=== PATIENT | male | born 1985 | race African-American/Black ===

== ENCOUNTER 2016-03-03 04:31 | Emergency (ER) | payer MEDICARE, OTHER ==
[~2016-03-03] VITALS: Ht 180.3 cm; Wt 91.0 kg
[~2016-03-03 04:31] MED LIST: ALBU6.7H INH; DOXY100C PO; LORA-474 PO; RISP1 PO
[2016-03-03 04:36] VITALS: BP 132/88; PULSE 74; RESP 16; TEMP 98.2; O2SAT 100
--- NOTE | 2016-03-03 04:55 | PD ---
HPI Chief Complaint: Medication Refill Request Time Seen by Provider: 04:52 Travel History International Travel<30 days: No Contact w/Intl Traveler<30days: No Traveled to known affect area: No History of Present Illness HPI 30-year-old black male presents to emergency department on a voluntary basis requesting psychological evaluation and refill of his medications. He states that he has not been taking any medications currently. He states that he does not know what his medicines are but he would like to get a refill. He states that his medications are typically prescribed by the doctors here at our psych department. He normally is supposed to follow-up with [facility] but typically does not. He denies any suicidal homicidal ideation. No toxic ingestion. He states that he has not been sleeping and he is having variations in mood. He does smoke cigarettes and drink alcohol. He does do drugs on occasion. PFSH Past Medical History Anxiety: No Cancer: No Cardiovascular Problems: Yes (V-FIB IN PAST) Diabetes: No Diminished Hearing: No Endocrine: No Gastrointestinal Disorders: No Genitourinary: No Immune Disorder: No Implanted Vascular Access Dvce: No Musculoskeletal: No Neurologic: No Psychiatric: Yes (ELIZALDE ACTED IN THE PAST) Respiratory: No Immunizations Current: Yes Schizophrenia: Yes Past Surgical History Other Surgery: No Social History Alcohol Use: Yes (MONTHLY) Tobacco Use: Yes (PPD) Substance Use: No Allergies-Medications (Allergen,Severity, Reaction): Coded Allergies: Abilify (Verified Allergy, Severe, SEIZURE, 01/21/16) Reported Meds & Prescriptions Reported Meds & Active Scripts Active Ativan (Lorazepam) 1 Mg Tab 1 Mg PO DAILY PRN Review of Systems Except as stated in HPI: all other systems reviewed are Neg Physical Exam Narrative GENERAL: Well-nourished, well-developed patient. SKIN: Warm and dry. HEAD: Normocephalic and atraumatic. EYES: No scleral icterus. No injection or drainage. ENT: No nasal drainage noted. Mucous membranes pink. Airway patent. NECK: Supple, trachea midline. Moves head freely without obvious discomfort. CARDIOVASCULAR: Regular rate and rhythm without murmurs, gallops, or rubs. RESPIRATORY: Breath sounds equal bilaterally. No accessory muscle use. GASTROINTESTINAL: Abdomen soft, non-tender, nondistended. EXTREMITIES: No cyanosis or edema. BACK: Nontender without obvious deformity. No CVA tenderness. NEURO: Patient is alert and oriented. no sensorimotor deficits. Nonfocal. Normal speech. PSYCH: No delusions. No auditory or visual hallucinations. Data Data Last Documented VS Vital Signs Date Time Temp Pulse Resp B/P Pulse Ox O2 Delivery O2 Flow Rate FiO2 03/03/16 04:36 98.2 74 16 132/88 100 Orders Psych Screen (03/03/16 04:52) MDM Medical Decision Making Medical Screen Exam Complete: Yes Emergency Medical Condition: Yes Medical Record Reviewed: Yes Differential Diagnosis MDM: High Differential diagnoses: Schizophrenia, schizoaffective disorder, bipolar, anxiety, depression, adjustment reaction, mood disorder NOS, ODD, depressive disorder NOS, dementia, dementia with agitation, psychosis NOS, substance induced mood disorder, intermittent explosive disorder, Asperger syndrome, infection,electrolyte abnormality, malingering. Narrative Course Mental health screening discussed with the patient. Psychiatric screen ordered. The patient is been medically cleared. The patient will be seen by the psych crisis in the morning. This is schizoaffective disorder Diagnosis Primary Impression: SCHIZOAFFECTIVE DISORDER, UNSPECIFIED Condition: Stable Marcelino Vale Mar 03, 2016 04:54
[2016-03-03 07:00] VITALS: BP 118/74; PULSE 77; RESP 16; TEMP 98.2; O2SAT 99
[2016-03-03 15:32] VITALS: BP 128/78
== END 2016-03-03 15:43 | disposition home or self-care (01) ==
LOC: NEPB 04:31
DX: F25.9 Schizoaffective disorder, unspecified (principal); F17.210 Nicotine dependence, cigarettes, uncomplicated
CPT/HCPCS: 99283

== ENCOUNTER 2016-03-12 06:01 | Emergency (ER) | payer MEDICARE, OTHER ==
[~2016-03-12] VITALS: Ht 180.3 cm; Wt 88.0 kg
[~2016-03-12 06:01] MED LIST changes: -ALBU6.7H INH; -DOXY100C PO; -RISP1 PO
[2016-03-12 06:03] VITALS: BP 126/78; PULSE 74; RESP 14; TEMP 97.5; O2SAT 97
--- NOTE | 2016-03-12 06:28 | PD ---
HPI Chief Complaint: Medical Clearance Time Seen by Provider: 06:24 Travel History International Travel<30 days: No Contact w/Intl Traveler<30days: No Traveled to known affect area: No History of Present Illness HPI 30-year-old black male resents emergency department requesting a refill of medications. He states that he has history of schizoaffective disorder. The patient states that he takes Haldol, and Cogentin. He states that he has no money to purchase his medications. His feet hurt too much to walk to [facility]. He is currently homeless. He does admit to smoking cigarettes, drinking alcohol and smoking marijuana before coming in [facility]. He states that he's having problems sleeping. He's having racing thoughts. He feels disorganized. No suicidal or homicidal ideation. PFSH Past Medical History Anxiety: No Cancer: No Diabetes: No Diminished Hearing: No Endocrine: No Gastrointestinal Disorders: No Genitourinary: No Immune Disorder: No Implanted Vascular Access Dvce: No Musculoskeletal: No Neurologic: No Psychiatric: Yes (TONIO ACTED IN THE PAST) Respiratory: No Immunizations Current: Yes Schizophrenia: Yes Past Surgical History Surgical History: No Previous Surgery Other Surgery: No Social History Alcohol Use: Yes (MONTHLY) Tobacco Use: Yes (PPD) Substance Use: Yes Allergies-Medications (Allergen,Severity, Reaction): Coded Allergies: Abilify (Verified Allergy, Severe, SEIZURE, 03/12/16) Reported Meds & Prescriptions Reported Meds & Active Scripts Active Ativan (Lorazepam) 1 Mg Tab 1 Mg PO DAILY PRN Review of Systems Except as stated in HPI: all other systems reviewed are Neg Physical Exam Narrative GENERAL: Well-nourished, well-developed patient. Patient smells of marijuana and appears under the influence of drugs. SKIN: Warm and dry. HEAD: Normocephalic and atraumatic. EYES: No scleral icterus. No injection or drainage. ENT: No nasal drainage noted. Mucous membranes pink. Airway patent. NECK: Supple, trachea midline. Moves head freely without obvious discomfort. CARDIOVASCULAR: Regular rate and rhythm without murmurs, gallops, or rubs. RESPIRATORY: Breath sounds equal bilaterally. No accessory muscle use. GASTROINTESTINAL: Abdomen soft, non-tender, nondistended. EXTREMITIES: No cyanosis or edema. BACK: Nontender without obvious deformity. No CVA tenderness. NEURO: Patient is alert and oriented. no sensorimotor deficits. Nonfocal. Normal speech. PSYCH: No delusions. No auditory or visual hallucinations. Data Data Last Documented VS Vital Signs Date Time Temp Pulse Resp B/P Pulse Ox O2 Delivery O2 Flow Rate FiO2 03/12/16 06:03 97.5 74 14 126/78 97 Room Air MDM Medical Decision Making Medical Screen Exam Complete: Yes Emergency Medical Condition: Yes Medical Record Reviewed: Yes Differential Diagnosis MDM: High Differential diagnoses: Schizophrenia, schizoaffective disorder, bipolar, anxiety, depression, adjustment reaction, mood disorder NOS, ODD, depressive disorder NOS, dementia, dementia with agitation, psychosis NOS, substance induced mood disorder, intermittent explosive disorder, Asperger syndrome, infection,electrolyte abnormality, malingering. Narrative Course The patient is not suicidal or homicidal. Requesting a refill of medicines. He admittedly states that he had been drinking alcohol and smoking marijuana before coming in. He states that he has no way to get to [facility]. His feet hurt. I spoke with Stacy in the psych department that she is going to come down and give the patient information regarding our [facility] here which is only one block away. They can assist with medications. This is schizoaffective disorder, homelessness, substance abuse Diagnosis Primary Impression: SCHIZOAFFECTIVE DISORDER, UNSPECIFIED Additional Impressions: Homelessness Substance abuse Patient Instructions: General Instructions Additional Instructions: Rest. Follow-up with the recommendations of the psych screener. Med/Other Pt SpecificInfo: No Meds Exist/No RX given Disposition: 01 DISCHARGE HOME Condition: Stable Marcelino Vale Mar 12, 2016 06:28
== END 2016-03-12 06:56 | disposition home or self-care (01) ==
LOC: NEPB 06:01
DX: F25.9 Schizoaffective disorder, unspecified (principal); F19.10 Other psychoactive substance abuse, uncomplicated; F17.200 Nicotine dependence, unspecified, uncomplicated; Z59.0 Homelessness; Z79.899 Other long term (current) drug therapy
CPT/HCPCS: 99283

== ENCOUNTER 2016-03-19 00:17 | Emergency (ER) | payer MEDICARE, OTHER ==
[~2016-03-19] VITALS: Ht 182.9 cm; Wt 86.0 kg
[2016-03-19 00:21] VITALS: BP 166/98; PULSE 92; RESP 16; TEMP 97.8; O2SAT 99
[2016-03-19] MEDS ORDERED: IBUPROFEN 600 MG TAB PO ONE (01:15)
[2016-03-19] MEDS ORDERED: IBUP400T20 PO (01:19)
--- NOTE | 2016-03-19 01:19 | PD ---
HPI Chief Complaint: Medical Clearance Time Seen by Provider: 01:14 Travel History International Travel<30 days: No Contact w/Intl Traveler<30days: No Traveled to known affect area: No History of Present Illness HPI 30-year-old man who presents to the emergency department complaining that he's been having severe pain all over and memory problems ongoing for the past 2-3 weeks. He has a history of schizophrenia. Off his medications for some time. He states he has not been following up with his psychiatrist. History Past Medical History Narrative Medical Schizophrenia Past Surgical History Surgical History: No Previous Surgery Social History Alcohol Use: Yes (daily) Tobacco Use: Yes (1 ppd) Allergies-Medications (Allergen,Severity, Reaction): Coded Allergies: Abilify (Verified Allergy, Severe, SEIZURE, 03/19/16) Reported Meds & Prescriptions Reported Meds & Active Scripts Active Active Prescriptions or Reported Medications Unobtainable Review of Systems Except as stated in HPI: all other systems reviewed are Neg Physical Exam Narrative GENERAL: 30-year-old man, no acute distress. SKIN: Warm and dry. CARDIOVASCULAR: Regular rate and rhythm. No murmur appreciated. RESPIRATORY: No accessory muscle use. Clear to auscultation. Breath sounds equal bilaterally. GASTROINTESTINAL: Abdomen soft, non-tender, nondistended. Hepatic and splenic margins not palpable. MUSCULOSKELETAL: No obvious deformities. No edema. NEUROLOGICAL: Awake and alert. No obvious cranial nerve deficits. Motor grossly within normal limits. Normal speech. PSYCHIATRIC: Appropriate mood and affect; insight and judgment normal. Not responding to internal stimuli. Data Data Last Documented VS Vital Signs Date Time Temp Pulse Resp B/P Pulse Ox O2 Delivery O2 Flow Rate FiO2 03/19/16 00:21 97.8 92 16 166/98 99 Room Air Orders Ibuprofen (Motrin) (03/19/16 01:15) MDM Medical Decision Making Medical Screen Exam Complete: Yes Emergency Medical Condition: Yes Differential Diagnosis Foot pain, schizophrenia, other Narrative Course Medical decision making 30 year-old man, complaining of pain all over especially in his feet. He has foot pain from walking, and poor foot hygiene. He has a schizoaffective disorder. Recommend outpatient follow-up with [facility]. Diagnosis Primary Impression: Foot pain Qualified Code: M79.671 - Pain in both feet Additional Impression: SCHIZOAFFECTIVE DISORDER, UNSPECIFIED Referrals: [facility] week Additional Instructions: Take ibuprofen as needed for foot pain. Follow-up with [facility] for further evaluation and treatment of your schizophrenia. Med/Other Pt SpecificInfo: Prescription(s) given Scripts Ibuprofen 400 Mg [id number] Mg PO Q8H PRN (PAIN SCALE 1 TO 10) #14 TAB Ref 0 Prov:Roderick Sanon MD 03/19/16 Disposition: 01 DISCHARGE HOME Condition: Stable Roderick Sanon MD Mar 19, 2016 01:19
== END 2016-03-19 01:30 | disposition home or self-care (01) ==
LOC: NEPC 00:17
DX: M79.671 Pain in right foot (principal); M79.672 Pain in left foot; F25.9 Schizoaffective disorder, unspecified; F17.210 Nicotine dependence, cigarettes, uncomplicated
CPT/HCPCS: 99283

== ENCOUNTER 2016-03-25 01:39 | Emergency (ER) | payer MEDICARE, OTHER ==
[~2016-03-25] VITALS: Ht 182.9 cm; Wt 92.0 kg
[~2016-03-25 01:39] MED LIST changes: +IBUP400T20 PO; -LORA-474 PO
[2016-03-25 01:41] VITALS: BP 142/103; PULSE 88; RESP 18; TEMP 97.8; O2SAT 97
[2016-03-25 02:23] LABS: MEAN CORPUSCULAR HGB CONC 36.2 % (32.0-36.0)
--- NOTE | 2016-03-25 02:25 | PD ---
HPI Chief Complaint: Psychiatric Symptoms Time Seen by Provider: 02:25 Travel History International Travel<30 days: No Contact w/Intl Traveler<30days: No Traveled to known affect area: No History of Present Illness HPI 30-year-old male with history of schizoaffective disorder presents to the emergency department voluntarily for psychiatric evaluation. Patient claims that he is being bullied and "gas lit" people who were supposed to be his friends. He would also like a DNA test. Denies suicidal or homicidal ideations. States that he needs a psychiatric evaluation. Has been off his psychiatric medications. Denies any acute medical needs. PFSH Past Medical History Anxiety: No Cancer: No Diabetes: No Diminished Hearing: No Endocrine: No Gastrointestinal Disorders: No Genitourinary: No Immune Disorder: No Implanted Vascular Access Dvce: No Musculoskeletal: No Neurologic: No Psychiatric: Yes Respiratory: No Immunizations Current: Yes Schizophrenia: Yes Past Surgical History Surgical History: No Previous Surgery Other Surgery: No Social History Alcohol Use: Yes (daily) Tobacco Use: Yes (1 ppd) Substance Use: Yes (marijaunia, cocaine several times a day) Allergies-Medications (Allergen,Severity, Reaction): Coded Allergies: Abilify (Verified Allergy, Severe, SEIZURE, 03/25/16) Reported Meds & Prescriptions Reported Meds & Active Scripts Active Review of Systems Except as stated in HPI: all other systems reviewed are Neg Physical Exam Narrative GENERAL: Well-nourished male patient, ambulatory and in no acute distress SKIN: Warm and dry. HEAD: Atraumatic. Normocephalic. EYES: Pupils equal and round. No scleral icterus. No injection or drainage. ENT: No nasal bleeding or discharge. Mucous membranes pink and moist. NECK: Trachea midline. No JVD. CARDIOVASCULAR: Regular rate and rhythm. No murmur appreciated. RESPIRATORY: No accessory muscle use. Clear to auscultation. Breath sounds equal bilaterally. GASTROINTESTINAL: Abdomen soft, non-tender, nondistended. Hepatic and splenic margins not palpable. MUSCULOSKELETAL: No obvious deformities. No clubbing. No cyanosis. No edema. NEUROLOGICAL: Awake and alert. No obvious cranial nerve deficits. Motor grossly within normal limits. Normal speech. PSYCHIATRIC: Bizarre behavior with paranoid tendencies Data Data Last Documented VS Vital Signs Date Time Temp Pulse Resp B/P Pulse Ox O2 Delivery O2 Flow Rate FiO2 03/25/16 02:07 16 03/25/16 01:41 97.8 88 142/103 97 Room Air Orders Complete Blood Count With Diff (03/25/16 02:21) Basic Metabolic Panel (Bmp) (03/25/16 02:21) Psych Screen (03/25/16 02:21) Drug Screen, Random Urine (03/25/16 02:21) Alcohol (Ethanol) (03/25/16 02:21) Olanzapine Odt (Zyprexa Zydis Odt) (03/25/16 03:45) Labs Laboratory Tests Test 03/25/16 02:28 White Blood Count 5.0 TH/MM3 Red Blood Count 4.16 MIL/MM3 Hemoglobin 14.1 GM/DL Hematocrit 39.0 % Mean Corpuscular Volume 93.8 FL Mean Corpuscular Hemoglobin 34.0 PG Mean Corpuscular Hemoglobin 36.2 % Concent Red Cell Distribution Width 12.1 % Platelet Count 322 TH/MM3 Mean Platelet Volume 7.5 FL Neutrophils (%) (Auto) 51.4 % Lymphocytes (%) (Auto) 38.3 % Monocytes (%) (Auto) 8.9 % Eosinophils (%) (Auto) 0.8 % Basophils (%) (Auto) 0.6 % Neutrophils # (Auto) 2.6 TH/MM3 Lymphocytes # (Auto) 1.9 TH/MM3 Monocytes # (Auto) 0.4 TH/MM3 Eosinophils # (Auto) 0.0 TH/MM3 Basophils # (Auto) 0.0 TH/MM3 CBC Comment AUTO DIFF Differential Comment AUTO DIFF CONFIRMED Platelet Estimate NORMAL Platelet Morphology Comment NORMAL Red Cell Morphology Comment NORMAL Sodium Level 137 MEQ/L Potassium Level 3.5 MEQ/L Chloride Level 104 MEQ/L Carbon Dioxide Level 25.3 MEQ/L Anion Gap 8 MEQ/L Blood Urea Nitrogen 15 MG/DL Creatinine 0.98 MG/DL Estimat Glomerular Filtration 110 ML/MIN Rate Random Glucose 91 MG/DL Calcium Level 9.0 MG/DL Urine Opiates Screen NEG Urine Barbiturates Screen NEG Urine Amphetamines Screen POS Urine Benzodiazepines Screen NEG Urine Cocaine Screen NEG Urine Cannabinoids Screen POS Ethyl Alcohol Level LESS THAN 3 MG/DL MDM Medical Decision Making Medical Screen Exam Complete: Yes Emergency Medical Condition: Yes Medical Record Reviewed: Yes Differential Diagnosis Mood disorder versus personality disorder versus adjustment reaction disorder versus substance abuse Narrative Course Old male presents to emergency department requesting psychiatric evaluation. Patient appears without distress. He is paranoid and with bizarre behavior but nonthreatening. Denies any suicidal homicidal ideations. CBC and BMP are without acute concern. Toxicology is positive for cannabinoids and amphetamines. Patient is medically cleared to undergo psychiatric screening for further evaluation and disposition. Mental health screening discussed with the patient. Psychiatric screen ordered. Diagnosis Primary Impression: SCHIZOAFFECTIVE DISORDER, UNSPECIFIED Additional Impression: Substance abuse Condition: Stable Brittany Hines Mar 25, 2016 02:25
[2016-03-25 02:55] LABS: AUTOMATED NEUTROPHIL # 2.6 TH/MM3 (1.8-7.7); BASOPHIL % 0.6 % (0.0-2.0); EOSINOPHIL % 0.8 % (0.0-4.0); LYMPH % 38.3 % (9.0-44.0); LYMPHOCYTE # 1.9 TH/MM3 (1.0-4.8); MEAN CELL VOLUME 93.8 FL (80.0-100.0); MONO % 8.9 % (0.0-8.0); NEUT % 51.4 % (16.0-70.0); PLATELET COUNT 322 TH/MM3 (150-450); RED BLOOD COUNT 4.16 MIL/MM3 (4.50-5.90); RED CELL DISTRIBUTION WIDTH 12.1 % (11.6-17.2)
[2016-03-25 02:57] LABS: HEMO FLAGS AUTO DIFF
[2016-03-25 03:02] LABS: AMPHETAMINE, URINE POS (NEG); BARBITURATES, URINE NEG (NEG); COCAINE, URINE NEG (NEG)
[2016-03-25 03:07] LABS: ANION GAP 8 MEQ/L (5-15); BICARBONATE 25.3 MEQ/L (21.0-32.0); BLOOD UREA NITROGEN 15 MG/DL (7-18); CHLORIDE 104 MEQ/L (98-107); GLOMERULAR FILTRATION RATE 110 ML/MIN (>89); POTASSIUM 3.5 MEQ/L (3.5-5.1); SODIUM (NA) 137 MEQ/L (136-145)
[2016-03-25 03:43] LABS: PLATELET ESTIMATE SMEAR NORMAL (NORMAL); PLATELET MORPHOLOGY NORMAL (NORMAL); SCAN/DIFF AUTO DIFF CONFIRMED
[2016-03-25] MEDS ORDERED: OLANZapine ODT 5 MG TAB PO PRN (03:45)
[2016-03-25 06:18] VITALS: BP 138/89; PULSE 94; RESP 18; O2SAT 99
[2016-03-25 10:23] VITALS: BP 133/64; PULSE 95; RESP 18; O2SAT 100
[2016-03-25] MEDS ORDERED: HALOPERIDOL LACTATE 5 MG/ML AMP IM ONE (11:15)
[2016-03-25] MEDS ORDERED: diphenhydrAMINE HCL 50 MG/ML VIAL IM PRN (11:15)
--- NOTE | 2016-03-25 11:36 | PD ---
Physical Exam Date Seen by Provider: Mar 25, 2016 Time Seen by Provider: 11:34 Narrative Called to see the patient by the psychiatric nursing staff with complaints of right groin pain. Patient had no complaints of this earlier when he came in voluntarily. Patient is currently in J pod with agitation and psychotic behavior. Patient was medically cleared previous to this by Brittany CARBALLO. Patient denies changes in urination. Any lumps or bumps. Or abscess. He is allergic to Abilify. Data Data Last Documented VS Vital Signs Date Time Temp Pulse Resp B/P Pulse Ox O2 Delivery O2 Flow Rate FiO2 03/25/16 10:23 95 18 133/64 100 Room Air 03/25/16 01:41 97.8 Orders Complete Blood Count With Diff (03/25/16 02:21) Basic Metabolic Panel (Bmp) (03/25/16 02:21) Psych Screen (03/25/16 02:21) Drug Screen, Random Urine (03/25/16 02:21) Alcohol (Ethanol) (03/25/16 02:21) Olanzapine Odt (Zyprexa Zydis Odt) (03/25/16 03:45) Diet Regular Basic (03/25/16 Breakfast) Diet Regular Basic (03/25/16 Lunch) Haloperidol Inj (Haldol Inj) (03/25/16 11:15) Diphenhydramine Inj (Benadryl Inj) (03/25/16 11:15) Labs Laboratory Tests Test 03/25/16 02:28 White Blood Count 5.0 TH/MM3 Red Blood Count 4.16 MIL/MM3 Hemoglobin 14.1 GM/DL Hematocrit 39.0 % Mean Corpuscular Volume 93.8 FL Mean Corpuscular Hemoglobin 34.0 PG Mean Corpuscular Hemoglobin 36.2 % Concent Red Cell Distribution Width 12.1 % Platelet Count 322 TH/MM3 Mean Platelet Volume 7.5 FL Neutrophils (%) (Auto) 51.4 % Lymphocytes (%) (Auto) 38.3 % Monocytes (%) (Auto) 8.9 % Eosinophils (%) (Auto) 0.8 % Basophils (%) (Auto) 0.6 % Neutrophils # (Auto) 2.6 TH/MM3 Lymphocytes # (Auto) 1.9 TH/MM3 Monocytes # (Auto) 0.4 TH/MM3 Eosinophils # (Auto) 0.0 TH/MM3 Basophils # (Auto) 0.0 TH/MM3 CBC Comment AUTO DIFF Differential Comment AUTO DIFF CONFIRMED Platelet Estimate NORMAL Platelet Morphology Comment NORMAL Red Cell Morphology Comment NORMAL Sodium Level 137 MEQ/L Potassium Level 3.5 MEQ/L Chloride Level 104 MEQ/L Carbon Dioxide Level 25.3 MEQ/L Anion Gap 8 MEQ/L Blood Urea Nitrogen 15 MG/DL Creatinine 0.98 MG/DL Estimat Glomerular Filtration 110 ML/MIN Rate Random Glucose 91 MG/DL Calcium Level 9.0 MG/DL Urine Opiates Screen NEG Urine Barbiturates Screen NEG Urine Amphetamines Screen POS Urine Benzodiazepines Screen NEG Urine Cocaine Screen NEG Urine Cannabinoids Screen POS Ethyl Alcohol Level LESS THAN 3 MG/DL MDM Medical Record Reviewed: Yes Supervised Visit with GREGORIO: Yes Differential Diagnosis Psychosis. Groin strain. Abscess. Ingrown hair. Hernia. Narrative Course Patient's medically stable at time of exam. Exam of the groin and genitalia show no acute signs of abscess, pneumonia, or hernia. Patient is medically cleared. Diagnosis Primary Impression: SCHIZOAFFECTIVE DISORDER, UNSPECIFIED Additional Impression: Substance abuse Scripts Unable to Obtain Active Prescriptions or Reported Meds Condition: Stable Vic Coelho Mar 25, 2016 11:36
[2016-03-25] MEDS ORDERED: LORazepam 2 MG/ML VIAL ONE (11:37)
--- NOTE | 2016-03-25 12:16 | PD ---
History of Present Illness Chief Complaint: Psychiatric Symptoms Time Seen by Provider: 10:45 Travel History International Travel<30 Days: No Contact w/Intl Traveler<30days: No Known affected area: No Legal Status Legal Status: Puente Act Puente Act Comment: HARIS Wheeler History of Present Illness: History of Present Illness HPI 30-year-old male with history of schizophrenia and substance use disorder who presents to the emergency department voluntarily for psychiatric evaluation. As per Ed documentation " Patient claims that he is being bullied and "gas lit" people who were supposed to be his friends. He would also like a DNA test. Denies suicidal or homicidal ideations. States that he needs a psychiatric evaluation. Has been off his psychiatric medications. Denies any acute medical needs". Patient is well known to [facility] as he has been seen multiple times. He has presented to the ED on a weekly basis for the past month for medication refills as well as other complaints. His past psychiatric hospitalization was December 30, 2015 under the care of Dr. Crowley. He has not complied with his recommended outpatient care after his discharge. On this visit his toxicology is positive for amphetamine. He also presented with several identifications/ wallets that did not belong to him as well as a large amount of dueñas.His main request is to be helped with housing as he is homeless. Patient is awake. He is agitated and is pacing on the unit and glaring at staff. He refused to speak with staff and was demanding to speak only with a psychiatrist. He is observed talking to himself in a very low whisper. He tells me that he is here because of " abuses in general" and " being mishandled ". He does not provide any other information. he also states " I need my family. It's time to recover ans It's time to take action". He would not elaborate on any of these statements. He continues to demand to speak with an advocate to help him with his housing. When he is confronted with the fact that he has a large amount of money and his reason for not securing retirement he becomes agitated and refuses to answer any further questions. He then begins to complain of severe pain in his leg. He was evaluated by Ed provider. At t6his time it is felt that he requires further evaluation and monitoring and I have placed him under a BA. Melody has required an ETO due to agitated behavior. PFSH Past Medical History Anxiety: No Cancer: No Diabetes: No Diminished Hearing: No Endocrine: No Gastrointestinal Disorders: No Genitourinary: No Immune Disorder: No Implanted Vascular Access Dvce: No Musculoskeletal: No Neurologic: No Psychiatric: Yes Respiratory: No Immunizations Current: Yes Schizophrenia: Yes Past Surgical History Surgical History: No Previous Surgery Other Surgery: No Psychiatric History Psychiatric History Hx Psychiatric Treatment: Patient was discharged from this facility on 12/2015; known to take street drugs to help with the voices." History of Inpatient Treatment: Yes Guns or firearms in home: No Social History Single male. Homeless Hx Alcohol Use: Yes (daily) Hx Tobacco Use: Yes (1 ppd) Hx Substance Use: Yes (marijaunia, cocaine ) Substance Use Type: Marijuana, Amphetamines-Stimulants, Cocaine Hx of Substance Use Treatment: No Family Psychiatric History Unknown Allergies-Medications (Allergen,Severity, Reaction): Coded Allergies: Abilify (Verified Allergy, Severe, SEIZURE, 03/25/16) Reported Meds & Prescriptions Reported Meds & Active Scripts Active Active Prescriptions or Reported Medications Unobtainable Exam Alert: Yes [place]: Person (ox4) Mood: Agitated, Angry Affect: Other (congruent) Speech: Clear, Illogical Eye Contact: Staring Memory Intact: Comment (not tested) Hallucinations: Auditory (appears to be responding to internal stimuli) Delusions: Yes Delusion Type: Paranoid Suicidal: Ideation (negative) Homicidal: Ideation (negative) Insight/Judgement poor. impaired MDM Medical Decision Making Medical Record Reviewed: Yes Assessment/Plan 30 year old with history of schizophrenia and substance abuse , currently non medication compliant and positive for amphetamine who presents to ED on a voluntary basis. Patient presents agitated with disorganized thought process. he is paranoid and responding to internal stimuli. At this time patient requires inpatient treatment to maintain safety, stabilize symptoms. Case is discussed with Dr. Leonel Crowley who recommends that patient be transferred to [facility] for treatment of substance abuse as well as psychiatric follow up. Will have staff present patient for admission. Orders Complete Blood Count With Diff (03/25/16 02:21) Basic Metabolic Panel (Bmp) (03/25/16 02:21) Psych Screen (03/25/16 02:21) Drug Screen, Random Urine (03/25/16 02:21) Alcohol (Ethanol) (03/25/16 02:21) Olanzapine Odt (Zyprexa Zydis Odt) (03/25/16 03:45) Diet Regular Basic (03/25/16 Breakfast) Diet Regular Basic (03/25/16 Lunch) Haloperidol Inj (Haldol Inj) (03/25/16 11:15) Diphenhydramine Inj (Benadryl Inj) (03/25/16 11:15) Lorazepam Inj (Ativan Inj) (03/25/16 11:37) Lorazepam Inj (Ativan Inj) (03/25/16 13:00) Results Vital Signs Date Time Temp Pulse Resp B/P Pulse Ox O2 Delivery O2 Flow Rate FiO2 03/25/16 10:23 95 18 133/64 100 Room Air 03/25/16 06:18 94 18 138/89 99 Room Air 03/25/16 02:07 16 03/25/16 01:41 97.8 88 18 142/103 97 Room Air Laboratory Tests Test 03/25/16 02:28 White Blood Count 5.0 Red Blood Count 4.16 Hemoglobin 14.1 Hematocrit 39.0 Mean Corpuscular Volume 93.8 Mean Corpuscular Hemoglobin 34.0 Mean Corpuscular Hemoglobin 36.2 Concent Red Cell Distribution Width 12.1 Platelet Count 322 Mean Platelet Volume 7.5 Neutrophils (%) (Auto) 51.4 Lymphocytes (%) (Auto) 38.3 Monocytes (%) (Auto) 8.9 Eosinophils (%) (Auto) 0.8 Basophils (%) (Auto) 0.6 Neutrophils # (Auto) 2.6 Lymphocytes # (Auto) 1.9 Monocytes # (Auto) 0.4 Eosinophils # (Auto) 0.0 Basophils # (Auto) 0.0 CBC Comment AUTO DIFF Differential Comment AUTO DIFF CONFIRMED Platelet Estimate NORMAL Platelet Morphology Comment NORMAL Red Cell Morphology Comment NORMAL Sodium Level 137 Potassium Level 3.5 Chloride Level 104 Carbon Dioxide Level 25.3 Anion Gap 8 Blood Urea Nitrogen 15 Creatinine 0.98 Estimat Glomerular Filtration 110 Rate Random Glucose 91 Calcium Level 9.0 Urine Opiates Screen NEG Urine Barbiturates Screen NEG Urine Amphetamines Screen POS Urine Benzodiazepines Screen NEG Urine Cocaine Screen NEG Urine Cannabinoids Screen POS Ethyl Alcohol Level LESS THAN 3 Diagnosis Primary Impression: Schizophrenia Additional Impression: Substance abuse Prescriptions Unable to Obtain Active Prescriptions or Reported Meds Condition: Stable Problem Qualifiers Primary Impression: Schizophrenia Qualified Code: F20.0 - Paranoid schizophrenia Lucia Madrigal Mar 25, 2016 12:16
[2016-03-25] MEDS ORDERED: ACETAMINOPHEN 325 MG TAB PO PRN (13:00)
[2016-03-25] MEDS ORDERED: ALUMINUM/MAGNESIUM/SIMETH 30 ML CUP PO PRN (13:00)
[2016-03-25] MEDS ORDERED: MAGNESIUM HYDROXIDE SUSP 30 ML CUP PO PRN (13:00)
[2016-03-25] MEDS ORDERED: LORazepam 2 MG/ML VIAL IM ONE (13:00)
[2016-03-25 14:35] VITALS: BP 125/68; PULSE 72; RESP 18; O2SAT 99
== END 2016-03-25 16:41 ==
LOC: NEPB 01:39 → NEDA 12:57 → UNDOADMIN 12:57 → UNDODISIN 16:00
DX: F20.0 Paranoid schizophrenia (principal); F17.210 Nicotine dependence, cigarettes, uncomplicated; F12.90 Cannabis use, unspecified, uncomplicated; F14.90 Cocaine use, unspecified, uncomplicated
CPT/HCPCS: 80048; 80307; 80320; 85025; 96372; 99284; J1200; J1630; J2060

== ENCOUNTER 2016-09-21 09:44 | Inpatient (IN) | payer MEDICARE, OTHER ==
[~2016-09-21] VITALS: Ht 180.3 cm; Wt 83.7 kg
[2016-09-21 09:45] VITALS: BP 144/93; PULSE 123; RESP 20; TEMP 99.3; O2SAT 98
--- NOTE | 2016-09-21 11:11 | PD ---
HPI Chief Complaint: Psychiatric Symptoms Time Seen by Provider: 10:20 Travel History International Travel<30 days: No Contact w/Intl Traveler<30days: No Traveled to known affect area: No History of Present Illness HPI The patient is a 31-year-old [place] male who presents emergency department for psychiatric evaluation. The patient states that he is disoriented after drinking alcohol last night. The patient states she has a history of schizophrenia and has been off his medications which include Haldol, Seroquel, and Cogentin for approximately 3 months. The patient is requesting psychiatric evaluation so he can be placed back on his medications. The patient denies any illicit drug use, is unable to quantify how much alcohol he drank last night, and denies any current hallucinations or delusions. The patient denies any current physical complaints. Symptoms are mild to moderate, possibly exacerbated by alcohol use and a history of schizophrenia. PFSH Past Medical History Anxiety: No Depression: Yes Cancer: No Diabetes: No Diminished Hearing: No Endocrine: No Gastrointestinal Disorders: No Genitourinary: No Immune Disorder: No Implanted Vascular Access Dvce: No Musculoskeletal: No Neurologic: No Psychiatric: Yes Respiratory: No Immunizations Current: Yes Schizophrenia: Yes Past Surgical History Surgical History: No Previous Surgery Other Surgery: No Social History Alcohol Use: Yes (daily) Tobacco Use: Yes (1 ppd) Substance Use: Yes (marijaunia, cocaine ) Allergies-Medications (Allergen,Severity, Reaction): Coded Allergies: Abilify (Verified Allergy, Severe, SEIZURE, 09/21/16) Reported Meds & Prescriptions Reported Meds & Active Scripts Active No Active Prescriptions or Reported Medications Review of Systems Except as stated in HPI: all other systems reviewed are Neg General / Constitutional: No: Fever HENT: No: Headaches, Lightheadedness Cardiovascular: No: Chest Pain or Discomfort Respiratory: No: Shortness of Breath Gastrointestinal: No: Nausea, Vomiting, Abdominal Pain Neurologic: Positive: Change in Mentation (patient states he is disoriented after drinking alcohol last night) Psychiatric: Positive: Disorder of Thought, Substance Abuse (alcohol use), No : Suicidal Ideations, Homicidal Ideation Physical Exam Narrative GENERAL: Awake, alert, pleasant 31-year-old male who appears his stated age and is in no acute respiratory distress. SKIN: Focused skin assessment warm/dry. HEAD: Atraumatic. Normocephalic. EYES: Pupils equal and round. Pupils are 3 mm bilateral and reactive. Mild injection bilaterally. ENT: No nasal bleeding or discharge. Mucous membranes pink and moist. NECK: Trachea midline. No JVD. CARDIOVASCULAR: Regular, tachycardic with a heart rate of 105.. RESPIRATORY: No accessory muscle use. Clear to auscultation. Breath sounds equal bilaterally. GASTROINTESTINAL: Abdomen soft, non-tender, nondistended. No rebound tenderness. MUSCULOSKELETAL: No obvious deformities. No clubbing. No cyanosis. No edema. NEUROLOGICAL: Awake and alert. No obvious cranial nerve deficits. Motor grossly within normal limits. Normal speech. Nonfocal. 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 PSYCHIATRIC: Odd affect. Data Data Last Documented VS Vital Signs Date Time Temp Pulse Resp B/P Pulse Ox O2 Delivery O2 Flow Rate FiO2 09/21/16 10:17 18 09/21/16 09:45 99.3 123 144/93 98 Room Air Orders Complete Blood Count With Diff (09/21/16 10:20) Comprehensive Metabolic Panel (09/21/16 10:20) Psych Screen (09/21/16 10:20) Drug Screen, Random Urine (09/21/16 10:20) Alcohol (Ethanol) (09/21/16 10:20) Labs Laboratory Tests Test 09/21/16 09/21/16 10:30 10:35 Urine Opiates Screen NEG Urine Barbiturates Screen NEG Urine Amphetamines Screen NEG Urine Benzodiazepines Screen NEG Urine Cocaine Screen NEG Urine Cannabinoids Screen POS White Blood Count 6.0 TH/MM3 Red Blood Count 4.43 MIL/MM3 Hemoglobin 14.7 GM/DL Hematocrit 42.3 % Mean Corpuscular Volume 95.4 FL Mean Corpuscular Hemoglobin 33.2 PG Mean Corpuscular Hemoglobin 34.8 % Concent Red Cell Distribution Width 13.0 % Platelet Count 293 TH/MM3 Mean Platelet Volume 7.6 FL Neutrophils (%) (Auto) 69.3 % Lymphocytes (%) (Auto) 21.0 % Monocytes (%) (Auto) 9.1 % Eosinophils (%) (Auto) 0.2 % Basophils (%) (Auto) 0.4 % Neutrophils # (Auto) 4.2 TH/MM3 Lymphocytes # (Auto) 1.3 TH/MM3 Monocytes # (Auto) 0.5 TH/MM3 Eosinophils # (Auto) 0.0 TH/MM3 Basophils # (Auto) 0.0 TH/MM3 CBC Comment DIFF FINAL Differential Comment Sodium Level 138 MEQ/L Potassium Level 3.1 MEQ/L Chloride Level 106 MEQ/L Carbon Dioxide Level 22.7 MEQ/L Anion Gap 9 MEQ/L Blood Urea Nitrogen 10 MG/DL Creatinine 1.01 MG/DL Estimat Glomerular Filtration 105 ML/MIN Rate Random Glucose 96 MG/DL Calcium Level 8.8 MG/DL Total Bilirubin 0.6 MG/DL Aspartate Amino Transf 24 U/L (AST/SGOT) Alanine Aminotransferase 21 U/L (ALT/SGPT) Alkaline Phosphatase 71 U/L Total Protein 8.6 GM/DL Albumin 4.5 GM/DL Ethyl Alcohol Level 119 MG/DL [facility] Medical Decision Making Medical Screen Exam Complete: Yes Emergency Medical Condition: Yes Medical Record Reviewed: Yes Interpretation(s) Laboratory Tests Test 09/21/16 09/21/16 10:30 10:35 Urine Opiates Screen NEG Urine Barbiturates Screen NEG Urine Amphetamines Screen NEG Urine Benzodiazepines Screen NEG Urine Cocaine Screen NEG Urine Cannabinoids Screen POS White Blood Count 6.0 TH/MM3 Red Blood Count 4.43 MIL/MM3 Hemoglobin 14.7 GM/DL Hematocrit 42.3 % Mean Corpuscular Volume 95.4 FL Mean Corpuscular Hemoglobin 33.2 PG Mean Corpuscular Hemoglobin 34.8 % Concent Red Cell Distribution Width 13.0 % Platelet Count 293 TH/MM3 Mean Platelet Volume 7.6 FL Neutrophils (%) (Auto) 69.3 % Lymphocytes (%) (Auto) 21.0 % Monocytes (%) (Auto) 9.1 % Eosinophils (%) (Auto) 0.2 % Basophils (%) (Auto) 0.4 % Neutrophils # (Auto) 4.2 TH/MM3 Lymphocytes # (Auto) 1.3 TH/MM3 Monocytes # (Auto) 0.5 TH/MM3 Eosinophils # (Auto) 0.0 TH/MM3 Basophils # (Auto) 0.0 TH/MM3 CBC Comment DIFF FINAL Differential Comment Sodium Level 138 MEQ/L Potassium Level 3.1 MEQ/L Chloride Level 106 MEQ/L Carbon Dioxide Level 22.7 MEQ/L Anion Gap 9 MEQ/L Blood Urea Nitrogen 10 MG/DL Creatinine 1.01 MG/DL Estimat Glomerular Filtration 105 ML/MIN Rate Random Glucose 96 MG/DL Calcium Level 8.8 MG/DL Total Bilirubin 0.6 MG/DL Aspartate Amino Transf 24 U/L (AST/SGOT) Alanine Aminotransferase 21 U/L (ALT/SGPT) Alkaline Phosphatase 71 U/L Total Protein 8.6 GM/DL Albumin 4.5 GM/DL Ethyl Alcohol Level 119 MG/DL Differential Diagnosis Differential diagnosis includes substance induced mood disorder, alcohol intoxication, polysubstance abuse, schizophrenia, schizoaffective disorder, noncompliance. Narrative Course Labs were drawn and sent. Psychiatric evaluation was ordered. Alcohol level was elevated at 119, potassium was low at 3.1, replaced orally. Patient is medically cleared to be evaluated by psychiatry. Disposition as per psych. Diagnosis Primary Impression: SCHIZOAFFECTIVE DISORDER, UNSPECIFIED Additional Impressions: Alcohol intoxication Qualified Code: F10.920 - Alcoholic intoxication without complication Hypokalemia Scripts No Active Prescriptions or Reported Meds Condition: Stable Chidi Damian MD Sep 21, 2016 11:11
[2016-09-21 11:14] LABS: AUTOMATED NEUTROPHIL # 4.2 TH/MM3 (1.8-7.7); BASOPHIL % 0.4 % (0.0-2.0); EOSINOPHIL % 0.2 % (0.0-4.0); HEMATOCRIT 42.3 % (39.0-51.0); HEMO FLAGS DIFF FINAL; LYMPHOCYTE # 1.3 TH/MM3 (1.0-4.8); MEAN CELL VOLUME 95.4 FL (80.0-100.0); MEAN CORPUSCULAR HEMOGLOBIN 33.2 PG (27.0-34.0); MEAN CORPUSCULAR HGB CONC 34.8 % (32.0-36.0); MONO % 9.1 % (0.0-8.0); NEUT % 69.3 % (16.0-70.0); PLATELET COUNT 293 TH/MM3 (150-450); RED BLOOD COUNT 4.43 MIL/MM3 (4.50-5.90)
[2016-09-21 11:33] LABS: ANION GAP 9 MEQ/L (5-15); AST (GOT) 24 U/L (15-37); BICARBONATE 22.7 MEQ/L (21.0-32.0); BLOOD UREA NITROGEN 10 MG/DL (7-18); CHLORIDE 106 MEQ/L (98-107); GLOMERULAR FILTRATION RATE 105 ML/MIN (>89); POTASSIUM 3.1 MEQ/L (3.5-5.1); SODIUM (NA) 138 MEQ/L (136-145)
[2016-09-21 11:34] LABS: ALT (GPT) 21 U/L (12-78)
[2016-09-21 11:36] LABS: ALKALINE PHOSPHATASE 71 U/L (45-117); TOTAL BILIRUBIN ADULT 0.6 MG/DL (0.2-1.0)
[2016-09-21 11:47] LABS: ALCOHOL 119 MG/DL (0-5)
[2016-09-21] MEDS ORDERED: POTASSIUM CHLORIDE 20 MEQ CONTROLLED RELEASE TAB PO ONE (12:15)
[2016-09-21] MEDS ORDERED: ALUMINUM/MAGNESIUM/SIMETH 30 ML CUP PO PRN (13:45)
[2016-09-21] MEDS ORDERED: LORazepam 2 MG/ML VIAL IM PRN ×2 (13:45→15:00)
[2016-09-21] MEDS ORDERED: LORazepam 0.5 MG TAB PO PRN (13:45)
[2016-09-21 13:56] VITALS: BP 120/76; PULSE 84; RESP 18; O2SAT 100
--- NOTE | 2016-09-21 13:56 | HHI.HP ---
Provisional Diagnosis Admission Date [place] I. Chronic paranoid schizophrenia Certification of Person's Competence To Provide Express and Informed Consent I have personally examined Darin Talley , a person being served at [facility] on, Sep 21, 2016 13:44. Express and informed consent means consent voluntarily given in writing, by a competent person, after sufficient explanation and disclosure of the subject matter involved to enable the person to make a knowing and willful decision without any element of force, fraud, deceit, duress, or other form of constraint or coercion. This person is 18 years of age or older, is not now known to be incompetent to consent to treatment with a guardian advocate, and does not have a health care surrogate or proxy currently making medical treatment decisions. I have found this person to be one of the following: [x] Competent to provide express and informed consent, as defined above, for voluntary admission to this facility and is competent to provide express and informed consent for treatment. He/she has the consistent capacity to make well reasoned, willful, and knowing decisions concerning his or her medical or mental health treatment. The person fully and consistently understands the purpose of the admission for examination/placement and is fully capable of personally exercising all rights assured [place] Incompetent to provide express and informed consent to voluntary admission, and this is incompetent to provide express and informed consent to treatment. The person must be transferred to involuntary status and a petition for a guardian advocate filed with the Circuit Court. [] Refusing to provide express and informed consent to voluntary admission but is competent to provide express and informed consent for treatment. The person must be discharged or transferred to involuntary status. Form shall be completed within 24 hours of a person's arrival at the receiving facility and filed in the clinical record of each person: 1. Admitted on a voluntary basis 2. Permitted to provide express and informed consent to his/her own treatment 3. Allowed to transfer from involuntary to voluntary status 4. Prior to permitting a person to consent to his or her own treatment after having been previously found incompetent to consent to treatment. History of Present Illness Capacity: Has Capacity HPI This is a 31-year-old male being admitted voluntarily for exacerbation of chronic paranoid schizophrenia. Patient explains he was consuming alcohol last night and this made him more confused. He is homeless and he has been off his previous psychotropic medications for the last 3 months. He is supposed to follow up with [facility] but has had difficulty because his paranoia makes him believe he is not welcome there. He does have a history of substance abuse as well as alcohol abuse but is denying significant use of either over the last several weeks. However, whether due to his recent alcohol use or lack of psychotropic medicine, the patient is currently very confused and psychotic. 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 He is homeless, shoeless and obviously malodorous. He continues to report paranoid ideation and that others are racist and plotting against him, trying to harm him. He feels he may have to "take out" those who wish them harm. He admits to experiencing auditory hallucinations, but describes them as denigrating to him. He also admits to visual hallucinations but he is unable to describe these. He states he has not eaten adequately over the last 2 weeks and that he has been dehydrated. Review of Systems ROS Limitations: Clinical Condition Except as stated in HPI: all other systems reviewed are Neg Past Psych History Psychological trauma history Unknown psychological trauma but the patient has been admitted on several occasions to this institution, with diagnoses primarily schizophrenia. Violence risk - others (6 mos) Moderate to high as the patient does have delusions of being persecuted and feels he must "take out" those who are trying to harm him. Violence risk - self (6 mos) Moderate to high as the patient has auditory hallucinations which are critical of him. Substance Abuse History Drugs/Alcohol past 12 months Denied with the exception of alcohol last night. Past Family Social History Coded Allergies: aripiprazole (Unverified Allergy, Severe, SEIZURE, 09/21/16) No Active Prescriptions or Reported Meds Current Medications Medications (Trade) Dose Ordered Sig/Radha Route Start Time Stop Time Status Last Admin (Ativan) 1 mg Q6H PRN PO 09/21/16 13:45 UNV (Ativan Inj) 1 mg Q6H PRN IM 09/21/16 13:45 UNV (Ativan) 0.5 mg Q12H PRN PO 09/21/16 13:45 UNV (Ativan Inj) 0.5 mg Q12H PRN IM 09/21/16 13:45 UNV (Benadryl) 50 mg Q6H PRN PO 09/21/16 13:45 UNV (Benadryl Inj) 50 mg Q6H PRN IM 09/21/16 13:45 UNV (Tylenol) 650 mg Q4H PRN PO 09/21/16 13:45 UNV (Milk Of Magnesia Liq) 30 ml DAILY PRN PO 09/21/16 13:45 UNV (Mag-Al Plus Susp Liq) 30 ml Q6H PRN PO 09/21/16 13:45 UNV (Habitrol 21 Mg Patch.24 Hr) 1 patch DAILY T-DERMAL 09/22/16 09:00 UNV Family History Patient does not know his family mental health history. Social History Patient is actually unemployed. He receives Medicare part a and part B. He is homeless. He does have a history of substance abuse, primarily cocaine. Patient's Strengths (min. 2) Resilient and has access to healthcare. Physical Exam GENERAL: SKIN: Warm and dry. HEAD: Normocephalic. EYES: No scleral icterus. No injection or drainage. NECK: Supple, trachea midline. No JVD or lymphadenopathy. CARDIOVASCULAR: Regular rate and rhythm without murmurs, gallops, or rubs. RESPIRATORY: Breath sounds equal bilaterally. No accessory muscle use. GASTROINTESTINAL: Abdomen soft, non-tender, nondistended. MUSCULOSKELETAL: No cyanosis, or edema. BACK: Nontender without obvious deformity. No CVA tenderness. Vital Signs Vital Signs Date Time Temp Pulse Resp B/P Pulse Ox O2 Delivery O2 Flow Rate FiO2 09/21/16 12:23 99 18 98 09/21/16 09:45 99.3 144/93 Room Air Mental Status Examination Speech: Hesitant Orientation: x3 Memory: Unremarkable Thought Process: Thought Blocking Thought Content: Bizarre thinking, Paranoid Hallucination Type: Auditory Attention and Concentration: Abnormal Suicidal Ideation: Yes Previous Suicide Attempts: No Homicidal Ideation: Yes Previous Homicide Attempts: No Insight: Fair Judgment: Unrealistic Affect: Anxious Affect if Inappropriate: Blunt Mood: Sad Motor Activity: Normal gait Assessment & Plan Problem List: (1) Paranoid type schizophrenia, chronic state with acute exacerbation ICD Code: F20.0 Assessment & Plan Estimated LOS: days. 31-year-old male with multiyear history of schizophrenia , presenting with acute exacerbation due to noncompliance with treatment and medicines and possible recent alcohol use. Patient currently is confused and psychotic. He is alert and oriented to person and place only. He is not well oriented to time or situation. 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 The patient is homeless , shoeless, malodorous, and has no visible means of supporting himself. He is without medication and does not have money to purchase it. He experiences auditory hallucinations and paranoia, which give him suicidal ideation and homicidal ideation. For these reasons, the patient is being admitted for evaluation and treatment. Patient will undergo a CBC and comprehensive metabolic profile. This will be used to determine if any infectious process or metabolic process is causing or contributing to his psychosis. We will also check his thyroid levels, vitamin B -12 levels and vitamin D levels, as abnormalities in these areas can also cause or contributed to his psychoses. He will receive an EKG to assess his cardiac conduction system prior to giving him and I psychotic medications which might interfere with this cardiac conduction. This physician notes the patient has been treated with Risperdal in the past but he has not been compliant or willing to take long-acting injectable medicine. For this reason, this physician wishes to start the patient on Abilify. Director Of Religious Activities involvement will also be sought to assist with information gathering and disposition planning. Nicolas Owens MD Sep 21, 2016 13:56
[2016-09-21] MEDS ORDERED: diphenhydrAMINE HCL 50 MG CAP PO PRN (15:00)
[2016-09-21] MEDS ORDERED: diphenhydrAMINE HCL 50 MG/ML VIAL IM PRN (15:00)
[2016-09-21] MEDS ORDERED: ACETAMINOPHEN 325 MG TAB PO PRN (15:00)
[2016-09-21] MEDS ORDERED: MAGNESIUM HYDROXIDE SUSP 30 ML CUP PO PRN (15:00)
[2016-09-21 15:43] VITALS: BP 125/84; PULSE 88; RESP 12; TEMP 98.4; O2SAT 98
[2016-09-21] MEDS ORDERED: ARIPiprazole 2 MG TAB PO SCH (21:00)
[2016-09-21] MEDS: LORazepam 1 MG TAB PO PRN (21:55)
[2016-09-22 05:09] VITALS: BP 101/61; PULSE 64; RESP 15; TEMP 98.6; O2SAT 99
[2016-09-22] MEDS: REMOVE OLD PATCH T-DERMAL SCH (09:00)
[2016-09-22] MEDS: NICOTINE 21 MG/24 HR PATCH T-DERMAL SCH (09:23)
[2016-09-22] MEDS: LORazepam 1 MG TAB PO PRN ×2 (09:25→22:56)
[2016-09-22 10:55] LABS: AUTOMATED NEUTROPHIL # 1.6 TH/MM3 (1.8-7.7); BASOPHIL % 0.5 % (0.0-2.0); EOSINOPHIL # 0.1 TH/MM3 (0-0.4); HEMATOCRIT 42.8 % (39.0-51.0); HEMO FLAGS DIFF FINAL; LYMPH % 42.3 % (9.0-44.0); LYMPHOCYTE # 1.5 TH/MM3 (1.0-4.8); MEAN CELL VOLUME 97.3 FL (80.0-100.0); MEAN CORPUSCULAR HEMOGLOBIN 32.2 PG (27.0-34.0); MEAN CORPUSCULAR HGB CONC 33.1 % (32.0-36.0); NEUT % 45.2 % (16.0-70.0); PLATELET COUNT 275 TH/MM3 (150-450); RED CELL DISTRIBUTION WIDTH 12.8 % (11.6-17.2); WHITE BLOOD COUNT 3.5 TH/MM3 (4.0-11.0)
[2016-09-22 12:11] LABS: ALT (GPT) 16 U/L (12-78); ANION GAP 6 MEQ/L (5-15); AST (GOT) 14 U/L (15-37); BLOOD UREA NITROGEN 11 MG/DL (7-18); CHLORIDE 102 MEQ/L (98-107); GLOMERULAR FILTRATION RATE 96 ML/MIN (>89); POTASSIUM 4.1 MEQ/L (3.5-5.1); SODIUM (NA) 140 MEQ/L (136-145)
[2016-09-22 12:34] LABS: ALKALINE PHOSPHATASE 49 U/L (45-117); TOTAL BILIRUBIN ADULT 0.7 MG/DL (0.2-1.0)
--- NOTE | 2016-09-22 13:43 | HHI.PYPN ---
Subjective Remarks Patient seen for follow, chart review. After discussion with nursing staff patient noted to be slightly suspicious and guarded but pleasant. Patient was found walking in the hallway unable to engage in interview. Patient states that he's been feeling "pretty good" denies any auditory or visual hallucinations denies tolerating medication well without any adverse drug reactions. Patient mentions that he will likely return back to his [facility] but is concerned that "half of the people are using alcohol or drugs". Patient aware that are presented from his [facility] will come tomorrow morning to meet with patient prior to discharge. Patient at this time denies SI, HI, AVH or delusions. Review of Systems Except as stated in HPI: all other systems reviewed are Neg Objective Alert: Yes [place]: Person, Place, Date Mood: Calm Affect: Restricted (but able to smile on occasion.) Memory Intact: Immediate, Recent, Remote Hallucinations: Other (denies at this time) Delusions: No Delusion Type: Other (denied at this time) Suicidal: Ideation (denies) Homicidal: Ideation (denies) Insight/Judgment Fair insight, impulse control and judgment Labs Labs reviewed Test 09/22/16 10:07 White Blood Count 3.5 TH/MM3 Red Blood Count 4.40 MIL/MM3 Hemoglobin 14.2 GM/DL Hematocrit 42.8 % Mean Corpuscular Volume 97.3 FL Mean Corpuscular Hemoglobin 32.2 PG Mean Corpuscular Hemoglobin 33.1 % Concent Red Cell Distribution Width 12.8 % Platelet Count 275 TH/MM3 Mean Platelet Volume 7.5 FL Neutrophils (%) (Auto) 45.2 % Lymphocytes (%) (Auto) 42.3 % Monocytes (%) (Auto) 10.0 % Eosinophils (%) (Auto) 2.0 % Basophils (%) (Auto) 0.5 % Neutrophils # (Auto) 1.6 TH/MM3 Lymphocytes # (Auto) 1.5 TH/MM3 Monocytes # (Auto) 0.3 TH/MM3 Eosinophils # (Auto) 0.1 TH/MM3 Basophils # (Auto) 0.0 TH/MM3 CBC Comment DIFF FINAL Differential Comment Sodium Level 140 MEQ/L Potassium Level 4.1 MEQ/L Chloride Level 102 MEQ/L Carbon Dioxide Level 32.0 MEQ/L Anion Gap 6 MEQ/L Blood Urea Nitrogen 11 MG/DL Creatinine 1.09 MG/DL Estimat Glomerular Filtration 96 ML/MIN Rate Random Glucose 78 MG/DL Calcium Level 8.6 MG/DL Total Bilirubin 0.7 MG/DL Aspartate Amino Transf 14 U/L (AST/SGOT) Alanine Aminotransferase 16 U/L (ALT/SGPT) Alkaline Phosphatase 49 U/L Total Protein 7.4 GM/DL Albumin 3.7 GM/DL Vitamin B12 Level 337 PG/ML 25-Hydroxy Vitamin D Total 8.4 ng/ML Thyroid Stimulating Hormone 0.500 uIU/ML 3rd Gen Vitals/IOs Vital Signs Date Time Temp Pulse Resp B/P Pulse Ox O2 Delivery O2 Flow Rate FiO2 09/22/16 05:09 98.6 64 15 101/61 99 09/21/16 13:56 Room Air Intake and Output 09/21/16 09/21/16 09/22/16 08:00 16:00 00:00 Output Total 550 ml Balance -550 ml Assessment & Plan Problem List: (1) Paranoid type schizophrenia, chronic state with acute exacerbation ICD Code: F20.0 Assessment & Plan Patient this time denies any acute psychotic symptoms, reports responding well to current treatment regimen; denies any adverse drug reactions. Patient states planning to return to his [facility], before be required to meet with a access services representative from his [facility] prior to be accepted back there. Patient to continue current treatment, continued to encourage personal hygiene and participate in groups and activities. Discharge planning in progress Justification for Cont. Inpt. Patient at risk for further decompensation if it lower level of care Discharge Planning In progress Darrell Abarca MD Sep 22, 2016 13:43
--- NOTE | 2016-09-22 13:57 | HHI.PYPN ---
Subjective Remarks Patient seen for follow-up, chart reviewed. After discussion with nursing staff patient noted to be guarded, suspicious and paranoid. Denies any perceptual disturbances overnight but did receive Ativan at 9:30 AM. Patient found lying in hospital bed asleep was able to wake up for interview. Patient states that he had been feeling "okay but had come in to the emergency room after be confused and disoriented for the past 4 or 5 days. He does state that he is drinking alcohol "a couple of cans" on the day of admission to ER but that he been feeling this way prior that as well. She states at this time he does not have any perceptual disturbances, denies any paranoid delusions and feeling "okay". Patient denies any SI or HI. Patient noted to be some pressure cooperative S patient continued to be noted to be falling asleep during interview had awakened up several times. Patient at this time is a poor historian due to superficial cooperation at this time for interview. Patient states that in the past he had been tried on Haldol, Seroquel, Cogentin which last time he took any of these medicines was 3 months ago. Patient during his prior admission here at [facility] was managed with risperidone which she agreed to restart at this time. Review of Systems Except as stated in HPI: all other systems reviewed are Neg Objective Alert: Yes [place]: Person, Place, Date Mood: Other (okay) Affect: Other (noted to be falling asleep throughout interview) Memory Intact: Immediate, Recent, Remote Hallucinations: Other (denies at this time) Delusions: No Delusion Type: Other (denied at this time) Suicidal: Ideation (denies) Homicidal: Ideation (denies) Insight/Judgment Limited insight, fair impulse control and judgment Labs Labs reviewed. Laboratory. Test 09/22/16 10:07 White Blood Count 3.5 TH/MM3 Red Blood Count 4.40 MIL/MM3 Hemoglobin 14.2 GM/DL Hematocrit 42.8 % Mean Corpuscular Volume 97.3 FL Mean Corpuscular Hemoglobin 32.2 PG Mean Corpuscular Hemoglobin 33.1 % Concent Red Cell Distribution Width 12.8 % Platelet Count 275 TH/MM3 Mean Platelet Volume 7.5 FL Neutrophils (%) (Auto) 45.2 % Lymphocytes (%) (Auto) 42.3 % Monocytes (%) (Auto) 10.0 % Eosinophils (%) (Auto) 2.0 % Basophils (%) (Auto) 0.5 % Neutrophils # (Auto) 1.6 TH/MM3 Lymphocytes # (Auto) 1.5 TH/MM3 Monocytes # (Auto) 0.3 TH/MM3 Eosinophils # (Auto) 0.1 TH/MM3 Basophils # (Auto) 0.0 TH/MM3 CBC Comment DIFF FINAL Differential Comment Sodium Level 140 MEQ/L Potassium Level 4.1 MEQ/L Chloride Level 102 MEQ/L Carbon Dioxide Level 32.0 MEQ/L Anion Gap 6 MEQ/L Blood Urea Nitrogen 11 MG/DL Creatinine 1.09 MG/DL Estimat Glomerular Filtration 96 ML/MIN Rate Random Glucose 78 MG/DL Calcium Level 8.6 MG/DL Total Bilirubin 0.7 MG/DL Aspartate Amino Transf 14 U/L (AST/SGOT) Alanine Aminotransferase 16 U/L (ALT/SGPT) Alkaline Phosphatase 49 U/L Total Protein 7.4 GM/DL Albumin 3.7 GM/DL Vitamin B12 Level 337 PG/ML 25-Hydroxy Vitamin D Total 8.4 ng/ML Thyroid Stimulating Hormone 0.500 uIU/ML 3rd Gen Vitals/IOs Vital Signs Date Time Temp Pulse Resp B/P Pulse Ox O2 Delivery O2 Flow Rate FiO2 09/22/16 05:09 98.6 64 15 101/61 99 09/21/16 13:56 Room Air Intake and Output 09/21/16 09/21/16 09/22/16 08:00 16:00 00:00 Output Total 550 ml Balance -550 ml Assessment & Plan Problem List: (1) Paranoid type schizophrenia, chronic state with acute exacerbation ICD Code: F20.0 Assessment & Plan Patient was noted to the inpatient psychiatry unit under voluntary status due to disorientation, disorganization and paranoid delusions upon presentation to the ED. Patient today with limited cooperation with interview as patient was asleep and required to be woken up several times for interview today. Patient will be restarted on risperidone 1 mg by mouth twice a day and benztropine 0.5 mg by mouth twice a day for EPS. Monitor for medication response and adverse drug reactions. Discharge planning in progress Justification for Cont. Inpt. Patient at risk for further decompensation if it lower level of care Discharge Planning In progress Darrell Abarca MD Sep 22, 2016 13:57
[2016-09-22 16:45] LABS: HEMOGLOBIN A1a 0.8 %; HEMOGLOBIN A1b 0.5 %; HEMOGLOBIN Ao 88.6 %; HEMOGLOBIN F 0.9 %; HEMOGLOBIN LA1C 1.8 %; HEMOGLOBIN P3 2.9 %
[2016-09-22] MEDS: BENZTROPINE MESYLATE 1 MG TAB PO SCH (21:27)
[2016-09-22] MEDS: risperiDONE 1 MG TAB PO SCH (21:27)
[2016-09-23 05:25] VITALS: BP 106/66; PULSE 74; RESP 16; TEMP 98.1; O2SAT 99
[2016-09-23] MEDS: REMOVE OLD PATCH T-DERMAL SCH (09:00)
[2016-09-23] MEDS: BENZTROPINE MESYLATE 1 MG TAB PO SCH ×2 (09:14→21:18)
[2016-09-23] MEDS: risperiDONE 1 MG TAB PO SCH ×2 (09:14→21:18)
[2016-09-23] MEDS: NICOTINE 21 MG/24 HR PATCH T-DERMAL SCH (09:15)
--- NOTE | 2016-09-23 09:19 | EKG ---
Date Performed: 09/22/2016 Time Performed: 13:51:35 PTAGE: 31 years EKG: Sinus rhythm WITH SINUS ARRHYTHMIA NONSPECIFIC ST ELEVATION BORDERLINE ECG PREVIOUS TRACING : 08/10/2015 04.40 Compared to prior tracing no significant change DOCTOR: Ihsan Hidalgo Interpretating Date/Time 09/23/2016 09:07:46
[2016-09-23 18:11] VITALS: BP 112/58; PULSE 80; RESP 17; TEMP 98; O2SAT 99
--- NOTE | 2016-09-23 19:11 | HHI.PYPN ---
Subjective Remarks Patient seen for follow, chart review. After discussion with nursing staff patient Elavil most the day, attending groups. Patient seen walking on the was able to engage in interview today. Patient states they've been feeling "okay", states that he is feeling a little stressed and 7 anxiety patient about his living conditions outside of the hospital which she is homeless at this time. Patient states that since having been admitted to the hospital and returning back on his medications he is feeling "improved". Patient reports tolerating medications well denies any adverse drug reactions. Review of Systems Except as stated in HPI: all other systems reviewed are Neg Objective Alert: Yes [place]: Person, Place, Date Mood: Other (okay) Affect: Appropriate Memory Intact: Immediate, Recent, Remote Hallucinations: Other (denies at this time) Delusions: No Delusion Type: Other (denied at this time) Suicidal: Ideation (denies) Homicidal: Ideation (denies) Insight/Judgment Fair insight, impulse control and judgment Labs Laboratory Tests Test 09/21/16 09/21/16 09/22/16 10:30 10:35 10:07 Urine Cannabinoids Screen POS (NEG) Red Blood Count 4.43 MIL/MM3 4.40 MIL/MM3 (4.50-5.90) (4.50-5.90) Monocytes (%) (Auto) 9.1 % (0.0-8.0) 10.0 % (0.0-8.0) Potassium Level 3.1 MEQ/L (3.5-5.1) Total Protein 8.6 GM/DL (6.4-8.2) Ethyl Alcohol Level 119 MG/DL (0-5) White Blood Count 3.5 TH/MM3 (4.0-11.0) Neutrophils # (Auto) 1.6 TH/MM3 (1.8-7.7) Hemoglobin A1c 3.9 % (4.3-6.0) Aspartate Amino Transf 14 U/L (15-37) (AST/SGOT) 25-Hydroxy Vitamin D Total 8.4 ng/ML (30-100) Vitals/IOs Vital Signs Date Time Temp Pulse Resp B/P Pulse Ox O2 Delivery O2 Flow Rate FiO2 09/23/16 18:11 98.0 80 17 112/58 99 09/21/16 13:56 Room Air Assessment & Plan Problem List: (1) Paranoid type schizophrenia, chronic state with acute exacerbation ICD Code: F20.0 Assessment & Plan Patient at this time noted to be less disorganized, denying any perceptual disturbances at this time. Patient tolerated medication well, patient to continue current treatment regimen for now. Monitor medication response adverse drug reactions. Discharge planning in progress Justification for Cont. Inpt. Patient at risk for further decompensation if it lower level of care Discharge Planning In progress Darrell Abarca MD Sep 23, 2016 19:10
[2016-09-23] MEDS: hydrOXYzine HCL 25 MG TAB PO PRN (21:18)
[2016-09-24 04:58] VITALS: BP 120/60; PULSE 67; RESP 18; TEMP 97.7
[2016-09-24] MEDS: BENZTROPINE MESYLATE 1 MG TAB PO SCH ×2 (08:20→21:14)
[2016-09-24] MEDS: risperiDONE 1 MG TAB PO SCH ×2 (08:20→21:14)
[2016-09-24] MEDS: REMOVE OLD PATCH T-DERMAL SCH (08:22)
[2016-09-24] MEDS: NICOTINE 21 MG/24 HR PATCH T-DERMAL SCH (08:22)
[2016-09-24] MEDS: LORazepam 1 MG TAB PO PRN ×2 (08:26→21:13)
--- NOTE | 2016-09-24 16:18 | HHI.PYPN ---
Subjective Remarks Patient seen for follow, chart review. After discussion with nursing staff patient was noted to have a little anxiety overnight. Patient states that he is feeling "better" as he was pleased having being able to contact his work and arranged to return upon discharge, as well as spoken with his mom which went well. Patient states that his mother hears he is doing better. Patient reports no problems sleep, appetite and mood has been good denies feeling sad or depressed states that he is very hopeful and been feeling "level was ". Patient denies any perceptual disturbances or delusions. Review of Systems Except as stated in HPI: all other systems reviewed are Neg Objective Alert: Yes [place]: Person, Place, Date Mood: Other (okay) Affect: Appropriate Memory Intact: Immediate, Recent, Remote Hallucinations: Other (denies at this time) Delusions: No Delusion Type: Other (denied at this time) Suicidal: Ideation (denies) Homicidal: Ideation (denies) Insight/Judgment Fair insight, impulse control and judgment Vitals/IOs Vital Signs Date Time Temp Pulse Resp B/P Pulse Ox O2 Delivery O2 Flow Rate FiO2 09/24/16 04:58 97.7 67 18 120/60 09/23/16 18:11 99 09/21/16 13:56 Room Air Intake and Output 09/23/16 09/23/16 09/24/16 08:00 16:00 00:00 Intake Total 480 ml Balance 480 ml Assessment & Plan Problem List: (1) Paranoid type schizophrenia, chronic state with acute exacerbation ICD Code: F20.0 Assessment & Plan Patient continues to do well, with improved mood, denying any psychotic symptoms , tolerating medication treatment without any adverse drug reactions. Patient continues to have some anxiety but may related to wanting to return back to work but as well as worried about his housing situation. Patient currently homeless and states that he would like to continue working but without stable housing and makes it more difficult. Patient to continue current treatment, discharge planning in progress Justification for Cont. Inpt. Patient at risk for further decompensation if at lower level of care. Discharge Planning In progress Darrell Abarca MD Sep 24, 2016 16:18
[2016-09-24 20:13] VITALS: BP 119/67; PULSE 83; RESP 16; TEMP 98.6; O2SAT 98
[2016-09-25 05:14] VITALS: BP 107/57; PULSE 77; RESP 17; TEMP 98.6; O2SAT 99
[2016-09-25] MEDS: BENZTROPINE MESYLATE 1 MG TAB PO SCH ×2 (08:33→21:24)
[2016-09-25] MEDS: NICOTINE 21 MG/24 HR PATCH T-DERMAL SCH (08:33)
[2016-09-25] MEDS: risperiDONE 1 MG TAB PO SCH ×2 (08:33→21:25)
[2016-09-25] MEDS: REMOVE OLD PATCH T-DERMAL SCH (08:43)
[2016-09-25] MEDS: LORazepam 1 MG TAB PO PRN ×2 (09:01→21:25)
--- NOTE | 2016-09-25 15:05 | HHI.PYPN ---
Subjective Remarks Patient was seen and case discussed with nursing. Patient is calm and cooperative with exam. Insight is poor, he realizes he has schizophrenia but denies any's history of psychosis. 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 Denies auditory or visual hallucinations. Concerned with housing after discharge. Objective Alert: Yes [place]: Person, Place, Date Mood: Other (okay) Affect: Appropriate Memory Intact: Immediate, Recent, Remote Hallucinations: Other (denies at this time) Delusions: No Delusion Type: Grandiose Suicidal: Ideation (denies) Homicidal: Ideation (denies) Insight/Judgment Poor Vitals/IOs Vital Signs Date Time Temp Pulse Resp B/P Pulse Ox O2 Delivery O2 Flow Rate FiO2 09/25/16 05:14 98.6 77 17 107/57 99 09/21/16 13:56 Room Air Assessment & Plan Problem List: (1) Paranoid type schizophrenia, chronic state with acute exacerbation ICD Code: F20.0 Assessment & Plan Continue current treatment plan Justification for Cont. Inpt. Patient would decompensate in a less restrictive setting Mitchell Portillo DO Sep 25, 2016 15:05
[2016-09-25 17:00] VITALS: BP 119/76; PULSE 110; RESP 17; TEMP 98.4; O2SAT 98
[2016-09-26] MEDS: hydrOXYzine HCL 25 MG TAB PO PRN (00:34)
[2016-09-26] MEDS: BENZTROPINE MESYLATE 1 MG TAB PO SCH ×2 (08:47→21:22)
[2016-09-26] MEDS: risperiDONE 1 MG TAB PO SCH ×2 (08:47→21:22)
[2016-09-26] MEDS: REMOVE OLD PATCH T-DERMAL SCH (08:47)
[2016-09-26] MEDS: NICOTINE 21 MG/24 HR PATCH T-DERMAL SCH (08:47)
--- NOTE | 2016-09-26 17:43 | HHI.PYPN ---
Subjective Remarks Patient was seen and case discussed with nursing. Patient is calm and cooperative during exam. Social with others. 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 Says he is not there and Tuesday he may lose his job. He is logical and coherent. No psychotic symptoms were elicited. Tolerating his medications well Objective Alert: Yes [place]: Person, Place, Date Mood: Other (okay) Affect: Appropriate Memory Intact: Immediate, Recent, Remote Hallucinations: Other (denies at this time) Delusions: No Delusion Type: Grandiose (less so today) Suicidal: Ideation (denies) Homicidal: Ideation (denies) Insight/Judgment Improving Vitals/IOs Vital Signs Date Time Temp Pulse Resp B/P (MAP) Pulse Ox O2 Delivery O2 Flow Rate FiO2 09/25/16 17:00 98.4 110 17 119/76 (90) 98 Assessment & Plan Problem List: (1) Paranoid type schizophrenia, chronic state with acute exacerbation ICD Codes: F20.0 - Paranoid schizophrenia Status: Acute Assessment & Plan Continue current treatment plan Justification for Cont. Inpt. Patient would decompensate in a less restrictive setting Mitchell Portillo DO Sep 26, 2016 17:43
[2016-09-26 18:08] VITALS: BP 134/77; PULSE 102; RESP 17; TEMP 98.7; O2SAT 98
[2016-09-26] MEDS: LORazepam 1 MG TAB PO PRN (20:44)
[2016-09-27] MEDS: hydrOXYzine HCL 25 MG TAB PO PRN (02:09)
[2016-09-27 06:00] VITALS: BP 113/61; PULSE 97; RESP 18; TEMP 98.1; O2SAT 99
[2016-09-27] MEDS: REMOVE OLD PATCH T-DERMAL SCH (09:00)
[2016-09-27] MEDS: BENZTROPINE MESYLATE 1 MG TAB PO SCH (09:16)
[2016-09-27] MEDS: risperiDONE 1 MG TAB PO SCH (09:16)
[2016-09-27] MEDS: NICOTINE 21 MG/24 HR PATCH T-DERMAL SCH (09:17)
[2016-09-27] MEDS ORDERED: HYDR-3133 PO (10:02)
[2016-09-27] MEDS ORDERED: Benztropine Mesylate PO (10:02)
[2016-09-27] MEDS ORDERED: RISP1 PO (10:02)
--- NOTE | 2016-09-27 13:45 | HHI.DS ---
Psychiatry Discharge Summary Inpatient Psychiatric care?: Yes Advance Directive: No Reason Not Provided: declined Mental Health AdvanceDirective: No Health Care Proxy: No Admission Admission Date Sep 21, 2016 at 13:39 Admission Diagnosis: (1) Paranoid type schizophrenia, chronic state with acute exacerbation ICD Code: F20.0 - Paranoid schizophrenia Brief History This is a 31-year-old male being admitted voluntarily for exacerbation of chronic paranoid schizophrenia. Patient explains he was consuming alcohol last night and this made him more confused. He is homeless and he has been off his previous psychotropic medications for the last 3 months. He is supposed to [facility] up with [facility] but has had difficulty because his paranoia makes him believe he is not welcome there. He does have a history of substance abuse as well as alcohol abuse but is denying significant use of either over the last several weeks. However, whether due to his recent alcohol use or lack of psychotropic medicine, the patient is currently very confused and psychotic. 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 He is homeless, shoeless and obviously malodorous. He continues to report paranoid ideation and that others are racist and plotting against him, trying to harm him. He feels he may have to "take out" those who wish them harm. He admits to experiencing auditory hallucinations, but describes them as denigrating to him. He also admits to visual hallucinations but he is unable to describe these. He states he has not eaten adequately over the last 2 weeks and that he has been dehydrated. Tobacco Use In Past 30 Days: 5 or More Cigarettes/Day Alcohol Use: Monthly or Less Hospital Course Patient is a 31 y/o maikel, homeless, employed, with a past psychiatric history of schizophrenia with previous psychiatric admissions, no prior suicide attempts who was seen in the ED reporting feeling confused, with alcohol use, noncompliance with medications for the past 3 months and noted to be acutely psychotic with paranoid delusions and poor hygiene. Patient was admitted to the inpatient psychiatry unit for further management and stabilization. Patient was restarted on risperidone 1 mg by mouth twice a day for psychosis. Patient appeared to responding well to medication regimen with less disorientation, disorganization, and paranoid delusions. Patient noted to be tolerating medication regimen, noted to be participating in groups and activities on the unit and noted to be improving with stable mood, organized thoughts and cessation of psychotic symptoms. Patient upon discharge was noted to be calm and good spirits. Patient denied any depressive manic or psychotic symptoms and was goal oriented into continuing his employee as well as trying to acquire stable housing but in the interim will be staying at a local fpc. Patient was continue current treatment and outpatient follow-up for continuity of care supportive psychotherapy provided. Patient advised to call 911 also there is emergency room in case of emergency. Patient agrees with plan Results Blood Pressure 113 / 61 Vital Signs Date Time Temp Pulse Resp B/P (MAP) Pulse Ox O2 Delivery O2 Flow Rate FiO2 09/27/16 06:00 98.1 97 18 113/61 (78) 99 Laboratory Results Test 09/22/16 10:07 Hemoglobin A1c 3.9 % (4.3-6.0) Summary of Procedures None Pending results at discharge: No Medications # of Antipsychotic meds at D/C: 1 Approp Antipsych med options 1 - Minimum of three failed multiple trials of monotherapy. 2 - Documented plan to taper to monotherapy due to previous use of multiple meds OR cross-taper in progress at D/C. 3 - Documentation of augmentation of Clozapine. 4 - Justification other than those listed in allowable values 1-3, document here : Discharge Discharge Date: Sep 27, 2016 Discharge Diagnosis: (1) Paranoid type schizophrenia, chronic state with acute exacerbation Diagnosis: Principal ICD Code: F20.0 - Paranoid schizophrenia Status: Acute Mental Status Exam at Disch MSE: Appearance/Behavior: appears stated age, in hospital [facility], fair hygiene and grooming, fair eye contact. Speech: Normal rate tone and prosody Language: Fluent and spontaneous Mood: pretty good Affect: Full, reactive Thought process: Linear, future oriented, goal directed Thought content: Denies SI, HI, AVH or delusions Insight: Fair Impulse control: Fair Judgment: Fair Alert and oriented 3 Pt Condition on Discharge: Fair Discharge Disposition: Discharge Home Discharge Instructions Diet Instructions: As Tolerated, No Restrictions Activities you can perform: Regular-No Restrictions Scheduled Appointment: Mikal Khalil Appointment Date: Sep 28, 2016 Appointment Time: 730 Discharge Time > 30 minutes Discharge/Advance Care Plan Health Problems: (1) Paranoid type schizophrenia, chronic state with acute exacerbation Goals to promote your health * To prevent worsening of your condition and complications * To maintain your health at the optimal level Directions to meet your goals Take your medications as prescribed Follow your dietary instruction Follow activity as directed Keep your appointments as scheduled Take your immunizations and boosters as scheduled If your symptoms worsen call your PCP, if no PCP go to Urgent Care Center or Emergency Room For 30/08 questions related to your inpatient stay or results of tests pending at discharge, please contact Dr. Darrell Abarca at Smoking is Dangerous to Your Health. Avoid second hand smoking Darrell Abarca MD Sep 27, 2016 13:45
== END 2016-09-27 13:05 | disposition home or self-care (01) | DRG 885 ==
LOC: NEPD 09:44 → NEDA 13:39 → H260 14:20
PROVIDERS: ADMIT Student in an Organized Health Care Education/Training Program; ATTEND Student in an Organized Health Care Education/Training Program
DX: F20.0 Paranoid schizophrenia (principal); Z91.14 Patient's other noncompliance with medication regimen; E87.6 Hypokalemia; F10.129 Alcohol abuse with intoxication, unspecified; Y90.5 Blood alcohol level of 100-119 mg/100 ml; F17.210 Nicotine dependence, cigarettes, uncomplicated; Z59.0 Homelessness; Z88.8 Allergy status to other drugs, medicaments and biological substances
CPT/HCPCS: 80053; 80307; 82306; 82607; 83036; 84443; 85025; 93005; Q0163

== ENCOUNTER 2016-09-29 23:34 | Inpatient (IN) | payer MEDICARE, OTHER ==
[~2016-09-29] VITALS: Ht 180.3 cm; Wt 82.4 kg
[~2016-09-29 23:34] MED LIST changes: +Benztropine Mesylate PO; +HYDR-3133 PO; -IBUP400T20 PO; +RISP1 PO
[2016-09-29 23:35] VITALS: BP 138/87; PULSE 122; RESP 16; TEMP 97.5; O2SAT 98
[2016-09-30] MEDS ORDERED: DOXY100C PO (02:13)
[2016-09-30] MEDS ORDERED: BACT800T5 PO (02:13)
[2016-09-30] MEDS ORDERED: DOXYCYCLINE HYCLATE 100 MG CAP PO ONE (02:15)
[2016-09-30] MEDS ORDERED: SULFAMETHOXAZOLE-TRIMETHOPRIM DS 800-160 MG TAB PO ONE (02:15)
--- NOTE | 2016-09-30 02:21 | PD ---
HPI Chief Complaint: Skin Problem Time Seen by Provider: 01:58 Travel History International Travel<30 days: No Contact w/Intl Traveler<30days: No Traveled to known affect area: No History of Present Illness HPI 31-year-old black male presents to emergency department complaining of an infection in his left forearm as well as tender lumps in his axilla over last several days. The patient also states that he would like to talk to a psych screener. He was just discharged from the hospital earlier this past week. The patient is currently homeless. He states that he has not drank alcohol or done drugs since he was released. The patient admits to feeling rundown, weak and having subjective fever. He states that his stomach is upset. He denies any vomiting, diarrhea or urinary symptoms. He does state that he feels he needs to talk to someone. The patient is very vague. He denies any suicidal homicidal ideation. PFSH Past Medical History Anxiety: No Depression: Yes Cancer: No Diabetes: No Diminished Hearing: No Endocrine: No Gastrointestinal Disorders: No Genitourinary: No Immune Disorder: No Implanted Vascular Access Dvce: No Musculoskeletal: No Neurologic: No Psychiatric: Yes (Schizophrenia) Respiratory: No Immunizations Current: Yes Schizophrenia: Yes Past Surgical History Other Surgery: No Social History Alcohol Use: Yes (daily) Tobacco Use: Yes (1 ppd) Substance Use: No (denies) Allergies-Medications (Allergen,Severity, Reaction): Coded Allergies: aripiprazole (Unverified Allergy, Severe, SEIZURE, 09/29/16) Reported Meds & Prescriptions Reported Meds & Active Scripts Active [Benztropine Mesylate] 1 MG Tab 0.5 Mg PO Q12HR 30 Days Hydroxyzine HCl 25 Mg Tab 12.5 Mg PO Q6H PRN 30 Days Risperdal (Risperidone) 1 Mg Tab 1 Mg PO Q12HR 30 Days Review of Systems Except as stated in HPI: all other systems reviewed are Neg Physical Exam Narrative GENERAL: This is a well-nourished, well-developed patient, in no apparent distress. SKIN: Patient has a superficial abscess to the left proximal forearm. It is open and draining. He has multiple superficial cystic lesions in both axillas as well as adenopathy. This is most consistent with hidradenitis. I do not believe that performing incision and drainage at this time would be of benefit. , No other lesions noted. HEAD: Atraumatic. Normocephalic. EYES: PERRL, EOMI, no discharge or injection. No scleral icterus. EARS: Clear NOSE: Nasal turbinates appear normal. THROAT: Mucosa pink and moist. Airway patent. NECK: Trachea midline. supple, moves head freely. LUNGS: Clear to auscultation. CV: Regular in rhythm. ABDOMEN: Soft nontender. EXT: No clubbing cyanosis or edema. Data Data Last Documented VS Vital Signs Date Time Temp Pulse Resp B/P (MAP) Pulse Ox O2 Delivery O2 Flow Rate FiO2 09/29/16 23:35 97.5 122 16 138/87 (104) 98 Room Air Orders Orders Psych Screen (09/30/16 02:09) Drug Screen, Random Urine (09/30/16 02:09) Doxycycline (Vibramycin) (09/30/16 02:15) Sulfamet-Trimeth Ds 800-160 Mg (Bactrim (09/30/16 02:15) MDM Medical Decision Making Medical Screen Exam Complete: Yes Emergency Medical Condition: Yes Medical Record Reviewed: Yes Differential Diagnosis MDM: High Differential diagnoses: Abscess, folliculitis, cellulitis, lymphangitis, abrasion, contact dermatitis, anxiety, depression, schizophrenia, schizoaffective disorder, substance abuse, malingering Narrative Course This is a 31-year-old black male known to the medical staff who has also had a recent admission and was just discharged 2 days ago. He has a superficial draining abscess to his left forearm as well as bilateral axillary abscess with adenopathy. This is most consistent with hidradenitis. The patient is requesting to talk to a psych screener. The patient is given doxycycline 100 and Bactrim DS by mouth. An order for a urine tox screen has been placed. The patient will be seen on a voluntary basis by the psych screener. A prescription for Bactrim and doxycycline has also been written. Left forearm abscess, hidradenitis, medical clearance for psychiatric admission Diagnosis Primary Impression: Abscess of left forearm Additional Impressions: Hidradenitis axillaris Medical clearance for psychiatric admission Scripts Doxycycline Hyclate (Doxycycline Hyclate) 100 Mg Cap 100 MG PO BID for Infection, #20 CAP 0 Refills Prov: Chloe Reyes MD 09/30/16 Sulfamethoxazole-Trimethoprim (Bactrim DS) 800-160 Mg Tab 1 TAB PO BID for Infection, #20 TAB 0 Refills Prov: Chloe Reyes MD 09/30/16 Condition: Marcelino Carson Sep 30, 2016 02:21
[2016-09-30 06:52] VITALS: BP 126/78; PULSE 88; RESP 16; O2SAT 98
[2016-09-30 07:39] VITALS: BP 131/65; PULSE 80; RESP 15; O2SAT 99
[2016-09-30 19:27] VITALS: BP 142/79; PULSE 82; RESP 15; O2SAT 100
[2016-09-30 22:35] VITALS: BP 151/69; PULSE 79; RESP 16; O2SAT 99
[2016-09-30] MEDS: DOXYCYCLINE HYCLATE 100 MG CAP PO SCH (22:56)
[2016-09-30] MEDS: SULFAMETHOXAZOLE-TRIMETHOPRIM DS 800-160 MG TAB PO SCH (22:56)
[2016-10-01] MEDS ORDERED: BENZTROPINE MESYLATE 1 MG TAB PO PRN
[2016-10-01] MEDS ORDERED: BENZTROPINE MESYLATE 2 MG/2 ML VIAL IM PRN
[2016-10-01] MEDS ORDERED: MAGNESIUM HYDROXIDE SUSP 30 ML CUP PO PRN
[2016-10-01] MEDS ORDERED: hydrOXYzine HCL 50 MG TAB PO PRN
[2016-10-01] MEDS ORDERED: diphenhydrAMINE HCL 50 MG CAP PO PRN
[2016-10-01] MEDS ORDERED: ALUMINUM/MAGNESIUM/SIMETH 30 ML CUP PO PRN
[2016-10-01 01:38] VITALS: BP 126/70; PULSE 70; RESP 18; TEMP 97.7; O2SAT 99
[2016-10-01 05:17] VITALS: BP 118/67; PULSE 66; RESP 17; TEMP 98.1; O2SAT 100
[2016-10-01] MEDS: DOXYCYCLINE HYCLATE 100 MG CAP PO SCH (08:37)
[2016-10-01] MEDS: SULFAMETHOXAZOLE-TRIMETHOPRIM DS 800-160 MG TAB PO SCH (08:37)
[2016-10-01] MEDS ORDERED: REMOVE OLD PATCH T-DERMAL SCH (09:00)
[2016-10-01] MEDS ORDERED: risperiDONE 1 MG TAB PO SCH (09:00)
[2016-10-01] MEDS ORDERED: NICOTINE 21 MG/24 HR PATCH T-DERMAL SCH (09:00)
[2016-10-01] MEDS ORDERED: BENZTROPINE MESYLATE 1 MG TAB PO SCH (09:00)
--- NOTE | 2016-10-01 15:29 | HHI.HP ---
Provisional Diagnosis Admission Date Sep 30, 2016 at 23:53 [place] I. 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 Express and informed consent means consent voluntarily given in writing, by a competent person, after sufficient explanation and disclosure of the subject matter involved to enable the person to make a knowing and willful decision without any element of force, fraud, deceit, duress, or other form of constraint or coercion. This person is 18 years of age or older, is not now known to be incompetent to consent to treatment with a guardian advocate, and does not have a health care surrogate or proxy currently making medical treatment decisions. I have found this person to be one of the following: [xx] Competent to provide express and informed consent, as defined above, for voluntary admission to this facility and is competent to provide express and informed consent for treatment. He/she has the consistent capacity to make well reasoned, willful, and knowing decisions concerning his or her medical or mental health treatment. The person fully and consistently understands the purpose of the admission for examination/placement and is fully capable of personally exercising all rights assured [place] Incompetent to provide express and informed consent to voluntary admission, and this is incompetent to provide express and informed consent to treatment. The person must be transferred to involuntary status and a petition for a guardian advocate filed with the Circuit Court. [] Refusing to provide express and informed consent to voluntary admission but is competent to provide express and informed consent for treatment. The person must be discharged or transferred to involuntary status. Form shall be completed within 24 hours of a person's arrival at the receiving facility and filed in the clinical record of each person: 1. Admitted on a voluntary basis 2. Permitted to provide express and informed consent to his/her own treatment 3. Allowed to transfer from involuntary to voluntary status 4. Prior to permitting a person to consent to his or her own treatment after having been previously found incompetent to consent to treatment. History of Present Illness Capacity: Has Capacity HPI Patient is a 31 year-old -Iranian male who comes here voluntarily to emergency department initially complaining of swelling pain abscess type issues with his left upper extremity this is medically cleared then he stated he wished to talk to psych screener. Concerned about his feelings about medication adjustment. Patient seen screened in the ED urine toxicology drawn on 09/30 positive for marijuana patient is admitted to the unit for further observation assessment. Patient also seen by our psychiatric screener prior to admission. There is a consistency with this patient denying suicidality homicidality voices or visions he also stated that he is not follow-up prescriptions there is given with his most recent psychiatric hospitalization. Patient was hospitalized here 09/21/16 through 09/27/16 under visit [id number] seen by Dr. Abarca and discharged on 1 mg Respinol twice a day and 1/2 mg Cogentin twice a day. Patient states he did not get those prescriptions filled. But he does acknowledge returned use of marijuana upon discharge. He denies also to me suicidality homicidality voices or visions. He [place] neighborhood and it is stressful on him. Patient seen in his room with nurse Clinton. As mentioned above denying suicidality homicidality voices or visions. He said he did not have money to fill his medications, but is able to purchase marijuana. He states now that he has money in his pocket papers prescriptions. There is somewhat go back to place he was staying. I do is simply form with that however at this time he does not meet criteria for acute psychiatric hospitalization either voluntarily or under the [place] act. He was given his daily dose of both Respinol and Cogentin today. He may fill his prescriptions from his recent hospitalization tomorrow, follow-up [facility] outpatient services, will give him also bus passes passes from the [employer] if he does not wish to return to his prior residents. Is also strongly encouraged to maintain absolute abstinence Review of Systems Constitutional: DENIES: Diaphoretic episodes, Fatigue, Fever, Weight gain, Weight loss, Chills, Dizziness, Change in appetite, Night Sweats Endocrine: DENIES: Heat/cold intolerance, Polydipsia, Polyuria, Polyphagia Eyes: DENIES: Blurred vision, Diplopia, Eye inflammation, Eye pain, Vision loss , Photosensitivity, Double Vision Ears, nose, mouth, throat: DENIES: Tinnitus, Hearing loss, Vertigo, Nasal discharge, Oral lesions, Throat pain, Hoarseness, Ear Pain, Running Nose, Epistaxis, Sinus Pain, Toothache, Odynophagia Respiratory: DENIES: Apneas, Cough, Snoring, Wheezing, Hemoptysis, Sputum production, Shortness of breath Cardiovascular: DENIES: Chest pain, Palpitations, Syncope, Dyspnea on Exertion , PND, Lower Extremity Edema, Orthopnea, Claudication Gastrointestinal: DENIES: Abdominal pain, Black stools, Bloody stools, Constipation, Diarrhea, Nausea, Vomiting, Difficulty Swallowing, Anorexia Genitourinary: DENIES: Sexual dysfunction, Urinary frequency, Urinary incontinence, Urgency, Hematuria, Dysuria, Nocturia, Penile Discharge, Testicular Pain, Testicular Swelling Musculoskeletal: COMPLAINS OF: Muscle aches (some pain right upper arm medically examined screen prescriptions written in the ED), DENIES: Joint pain, Stiffness, Joint Swelling, Back pain, Neck pain Integumentary: DENIES: Abnormal pigmentation, Nail changes, Pruritus, Rash Hematologic/lymphatic: DENIES: Bruising, Lymphadenopathy Immunologic/allergic: DENIES: Eczema, Urticaria Neurologic: DENIES: Abnormal gait, Headache, Localized weakness, Paresthesias, Seizures, Speech Problems, Tremor, Poor Balance Psychiatric: COMPLAINS OF: Depression (mild to do homelessness), Hallucinations (denies), Suicidal Ideation (denies), Homicidal Ideation (denies) , Delusions (denies), DENIES: Anxiety, Confusion, Mood changes, Agitation Past Psych History Psychological trauma history Denies at this time Violence risk - others (6 mos) Low Violence risk - self (6 mos) Low Substance Abuse History Drugs/Alcohol past 12 months Patient active marijuana user Past Family Social History Coded Allergies: aripiprazole (Unverified Allergy, Severe, SEIZURE, 09/29/16) Past Medical History Patient seen in ED Active Scripts Doxycycline Hyclate (Doxycycline Hyclate) 100 Mg Cap, 100 MG PO BID for Infection, #20 CAP 0 Refills Prov:Chloe Reyes MD 09/30/16 Sulfamethoxazole-Trimethoprim (Bactrim DS) 800-160 Mg Tab, 1 TAB PO BID for Infection, #20 TAB 0 Refills Prov:Chloe Reyes MD 09/30/16 [Benztropine] 1 MG TAB No Conflict Check, 0.5 MG PO Q12HR for health for 30 Days , #30 Prov:Darrell Abarca MD 09/27/16 Hydroxyzine HCl (Hydroxyzine HCl) 25 Mg Tab, 12.5 MG PO Q6H Y for MILD ANXIETY for 30 Days, #30 TAB Prov:Darrell Abarca MD 09/27/16 Risperidone (Risperdal) 1 Mg Tab, 1 MG PO Q12HR for health for 30 Days, #30 TAB Prov:Darrell Abarca MD 09/27/16 Current Medications Medications (Trade) Dose Ordered Sig/Radha Route Start Time Stop Time Status Last Admin (Vibramycin) 100 mg BID PO 09/30/16 23:00 10/01/16 08:37 (Bactrim Ds 800-160 Mg) 1 tab Q12HR PO 09/30/16 23:00 10/01/16 08:37 (Benadryl) 50 mg HS PRN PO 10/01/16 00:00 10/01/16 02:14 (Tylenol) 650 mg Q4H PRN PO 10/01/16 00:00 10/01/16 02:14 (Milk Of Magnesia Liq) 30 ml DAILY PRN PO 10/01/16 00:00 (Mag-Al Plus Susp Liq) 30 ml Q6H PRN PO 10/01/16 00:00 (Habitrol 21 Mg Patch.24 Hr) 1 patch DAILY T-DERMAL 10/01/16 09:00 (Atarax) 50 mg Q6H PRN PO 10/01/16 00:00 (Cogentin) 1 mg Q12H PRN PO 10/01/16 00:00 (Cogentin Inj) 1 mg Q12H PRN IM 10/01/16 00:00 Miscellaneous Information 1 DAILY T-DERMAL 10/01/16 09:00 (risperDAL) 1 mg Q12HR PO 10/01/16 09:00 10/01/16 08:37 (Cogentin) 0.5 mg Q12HR PO 10/01/16 09:00 10/01/16 08:37 (Tylenol) 650 mg Q4H PRN PO 10/01/16 15:15 UNV Family History Unknown at this time Social History Patient homeless Patient's Strengths (min. 2) Patient verbal able to access health care Physical Exam Patient seen screaming ED exam reviewed and agreed with. Patient resting quietly in his bed is in no acute distress, he is in no respiratory distress, no complaints of abdominal pain. Patient moving all 4 extremities without difficulty. No abnormal motor movement noted Vital Signs Vital Signs Date Time Temp Pulse Resp B/P (MAP) Pulse Ox O2 Delivery O2 Flow Rate FiO2 10/01/16 05:17 98.1 66 17 118/67 (84) 100 09/30/16 22:35 Room Air Mental Status Examination Alert oriented slender Afro-Iranian male guarded in his responses of prior contact Appearance Clean and neat Speech: Unremarkable Orientation: x3 Memory: Unremarkable Thought Process: Logical Thought Content: Unremarkable Language Poor to fair Fund of Knowledge Poor Hallucination Type: None (denies) Attention and Concentration: Other (they are) Suicidal Ideation: No (denies) Previous Suicide Attempts: No Homicidal Ideation: No (denies) Previous Homicide Attempts: No Insight: Poor Judgment: Poor Affect: Other (slight decreased range intensity) Mood: Euthymic (to somewhat restricted in somewhat manipulative) Motor Activity: Normal gait Assessment & Plan Problem List: (1) Schizophrenia ICD Codes: F20.9 - Schizophrenia, unspecified Status: Chronic Assessment & Plan Estimated LOS: days patient does not meet criteria for inpatient psychiatric hospitalization. I feel visit degree of manipulation with this related to his homelessness. Thus patient will be discharged today he may fill his existing [facility] from prior hospitalization. He was given 1 day supply medication while here. He'll be given passes to the [employer] and also referral to the homeless coalition Discharge Planning See above Request HC Surrog/Guard Advoc?: No Problem Qualifiers (1) Schizophrenia: Qualified Codes: F20.0 - Paranoid schizophrenia Aly Kasper MD Oct 01, 2016 15:29
--- NOTE | 2016-10-01 15:35 | HHI.DS ---
Psychiatry Discharge Summary Inpatient Psychiatric care?: Yes Advance Directive: No Reason Not Provided: none avail Mental Health AdvanceDirective: No Health Care Proxy: No Admission Admission Date Sep 30, 2016 at 23:53 Admission Diagnosis: (1) Schizophrenia ICD Code: F20.9 - Schizophrenia, unspecified Brief History Patient is a 31 year-old -Algerian male who comes here voluntarily to emergency department initially complaining of swelling pain abscess type issues with his left upper extremity this is medically cleared then he stated he wished to talk to psych screener. Concerned about his feelings about medication adjustment. Patient seen screened in the ED urine toxicology drawn on 09/30 positive for marijuana patient is admitted to the unit for further observation assessment. Patient also seen by our psychiatric screener prior to admission. There is a consistency with this patient denying suicidality homicidality voices or visions he also stated that he is not follow-up prescriptions there is given with his most recent psychiatric hospitalization. Patient was hospitalized here 09/21/16 through 09/27/16 under visit [id number] seen by Dr. Abarca and discharged on 1 mg Respinol twice a day and 1/2 mg Cogentin twice a day. Patient states he did not get those prescriptions filled. But he does acknowledge returned use of marijuana upon discharge. He denies also to me suicidality homicidality voices or visions. He states he lives in a rough neighborhood and it is stressful on him. Patient seen in his room with nurse Clinton. As mentioned above denying suicidality homicidality voices or visions. He said he did not have money to fill his medications, but is able to purchase marijuana. He states now that he has money in his pocket papers prescriptions. There is somewhat go back to place he was staying. I do is simply form with that however at this time he does not meet criteria for acute psychiatric hospitalization either voluntarily or under the [place] act. He was given his daily dose of both Respinol and Cogentin today. He may fill his prescriptions from his recent hospitalization tomorrow, follow-up [facility] act outpatient services, will give him also bus passes passes from the [employer] if he does not wish to return to his prior residents. Is also strongly encouraged to maintain absolute abstinence Tobacco Use In Past 30 Days: 5 or More Cigarettes/Day Alcohol Use: 2-4 Times Per Month Hospital Course Please see above note dictated under brief history, patient does not meet [place] criteria or voluntary criteria for inpatient psychiatric hospitalization. Patient denies suicidality homicidality voices or visions to me, as also denied that to ED attending and psych screener. He may continue medication as per the prescription given on his prior admission. Follow [facility] act , refer also to [facility] and homeless [facility] Results Blood Pressure 118 / 67 Vital Signs Date Time Temp Pulse Resp B/P (MAP) Pulse Ox O2 Delivery O2 Flow Rate FiO2 10/01/16 05:17 98.1 66 17 118/67 (84) 100 09/30/16 22:35 Room Air Laboratory Tests Test 09/30/16 06:30 Urine Cannabinoids Screen POS (NEG) Summary of Procedures None done Pending results at discharge: No Medications # of Antipsychotic meds at D/C: 0 Approp Antipsych med options 1 - Minimum of three failed multiple trials of monotherapy. 2 - Documented plan to taper to monotherapy due to previous use of multiple meds OR cross-taper in progress at D/C. 3 - Documentation of augmentation of Clozapine. 4 - Justification other than those listed in allowable values 1-3, document here : Discharge Discharge Date: Oct 01, 2016 Discharge Diagnosis: (1) Schizophrenia ICD Code: F20.9 - Schizophrenia, unspecified Status: Chronic Mental Status Exam at Disch Alert oriented thin slender Afro-Algerian male. He is normoactive. His mood is euthymic to mildly restricted, with slight decreased range intensity was affect. Speech rate and rhythm are within normal limits there no formal thought disorders. Auditory or visual hallucinations. No delusions. Patient denying suicidality homicidality. Insight and judgment is poor cognition grossly intact Pt Condition on Discharge: Stable Discharge Disposition: Discharge Home Discharge Instructions Diet Instructions: As Tolerated, No Restrictions Activities you can perform: Regular-No Restrictions Scheduled Appointment: [facility] Appointment Date: Oct 04, 2016 Appointment Time: 7:30am Discharge Time > 30 minutes Discharge/Advance Care Plan Health Problems: (1) Schizophrenia Goals to promote your health * To prevent worsening of your condition and complications * To maintain your health at the optimal level Directions to meet your goals Take your medications as prescribed Follow your dietary instruction Follow activity as directed Keep your appointments as scheduled Take your immunizations and boosters as scheduled If your symptoms worsen call your PCP, if no PCP go to Urgent Care Center or Emergency Room For 30/08 questions related to your inpatient stay or results of tests pending at discharge, please contact Dr. Aly Kasper at Smoking is Dangerous to Your Health. Avoid second hand smoking Problem Qualifiers (1) Schizophrenia: Qualified Codes: F20.0 - Paranoid schizophrenia (2) Schizophrenia: Qualified Codes: F20.0 - Paranoid schizophrenia Aly Kasper MD Oct 01, 2016 15:35
[2016-10-01] MEDS ORDERED: ACETAMINOPHEN 325 MG TAB PO PRN ×2 (16:00)
== END 2016-10-01 15:45 | disposition home or self-care (01) | DRG 885 ==
LOC: NEPD 23:34 → NEDA 09-30 23:53 → H260 10-01 01:07
PROVIDERS: ADMIT Psychiatry & Neurology Psychiatry; ATTEND Psychiatry & Neurology Psychiatry
DX: F20.0 Paranoid schizophrenia (principal); Z59.0 Homelessness; F32.9 Major depressive disorder, single episode, unspecified; L02.414 Cutaneous abscess of left upper limb; L73.2 Hidradenitis suppurativa; F17.210 Nicotine dependence, cigarettes, uncomplicated; F12.90 Cannabis use, unspecified, uncomplicated; F41.9 Anxiety disorder, unspecified
CPT/HCPCS: 80307; Q0163

== ENCOUNTER 2016-11-27 00:03 | Inpatient (IN) | payer MEDICARE, OTHER ==
[~2016-11-27] VITALS: Ht 177.8 cm; Wt 90.2 kg
[~2016-11-27 00:03] MED LIST changes: +BACT800T5 PO; +DOXY100C PO
[2016-11-27 00:19] VITALS: BP 145/89; PULSE 91; RESP 18; TEMP 98.5; O2SAT 100
[2016-11-27] MEDS ORDERED: SERO25TA PO (00:30)
[2016-11-27] MEDS ORDERED: SODIUM CHLOR 0.9% 1000 ML INJ 1,000 ML IV ONE (00:45)
[2016-11-27 01:10] LABS: AUTOMATED NEUTROPHIL # 3.2 TH/MM3 (1.8-7.7); BASOPHIL % 0.4 % (0.0-2.0); EOSINOPHIL % 0.2 % (0.0-4.0); HEMATOCRIT 41.7 % (39.0-51.0); HEMOGLOBIN 14.5 GM/DL (13.0-17.0); LYMPH % 28.6 % (9.0-44.0); LYMPHOCYTE # 1.5 TH/MM3 (1.0-4.8); MEAN CELL VOLUME 95.2 FL (80.0-100.0); MEAN CORPUSCULAR HEMOGLOBIN 33.1 PG (27.0-34.0); MEAN CORPUSCULAR HGB CONC 34.8 % (32.0-36.0); MEAN PLATELET VOLUME 7.4 FL (7.0-11.0); MONO % 8.4 % (0.0-8.0); MONOCYTE # 0.4 TH/MM3 (0-0.9); NEUT % 62.4 % (16.0-70.0); PLATELET COUNT 269 TH/MM3 (150-450); RED BLOOD COUNT 4.38 MIL/MM3 (4.50-5.90); RED CELL DISTRIBUTION WIDTH 12.7 % (11.6-17.2); WHITE BLOOD COUNT 5.1 TH/MM3 (4.0-11.0)
[2016-11-27 01:50] LABS: ALBUMIN 4.4 GM/DL (3.4-5.0); ALKALINE PHOSPHATASE 68 U/L (45-117); ALT (GPT) 36 U/L (12-78); AST (GOT) 39 U/L (15-37); BICARBONATE 25.7 MEQ/L (21.0-32.0); CHLORIDE 102 MEQ/L (98-107); CREATININE 0.86 MG/DL (0.60-1.30); GLOMERULAR FILTRATION RATE 127 ML/MIN (>89); GLUCOSE,RANDOM 82 MG/DL (74-106); SODIUM (NA) 137 MEQ/L (136-145); TOTAL BILIRUBIN ADULT 0.5 MG/DL (0.2-1.0); TOTAL PROTEIN 8.4 GM/DL (6.4-8.2)
[2016-11-27 01:59] LABS: BLOOD UREA NITROGEN 7 MG/DL (7-18)
[2016-11-27 02:00] LABS: ACETAMINOPHEN LESS THAN 2.0 MCG/ML (10.0-30.0)
[2016-11-27 02:21] LABS: BILIRUBIN, URINE NEG (NEG); BLOOD, URINE NEG (NEG); GLUCOSE,URINE NEG (NEG); KETONE, URINE NEG (NEG); MUCUS URINE FEW /lpf (OCC); NITRITE,URINE NEG (NEG); PH, URINE 5.5 (5.0-8.5); SQUAMOUS EPITHELIAL CELL URINE <1 /hpf (0-5); URINE COLOR YELLOW (YELLW/STRAW); URINE LEUKOCYTE ESTERASE NEG (NEG)
--- NOTE | 2016-11-27 03:08 | PD ---
HPI Chief Complaint: Pain: Acute or Chronic Time Seen by Provider: 00:35 Travel History International Travel<30 days: No Contact w/Intl Traveler<30days: No Traveled to known affect area: No History of Present Illness HPI Patient is a 31-year-old male that potentially emergency Department voluntarily for psychiatric evaluation. Patient states that he needs his medications refilled. He also reports insomnia and feeling exhausted from training for skateboarding. Reports visual hallucinations but denies any suicidal or homicidal ideations. Patient states that he's felt depressed for several weeks and is currently homeless. He does report foot pain bilaterally from wearing wet shoes. He states the pain is a 5 out of 10 describes it as sore. PFSH Past Medical History Anxiety: No Depression: Yes Cancer: No Cardiovascular Problems: Yes (V-FIB IN PAST) Diabetes: No Patient Takes Glucophage: No Diminished Hearing: No Endocrine: No Gastrointestinal Disorders: No Genitourinary: No Immune Disorder: No Implanted Vascular Access Dvce: No Musculoskeletal: No Neurologic: No Psychiatric: Yes (Schizophrenia) Reproductive: No Respiratory: No Immunizations Current: Yes Schizophrenia: Yes Tetanus Vaccination: < 5 Years Influenza Vaccination: No Past Surgical History Surgical History: No Previous Surgery Other Surgery: No Social History Alcohol Use: Yes (daily) Tobacco Use: Yes (1 ppd) Substance Use: No Allergies-Medications (Allergen,Severity, Reaction): Coded Allergies: aripiprazole (Unverified Allergy, Severe, SEIZURE, 11/27/16) Reported Meds & Prescriptions Reported Meds & Active Scripts Active [Benztropine Mesylate] 1 MG Tab 0.5 Mg PO Q12HR 30 Days Hydroxyzine HCl 25 Mg Tab 12.5 Mg PO Q6H PRN 30 Days Risperdal (Risperidone) 1 Mg Tab 1 Mg PO Q12HR 30 Days Reported Seroquel (Quetiapine Fumarate) 25 Mg Tab 25 Mg PO BID Review of Systems Except as stated in HPI: all other systems reviewed are Neg Musculoskeletal: Positive: Myalgias Psychiatric: Positive: Depression, Substance Abuse Physical Exam Narrative GENERAL: Well-developed, well-nourished, alert Afro-[place] male. SKIN: Warm and dry. Wet-appearing skin to bilateral feet on the plantar surface. HEAD: Atraumatic. Normocephalic. EYES: Pupils equal and round. No scleral icterus. No injection or drainage. ENT: No nasal bleeding or discharge. Mucous membranes pink and moist. NECK: Trachea midline. No JVD. CARDIOVASCULAR: Regular rate and rhythm. RESPIRATORY: No accessory muscle use. Clear to auscultation. Breath sounds equal bilaterally. GASTROINTESTINAL: Abdomen soft, non-tender, nondistended. Hepatic and splenic margins not palpable. MUSCULOSKELETAL: Extremities without clubbing, cyanosis, or edema. No obvious deformities. NEUROLOGICAL: Awake and alert. No obvious cranial nerve deficits. Motor grossly within normal limits. Five out of 5 muscle strength in the arms and legs. Normal speech. PSYCHIATRIC: Flat mood and affect; insight and judgment normal. Data Data Last Documented VS Vital Signs Date Time Temp Pulse Resp B/P (MAP) Pulse Ox O2 Delivery O2 Flow Rate FiO2 11/27/16 00:19 98.5 91 18 145/89 (107) 100 Orders Orders Complete Blood Count With Diff (11/27/16 00:35) Comprehensive Metabolic Panel (11/27/16 00:35) Urinalysis - C+S If Indicated (11/27/16 00:35) Iv Access Insert/Monitor (11/27/16 00:35) Psych Screen (11/27/16 00:35) Drug Screen, Random Urine (11/27/16 00:35) Alcohol (Ethanol) (11/27/16 00:35) Salicylates (Aspirin) (11/27/16 00:35) Tylenol (Acetaminophen) (11/27/16 00:35) Sodium Chlor 0.9% 1000 Ml Inj (Ns 1000 M (11/27/16 00:45) Labs Laboratory Tests Test 11/27/16 01:00 11/27/16 02:08 White Blood Count 5.1 TH/MM3 Red Blood Count 4.38 MIL/MM3 Hemoglobin 14.5 GM/DL Hematocrit 41.7 % Mean Corpuscular Volume 95.2 FL Mean Corpuscular Hemoglobin 33.1 PG Mean Corpuscular Hemoglobin Concent 34.8 % Red Cell Distribution Width 12.7 % Platelet Count 269 TH/MM3 Mean Platelet Volume 7.4 FL Neutrophils (%) (Auto) 62.4 % Lymphocytes (%) (Auto) 28.6 % Monocytes (%) (Auto) 8.4 % Eosinophils (%) (Auto) 0.2 % Basophils (%) (Auto) 0.4 % Neutrophils # (Auto) 3.2 TH/MM3 Lymphocytes # (Auto) 1.5 TH/MM3 Monocytes # (Auto) 0.4 TH/MM3 Eosinophils # (Auto) 0.0 TH/MM3 Basophils # (Auto) 0.0 TH/MM3 CBC Comment DIFF FINAL Differential Comment Blood Urea Nitrogen 7 MG/DL Creatinine 0.86 MG/DL Random Glucose 82 MG/DL Total Protein 8.4 GM/DL Albumin 4.4 GM/DL Calcium Level 9.0 MG/DL Alkaline Phosphatase 68 U/L Aspartate Amino Transf (AST/SGOT) 39 U/L Alanine Aminotransferase (ALT/SGPT) 36 U/L Total Bilirubin 0.5 MG/DL Sodium Level 137 MEQ/L Potassium Level 3.8 MEQ/L Chloride Level 102 MEQ/L Carbon Dioxide Level 25.7 MEQ/L Anion Gap 9 MEQ/L Estimat Glomerular Filtration Rate 127 ML/MIN Salicylates Level 3.9 MG/DL Acetaminophen Level LESS THAN 2.0 MCG/ML Ethyl Alcohol Level 26 MG/DL Urine Color YELLOW Urine Turbidity CLEAR Urine pH 5.5 Urine Specific [place] 1.009 Urine Protein NEG mg/dL Urine Glucose (UA) NEG mg/dL Urine Ketones NEG mg/dL Urine Occult Blood NEG Urine Nitrite NEG Urine Bilirubin NEG Urine Urobilinogen LESS THAN 2.0 MG/DL Urine Leukocyte Esterase NEG Urine WBC 1 /hpf Urine Squamous Epithelial Cells <1 /hpf Urine Mucus FEW /lpf Microscopic Urinalysis Comment CULT NOT INDICATED Urine Opiates Screen NEG Urine Barbiturates Screen NEG Urine Amphetamines Screen POS Urine Benzodiazepines Screen NEG Urine Cocaine Screen NEG Urine Cannabinoids Screen NEG MDM Medical Decision Making Medical Screen Exam Complete: Yes Emergency Medical Condition: Yes Interpretation(s) Laboratory Tests Test 11/27/16 01:00 11/27/16 02:08 White Blood Count 5.1 TH/MM3 Red Blood Count 4.38 MIL/MM3 Hemoglobin 14.5 GM/DL Hematocrit 41.7 % Mean Corpuscular Volume 95.2 FL Mean Corpuscular Hemoglobin 33.1 PG Mean Corpuscular Hemoglobin Concent 34.8 % Red Cell Distribution Width 12.7 % Platelet Count 269 TH/MM3 Mean Platelet Volume 7.4 FL Neutrophils (%) (Auto) 62.4 % Lymphocytes (%) (Auto) 28.6 % Monocytes (%) (Auto) 8.4 % Eosinophils (%) (Auto) 0.2 % Basophils (%) (Auto) 0.4 % Neutrophils # (Auto) 3.2 TH/MM3 Lymphocytes # (Auto) 1.5 TH/MM3 Monocytes # (Auto) 0.4 TH/MM3 Eosinophils # (Auto) 0.0 TH/MM3 Basophils # (Auto) 0.0 TH/MM3 CBC Comment DIFF FINAL Differential Comment Blood Urea Nitrogen 7 MG/DL Creatinine 0.86 MG/DL Random Glucose 82 MG/DL Total Protein 8.4 GM/DL Albumin 4.4 GM/DL Calcium Level 9.0 MG/DL Alkaline Phosphatase 68 U/L Aspartate Amino Transf (AST/SGOT) 39 U/L Alanine Aminotransferase (ALT/SGPT) 36 U/L Total Bilirubin 0.5 MG/DL Sodium Level 137 MEQ/L Potassium Level 3.8 MEQ/L Chloride Level 102 MEQ/L Carbon Dioxide Level 25.7 MEQ/L Anion Gap 9 MEQ/L Estimat Glomerular Filtration Rate 127 ML/MIN Salicylates Level 3.9 MG/DL Acetaminophen Level LESS THAN 2.0 MCG/ML Ethyl Alcohol Level 26 MG/DL Urine Color YELLOW Urine Turbidity CLEAR Urine pH 5.5 Urine Specific [place] 1.009 Urine Protein NEG mg/dL Urine Glucose (UA) NEG mg/dL Urine Ketones NEG mg/dL Urine Occult Blood NEG Urine Nitrite NEG Urine Bilirubin NEG Urine Urobilinogen LESS THAN 2.0 MG/DL Urine Leukocyte Esterase NEG Urine WBC 1 /hpf Urine Squamous Epithelial Cells <1 /hpf Urine Mucus FEW /lpf Microscopic Urinalysis Comment CULT NOT INDICATED Urine Opiates Screen NEG Urine Barbiturates Screen NEG Urine Amphetamines Screen POS Urine Benzodiazepines Screen NEG Urine Cocaine Screen NEG Urine Cannabinoids Screen NEG Vital Signs Date Time Temp Pulse Resp B/P (MAP) Pulse Ox O2 Delivery O2 Flow Rate FiO2 11/27/16 00:19 98.5 91 18 145/89 (107) 100 Differential Diagnosis Mood disorder versus substance abuse versus suicidal ideations versus malingering versus depression versus other Narrative Course Patient presented voluntarily for psychiatric evaluation, he also complains of bilateral foot pain. Feet appear wet and irritated. Mental health screening discussed with the patient. Psychiatric screen ordered. Labs reviewed, no acute abnormality identified. Alcohol level was 26, urine drug screen is positive for amphetamines. Patient's vital signs are stable, he is medically clear for psychiatric evaluation at this time. Diagnosis Primary Impression: Medical clearance for psychiatric admission Additional Impression: Substance abuse Condition: Stable Horacio,Nicky BOBBIN COIL WINDER Nov 27, 2016 03:08
[2016-11-27 10:04] VITALS: BP 132/82; PULSE 113; RESP 16; TEMP 98.6; O2SAT 95
[2016-11-27] MEDS ORDERED: HALOPERIDOL LACTATE 5 MG/ML AMP IM STA (12:59)
[2016-11-27] MEDS ORDERED: ALUMINUM/MAGNESIUM/SIMETH 30 ML CUP PO PRN (13:00)
[2016-11-27] MEDS ORDERED: MAGNESIUM HYDROXIDE SUSP 30 ML CUP PO PRN (13:00)
[2016-11-27] MEDS ORDERED: LORazepam 2 MG/ML VIAL IM ONE (13:00)
[2016-11-27] MEDS ORDERED: LORazepam 2 MG/ML VIAL IM PRN (13:00)
[2016-11-27] MEDS ORDERED: diphenhydrAMINE HCL 50 MG/ML VIAL IM ONE (13:00)
[2016-11-27] MEDS ORDERED: diphenhydrAMINE HCL 50 MG/ML VIAL IM PRN (13:00)
[2016-11-27] MEDS ORDERED: HALOPERIDOL LACTATE 5 MG/ML AMP IM PRN (13:15)
--- NOTE | 2016-11-27 13:26 | HHI.HP ---
Provisional Diagnosis Admission Date 11/27/2016 [place] I. 1. Schizophrenia, paranoid type, acute exacerbation 2. Amphetamine abuse [place] II. Deferred Certification of Person's Competence To Provide Express and Informed Consent I have personally examined Darin Talley , a person being served at [facility] on, Nov 27, 2016 13:04. Express and informed consent means consent voluntarily given in writing, by a competent person, after sufficient explanation and disclosure of the subject matter involved to enable the person to make a knowing and willful decision without any element of force, fraud, deceit, duress, or other form of constraint or coercion. This person is 18 years of age or older, is not now known to be incompetent to consent to treatment with a guardian advocate, and does not have a health care surrogate or proxy currently making medical treatment decisions. I have found this person to be one of the following: [] Competent to provide express and informed consent, as defined above, for voluntary admission to this facility and is competent to provide express and informed consent for treatment. He/she has the consistent capacity to make well reasoned, willful, and knowing decisions concerning his or her medical or mental health treatment. The person fully and consistently understands the purpose of the admission for examination/placement and is fully capable of personally exercising all rights [place] [x] Incompetent to provide express and informed consent to voluntary admission, and this is incompetent to provide express and informed consent to treatment. The person must be transferred to involuntary status and a petition for a guardian advocate filed with the Circuit Court. [] Refusing to provide express and informed consent to voluntary admission but is competent to provide express and informed consent for treatment. The person must be discharged or transferred to involuntary status. Form shall be completed within 24 hours of a person's arrival at the receiving facility and filed in the clinical record of each person: 1. Admitted on a voluntary basis 2. Permitted to provide express and informed consent to his/her own treatment 3. Allowed to transfer from involuntary to voluntary status 4. Prior to permitting a person to consent to his or her own treatment after having been previously found incompetent to consent to treatment. History of Present Illness Capacity: Lacks Capacity HPI Mr. Talley is a 31-year-old male with a history of paranoid schizophrenia and substance use issues who presented voluntarily to the emergency department complaining of foot pain. He told the ED provider that he walked a long distance and is disoriented. Reviewing the electronic medical record, I note the patient was admitted most recently under Dr. Kasper for a brief stay and before that under Dr. Abarca. I do note that during the admission under Dr. Abarca the patient was stabilized on Risperdal which he tolerated well. Patient seen and examined. Chart reviewed. Case discussed with nursing staff. On my examination today, the patient presents as quite malodorous and disheveled. He is extremely paranoid and irritable. Following my interview he becomes quite belligerent with staff, and I have ordered him medicated with Haldol, Ativan and Benadryl ETO. Patient is frankly internally stimulated and says that "I had a hallucination that was the worst." Quite guarded overall and answers several questions with variations of "I'd rather not say." Mood is "bad." Affect is broadly dysphoric. Denies SI or HI but seems distinctly unreliable to contract for safety. Becomes increasingly insistent on discharge , and thought process becomes increasingly disorganized as he rants on this theme. Psychiatric interview is limited because of the degree of patient's psychiatric decompensation at present. Complains of bilateral foot pain and notes that he has been walking quite a bit lately but otherwise no physical complaints. Past psychiatric history: The patient reports a history of schizophrenia. He reports that he has been nonadherent with his medications. He is not currently under the care of a psychiatrist. He denies any recent psychiatric admissions since discharge from [place] last time. When I inquire about suicide attempts he says "I'd rather not say." Review of Systems ROS Limitations: Uncooperative, Psychotic, Poor Historian Except as stated in HPI: all other systems reviewed are Neg Past Psych History Psychological trauma history No reported trauma history to me Violence risk - others (6 mos) Elevated. Irritable, psychotic and unpredictable. Violence risk - self (6 mos) Concern for elevated risk, especially due to self-neglect. Substance Abuse History Drugs/Alcohol past 12 months Patient admits to recent substance use but maintains that he doesn't know what he took. Urine toxicology is positive for amphetamines and alcohol level is mildly elevated. Past Family Social History Coded Allergies: aripiprazole (Unverified Allergy, Severe, SEIZURE, 11/27/16) Past Medical History See electronic medical record Active Scripts [Benztropine] 1 MG TAB No Conflict Check, 0.5 MG PO Q12HR for health for 30 Days , #30 Prov:Darrell Abarca MD 09/27/16 Hydroxyzine HCl (Hydroxyzine HCl) 25 Mg Tab, 12.5 MG PO Q6H Y for MILD ANXIETY for 30 Days, #30 TAB Prov:Darrell Abarca MD 09/27/16 Risperidone (Risperdal) 1 Mg Tab, 1 MG PO Q12HR for health for 30 Days, #30 TAB Prov:Darrell Abarca MD 09/27/16 Reported Medications Quetiapine (Seroquel) 25 Mg Tab, 25 MG PO BID, #60 TAB 0 Refills 11/27/16 Discontinued Scripts Doxycycline Hyclate (Doxycycline Hyclate) 100 Mg Cap, 100 MG PO BID for Infection, #20 CAP 0 Refills Prov:Chloe Reyes MD 09/30/16 Sulfamethoxazole-Trimethoprim (Bactrim DS) 800-160 Mg Tab, 1 TAB PO BID for Infection, #20 TAB 0 Refills Prov:Chloe Reyes MD 09/30/16 Current Medications Medications (Trade) Dose Ordered Sig/Radha Route Start Time Stop Time Status Last Admin (Haldol Inj) 5 mg STAT STAT IM 11/27/16 12:59 11/27/16 13:00 UNV (Ativan Inj) 2 mg ONCE ONCE IM 11/27/16 13:00 11/27/16 13:01 UNV (Benadryl Inj) 50 mg ONCE ONCE IM 11/27/16 13:00 11/27/16 13:01 UNV Family Psych History Patient denies a family history of mental illness Social History Patient reports that he is presently homeless. When I ask about other aspects of his social history, he becomes quite guarded and refuses to share. Patient's Strengths (min. 2) In a monitored setting. Verbally fluent. Physical Exam Physical exam was completed by ED provider. On my examination today, the patient appears to be in no acute physical distress. No motoric abnormalities noted. Labs and vitals reviewed: Vital Signs Vital Signs Date Time Temp Pulse Resp B/P (MAP) Pulse Ox O2 Delivery O2 Flow Rate FiO2 11/27/16 10:04 98.6 113 16 132/82 (99) 95 Room Air I/O 11/27/16 11/27/16 11/28/16 08:00 16:00 00:00 Intake Total 1000 ml Balance 1000 ml Lab Results Item Value Date Time White Blood Count 5.1 TH/MM3 11/27/1699 Hemoglobin 14.5 GM/DL 11/27/1699 Platelet Count 269 TH/MM3 11/27/1699 Sodium Level 137 MEQ/L 11/27/1699 Potassium Level 3.8 MEQ/L 11/27/1699 Chloride Level 102 MEQ/L 11/27/1699 Carbon Dioxide Level 25.7 MEQ/L 11/27/1699 Blood Urea Nitrogen 7 MG/DL 11/27/1699 Creatinine 0.86 MG/DL 11/27/1699 Aspartate Amino Transf (AST/SGOT) 39 U/L H 11/27/1699 Alanine Aminotransferase (ALT/SGPT) 36 U/L 11/27/1699 Alkaline Phosphatase 68 U/L 11/27/1699 Urine Amphetamines Screen POS H 11/27/16 0208 Ethyl Alcohol Level 26 MG/DL H 11/27/1699 Besides toxicological findings, no clinically significant laboratory abnormalities noted. EKG revealed normal QTC when last obtained under Dr. Abarca. Mental Status Examination Appearance: Disheveled, Malodorous Consciousness: Alert, Vigilant Orientation: Person, Place Motor Activity: Normal gait Speech: Other (loud, angry) Language: Adequate Fund of Knowledge: Adequate Attention and Concentration: Easily Distracted Memory: Impaired (reports subjective memory deficit) Mood: Other ("bad") Affect: Irritable, Other (dysphoric) Hallucination Type: Auditory (frankly internally stimulated) Delusion Type: Paranoid Suicidal Ideation: No (unreliable to contract for safety) Homicidal Ideation: No (unreliable to contract for safety) Insight: Poor Judgment: Poor Assessment & Plan Problem List: (1) Schizophrenia ICD Codes: F20.9 - Schizophrenia, unspecified Status: Acute (2) Amphetamine abuse ICD Codes: F15.10 - Other stimulant abuse, uncomplicated Assessment & Plan 31-year-old [place] male psychiatric history as detailed above who presents voluntarily with complaints of foot pain, referred for psychiatric evaluation. On my examination today, the patient presents as floridly psychotic. He is responding to internal stimuli and quite paranoid. There appears to be a significant self-care deficit and the patient is quite malodorous and disheveled. He reports medication nonadherence with his psychotropics. Although the patient has recently been using amphetamines, he has a historical diagnosis of schizophrenia, and it is my suspicion that his current psychotic decompensation was at most precipitated by his stimulant use and is not entirely drug-induced. Given previous good tolerability with Risperdal and given medication adherence issues, I think it makes sense at this juncture to initiate a long-acting injectable antipsychotic, and I will initiate Invega Sustenna. Patient requires psychiatric hospitalization at this time for safety, observation and stabilization. Admit inpatient. Involuntary status. I've initiated [place] act and completed first opinion for involuntary psychiatric hospitalization. Consult for second opinion. Request healthcare surrogate and guardian advocate. Given historically good tolerability of Risperdal, initiate Invega Sustenna 234 mg IM with plan for booster dose after the appropriate interval. Check CK first as the patient has been walking quite a bit. Check a BMP, hemoglobin A1c and lipid panel in the morning. Consult to the hospitalist for complaints of foot pain. Haldol as needed for psychotic agitation, Ativan as needed for anxiety, Benadryl as needed for EPS her sleep. Violent/assaultive precautions. Vitals every shift. Counselor to see and obtain collateral. Disposition planning. Estimated length of stay: 5-7 days. Discharge Planning Pending psychiatric stabilization Request HC Surrog/Guard Advoc?: Yes Problem Qualifiers (1) Schizophrenia: Qualified Codes: F20.0 - Paranoid schizophrenia Leonel Crowley MD Nov 27, 2016 13:26
[2016-11-27] MEDS ORDERED: PALIPERIDONE PALMITATE 234 MG/1.5 ML SYRINGE IM ONE (14:00)
[2016-11-27] MEDS ORDERED: diphenhydrAMINE HCL 50 MG CAP PO ONE (14:15)
[2016-11-27] MEDS ORDERED: LORazepam 2 MG TAB PO ONE (14:15)
[2016-11-27] MEDS ORDERED: HALOPERIDOL 5 MG TAB PO ONE (14:15)
[2016-11-27 15:31] VITALS: BP 118/77; PULSE 97; RESP 18; TEMP 98; O2SAT 98
--- NOTE | 2016-11-27 16:15 | PD.CONS ---
HPI Service [facility] Hospitalists Consult Requested By Psychiatry Reason for Consult Foot pain Primary Care Physician No Primary Care Physician Diagnoses: History of Present Illness Mr. Talley is a 31 year old male who was admitted to psychiatry service due to psychosis, schizophrenia. He presented to the ED voluntarily for psychiatric evaluation. However, after evaluation, he was [place] A[place]. Hospitalist service was consulted due to patient's complain of bilateral foot pain, apparently from wet shoes. Patient currently reports improvement of his symptoms. He denies any chest pain, shortness of breath, fever, chills. No changes in bowel or bladder habits. Review of Systems Except as stated in HPI: all other systems reviewed are Neg Past Family Social History Allergies: Coded Allergies: aripiprazole (Unverified Allergy, Severe, SEIZURE, 11/27/16) Past Medical History Depression Hallucination Tobacco abuse Polysubstance abuse. Past Surgical History No Major surgeries. Active Ordered Medications Current Medications Medications (Trade) Dose Ordered Sig/Radha Route Start Time Stop Time Status Last Admin (Ativan) 1 mg Q6H PRN PO 11/27/16 13:00 11/27/16 21:27 (Ativan Inj) 1 mg Q6H PRN IM 11/27/16 13:00 (Tylenol) 650 mg Q4H PRN PO 11/27/16 13:00 11/27/16 21:26 (Milk Of Magnesia Liq) 30 ml DAILY PRN PO 11/27/16 13:00 (Mag-Al Plus Susp Liq) 30 ml Q6H PRN PO 11/27/16 13:00 (Habitrol 21 Mg Patch.24 Hr) 1 patch DAILY T-DERMAL 11/27/16 16:49 11/27/16 17:45 Miscellaneous Information 1 HS T-DERMAL 11/27/16 21:00 (Benadryl) 50 mg Q6H PRN PO 11/27/16 13:00 11/27/16 21:27 (Benadryl Inj) 50 mg Q6H PRN IM 11/27/16 13:00 (Haldol Inj) 5 mg Q6H PRN IM 11/27/16 13:15 (Invega Sustenna Inj) 234 mg ONCE ONCE IM 11/28/16 12:00 11/28/16 12:01 Social History Smokes about 1 ppd. Admits to using polysubstance but nothing recently. Physical Exam Vital Signs Vital Signs Date Time Temp Pulse Resp B/P (MAP) Pulse Ox O2 Delivery O2 Flow Rate FiO2 11/27/16 15:31 98.0 97 18 118/77 (91) 98 11/27/16 14:56 11/27/16 10:04 98.6 113 16 132/82 (99) 95 Room Air 11/27/16 00:19 98.5 91 18 145/89 (107) 100 Physical Exam GENERAL: This is a well-nourished, well-developed patient, in no apparent distress. SKIN: No rashes, ecchymoses or lesions. Cool and dry. HEAD: Atraumatic. Normocephalic. No temporal or scalp tenderness. EYES: Pupils equal round and reactive. Extraocular motions intact. No scleral icterus. No injection or drainage. ENT: Nose without bleeding, purulent drainage or septal hematoma. Throat without erythema, tonsillar hypertrophy or exudate. Uvula midline. Airway patent. NECK: Trachea midline. No JVD or lymphadenopathy. Supple, nontender, no meningeal signs. CARDIOVASCULAR: Regular rate and rhythm without murmurs, gallops, or rubs. RESPIRATORY: Clear to auscultation. Breath sounds equal bilaterally. No wheezes , rales, or rhonchi. GASTROINTESTINAL: Abdomen soft, non-tender, nondistended. No hepato-splenomegaly , or palpable masses. No guarding. MUSCULOSKELETAL: Extremities without clubbing, cyanosis, or edema. No joint tenderness, effusion, or edema noted. No calf tenderness. Negative Homans sign bilaterally. NEUROLOGICAL: Awake and alert. Cranial nerves II through XII intact. Motor and sensory grossly within normal limits. Five out of 5 muscle strength in all muscle groups. Normal speech. Laboratory Laboratory Tests Test 11/27/16 01:00 11/27/16 02:08 White Blood Count 5.1 Red Blood Count 4.38 Hemoglobin 14.5 Hematocrit 41.7 Mean Corpuscular Volume 95.2 Mean Corpuscular Hemoglobin 33.1 Mean Corpuscular Hemoglobin Concent 34.8 Red Cell Distribution Width 12.7 Platelet Count 269 Mean Platelet Volume 7.4 Neutrophils (%) (Auto) 62.4 Lymphocytes (%) (Auto) 28.6 Monocytes (%) (Auto) 8.4 Eosinophils (%) (Auto) 0.2 Basophils (%) (Auto) 0.4 Neutrophils # (Auto) 3.2 Lymphocytes # (Auto) 1.5 Monocytes # (Auto) 0.4 Eosinophils # (Auto) 0.0 Basophils # (Auto) 0.0 CBC Comment DIFF FINAL Differential Comment Blood Urea Nitrogen 7 Creatinine 0.86 Random Glucose 82 Total Protein 8.4 Albumin 4.4 Calcium Level 9.0 Alkaline Phosphatase 68 Aspartate Amino Transf (AST/SGOT) 39 Alanine Aminotransferase (ALT/SGPT) 36 Total Bilirubin 0.5 Sodium Level 137 Potassium Level 3.8 Chloride Level 102 Carbon Dioxide Level 25.7 Anion Gap 9 Estimat Glomerular Filtration Rate 127 Salicylates Level 3.9 Acetaminophen Level LESS THAN 2.0 Ethyl Alcohol Level 26 Urine Color YELLOW Urine Turbidity CLEAR Urine pH 5.5 Urine Specific [place] 1.009 Urine Protein NEG Urine Glucose (UA) NEG Urine Ketones NEG Urine Occult Blood NEG Urine Nitrite NEG Urine Bilirubin NEG Urine Urobilinogen LESS THAN 2.0 Urine Leukocyte Esterase NEG Urine WBC 1 Urine Squamous Epithelial Cells <1 Urine Mucus FEW Microscopic Urinalysis Comment CULT NOT INDICATED Urine Opiates Screen NEG Urine Barbiturates Screen NEG Urine Amphetamines Screen POS Urine Benzodiazepines Screen NEG Urine Cocaine Screen NEG Urine Cannabinoids Screen NEG Result Diagram: 11/27/169911/27/1699 Assessment and Plan Assessment and Plan Mr. Talley is a 31 year old male who was admitted due to depression, hallucinations. Hospitalist service was consulted to evaluate bilateral foot pain from wearing wet shoes. - Bilateral foot pain - Patient reports some improvement. - Will use topical antibiotics and keep feet open to dry when patient is sitting or lying in bed. - Polysubstance abuse - Patient has been counselled. Full code. Ambulation Thank you for the consult. We will continue to follow this patient with you. Guadalupe Nichols DO Nov 27, 2016 16:15
[2016-11-27] MEDS: NICOTINE 21 MG/24 HR PATCH T-DERMAL SCH (17:45)
[2016-11-27] MEDS: REMOVE OLD PATCH T-DERMAL SCH (21:00)
[2016-11-27] MEDS: ACETAMINOPHEN 325 MG TAB PO PRN (21:26)
[2016-11-27] MEDS: diphenhydrAMINE HCL 50 MG CAP PO PRN (21:27)
[2016-11-27] MEDS: LORazepam 1 MG TAB PO PRN (21:27)
[2016-11-28 05:12] VITALS: BP 110/73; PULSE 98; RESP 18; TEMP 97.8; O2SAT 99
[2016-11-28] MEDS: NICOTINE 21 MG/24 HR PATCH T-DERMAL SCH (09:00)
[2016-11-28] MEDS: BACITRACIN/POLYMYXIN B 15 GM TUBE TOPICAL SCH ×2 (09:00→20:28)
[2016-11-28] MEDS: ACETAMINOPHEN 325 MG TAB PO PRN ×2 (09:10→20:28)
[2016-11-28] MEDS: LORazepam 1 MG TAB PO PRN ×2 (11:03→20:28)
[2016-11-28] MEDS ORDERED: PALIPERIDONE PALMITATE 234 MG/1.5 ML SYRINGE IM ONE (12:00)
[2016-11-28 12:18] LABS: BICARBONATE 27.9 MEQ/L (21.0-32.0); BLOOD UREA NITROGEN 12 MG/DL (7-18); CALCIUM 9.2 MG/DL (8.5-10.1); CHLORIDE 102 MEQ/L (98-107); CREATININE 0.88 MG/DL (0.60-1.30); GLOMERULAR FILTRATION RATE 123 ML/MIN (>89); GLUCOSE,RANDOM 93 MG/DL (74-106); SODIUM (NA) 136 MEQ/L (136-145)
[2016-11-28 12:20] LABS: CHOLESTEROL 123 MG/DL (120-200); TRIGLYCERIDES 60 MG/DL (42-150)
[2016-11-28 12:21] LABS: CHOLESTEROL/ HDL RATIO 1.88 RATIO; HDL CHOLESTEROL 65.4 MG/DL (40.0-60.0); LDL CHOLESTEROL 46 MG/DL (0-99)
--- NOTE | 2016-11-28 13:47 | PD.PSY.CON ---
Provisional Diagnosis Admission Date Nov 27, 2016 at 13:05 [place] I. 1. Schizophrenia, paranoid type, acute exacerbation 2. Amphetamine abuse [place] II. Deferred History of Present Illness Service Psychiatry Consult Requested By Psychiatry Reason for Consult 2nd opinion Primary Care Physician No Primary Care Physician HPI Pt seen and discussed with staff. Chart reviewed. He remains malodorous and disheveled. He is paranoid and has been refusing medication. He is labile, grandiose and easily agitated. He is psychotic and states that he stops psychiatric medications because people kidnap him and put in boxes. 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 He is malodorous and disheveled. He admits that he is experiencing AH but states that he has to leave hospital immediately because he has bills to pay. He later consented to Invega Sustenna and after COY was placed, asked RN to comment on the attractiveness of his buttocks. Past Family Social History Coded Allergies: aripiprazole (Unverified Allergy, Severe, SEIZURE, 11/27/16) Past Medical History hx of multiple psychiatric admissions. Hx of non compliance wtih treatment. Active Scripts [Benztropine] 1 MG TAB No Conflict Check, 0.5 MG PO Q12HR for health for 30 Days , #30 Prov:Darrell Abarca MD 09/27/16 Hydroxyzine HCl (Hydroxyzine HCl) 25 Mg Tab, 12.5 MG PO Q6H Y for MILD ANXIETY for 30 Days, #30 TAB Prov:Darrell Abarca MD 09/27/16 Risperidone (Risperdal) 1 Mg Tab, 1 MG PO Q12HR for health for 30 Days, #30 TAB Prov:Darrell Abarca MD 09/27/16 Reported Medications Quetiapine (Seroquel) 25 Mg Tab, 25 MG PO BID, #60 TAB 0 Refills 11/27/16 Discontinued Scripts Doxycycline Hyclate (Doxycycline Hyclate) 100 Mg Cap, 100 MG PO BID for Infection, #20 CAP 0 Refills Prov:Chloe Reyes MD 09/30/16 Sulfamethoxazole-Trimethoprim (Bactrim DS) 800-160 Mg Tab, 1 TAB PO BID for Infection, #20 TAB 0 Refills Prov:Chloe Reyes MD 09/30/16 Current Medications Medications (Trade) Dose Ordered Sig/Radha Route Start Time Stop Time Status Last Admin (Ativan) 1 mg Q6H PRN PO 11/27/16 13:00 11/28/16 11:03 (Ativan Inj) 1 mg Q6H PRN IM 11/27/16 13:00 (Tylenol) 650 mg Q4H PRN PO 11/27/16 13:00 11/28/16 09:10 (Milk Of Magnesia Liq) 30 ml DAILY PRN PO 11/27/16 13:00 (Mag-Al Plus Susp Liq) 30 ml Q6H PRN PO 11/27/16 13:00 (Habitrol 21 Mg Patch.24 Hr) 1 patch DAILY T-DERMAL 11/27/16 16:49 11/28/16 09:00 Miscellaneous Information 1 HS T-DERMAL 11/27/16 21:00 (Benadryl) 50 mg Q6H PRN PO 11/27/16 13:00 11/27/16 21:27 (Benadryl Inj) 50 mg Q6H PRN IM 11/27/16 13:00 (Haldol Inj) 5 mg Q6H PRN IM 11/27/16 13:15 (Polysporin Oint) 1 applic BID TOPICAL 11/28/16 09:00 12/05/16 08:59 11/28/16 09:00 Family Psych History Pt denies, but is unreliable narrator 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 2) In a monitored setting. Verbally fluent. Physical Exam Vital Signs Vital Signs Date Time Temp Pulse Resp B/P (MAP) Pulse Ox O2 Delivery O2 Flow Rate FiO2 11/28/16 05:12 97.8 98 18 110/73 (85) 99 11/27/16 10:04 Room Air Lab Results Test 11/28/16 11:29 Blood Urea Nitrogen 12 MG/DL Creatinine 0.88 MG/DL Random Glucose 93 MG/DL Calcium Level 9.2 MG/DL Sodium Level 136 MEQ/L Potassium Level 4.1 MEQ/L Chloride Level 102 MEQ/L Carbon Dioxide Level 27.9 MEQ/L Anion Gap 6 MEQ/L Estimat Glomerular Filtration Rate 123 ML/MIN Triglycerides Level 60 MG/DL Cholesterol Level 123 MG/DL LDL Cholesterol 46 MG/DL HDL Cholesterol 65.4 MG/DL Cholesterol/HDL Ratio 1.88 RATIO Mental Status Examination Appearance: Disheveled, Malodorous Consciousness: Alert, Vigilant Orientation: Person, Place Motor Activity: Normal gait Speech: Other (loud, angry) Language: Adequate Fund of Knowledge: Adequate Attention and Concentration: Easily Distracted Memory: Impaired (reports subjective memory deficit) Mood: Other (labile) Affect: Irritable, Labile Thought Content: Bizarre thinking, Delusional Hallucination Type: Auditory (frankly internally stimulated) Delusion Type: Bizarre, Paranoid Suicidal Ideation: No (unreliable to contract for safety) Suicidal Plan: No Suicidal Intention: No Homicidal Ideation: No (unreliable to contract for safety) Homicidal Plan: No Homicidal Intention: No Insight: Poor Judgment: Poor Assessment & Plan Problem List: (1) Schizophrenia ICD Codes: F20.9 - Schizophrenia, unspecified Status: Acute (2) Amphetamine abuse ICD Codes: F15.10 - Other stimulant abuse, uncomplicated Assessment & Plan i agree that pt meets criteria for involuntary admission. 2nd opinion completed Estimated LOS: days Request HC Surrog/Guard Advoc?: Yes Problem Qualifiers (1) Schizophrenia: Qualified Codes: F20.0 - Paranoid schizophrenia Marcelle Bermeo MD Nov 28, 2016 13:47
[2016-11-28 13:58] LABS: HEMOGLOBIN A1C 4.2 % (4.3-6.0)
[2016-11-28 17:06] VITALS: BP 155/87; PULSE 92; RESP 17; TEMP 98.2; O2SAT 98
[2016-11-28] MEDS: REMOVE OLD PATCH T-DERMAL SCH (20:30)
[2016-11-29 05:57] VITALS: BP 128/86; PULSE 84; RESP 17; TEMP 97.4; O2SAT 98
[2016-11-29] MEDS: LORazepam 1 MG TAB PO PRN (09:21)
[2016-11-29] MEDS: NICOTINE 21 MG/24 HR PATCH T-DERMAL SCH (09:22)
[2016-11-29] MEDS: BACITRACIN/POLYMYXIN B 15 GM TUBE TOPICAL SCH ×2 (09:22→20:45)
--- NOTE | 2016-11-29 10:05 | HHI.PR ---
Subjective Remarks Written by Eloise Magdaleno, acting as scribe for Dr. Aguayo on 11/29/16 at 10: 05. Follow-up on patient with bilateral foot pain. Patient seen and examined. Patient witnessed ambulating down the green. Patient states he feels as if he is "walking on sharpened knives". Patient's speech is pressured and he must be redirected during the conversation. 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 He denies any other complaints. Discussed with nursing staff, no acute issues noted. Objective Vitals Vital Signs Date Time Temp Pulse Resp B/P (MAP) Pulse Ox O2 Delivery O2 Flow Rate FiO2 11/29/16 05:57 97.4 84 17 128/86 (100) 98 11/28/16 17:06 98.2 92 17 155/87 (109) 98 Result Diagram: 11/27/16 0100 11/28/16 1129 Objective Remarks GENERAL: This is a well-nourished, well-developed patient, in no apparent distress. Awake and alert. Ambulating in hallway. SKIN: Warm and dry. Few scattered superficial lesions noted on top and bottom of both feet. No evidence of infection. No drainage appreciated. HEAD: Atraumatic. Normocephalic. EYES: Pupils equal round and reactive. Extraocular motions intact. No scleral icterus. No injection or drainage. ENT: Nose without bleeding, purulent drainage or septal hematoma. Airway patent. MMM. NECK: Trachea midline. CARDIOVASCULAR: Regular rate and rhythm without murmurs, gallops, or rubs. RESPIRATORY: Coarse breath sounds noted throughout. GASTROINTESTINAL: Abdomen soft, non-tender, nondistended. No hepato-splenomegaly , or palpable masses. No guarding. MUSCULOSKELETAL: Extremities without clubbing, cyanosis, or edema. NEUROLOGICAL: Awake and alert. Able to move all externally spontaneously. Nonfocal. Pressured speech. PSYCHIATRIC: Patient appears vigilant. Inappropriate judgment, insight. Medications and IVs Current Medications Medications (Trade) Dose Ordered Sig/Radha Route Start Time Stop Time Status Last Admin (Ativan) 1 mg Q6H PRN PO 11/27/16 13:00 11/29/16 09:21 (Ativan Inj) 1 mg Q6H PRN IM 11/27/16 13:00 (Tylenol) 650 mg Q4H PRN PO 11/27/16 13:00 11/28/16 20:28 (Milk Of Magnesia Liq) 30 ml DAILY PRN PO 11/27/16 13:00 (Mag-Al Plus Susp Liq) 30 ml Q6H PRN PO 11/27/16 13:00 (Habitrol 21 Mg Patch.24 Hr) 1 patch DAILY T-DERMAL 11/27/16 16:49 11/29/16 09:22 Miscellaneous Information 1 HS T-DERMAL 11/27/16 21:00 (Benadryl) 50 mg Q6H PRN PO 11/27/16 13:00 11/27/16 21:27 (Benadryl Inj) 50 mg Q6H PRN IM 11/27/16 13:00 (Haldol Inj) 5 mg Q6H PRN IM 11/27/16 13:15 (Polysporin Oint) 1 applic BID TOPICAL 11/28/16 09:00 12/05/16 08:59 11/29/16 09:22 A/P Assessment and Plan Mr. Talley is a 31 year old male who was admitted due to depression, hallucinations. Hospitalist service was consulted to evaluate bilateral foot pain from wearing wet shoes. - Bilateral foot pain - improving - Continue topical antibiotics and keep feet open to dry when patient is sitting or lying in bed. - Recommend keeping feet elevated when possible. Recommended changing socks after work or working out to prevent ongoing exposure to moist, hot environment. - Recommend use of shower shoes when in public shower areas. Discussed is much with nursing staff. - Polysubstance abuse - Patient has been counselled. - Ongoing tobaccoism - Discussed importance of smoking cessation - Nicotine patch ordered Full code. Ambulation Patient appears stable from a hospitalist standpoint. Will sign off. Please reconsult if needed. This note was transcribed by janet Magdaleno. I, Dr. Darrell Aguayo personally performed the history, physical exam, and medical decision making; and confirmed the accuracy of the information in the transcribed note. Authenticated by Dr. Darrell Aguayo on 11/29/16 at 10:05. Eloise Magdaleno Nov 29, 2016 10:05 Darrell Aguayo MD Nov 29, 2016 10:06
--- NOTE | 2016-11-29 10:56 | HHI.PYPN ---
Subjective Remarks Patient seen and examined with nurse. Chart reviewed. Case discussed with nursing staff. Patient noted to be somewhat sexually inappropriate with Invega Sustenna injection was administered. On my examination today, patient remains paranoid, although a little less so than at initial presentation. Affect less dysphoric and irritable and more affective reactivity noted. Some odd ideation noted; asks that we "play ghost," unclear what this means. Perseverative on discharge. He does note he is receiving "good care and good treatment at the hospital." Denies side effects from Invega Sustenna. Education provided regarding need for booster dose of Invega Sustenna 4-7 days after initial administration and monthly after that. No new physical complaints. Review of Systems ROS Limitations: Psychotic, Poor Historian Except as stated in HPI: all other systems reviewed are Neg Mental Status Examination Appearance: Other (grooming is improved) Consciousness: Alert, Vigilant (somewhat less today) Orientation: Person, Place Motor Activity: Other (no motor abnormalities noted) Speech: Other (calmer and more coherent) Language: Adequate Fund of Knowledge: Adequate Attention and Concentration: Easily Distracted Memory: Unremarkable Mood: Other (less dysphoric) Affect: Irritable (mild) Thought Process & Associations: Other (perseverative) Thought Content: Delusional Hallucination Type: None Delusion Type: Paranoid Suicidal Ideation: No Homicidal Ideation: No Insight: Poor Judgment: Poor Results Labs Test 11/28/16 11:29 Blood Urea Nitrogen 12 MG/DL Creatinine 0.88 MG/DL Random Glucose 93 MG/DL Calcium Level 9.2 MG/DL Sodium Level 136 MEQ/L Potassium Level 4.1 MEQ/L Chloride Level 102 MEQ/L Carbon Dioxide Level 27.9 MEQ/L Anion Gap 6 MEQ/L Estimat Glomerular Filtration Rate 123 ML/MIN Hemoglobin A1c 4.2 % Triglycerides Level 60 MG/DL Cholesterol Level 123 MG/DL LDL Cholesterol 46 MG/DL HDL Cholesterol 65.4 MG/DL Cholesterol/HDL Ratio 1.88 RATIO Labs reviewed. BMP unremarkable. Hemoglobin A1c is not elevated. Lipid panel reviewed. Vitals/IOs Vital Signs Date Time Temp Pulse Resp B/P (MAP) Pulse Ox O2 Delivery O2 Flow Rate FiO2 11/29/16 05:57 97.4 84 17 128/86 (100) 98 11/27/16 10:04 Room Air Assessment & Plan Problem List: (1) Schizophrenia ICD Codes: F20.9 - Schizophrenia, unspecified Status: Acute (2) Amphetamine abuse ICD Codes: F15.10 - Other stimulant abuse, uncomplicated Assessment & Plan Patient received initial dose of Invega Sustenna yesterday and so could at the earliest receive a booster dose of Invega Sustenna at the end of the week. Patient remains paranoid and requires further inpatient stabilization at this time. Continue to monitor on the inpatient unit. Continue other medications and care as ordered. Justification for Cont. Inpt. Anticipated med changes. Impairment in reality construction. High risk for decompensation in less restrictive environment. Discharge Planning If possible, would like to retain patient on the unit in order to administer booster dose of Invega Sustenna. I have asked a counselor to obtain collateral from family regarding recent function and to assist in discharge planning. Request HC Surrog/Guard Advoc?: Yes Problem Qualifiers (1) Schizophrenia: Qualified Codes: F20.0 - Paranoid schizophrenia Leonel Crowley MD Nov 29, 2016 10:55
[2016-11-29 15:15] VITALS: BP 104/58; PULSE 75; RESP 19; TEMP 97.7; O2SAT 100
[2016-11-29 17:18] VITALS: BP 136/70; PULSE 89; RESP 18; TEMP 98; O2SAT 98
[2016-11-29] MEDS: ACETAMINOPHEN 325 MG TAB PO PRN (20:45)
[2016-11-29] MEDS: diphenhydrAMINE HCL 50 MG CAP PO PRN (20:45)
[2016-11-29] MEDS: REMOVE OLD PATCH T-DERMAL SCH (21:00)
[2016-11-30 05:50] VITALS: BP 127/79; PULSE 67; RESP 17; TEMP 97.4; O2SAT 100
--- NOTE | 2016-11-30 08:28 | HHI.PYPN ---
Subjective Remarks Patient seen and examined. Chart reviewed. Case discussed in treatment team. Per nursing staff, patient intrusive, hyperverbal, believes he is a doctor. On my examination today, the patient tells me that he has taken the MCAT in the past. 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 Quite discharge focused. Insists that the amphetamines present in his urine at admission were because someone drugged him. Denies side effects from medications. No physical complaints. Review of Systems ROS Limitations: Psychotic, Poor Historian Except as stated in HPI: all other systems reviewed are Neg Mental Status Examination Appearance: Appropriate Consciousness: Alert, Vigilant Orientation: Person, Place Motor Activity: Other (no motor abnormalities noted) Speech: Unremarkable Language: Adequate Fund of Knowledge: Adequate Attention and Concentration: Easily Distracted Memory: Unremarkable Mood: Irritable Affect: Other (consistent with mood) Thought Process & Associations: Other (perseverative) Thought Content: Delusional Hallucination Type: None Delusion Type: Paranoid Suicidal Ideation: No Homicidal Ideation: No Insight: Poor Judgment: Poor Results Labs Labs reviewed. Vitals/IOs Vital Signs Date Time Temp Pulse Resp B/P (MAP) Pulse Ox O2 Delivery O2 Flow Rate FiO2 11/30/16 05:50 97.4 67 17 127/79 (95) 100 11/27/16 10:04 Room Air Assessment & Plan Problem List: (1) Schizophrenia ICD Codes: F20.9 - Schizophrenia, unspecified Status: Acute (2) Amphetamine abuse ICD Codes: F15.10 - Other stimulant abuse, uncomplicated Assessment & Plan Ongoing psychotic symptoms present a barrier to safe discharge. These symptoms are improving, and I suspect patient simply requires additional time with antipsychotic. Plan to administer booster dose of Invega Sustenna 156mg IM tomorrow. Continue to monitor on the high acuity unit. Continue other medications and care as ordered. Justification for Cont. Inpt. Medication changes planned. Impairment in reality construction. High risk for decompensation in less restrictive environment. Discharge Planning Case discussed with counselor. Counselor to reach out for collateral. I will also consult [facility] critical care transport nurse. Request HC Surrog/Guard Advoc?: Yes Problem Qualifiers (1) Schizophrenia: Qualified Codes: F20.0 - Paranoid schizophrenia Leonel Crowley MD Nov 30, 2016 08:28
--- NOTE | 2016-11-30 08:28 | HHI.PYPN ---
Subjective Remarks Patient seen and examined. Chart reviewed. Case discussed in treatment team. Per nursing staff, patient intrusive, hyperverbal, believes he is a doctor. On my examination today, the patient tells me that he has taken the [employer]AT in the past. 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 Quite discharge focused. Insists that the amphetamines present in his urine at admission were because someone drugged him. Denies side effects from medications. No physical complaints. Review of Systems ROS Limitations: Psychotic, Poor Historian Except as stated in HPI: all other systems reviewed are Neg Mental Status Examination Appearance: Appropriate Consciousness: Alert, Vigilant Orientation: Person, Place Motor Activity: Other (no motor abnormalities noted) Speech: Unremarkable Language: Adequate Fund of Knowledge: Adequate Attention and Concentration: Easily Distracted Memory: Unremarkable Mood: Irritable Affect: Other (consistent with mood) Thought Process & Associations: Other (perseverative) Thought Content: Delusional Hallucination Type: None Delusion Type: Paranoid Suicidal Ideation: No Homicidal Ideation: No Insight: Poor Judgment: Poor Results Labs Labs reviewed. Vitals/IOs Vital Signs Date Time Temp Pulse Resp B/P (MAP) Pulse Ox O2 Delivery O2 Flow Rate FiO2 11/30/16 05:50 97.4 67 17 127/79 (95) 100 11/27/16 10:04 Room Air Assessment & Plan Problem List: (1) Schizophrenia ICD Codes: F20.9 - Schizophrenia, unspecified Status: Acute (2) Amphetamine abuse ICD Codes: F15.10 - Other stimulant abuse, uncomplicated Assessment & Plan Ongoing psychotic symptoms present a barrier to safe discharge. These symptoms are improving, and I suspect patient simply requires additional time with antipsychotic. Plan to administer booster dose of Invega Sustenna 156mg IM tomorrow. Continue to monitor on the high acuity unit. Continue other medications and care as ordered. Justification for Cont. Inpt. Medication changes planned. Impairment in reality construction. High risk for decompensation in less restrictive environment. Discharge Planning Case discussed with counselor. Counselor to reach out for collateral. I will also consult [facility] career services representative. Request HC Surrog/Guard Advoc?: Yes Problem Qualifiers (1) Schizophrenia: Qualified Codes: F20.0 - Paranoid schizophrenia Leonel Crowley MD Nov 30, 2016 08:28
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
[2016-11-30] MEDS: LORazepam 1 MG TAB PO PRN ×2 (08:55→17:29)
[2016-11-30] MEDS: NICOTINE 21 MG/24 HR PATCH T-DERMAL SCH (08:58)
[2016-11-30] MEDS: BACITRACIN/POLYMYXIN B 15 GM TUBE TOPICAL SCH ×2 (08:58→21:08)
--- NOTE | 2016-11-30 15:46 | PD.TTN ---
Patient Problems 1. Discharge planning 2. Medication compliance 3. Knowledge deficit 4. Lack of coping skills Progress Toward Goals Provider Present: Dr. Rocio Crowley Provider Input: Pt was started on Invega Sustenna and will be retained in order for him to obtain booster shot. Pt will also be referred as a possible candidate for the [facility] Shingle Weaver program. Nurse(s) Present: Uma Andino, RN Nurse(s) Input: Pt appears intrusive, hyperverbal, delusional and paranoid on unit. Psychiatric Counselors Present: ELGIN Parker Psych Therapist Input: Pt continues to appear delusional, easily irritated, bizarre, disorganized and hyperverbal. Insight into condition and need for care appears poor. Coping skills appear minimal at this point as pt appears unable to consistently regulate emotions. Mood appears labile at this time and pt is observed to be pacing green speaking to himself suggesting possible internal stimulation. Group Spec/RT/OT/VAZQUEZ Present: Vic Chin OT Group Spec/RT/OT/VAZQUEZ Input: Pt attends most groups but can be hyperverbal and mainly keeps to himself. Discharge Plan [facility] Documentation Scribe: ELGIN Parker Jonathan LMHC Nov 30, 2016 15:46
--- NOTE | 2016-11-30 15:46 | PD.TTN ---
Patient Problems 1. Discharge planning 2. Medication compliance 3. Knowledge deficit 4. Lack of coping skills Progress Toward Goals Provider Present: Dr. Rocio Crowley Provider Input: Pt was started on Invega Sustenna and will be retained in order for him to obtain booster shot. Pt will also be referred as a possible candidate for the [facility] Nuclear Process Engineer program. Nurse(s) Present: Uma Andino, RN Nurse(s) Input: Pt appears intrusive, hyperverbal, delusional and paranoid on unit. Psychiatric Counselors Present: ELGIN Parker Psych Therapist Input: Pt continues to appear delusional, easily irritated, bizarre, disorganized and hyperverbal. Insight into condition and need for care appears poor. Coping skills appear minimal at this point as pt appears unable to consistently regulate emotions. Mood appears labile at this time and pt is observed to be pacing green speaking to himself suggesting possible internal stimulation. Group Spec/RT/OT/VAZQUEZ Present: Vic Chin OT Group Spec/RT/OT/VAZQUEZ Input: Pt attends most groups but can be hyperverbal and mainly keeps to himself. Discharge Plan [facility] Documentation Scribe: ELGIN Parker Jonathan LMHC Nov 30, 2016 15:46
--- NOTE | 2016-11-30 15:46 | PD.TTN ---
Patient Problems 1. Discharge planning 2. Medication compliance 3. Knowledge deficit 4. Lack of coping skills Progress Toward Goals Provider Present: Dr. Rocio Crowley Provider Input: Pt was started on Invega Sustenna and will be retained in order for him to obtain booster shot. Pt will also be referred as a possible candidate for the [facility] Wire Brush Operator program. Nurse(s) Present: Uma Andino, RN Nurse(s) Input: Pt appears intrusive, hyperverbal, delusional and paranoid on unit. Psychiatric Counselors Present: ELGIN Parker Psych Therapist Input: Pt continues to appear delusional, easily irritated, bizarre, disorganized and hyperverbal. Insight into condition and need for care appears poor. Coping skills appear minimal at this point as pt appears unable to consistently regulate emotions. Mood appears labile at this time and pt is observed to be pacing green speaking to himself suggesting possible internal stimulation. Group Spec/RT/OT/VAZQUEZ Present: Vic Chin OT Group Spec/RT/OT/VAZQUEZ Input: Pt attends most groups but can be hyperverbal and mainly keeps to himself. Discharge Plan [facility] Documentation Scribe: ELGIN Parker Jonathan LMHC Nov 30, 2016 15:46
[2016-11-30 18:17] VITALS: BP 140/73; PULSE 91; RESP 18; TEMP 97; O2SAT 99
[2016-11-30] MEDS: REMOVE OLD PATCH T-DERMAL SCH (21:00)
[2016-11-30] MEDS: diphenhydrAMINE HCL 50 MG CAP PO PRN (21:05)
[2016-11-30] MEDS: ACETAMINOPHEN 325 MG TAB PO PRN (21:07)
[2016-12-01 05:37] VITALS: BP 124/69; PULSE 76; RESP 18; TEMP 97.5; O2SAT 100
[2016-12-01] MEDS ORDERED: PALIPERIDONE PALMITATE 156 MG/ML SYRINGE IM ONE (09:00)
[2016-12-01] MEDS: BACITRACIN/POLYMYXIN B 15 GM TUBE TOPICAL SCH ×2 (09:00→20:31)
[2016-12-01] MEDS: LORazepam 1 MG TAB PO PRN ×3 (11:00→23:37)
[2016-12-01] MEDS: NICOTINE 21 MG/24 HR PATCH T-DERMAL SCH (11:01)
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
[2016-12-01] MEDS: DIVALPROEX SODIUM E.R. 500 MG TAB PO SCH ×2 (20:30→20:38)
[2016-12-01] MEDS: ACETAMINOPHEN 325 MG TAB PO PRN (20:31)
[2016-12-01] MEDS: diphenhydrAMINE HCL 50 MG CAP PO PRN (20:31)
[2016-12-01] MEDS: REMOVE OLD PATCH T-DERMAL SCH (20:31)
[2016-12-02 05:52] VITALS: BP 119/70; PULSE 77; RESP 16; TEMP 97.3; O2SAT 100
[2016-12-02] MEDS: BACITRACIN/POLYMYXIN B 15 GM TUBE TOPICAL SCH ×2 (08:26→20:50)
[2016-12-02] MEDS: NICOTINE 21 MG/24 HR PATCH T-DERMAL SCH (08:26)
[2016-12-02] MEDS: LORazepam 1 MG TAB PO PRN ×2 (08:28→18:17)
--- NOTE | 2016-12-02 11:37 | HHI.PYPN ---
Subjective Chief Complaint: psychosis Remarks Patient seen and case discussed with nursing staff. Chart reviewed. Depakote was not started yesterday evening because consent could not be obtained from HCS. Per nursing staff, the patient remains disorganized and psychotic, worried that [employer] court today was criminal and not civil in nature. He did reportedly sleep fairly well. For me today, the patient reiterates that he wants to josé Dr. Kasper. Affect is dysphoric. Speech terse, angry. Perseverative on discharge. No reported side effects from medications. No physical complaints. Review of Systems ROS Limitations: Poor Historian Other No physical complaints Mental Status Examination Appearance: Appropriate Consciousness: Alert Orientation: Person, Place Motor Activity: Other (no abnormal motor movements noted) Speech: Unremarkable Language: Adequate Fund of Knowledge: Adequate Attention and Concentration: Adequate Memory: Unremarkable Mood: Other (dysphoric today) Affect: Other (restricted) Thought Process & Associations: Linear Thought Content: Delusional Hallucination Type: None Delusion Type: None (no jordan delusions but suspect some underlying paranoia) Suicidal Ideation: No Homicidal Ideation: No Insight: Poor Judgment: Poor Results Labs Labs reviewed Vitals/IOs Vital Signs Date Time Temp Pulse Resp B/P (MAP) Pulse Ox O2 Delivery O2 Flow Rate FiO2 12/02/16 05:52 97.3 77 16 119/70 (86) 100 Assessment & Plan Problem List: (1) Schizoaffective disorder, bipolar type ICD Codes: F25.0 - Schizoaffective disorder, bipolar type (2) Amphetamine abuse ICD Codes: F15.10 - Other stimulant abuse, uncomplicated Assessment & Plan Obtain consent for Depakote and start this medication this evening. Continue to monitor on the inpatient unit. Continue other medications and care as ordered. Patient's case was presented to the [employer] act court, and the patient was retained on the unit by the bankruptcy judge. Justification for Cont. Inpt. Med changes. Risk for decompensation and less restrictive environment. Discharge Planning Pending psychiatric stabilization. Request HC Surrog/Guard Advoc?: Yes Leonel Crowley MD Dec 02, 2016 11:37
--- NOTE | 2016-12-02 11:37 | HHI.PYPN ---
Subjective Chief Complaint: psychosis Remarks Patient seen and case discussed with nursing staff. Chart reviewed. Depakote was not started yesterday evening because consent could not be obtained from [facility]. Per nursing staff, the patient remains disorganized and psychotic, worried that [employer] court today was criminal and not civil in nature. He did reportedly sleep fairly well. For me today, the patient reiterates that he wants to josé Dr. Kasper. Affect is dysphoric. Speech terse, angry. Perseverative on discharge. No reported side effects from medications. No physical complaints. Review of Systems ROS Limitations: Poor Historian Other No physical complaints Mental Status Examination Appearance: Appropriate Consciousness: Alert Orientation: Person, Place Motor Activity: Other (no abnormal motor movements noted) Speech: Unremarkable Language: Adequate Fund of Knowledge: Adequate Attention and Concentration: Adequate Memory: Unremarkable Mood: Other (dysphoric today) Affect: Other (restricted) Thought Process & Associations: Linear Thought Content: Delusional Hallucination Type: None Delusion Type: None (no jordan delusions but suspect some underlying paranoia) Suicidal Ideation: No Homicidal Ideation: No Insight: Poor Judgment: Poor Results Labs Labs reviewed Vitals/IOs Vital Signs Date Time Temp Pulse Resp B/P (MAP) Pulse Ox O2 Delivery O2 Flow Rate FiO2 12/02/16 05:52 97.3 77 16 119/70 (86) 100 Assessment & Plan Problem List: (1) Schizoaffective disorder, bipolar type ICD Codes: F25.0 - Schizoaffective disorder, bipolar type (2) Amphetamine abuse ICD Codes: F15.10 - Other stimulant abuse, uncomplicated Assessment & Plan Obtain consent for Depakote and start this medication this evening. Continue to monitor on the inpatient unit. Continue other medications and care as ordered. Patient's case was presented to the [employer] act court, and the patient was retained on the unit by the billing and insurance coordinator. Justification for Cont. Inpt. Med changes. Risk for decompensation and less restrictive environment. Discharge Planning Pending psychiatric stabilization. Request HC Surrog/Guard Advoc?: Yes Leonel Crowley MD Dec 02, 2016 11:37
--- NOTE | 2016-12-02 11:37 | HHI.PYPN ---
Subjective Chief Complaint: psychosis Remarks Patient seen and case discussed with nursing staff. Chart reviewed. Depakote was not started yesterday evening because consent could not be obtained from [facility]. Per nursing staff, the patient remains disorganized and psychotic, worried that [employer] court today was criminal and not civil in nature. He did reportedly sleep fairly well. For me today, the patient reiterates that he wants to josé Dr. Kasper. Affect is dysphoric. Speech terse, angry. Perseverative on discharge. No reported side effects from medications. No physical complaints. Review of Systems ROS Limitations: Poor Historian Other No physical complaints Mental Status Examination Appearance: Appropriate Consciousness: Alert Orientation: Person, Place Motor Activity: Other (no abnormal motor movements noted) Speech: Unremarkable Language: Adequate Fund of Knowledge: Adequate Attention and Concentration: Adequate Memory: Unremarkable Mood: Other (dysphoric today) Affect: Other (restricted) Thought Process & Associations: Linear Thought Content: Delusional Hallucination Type: None Delusion Type: None (no jordan delusions but suspect some underlying paranoia) Suicidal Ideation: No Homicidal Ideation: No Insight: Poor Judgment: Poor Results Labs Labs reviewed Vitals/IOs Vital Signs Date Time Temp Pulse Resp B/P (MAP) Pulse Ox O2 Delivery O2 Flow Rate FiO2 12/02/16 05:52 97.3 77 16 119/70 (86) 100 Assessment & Plan Problem List: (1) Schizoaffective disorder, bipolar type ICD Codes: F25.0 - Schizoaffective disorder, bipolar type (2) Amphetamine abuse ICD Codes: F15.10 - Other stimulant abuse, uncomplicated Assessment & Plan Obtain consent for Depakote and start this medication this evening. Continue to monitor on the inpatient unit. Continue other medications and care as ordered. Patient's case was presented to the [employer] act court, and the patient was retained on the unit by the manager provider relations. Justification for Cont. Inpt. Med changes. Risk for decompensation and less restrictive environment. Discharge Planning Pending psychiatric stabilization. Request HC Surrog/Guard Advoc?: Yes Leonel Crowley MD Dec 02, 2016 11:37
[2016-12-02 18:03] VITALS: BP 136/73; PULSE 90; RESP 17; TEMP 98.1; O2SAT 100
[2016-12-02] MEDS: diphenhydrAMINE HCL 50 MG CAP PO PRN (20:01)
[2016-12-02] MEDS: ACETAMINOPHEN 325 MG TAB PO PRN (20:01)
[2016-12-02] MEDS: REMOVE OLD PATCH T-DERMAL SCH (20:50)
[2016-12-03] MEDS: LORazepam 1 MG TAB PO PRN ×3 (05:33→20:53)
[2016-12-03 05:44] VITALS: BP 131/74; PULSE 84; RESP 17; TEMP 97.7; O2SAT 100
[2016-12-03] MEDS: BACITRACIN/POLYMYXIN B 15 GM TUBE TOPICAL SCH ×2 (08:49→21:00)
[2016-12-03] MEDS: NICOTINE 21 MG/24 HR PATCH T-DERMAL SCH (08:49)
[2016-12-03] MEDS: ACETAMINOPHEN 325 MG TAB PO PRN (10:38)
[2016-12-03 10:39] LABS: ALBUMIN 3.7 GM/DL (3.4-5.0); AST (GOT) 15 U/L (15-37); BICARBONATE 29.4 MEQ/L (21.0-32.0); BLOOD UREA NITROGEN 11 MG/DL (7-18); CALCIUM 9.2 MG/DL (8.5-10.1); CHLORIDE 102 MEQ/L (98-107); CREATININE 0.87 MG/DL (0.60-1.30); GLOMERULAR FILTRATION RATE 125 ML/MIN (>89); GLUCOSE,RANDOM 87 MG/DL (74-106); SODIUM (NA) 138 MEQ/L (136-145)
[2016-12-03 10:40] LABS: ALT (GPT) 27 U/L (12-78)
[2016-12-03 10:42] LABS: ALKALINE PHOSPHATASE 59 U/L (45-117); TOTAL BILIRUBIN ADULT 0.5 MG/DL (0.2-1.0); TOTAL PROTEIN 7.3 GM/DL (6.4-8.2)
--- NOTE | 2016-12-03 11:45 | HHI.PYPN ---
Subjective Chief Complaint: psychosis Remarks Patient seen and examined. Chart reviewed. Giovann[facility]ichole still on hold for lack of consent. I tried to call mother and ELR[place] guardian myself for consents this morning and left with the latter requesting a call back. Case discussed with nursing staff. 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 He remains perseverative on being discharged so he can get to work. He remains disinhibited and at one point alludes to "your [i.e. this conventional underwriter's] pretty face." Denies side effects from medications. No physical complaints. I discuss treatment plan as outlined below, including LOS, and patient agrees that this is "very fair." Review of Systems ROS Limitations: Psychotic, Poor Historian Except as stated in HPI: all other systems reviewed are Neg Mental Status Examination Appearance: Appropriate Consciousness: Alert Orientation: Person, Place, Date/Time Motor Activity: Other (no motoric abnormalities noted) Speech: Unremarkable Language: Adequate Fund of Knowledge: Adequate Attention and Concentration: Adequate Memory: Unremarkable Mood: Other (mildly elevated) Affect: Other (mildly expansive) Thought Process & Associations: Loose associations (mild) Thought Content: Delusional Hallucination Type: None Delusion Type: Other (grandiose) Suicidal Ideation: No Homicidal Ideation: No Insight: Poor Judgment: Poor Results Labs Test 12/03/16 09:33 Blood Urea Nitrogen 11 MG/DL Creatinine 0.87 MG/DL Random Glucose 87 MG/DL Total Protein 7.3 GM/DL Albumin 3.7 GM/DL Calcium Level 9.2 MG/DL Alkaline Phosphatase 59 U/L Aspartate Amino Transf (AST/SGOT) 15 U/L Alanine Aminotransferase (ALT/SGPT) 27 U/L Total Bilirubin 0.5 MG/DL Sodium Level 138 MEQ/L Potassium Level 3.8 MEQ/L Chloride Level 102 MEQ/L Carbon Dioxide Level 29.4 MEQ/L Anion Gap 7 MEQ/L Estimat Glomerular Filtration Rate 125 ML/MIN Total Creatine Kinase 80 U/L Labs reviewed. CMP unremarkable. CK has normalized. Vitals/IOs Vital Signs Date Time Temp Pulse Resp B/P (MAP) Pulse Ox O2 Delivery O2 Flow Rate FiO2 12/03/16 11:19 18 12/03/16 05:44 97.7 84 131/74 (93) 100 Assessment & Plan Problem List: (1) Schizoaffective disorder, bipolar type ICD Codes: F25.0 - Schizoaffective disorder, bipolar type (2) Amphetamine abuse ICD Codes: F15.10 - Other stimulant abuse, uncomplicated Assessment & Plan Patient with ongoing mood instability, likely does require addition of a mood stabilizer. Nurse was finally able to get consent for Depakote, which will start this evening. Plan to obtain a Depakote level after the appropriate interval. Patient also has initial and booster dose of Invega Sustenna on board. Continue to monitor on the high acuity unit. Continue other medications and care as ordered. Justification for Cont. Inpt. Impairment in reality construction. High risk for decompensation in less restrictive environment. Discharge Planning Pending psychiatric stabilization. Possible discharge after the weekend if psychiatric symptoms have adequately stabilized. Request HC Surrog/Guard Advoc?: Yes Leonel Crowley MD Dec 03, 2016 11:45
[2016-12-03 17:00] VITALS: BP 119/80; PULSE 90; RESP 17; TEMP 97.9; O2SAT 97
[2016-12-03] MEDS: diphenhydrAMINE HCL 50 MG CAP PO PRN (20:53)
[2016-12-03] MEDS: DIVALPROEX SODIUM E.R. 500 MG TAB PO SCH (20:53)
[2016-12-03] MEDS: REMOVE OLD PATCH T-DERMAL SCH (20:54)
[2016-12-04 05:47] VITALS: BP 120/65; PULSE 80; RESP 18; TEMP 97.9; O2SAT 99
[2016-12-04] MEDS: LORazepam 1 MG TAB PO PRN ×3 (07:26→20:07)
[2016-12-04] MEDS: ACETAMINOPHEN 325 MG TAB PO PRN ×2 (07:26→20:08)
[2016-12-04] MEDS: NICOTINE 21 MG/24 HR PATCH T-DERMAL SCH (08:29)
[2016-12-04] MEDS: BACITRACIN/POLYMYXIN B 15 GM TUBE TOPICAL SCH ×2 (08:29→21:00)
--- NOTE | 2016-12-04 17:15 | HHI.PYPN ---
Subjective Chief Complaint: psychosis Remarks Patient was seen and case discussed with nursing. Patient remains grandiose believing he is genius, that he has degrees in microbiology and help invent antibiotics. Per nursing he was singing in his room. Insight is poor, denies hallucinations. He was questioning the Depakote asking for lower dose but agreed to continue after psychoeducation Mental Status Examination Appearance: Appropriate Consciousness: Alert Orientation: Person, Place, Date/Time Motor Activity: Other (no motoric abnormalities noted) Speech: Unremarkable Language: Adequate Fund of Knowledge: Adequate Attention and Concentration: Adequate Memory: Unremarkable Mood: Other (mildly elevated) Affect: Other (mildly expansive) Thought Process & Associations: Tangential Thought Content: Delusional Hallucination Type: None Delusion Type: Other (grandiose) Suicidal Ideation: No Suicidal Plan: No Suicidal Intention: No Homicidal Ideation: No Homicidal Plan: No Homicidal Intention: No Insight: Poor Judgment: Poor Results Vitals/IOs Vital Signs Date Time Temp Pulse Resp B/P (MAP) Pulse Ox O2 Delivery O2 Flow Rate FiO2 12/04/16 05:47 97.9 80 18 120/65 (83) 99 Assessment & Plan Problem List: (1) Schizoaffective disorder, bipolar type ICD Codes: F25.0 - Schizoaffective disorder, bipolar type (2) Amphetamine abuse ICD Codes: F15.10 - Other stimulant abuse, uncomplicated Assessment & Plan Continue current treatment plan Justification for Cont. Inpt. Patient will decompensate in a less restrictive setting Request HC Surrog/Guard Advoc?: Yes Mitchell Portillo DO Dec 04, 2016 17:15
[2016-12-04 18:40] VITALS: BP 112/56; PULSE 85; RESP 17; TEMP 98.8; O2SAT 99
[2016-12-04] MEDS: REMOVE OLD PATCH T-DERMAL SCH (20:07)
[2016-12-04] MEDS: DIVALPROEX SODIUM E.R. 500 MG TAB PO SCH (20:07)
[2016-12-04] MEDS: diphenhydrAMINE HCL 50 MG CAP PO PRN (20:09)
[2016-12-05] MEDS: LORazepam 1 MG TAB PO PRN ×4 (04:55→23:36)
[2016-12-05 05:33] VITALS: BP 130/59; PULSE 86; RESP 18; TEMP 98; O2SAT 98
[2016-12-05] MEDS: ACETAMINOPHEN 325 MG TAB PO PRN ×3 (05:55→23:36)
[2016-12-05] MEDS: NICOTINE 21 MG/24 HR PATCH T-DERMAL SCH (08:57)
[2016-12-05] MEDS: TERBINAFINE 250 MG TAB PO SCH (14:15)
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
[2016-12-05 16:50] VITALS: BP 132/90; PULSE 101; RESP 17; TEMP 97.2; O2SAT 96
[2016-12-05] MEDS: REMOVE OLD PATCH T-DERMAL SCH (20:59)
[2016-12-05] MEDS: diphenhydrAMINE HCL 50 MG CAP PO PRN (20:59)
[2016-12-05] MEDS: DIVALPROEX SODIUM E.R. 500 MG TAB PO SCH (20:59)
[2016-12-06] MEDS: ACETAMINOPHEN 325 MG TAB PO PRN ×2 (04:58→12:45)
[2016-12-06 05:49] VITALS: BP 123/72; PULSE 81; RESP 17; TEMP 97.2; O2SAT 100
[2016-12-06] MEDS: LORazepam 1 MG TAB PO PRN ×2 (07:14→12:45)
[2016-12-06] MEDS: TERBINAFINE 250 MG TAB PO SCH (09:00)
[2016-12-06] MEDS: NICOTINE 21 MG/24 HR PATCH T-DERMAL SCH (09:13)
[2016-12-06] MEDS ORDERED: LAMI250T PO (09:14)
[2016-12-06] MEDS ORDERED: DEPA500T3 PO (09:14)
[2016-12-06] MEDS ORDERED: PALI156P IM (09:14)
--- NOTE | 2016-12-06 09:14 | HHI.DS ---
Psychiatry Discharge Summary Inpatient Psychiatric care?: Yes Advance Directive: No Reason Not Provided: deferred by patient [facility] AdvanceDirective: No Health Care Proxy: No Admission Admission Date Nov 27, 2016 at 13:05 Admission Diagnosis: (1) Schizophrenia ICD Code: F20.9 - Schizophrenia, unspecified (2) Amphetamine abuse ICD Code: F15.10 - Other stimulant abuse, uncomplicated Brief History Mr. Talley is a 31-year-old male with a history of paranoid schizophrenia and substance use issues who presented voluntarily to the emergency department complaining of foot pain. He told the ED provider that he walked a long distance and is disoriented. Reviewing the electronic medical record, I note the patient was admitted most recently under Dr. Kasper for a brief stay and before that under Dr. Abarca. I do note that during the admission under Dr. Abarca the patient was stabilized on Risperdal which he tolerated well. Patient seen and examined. Chart reviewed. Case discussed with nursing staff. On my examination today, the patient presents as quite malodorous and disheveled. He is extremely paranoid and irritable. Following my interview he becomes quite belligerent with staff, and I have ordered him medicated with Haldol, Ativan and Benadryl ETO. Patient is frankly internally stimulated and says that "I had a hallucination that was the worst." Quite guarded overall and answers several questions with variations of "I'd rather not say." Mood is "bad." Affect is broadly dysphoric. Denies SI or HI but seems distinctly unreliable to contract for safety. Becomes increasingly insistent on discharge , and thought process becomes increasingly disorganized as he rants on this theme. Psychiatric interview is limited because of the degree of patient's psychiatric decompensation at present. Complains of bilateral foot pain and notes that he has been walking quite a bit lately but otherwise no physical complaints. Past psychiatric history: The patient reports a history of schizophrenia. He reports that he has been nonadherent with his medications. He is not currently under the care of a psychiatrist. He denies any recent psychiatric admissions since discharge from [facility] last time. When I inquire about suicide attempts he says "I'd rather not say." Tobacco Use In Past 30 Days: 5 or More Cigarettes/Day Alcohol Use: 2-3 Times Per Week Hospital Course Patient was admitted to a locked, inpatient psychiatric unit. A general medical consultation was obtained. Appropriate precautions were in place throughout patient's hospital stay. Patient was seen and examined daily on the unit by psychiatry and also visited by counselor. Psychotropic medications were adjusted. The patient was started on long-acting injectable Invega Sustenna as well as Depakote for additional mood stabilization. The patient tolerated psychotropics well without side effects. Patient had significant improvement in presenting psychiatric symptomatology during the course of his hospital stay. There was no evidence of suicidality or homicidality on the inpatient unit. The patient's behavior improved with the benefit of psychopharmacologic treatment. On the day of discharge: Patient seen and examined with nurse. Chart reviewed. Case discussed with nursing staff. On my examination today, the patient is requesting discharge from the inpatient psychiatric unit today. He is calm and cooperative with examination. 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 This delusional material does not seem to be functionally impairing or distressing. I can otherwise elicit no delusional material, and he denies audiovisual hallucinations. He denies any suicidal or homicidal ideation, intent or plan on direct questioning and contracts for safety. He is future oriented and says that his plan is to stay with a friend in the near term until he can earn enough money to buy a plane ticket to return to stay with his mother in [place]. He denies any side effects from medications. A spot Depakote and ammonia level obtained today reveal Depakote level within the therapeutic range and ammonia level was not elevated. He has no physical complaints. Weighing the acute, chronic, and protective factors and based on the available evidence, I die try out worker stamping to a reasonable degree of medical certainty that the patient is at low imminent risk of harm to self or others from a mental illness as defined under the [place] act and his level of function is adequate for outpatient care. I do suspect that the patient's substance use issues confer chronic but not acute or imminent risk, and I have strongly recommended that he pursue chemical dependency evaluation and treatment on an outpatient basis. The patient does not meet criteria for ongoing involuntary psychiatric hospitalization at this time. He is requesting discharge from the inpatient psychiatric unit today. I will discharge the patient today with psychiatric follow-up as arranged by counselor. Patient is also to follow-up with primary care. I counseled the patient regarding warning signs for need to return to the psychiatric emergency room as part of the general safety plan. I have instructed the patient to have a trough Depakote level and ammonia level drawn after discharge and educated him regarding the timing of this lab draw. I have provided patient with psychoeducation regarding his psychotropic medication regimen including the need for and timing of follow-up Invega Sustenna injections. Results Blood Pressure 123 / 72 Vital Signs Date Time Temp Pulse Resp B/P (MAP) Pulse Ox O2 Delivery O2 Flow Rate FiO2 12/06/16 05:49 97.2 81 17 123/72 (89) 100 Laboratory Tests Test 12/03/16 09:33 Laboratory Results Test 11/28/16 11:29 Cholesterol Level 123 MG/DL (120-200) HDL Cholesterol 65.4 MG/DL (40.0-60.0) Hemoglobin A1c 4.2 % (4.3-6.0) LDL Cholesterol 46 MG/DL (0-99) Triglycerides Level 60 MG/DL (42-150) Summary of Procedures None done Imaging None done Pending results at discharge: No Medications # of Antipsychotic meds at D/C: 1 Approp Antipsych med options 1 - Minimum of three failed multiple trials of monotherapy. 2 - Documented plan to taper to monotherapy due to previous use of multiple meds OR cross-taper in progress at D/C. 3 - Documentation of augmentation of Clozapine. 4 - Justification other than those listed in allowable values 1-3, document here : Discharge Discharge Date: Dec 06, 2016 Discharge Diagnosis: (1) Schizoaffective disorder, bipolar type Diagnosis: Principal (stabilized) ICD Code: F25.0 - Schizoaffective disorder, bipolar type (2) Amphetamine abuse Diagnosis: Secondary (counseled to quit) ICD Code: F15.10 - Other stimulant abuse, uncomplicated Pt Condition on Discharge: Stable Discharge Disposition: Discharge Home Discharge Instructions Diet Instructions: As Tolerated, No Restrictions Activities you can perform: Weight Bearing as Frannie Scheduled Appointment: as per counselor's notes New Orders: AMMONIA - 2-3 Days DEPAKENE - 2-3 Days New Medications: Paliperidone Palmitate Inj (Invega Sustenna Inj) 156 Mg/Ml Inj 156 MG IM Q28D for Mental Health, #1 VIAL 0 Refills This dose of Mirela Pal is due on 12/29/2016. Divalproex ER (Depakote ER) 500 Mg Eugene 1000 MG PO HS for Mental Health for 15 Days, TAB 1 Refill Terbinafine (Lamisil) 250 Mg Tab 250 MG PO DAILY for Health for 15 Days, #15 TAB 1 Refill Discontinued Medications: Hydroxyzine HCl (Hydroxyzine HCl) 25 Mg Tab 12.5 MG PO Q6H PRN for MILD ANXIETY for 30 Days, #30 TAB Quetiapine (Seroquel) 25 Mg Tab 25 MG PO BID, #60 TAB 0 Refills Risperidone (Risperdal) 1 Mg Tab 1 MG PO Q12HR for health for 30 Days, #30 TAB [Benztropine Mesylate] () 1 MG TAB 0.5 MG PO Q12HR for health for 30 Days, #30 Discharge Time <= 30 minutes Mental Status Examination Appearance: Appropriate (well dressed and well-groomed) Consciousness: Alert Orientation: x4 Motor Activity: Other (no hand tremor, no cogwheeling, no dystonias, no dyskinesias, no other motoric abnormalities noted) Speech: Unremarkable Language: Adequate Fund of Knowledge: Adequate Attention and Concentration: Adequate Memory: Unremarkable Mood: Good Affect: Appropriate, Euthymic Thought Process & Associations: Logical, Linear Thought Content: Appropriate (Some grandiosity, generally appropriate) Hallucination Type: None Delusion Type: Other (some residual grandiosity) Suicidal Ideation: No Suicidal Plan: No Suicidal Intention: No Homicidal Ideation: No Homicidal Plan: No Homicidal Intention: No Insight: Fair Judgment: Adequate (fair) Discharge/Advance Care Plan Health Problems: (1) Schizoaffective disorder, bipolar type (2) Amphetamine abuse Goals to promote your health * To prevent worsening of your condition and complications * To maintain your health at the optimal level Directions to meet your goals Take your medications as prescribed Follow your dietary instruction Follow activity as directed Keep your appointments as scheduled Take your immunizations and boosters as scheduled If your symptoms worsen call your PCP, if no PCP go to Urgent Care Center or Emergency Room For 30/08 questions related to your inpatient stay or results of tests pending at discharge, please contact Dr. Leonel Crowley at Smoking is Dangerous to Your Health. Avoid second hand smoking Problem Qualifiers (1) Schizophrenia: Qualified Codes: F20.0 - Paranoid schizophrenia Leonel Crowley MD Dec 06, 2016 09:14
== END 2016-12-06 13:15 | disposition home or self-care (01) | DRG 885 ==
LOC: NEPD 00:03 → NEDA 13:05 → H270 14:45
PROVIDERS: ADMIT Psychiatry & Neurology Psychiatry; ATTEND Psychiatry & Neurology Psychiatry
DX: F20.0 Paranoid schizophrenia (principal); Z91.14 Patient's other noncompliance with medication regimen; F15.10 Other stimulant abuse, uncomplicated; Z59.0 Homelessness; F17.210 Nicotine dependence, cigarettes, uncomplicated; G47.00 Insomnia, unspecified; M79.672 Pain in left foot; M79.671 Pain in right foot; Z79.899 Other long term (current) drug therapy
CPT/HCPCS: 80048; 80053; 80061; 80164; 80307; 81001; 82140; 82550; 82552; 83036; 85025; 96360; J2426; J7030; Q0163

== ENCOUNTER 2016-12-09 04:45 | Emergency (ER) | payer MEDICARE ==
[~2016-12-09] VITALS: Ht 182.9 cm; Wt 73.0 kg
[~2016-12-09 04:45] MED LIST changes: -BACT800T5 PO; -Benztropine Mesylate PO; +DEPA500T3 PO; -DOXY100C PO; -HYDR-3133 PO; +LAMI250T PO; +LORA-474 PO; +PALI156P IM
[2016-12-09 04:57] VITALS: BP 144/103; PULSE 106; RESP 18; TEMP 98.5; O2SAT 98
--- NOTE | 2016-12-09 05:13 | PD ---
HPI Chief Complaint: Medical Clearance Time Seen by Provider: 05:01 Travel History International Travel<30 days: No Contact w/Intl Traveler<30days: No Traveled to known affect area: No History of Present Illness HPI Patient comes in complaining of bilateral chronic foot pain ongoing for "a while now". Patient states symptoms got worse after playing basketball today. Patient states he runs a marathon every other day and lasts ran one yesterday. Patient denies any trauma with this. Patient is worse with palpation and walking. Patient denies anything making it better. Patient denies doing anything for this. Denies any numbness or tingling, homicidal ideations, suicidal ideations, or fevers.. PFSH Past Medical History Arthritis: No Asthma: No Anxiety: Yes Depression: Yes Heart Rhythm Problems: No High Cholesterol: No Chemotherapy: No Chest Pain: No Congestive Heart Failure: No COPD: No Cerebrovascular Accident: No Diminished Hearing: No Endocrine: No Gastrointestinal Disorders: No GERD: No Genitourinary: No Hiatal Hernia: No Immune Disorder: No Implanted Vascular Access Dvce: No Kidney Stones: No Musculoskeletal: No Neurologic: No Reproductive: No Respiratory: No Immunizations Current: Yes Migraines: No Radiation Therapy: No Renal Failure: No Schizophrenia: Yes Sickle Cell Disease: No Sleep Apnea: No Thyroid Disease: No Ulcer: No Tetanus Vaccination: Unknown Past Surgical History Abdominal Surgery: No AICD: No Arteriovenous Shunt: No Cardiac Surgery: No Ear Surgery: No Endocrine Surgery: No Eye Surgery: No Genitourinary Surgery: No Insulin Pump: No Joint Replacement: No Oral Surgery: No Pacemaker: No Thoracic Surgery: No Other Surgery: No Social History Alcohol Use: Yes ("DAILY") Tobacco Use: Yes (1/2 ppd) Substance Use: Yes ("MARIJUANA, COCAINE") Allergies-Medications (Allergen,Severity, Reaction): Coded Allergies: aripiprazole (Unverified Allergy, Severe, SEIZURE, 12/09/16) Reported Meds & Prescriptions Reported Meds & Active Scripts Active Lamisil (Terbinafine) 250 Mg Tab 250 Mg PO DAILY 15 Days Invega Sustenna Inj (Paliperidone Palmitate) 156 Mg/Ml Inj 156 Mg IM Q28D This dose of Invega Sustenna is due on 12/29/2016. Depakote ER (Divalproex Sodium) 500 Mg Eugene 1,000 Mg PO HS 15 Days Review of Systems Except as stated in HPI: all other systems reviewed are Neg Physical Exam Narrative GENERAL: Well-developed, well nourished, in no acute distress, and non-ill appearing. SKIN: Focused skin assessment warm and dry. HEAD: Atraumatic. Normocephalic. EYES: Pupils equal and round. EOMI. No scleral icterus. No injection or drainage. ENT: No nasal bleeding or discharge. Mucous membranes pink and moist. NECK: Trachea midline. Supple. No nuclear rigidity. CARDIOVASCULAR: Dorsal pulses 2+, intact, and equal bilaterally. Capillary refill less than 2 seconds. RESPIRATORY: No accessory muscle use. No respiratory distress. MUSCULOSKELETAL: No obvious deformities. No clubbing. No cyanosis. No edema. Full range of motion. Negative squeeze test. Dorsal pulses equal bilaterally. Capillary refill less than 2 seconds and equal BL. Sensation equal BL 1st web space. FROM of toes distal and equal BL. NV intact distal to injury and equal BL. Patient reports tenderness to palpation bilateral feet plantar surface. There is no crepitus, step-off, or signs of foreign body or infection. Normal gait. NEUROLOGICAL: Awake and alert. No obvious cranial nerve deficits. Motor grossly within normal limits. Normal speech. PSYCHIATRIC: Appropriate mood and affect; insight and judgment normal. Data Data Last Documented VS Vital Signs Date Time Temp Pulse Resp B/P (MAP) Pulse Ox O2 Delivery O2 Flow Rate FiO2 12/09/16 04:57 98.5 106 18 144/103 (117) 98 Room Air Orders Orders Ibuprofen (Motrin) (12/09/16 05:15) Ed Discharge Order (12/09/16 05:14) [facility] Medical Decision Making Medical Screen Exam Complete: Yes Emergency Medical Condition: No Differential Diagnosis Fracture, strain, contusion, plantar fasciitis, acute on chronic pain, malingering, other Narrative Course Patient in no obvious distress upon re-evaluation. Any questions/concerns in reference to patient diagnosis/condition discussed and clarified prior to patient's discharge. Reinforced sheer importance of close follow up with patient 's primary physician or primary care clinic. Instructed patient to return to ED immediately, if symptoms return/worsen. Patient showed understanding of above instructions. Further instructions and recommendations were detailed in discharge paperwork. Patient ambulated without difficulty out of ED at discharge. Diagnosis Primary Impression: Bilateral foot pain Referrals: [facility] Director Patient Instructions: General Instructions, Plantar Fasciitis (ED), Plantar Fasciitis Exercises (ED) Additional Instructions: Follow-up with your primary care physician and/or horseshoer next week for reevaluation. Use [id number] Tylenol and/or appropriate as needed for pain. Follow instructions on the packaging. Return to the emergency department if symptoms get worse. Disposition: 01 DISCHARGE HOME Condition: Stable Augustin Fink Dec 09, 2016 05:13
[2016-12-09] MEDS ORDERED: IBUPROFEN 800 MG TAB PO ONE (05:15)
== END 2016-12-09 07:08 | disposition home or self-care (01) ==
LOC: NEPD 04:45
DX: M79.671 Pain in right foot (principal); M79.672 Pain in left foot; F17.200 Nicotine dependence, unspecified, uncomplicated
CPT/HCPCS: 99282

== ENCOUNTER 2016-12-17 06:50 | Emergency (ER) | payer MEDICARE, OTHER ==
[~2016-12-17] VITALS: Ht 182.9 cm; Wt 90.0 kg
[2016-12-17 06:58] VITALS: BP 157/72; PULSE 97; RESP 18; TEMP 97.8; O2SAT 96
[2016-12-17 07:17] VITALS: BP 91/58; PULSE 54; RESP 16; O2SAT 98
--- NOTE | 2016-12-17 07:34 | PD ---
HPI Chief Complaint: Psychiatric Symptoms Time Seen by Provider: 07:28 Travel History International Travel<30 days: No Contact w/Intl Traveler<30days: No Traveled to known affect area: No History of Present Illness HPI 31-year-old Afro-Indonesian male schizophrenic disorder, presents the emergency Department voluntarily for psychiatric evaluation. Patient also is complaining of bilateral foot pain, skin sloughing, and redness. Patient states his feet been bothered for the past week. Patient states his feet have been wet over the past week. He denies fevers, chills, or other symptoms. Patient does also describe psychiatric symptoms including auditory and visual hallucinations. He states she's been out of his Depakote for approximately one month. [facility] but feels they're not helping him currently. He is allergic to Abilify. PFSH Past Medical History Arthritis: No Asthma: No Anxiety: Yes Depression: Yes Heart Rhythm Problems: No High Cholesterol: No Chemotherapy: No Chest Pain: No Congestive Heart Failure: No COPD: No Cerebrovascular Accident: No Diminished Hearing: No Endocrine: No Gastrointestinal Disorders: No GERD: No Genitourinary: No Hiatal Hernia: No Immune Disorder: No Implanted Vascular Access Dvce: No Kidney Stones: No Musculoskeletal: No Neurologic: No Psychiatric: Yes Reproductive: No Respiratory: No Immunizations Current: Yes Migraines: No Radiation Therapy: No Renal Failure: No Schizophrenia: Yes Sickle Cell Disease: No Sleep Apnea: No Thyroid Disease: No Ulcer: No Past Surgical History Abdominal Surgery: No AICD: No Arteriovenous Shunt: No Cardiac Surgery: No Ear Surgery: No Endocrine Surgery: No Eye Surgery: No Genitourinary Surgery: No Insulin Pump: No Joint Replacement: No Oral Surgery: No Pacemaker: No Thoracic Surgery: No Other Surgery: No Social History Alcohol Use: Yes ("DAILY") Tobacco Use: Yes (2 ppd) Substance Use: Yes ("MARIJUANA, COCAINE, METH") Allergies-Medications (Allergen,Severity, Reaction): Coded Allergies: aripiprazole (Unverified Allergy, Severe, SEIZURE, 12/09/16) Reported Meds & Prescriptions Reported Meds & Active Scripts Active Lamisil (Terbinafine) 250 Mg Tab 250 Mg PO DAILY 15 Days Invega Sustenna Inj (Paliperidone Palmitate) 156 Mg/Ml Inj 156 Mg IM Q28D This dose of Invega Sustenna is due on 12/29/2016. Depakote ER (Divalproex Sodium) 500 Mg Eugene 1,000 Mg PO HS 15 Days Review of Systems Except as stated in HPI: all other systems reviewed are Neg General / Constitutional: No: Fever, Chills Eyes: No: Visual changes HENT: No: Headaches Cardiovascular: No: Chest Pain or Discomfort Respiratory: No: Shortness of Breath Gastrointestinal: No: Abdominal Pain Genitourinary: No: Dysuria Musculoskeletal: No: Pain Skin: Positive Dryness, Positive Lesions, Positive Other (see history present illness), No Rash Neurologic: No: Weakness Psychiatric: No: Depression Endocrine: No: Polydipsia Hematologic/Lymphatic: No: Easy Bruising Physical Exam Narrative GENERAL: Patient appears in no acute distress. SKIN: Warm and dry. Normal color. Normal turgor. Patient has dry sloughing skin to both feet with increased erythema, warmth, and mild edema bilaterally. He appears to have probable trench foot with secondary cellulitis. There is no drainage or signs of abscess. HEAD: Atraumatic. Normocephalic. EYES: Pupils equal and round. No scleral icterus. No injection or drainage. ENT: No nasal bleeding or discharge. Mucous membranes pink and moist. Pharynx is clear. Airway is patent. NECK: Trachea midline. Supple and nontender. CARDIOVASCULAR: Regular rate and rhythm. RESPIRATORY: No accessory muscle use. Clear to auscultation. Breath sounds equal bilaterally. GASTROINTESTINAL: Abdomen soft, non-tender, nondistended. Hepatic and splenic margins not palpable. MUSCULOSKELETAL: Extremities without clubbing, cyanosis, or edema. No obvious deformities. CT scan. NEUROLOGICAL: Awake and alert. No obvious cranial nerve deficits. Motor grossly within normal limits. Five out of 5 muscle strength in the arms and legs. Normal speech. PSYCHIATRIC: Appropriate mood and affect; insight and judgment normal. Data Data Last Documented VS Vital Signs Date Time Temp Pulse Resp B/P (MAP) Pulse Ox O2 Delivery O2 Flow Rate FiO2 12/17/16 07:02 98 16 12/17/16 06:58 97.8 157/72 (100) 96 Orders Orders Complete Blood Count With Diff (12/17/16 07:17) Comprehensive Metabolic Panel (12/17/16 07:17) Psych Screen (12/17/16 07:17) Drug Screen, Random Urine (12/17/16 07:17) Diet Regular Basic (12/17/16 Breakfast) Cephalexin (Keflex) (12/17/16 07:30) Sulfamet-Trimeth Ds 800-160 Mg (Bactrim (12/17/16 07:30) MDM Medical Decision Making Medical Screen Exam Complete: Yes Emergency Medical Condition: Yes Medical Record Reviewed: Yes Differential Diagnosis Bilateral trench foot. Cellulitis. Psychiatric symptoms. Need for psychiatric eval. Narrative Course Patient was treated with Keflex 500 mg 3 times a day. This is started now. Patient also given Bactrim DS twice a day. This is started now. Psychiatric labs ordered per protocol. Psych screen is ordered. Patient is medically clear for psychiatric evaluation. Diagnosis Primary Impression: Cellulitis of both feet Additional Impressions: Trench feet Qualified Codes: T69.029A - Immersion foot, unspecified foot, initial encounter Psychiatric symptoms Medical clearance for psychiatric admission Condition: Stable Vic Coelho Dec 17, 2016 07:34
[2016-12-17] MEDS: CEPHALEXIN MONOHYDRATE 500 MG CAP PO SCH ×2 (07:49→14:00)
[2016-12-17] MEDS: SULFAMETHOXAZOLE-TRIMETHOPRIM DS 800-160 MG TAB PO SCH ×2 (07:49→09:00)
[2016-12-17 08:04] LABS: AUTOMATED NEUTROPHIL # 3.8 TH/MM3 (1.8-7.7); BASOPHIL % 0.2 % (0.0-2.0); EOSINOPHIL % 0.4 % (0.0-4.0); HEMATOCRIT 37.2 % (39.0-51.0); HEMO FLAGS DIFF FINAL; LYMPH % 17.8 % (9.0-44.0); LYMPHOCYTE # 0.9 TH/MM3 (1.0-4.8); MEAN CELL VOLUME 98.1 FL (80.0-100.0); MEAN CORPUSCULAR HEMOGLOBIN 34.4 PG (27.0-34.0); MONO % 6.1 % (0.0-8.0); NEUT % 75.5 % (16.0-70.0); PLATELET COUNT 271 TH/MM3 (150-450); RED CELL DISTRIBUTION WIDTH 12.7 % (11.6-17.2)
[2016-12-17 08:21] LABS: ANION GAP 6 MEQ/L (5-15); AST (GOT) 13 U/L (15-37); BLOOD UREA NITROGEN 14 MG/DL (7-18); CHLORIDE 105 MEQ/L (98-107); GLOMERULAR FILTRATION RATE 120 ML/MIN (>89); POTASSIUM 4.3 MEQ/L (3.5-5.1); SODIUM (NA) 138 MEQ/L (136-145)
[2016-12-17 08:24] LABS: ALKALINE PHOSPHATASE 60 U/L (45-117); ALT (GPT) 20 U/L (12-78); TOTAL BILIRUBIN ADULT 0.3 MG/DL (0.2-1.0)
[2016-12-17 12:33] VITALS: BP 137/82; PULSE 66; RESP 18; O2SAT 98
[2016-12-17] MEDS ORDERED: BACT800T5 PO (14:01)
--- NOTE | 2016-12-17 14:05 | PD ---
Physical Exam Date Seen by Provider: Dec 17, 2016 Time Seen by Provider: 14:02 Data Data Last Documented VS Vital Signs Date Time Temp Pulse Resp B/P (MAP) Pulse Ox O2 Delivery O2 Flow Rate FiO2 12/17/16 12:33 66 18 137/82 (100) 98 Room Air 12/17/16 06:58 97.8 Orders Orders Complete Blood Count With Diff (12/17/16 07:17) Comprehensive Metabolic Panel (12/17/16 07:17) Psych Screen (12/17/16 07:17) Drug Screen, Random Urine (12/17/16 07:17) Cephalexin (Keflex) (12/17/16 07:30) Sulfamet-Trimeth Ds 800-160 Mg (Bactrim (12/17/16 07:30) Diet Regular Basic (12/17/16 Lunch) Labs Laboratory Tests Test 12/17/16 07:50 12/17/16 08:40 White Blood Count 5.0 TH/MM3 Red Blood Count 3.80 MIL/MM3 Hemoglobin 13.0 GM/DL Hematocrit 37.2 % Mean Corpuscular Volume 98.1 FL Mean Corpuscular Hemoglobin 34.4 PG Mean Corpuscular Hemoglobin Concent 35.0 % Red Cell Distribution Width 12.7 % Platelet Count 271 TH/MM3 Mean Platelet Volume 7.4 FL Neutrophils (%) (Auto) 75.5 % Lymphocytes (%) (Auto) 17.8 % Monocytes (%) (Auto) 6.1 % Eosinophils (%) (Auto) 0.4 % Basophils (%) (Auto) 0.2 % Neutrophils # (Auto) 3.8 TH/MM3 Lymphocytes # (Auto) 0.9 TH/MM3 Monocytes # (Auto) 0.3 TH/MM3 Eosinophils # (Auto) 0.0 TH/MM3 Basophils # (Auto) 0.0 TH/MM3 CBC Comment DIFF FINAL Differential Comment Blood Urea Nitrogen 14 MG/DL Creatinine 0.90 MG/DL Random Glucose 77 MG/DL Total Protein 7.8 GM/DL Albumin 4.0 GM/DL Calcium Level 8.5 MG/DL Alkaline Phosphatase 60 U/L Aspartate Amino Transf (AST/SGOT) 13 U/L Alanine Aminotransferase (ALT/SGPT) 20 U/L Total Bilirubin 0.3 MG/DL Sodium Level 138 MEQ/L Potassium Level 4.3 MEQ/L Chloride Level 105 MEQ/L Carbon Dioxide Level 27.0 MEQ/L Anion Gap 6 MEQ/L Estimat Glomerular Filtration Rate 120 ML/MIN Urine Opiates Screen NEG Urine Barbiturates Screen NEG Urine Amphetamines Screen NEG Urine Benzodiazepines Screen NEG Urine Cocaine Screen NEG Urine Cannabinoids Screen NEG MDM Medical Record Reviewed: Yes Supervised Visit with GREGORIO: No Narrative Course 31-year-old male with history of schizophrenia presents to the emergency room voluntarily requesting medication refill. Patient was given 2 week refill of his Depakote and Invega 10 days ago and has not followed up as an outpatient. He denies suicidal or homicidal ideation at this time. Patient was seen by the psychiatric nurse and not felt to be a threat to himself or others at this time. He is a without difficulty. Cellulitis on the feet is mildly discharged with prescription for Bactrim. He was given a bus pass to follow-up with [facility] to continue receiving refills of his medications. He was informed that the emergency room is not an appropriate place to have medications refilled and he still has a few days left. Patient became cantankerous and wanted to go after being told that his medication would not be refilled. Diagnosis Primary Impression: Cellulitis of both feet Additional Impressions: Medical clearance for psychiatric admission [facility] feet Qualified Codes: T69.029A - Immersion foot, unspecified foot, initial encounter Psychiatric symptoms Referrals: [facility] (Out patient) Primary Care Physician Additional Instruction: Rest and drink plenty of fluids. Take Bactrim as directed, until gone. Follow-up with a primary care physician. Return to the emergency room for worsening symptoms. Scripts Sulfamethoxazole-Trimethoprim (Bactrim DS) 800-160 Mg Tab 1 TAB PO BID for Infection, #14 TAB 0 Refills Prov: Edu Camargo MD 12/17/16 Disposition: 01 DISCHARGE HOME Condition: Stable Cassidy Garrett Dec 17, 2016 14:05
[2016-12-18] MEDS ORDERED: DEPA500T3 PO (10:57)
[2016-12-18] MEDS ORDERED: LAMI1GEL TOPICAL (10:58)
[2016-12-18] MEDS ORDERED: BACT800T5 PO (11:35)
== END 2016-12-17 14:15 | disposition home or self-care (01) ==
LOC: NEPD 06:50
DX: Z02.89 Encounter for other administrative examinations (principal); L03.116 Cellulitis of left lower limb; L03.115 Cellulitis of right lower limb; T69.029A Immersion foot, unspecified foot, initial encounter; F17.200 Nicotine dependence, unspecified, uncomplicated; Z86.59 Personal history of other mental and behavioral disorders; F25.0 Schizoaffective disorder, bipolar type; F20.9 Schizophrenia, unspecified; M79.673 Pain in unspecified foot; Z59.0 Homelessness
CPT/HCPCS: 80053; 80307; 85025; 99283

== ENCOUNTER 2016-12-17 23:36 | Emergency (ER) | payer MEDICARE ==
[~2016-12-17 23:36] MED LIST changes: +BACT800T5 PO
[2016-12-17 23:43] VITALS: BP 154/82; PULSE 107; RESP 18; TEMP 98.3; O2SAT 97
--- NOTE | 2016-12-18 00:01 | PD ---
HPI Chief Complaint: Psychiatric Symptoms Time Seen by Provider: 23:44 Travel History International Travel<30 days: No Contact w/Intl Traveler<30days: No Traveled to known affect area: No History of Present Illness HPI 31-year-old black male 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 The patient was just seen yesterday. He stated that he would like to get a refill his medications. He states that he is having increasing auditory hallucinations. He states that he' s having problems concentrating and sleeping. He cannot function. He would like to be admitted. He states that he has nowhere to go. He is currently homeless. No suicidal homicidal ideation. PFSH Past Medical History Arthritis: No Asthma: No Anxiety: Yes Depression: Yes Heart Rhythm Problems: No High Cholesterol: No Chemotherapy: No Chest Pain: No Congestive Heart Failure: No COPD: No Cerebrovascular Accident: No Diminished Hearing: No Endocrine: No Gastrointestinal Disorders: No GERD: No Genitourinary: No Hiatal Hernia: No Immune Disorder: No Implanted Vascular Access Dvce: No Kidney Stones: No Musculoskeletal: No Neurologic: No Psychiatric: Yes Reproductive: No Respiratory: No Immunizations Current: Yes Migraines: No Radiation Therapy: No Renal Failure: No Schizophrenia: Yes Sickle Cell Disease: No Sleep Apnea: No Thyroid Disease: No Ulcer: No Influenza Vaccination: No Past Surgical History Abdominal Surgery: No AICD: No Arteriovenous Shunt: No Cardiac Surgery: No Ear Surgery: No Endocrine Surgery: No Eye Surgery: No Genitourinary Surgery: No Insulin Pump: No Joint Replacement: No Oral Surgery: No Pacemaker: No Thoracic Surgery: No Other Surgery: No Social History Alcohol Use: Yes ("DAILY") Tobacco Use: Yes (1/2 ppd) Substance Use: Yes ("MARIJUANA, COCAINE, METH") Allergies-Medications (Allergen,Severity, Reaction): Coded Allergies: aripiprazole (Unverified Allergy, Severe, SEIZURE, 12/17/16) Reported Meds & Prescriptions Reported Meds & Active Scripts Active Lamisil (Terbinafine) 250 Mg Tab 250 Mg PO DAILY 15 Days Invega Sustenna Inj (Paliperidone Palmitate) 156 Mg/Ml Inj 156 Mg IM Q28D This dose of Invega Sustenna is due on 12/29/2016. Depakote ER (Divalproex Sodium) 500 Mg Eugene 1,000 Mg PO HS 15 Days Review of Systems General / Constitutional: No: Fever Eyes: No: Visual changes HENT: No: Headaches Cardiovascular: No: Chest Pain or Discomfort Respiratory: No: Shortness of Breath Gastrointestinal: No: Abdominal Pain Genitourinary: No: Dysuria Musculoskeletal: No: Pain Skin: No Rash Neurologic: No: Weakness Psychiatric: Positive: Depression, Disorder of Thought, Mood Disorder, Substance Abuse, No: Suicidal Ideations, Homicidal Ideation Endocrine: No: Polydipsia Hematologic/Lymphatic: No: Easy Bruising Physical Exam Narrative GENERAL: Well-nourished, well-developed patient. SKIN: Warm and dry. Tinea pedis HEAD: Normocephalic and atraumatic. EYES: No scleral icterus. No injection or drainage. ENT: No nasal drainage noted. Mucous membranes pink. Airway patent. NECK: Supple, trachea midline. Moves head freely without obvious discomfort. CARDIOVASCULAR: Regular rate and rhythm without murmurs, gallops, or rubs. RESPIRATORY: Breath sounds equal bilaterally. No accessory muscle use. GASTROINTESTINAL: Abdomen soft, non-tender, nondistended. EXTREMITIES: No cyanosis or edema. Patient has desquamation of the distal forefoot and toes consistent with tinea pedis BACK: Nontender without obvious deformity. No CVA tenderness. NEURO: Patient is alert and oriented. no sensorimotor deficits. Nonfocal. Normal speech. PSYCH: No delusions. Positive auditory hallucinations. Data Data Last Documented VS Vital Signs Date Time Temp Pulse Resp B/P (MAP) Pulse Ox O2 Delivery O2 Flow Rate FiO2 12/17/16 23:43 98.3 107 18 154/82 (106) 97 Orders Orders Psych Screen (12/17/16 23:54) MDM Medical Decision Making Medical Screen Exam Complete: Yes Emergency Medical Condition: Yes Medical Record Reviewed: Yes Differential Diagnosis MDM: High Differential diagnoses: Schizophrenia, schizoaffective disorder, bipolar, anxiety, depression, adjustment reaction, mood disorder NOS, ODD, depressive disorder NOS, dementia, dementia with agitation, psychosis NOS, substance induced mood disorder, DMDD, Asperger syndrome, infection,electrolyte abnormality, malingering. Narrative Course Mental health screening discussed with the patient. Psychiatric screen ordered. The patient has been medically cleared. This is medical clearance for psychiatric admission Diagnosis Primary Impression: Medical clearance for psychiatric admission Additional Impression: Schizoaffective disorder, bipolar type Condition: Stable Marcelino Vale Dec 18, 2016 00:01
[2016-12-18 01:45] VITALS: BP 145/84; PULSE 90; RESP 18; TEMP 98.2; O2SAT 99
--- NOTE | 2016-12-18 10:51 | PD ---
History of Present Illness Chief Complaint: Psychiatric Symptoms Time Seen by Provider: 10:45 Travel History International Travel<30 Days: No Contact w/Intl Traveler<30days: No Known affected area: No Legal Status Legal Status: Voluntary History of Present Illness: History of Present Illness HPI 31-year-old black male 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 The patient was just seen yesterday. He stated that he would like to get a refill his medications. He states that he is having increasing auditory hallucinations. He states that he' s having problems concentrating and sleeping. He cannot function. He would like to be admitted. He states that he has nowhere to go. He is currently homeless. No suicidal homicidal ideation. Patient monitored in J pod with no behavioral dysregulation. PFSH Past Medical History Arthritis: No Asthma: No Anxiety: Yes Depression: Yes Heart Rhythm Problems: No High Cholesterol: No Chemotherapy: No Chest Pain: No Congestive Heart Failure: No COPD: No Cerebrovascular Accident: No Diminished Hearing: No Endocrine: No Gastrointestinal Disorders: No GERD: No Genitourinary: No Hiatal Hernia: No Immune Disorder: No Implanted Vascular Access Dvce: No Kidney Stones: No Musculoskeletal: No Neurologic: No Psychiatric: Yes Reproductive: No Respiratory: No Immunizations Current: Yes Migraines: No Radiation Therapy: No Renal Failure: No Schizophrenia: Yes Sickle Cell Disease: No Sleep Apnea: No Thyroid Disease: No Ulcer: No Influenza Vaccination: No Past Surgical History Abdominal Surgery: No AICD: No Arteriovenous Shunt: No Cardiac Surgery: No Ear Surgery: No Endocrine Surgery: No Eye Surgery: No Genitourinary Surgery: No Insulin Pump: No Joint Replacement: No Oral Surgery: No Pacemaker: No Thoracic Surgery: No Other Surgery: No Psychiatric History Psychiatric History Hx Psychiatric Treatment: Patient has a hx of schizophrenia, bipolar, anxiety and depression. Last admission to [facility] was Nov [id number] for schizophrenia, paranoid type. Patient also treated at [facility]. History of Inpatient Treatment: Yes Social History Hx Alcohol Use: Yes ("DAILY") Hx Tobacco Use: Yes (1/2 ppd) Hx Substance Use: Yes (marijuana, cocaine, meth) Substance Use Type: Marijuana, Amphetamines-Stimulants, Cocaine Hx of Substance Use Treatment: No Allergies-Medications (Allergen,Severity, Reaction): Coded Allergies: aripiprazole (Unverified Allergy, Severe, SEIZURE, 12/17/16) Reported Meds & Prescriptions Reported Meds & Active Scripts Active Lamisil (Terbinafine) 250 Mg Tab 250 Mg PO DAILY 15 Days Invega Sustenna Inj (Paliperidone Palmitate) 156 Mg/Ml Inj 156 Mg IM Q28D This dose of Invega Sustenna is due on 12/29/2016. Depakote ER (Divalproex Sodium) 500 Mg Eugene 1,000 Mg PO HS 15 Days MDM Orders Orders Psych Screen (12/17/16 23:54) Diet Regular Basic (12/18/16 Breakfast) Diet Regular Basic (12/18/16 Lunch) Results Vital Signs Date Time Temp Pulse Resp B/P (MAP) Pulse Ox O2 Delivery O2 Flow Rate FiO2 12/18/16 01:45 98.2 90 18 145/84 (104) 99 12/17/16 23:43 98.3 107 18 154/82 (106) 97 Diagnosis Primary Impression: Medical clearance for psychiatric admission Additional Impression: Schizoaffective disorder, bipolar type Prescriptions Terbinafine Topical (Lamisil Advanced Topical) 1 % Gel 1 APPLIC TOPICAL DAILY for Manage Fungal Infection for 14 Days, GM 0 Refills Prov: Lucia MadrigalP 12/18/16 Divalproex ER (Depakote ER) 500 Mg Eugene 1000 MG PO DAILY for Control Seizures for 30 Days, #60 TAB 0 Refills Prov: Lucia MadrigalP 12/18/16 Condition: Stable Problem Qualifiers Lucia Madrigala Mares CONTRACT ADMIN Dec 18, 2016 10:51
[2016-12-18] MEDS ORDERED: DEPA500T3 PO (10:57)
[2016-12-18] MEDS ORDERED: LAMI1GEL TOPICAL (10:58)
--- NOTE | 2016-12-18 11:17 | PD ---
Physical Exam Time Seen by Provider: 11:13 Narrative HARIS Myers has evaluated the patient and cleared the patient for discharge. Data Data Last Documented VS Vital Signs Date Time Temp Pulse Resp B/P (MAP) Pulse Ox O2 Delivery O2 Flow Rate FiO2 12/18/16 01:45 98.2 90 18 145/84 (104) 99 Orders Orders Psych Screen (12/17/16 23:54) Diet Regular Basic (12/18/16 Breakfast) Diet Regular Basic (12/18/16 Lunch) MDM Supervised Visit with GREGORIO: No Narrative Course HARIS Myers has evaluated the patient and the patient will be discharged home. Patient contracts safety. Denies suicidal or homicidal ideations. Patient will be provided community resource packet to [facility] for follow-up. Has friends and family for support. Patient is medically cleared for discharge. Diagnosis Primary Impression: Medical clearance for psychiatric admission Additional Impression: Schizoaffective disorder, bipolar type Referrals: [facility] (Out patient) [facility] Primary Care Physician Psychiatrist Latosha FARFAN Behavioral Patient Instructions: Bipolar Disorder (ED), General Instructions, Schizoaffective Disorder (ED) Additional Instruction: Contract safety to your self and others Follow-up with psychiatry Follow-up with primary care provider Follow-up with George Toth Return to the emergency department immediately with worsening of symptoms Med/Other Pt SpecificInfo: Prescription(s) given Scripts Terbinafine Topical (Lamisil Advanced Topical) 1 % Gel 1 APPLIC TOPICAL DAILY for Manage Fungal Infection for 14 Days, GM 0 Refills Prov: Lucia Madrigal 12/18/16 Divalproex ER (Depakote ER) 500 Mg Eugene 1000 MG PO DAILY for Control Seizures for 30 Days, #60 TAB 0 Refills Prov: Lucia Madrigal 12/18/16 Disposition: 01 DISCHARGE HOME Condition: Stable Luzma Aguilera Dec 18, 2016 11:16
--- NOTE | 2016-12-18 11:19 | PD ---
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 The patient was just seen yesterday. He stated that he would like to get a refill his medications. He states that he is having increasing auditory hallucinations. He states that he's having problems concentrating and sleeping. He cannot function. He states that he has nowhere to go. He is currently homeless. No suicidal homicidal ideation. Last valproic acid level on December 06 was 57. Patient was monitoring insecure environment . He slept well during the night. This morning he is alert,oriented, he is engaging, speech is clear. Patient requests a refill on the Depakote and states that the medication helps him calm down. He does not appear to be responding to internal stimuli. He is complaining of foot pain, also complains that someone stole his belongings, and once again that he would like to get back on his medication. Patient appears to be in better control of his psychiatric symptoms today as compared to previous visits. He still remains suspicious but not overtly paranoid. There is no suicidal or homicidal ideation. PFSH Past Medical History Arthritis: No Asthma: No Anxiety: Yes Depression: Yes Heart Rhythm Problems: No High Cholesterol: No Chemotherapy: No Chest Pain: No Congestive Heart Failure: No COPD: No Cerebrovascular Accident: No Diminished Hearing: No Endocrine: No Gastrointestinal Disorders: No GERD: No Genitourinary: No Hiatal Hernia: No Immune Disorder: No Implanted Vascular Access Dvce: No Kidney Stones: No Musculoskeletal: No Neurologic: No Psychiatric: Yes Reproductive: No Respiratory: No Immunizations Current: Yes Migraines: No Radiation Therapy: No Renal Failure: No Schizophrenia: Yes Sickle Cell Disease: No Sleep Apnea: No Thyroid Disease: No Ulcer: No Influenza Vaccination: No Past Surgical History Abdominal Surgery: No AICD: No Arteriovenous Shunt: No Cardiac Surgery: No Ear Surgery: No Endocrine Surgery: No Eye Surgery: No Genitourinary Surgery: No Insulin Pump: No Joint Replacement: No Oral Surgery: No Pacemaker: No Thoracic Surgery: No Other Surgery: No Psychiatric History Psychiatric History Hx Psychiatric Treatment: Patient has a hx of schizophrenia, bipolar, anxiety and depression. [place] [facility] [id number] for [place], paranoid type. Patient also treated at [facility]. History of Inpatient Treatment: Yes Guns or firearms in home: No Social History Single male, homeless. 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 Hx Alcohol Use: Yes ("DAILY") Hx Tobacco Use: Yes (/2 ppd) Hx Substance Use: Yes (marijuana, cocaine, meth) Substance Use Type: Marijuana, Amphetamines-Stimulants, Cocaine Hx of Substance Use Treatment: No Family Psychiatric History No reported Allergies-Medications (Allergen,Severity, Reaction): Coded Allergies: aripiprazole (Unverified Allergy, Severe, SEIZURE, 12/17/16) Reported Meds & Prescriptions Reported Meds & Active Scripts Active Lamisil Advanced Topical (Terbinafine HCl) 1 % Gel 1 Applic TOPICAL DAILY 14 Days Depakote ER (Divalproex Sodium) 500 Mg Eugene 1,000 Mg PO DAILY 30 Days Lamisil (Terbinafine) 250 Mg Tab 250 Mg PO DAILY 15 Days Invega Sustenna Inj (Paliperidone Palmitate) 156 Mg/Ml Inj 156 Mg IM Q28D This dose of Invega Sustenna is due on 12/29/2016. Depakote ER (Divalproex Sodium) 500 Mg Eugene 1,000 Mg PO HS 15 Days Review of Systems Integumentary: COMPLAINS OF: Pruritus Mental Status Examination Appearance: Appropriate Consciousness: Alert Orientation: x4 Motor Activity: Normal gait Speech: Unremarkable Language: Adequate Fund of Knowledge: Adequate Attention and Concentration: Adequate Memory: Unremarkable Mood: Appropriate Affect: Appropriate Thought Process & Associations: Intact Thought Content: Appropriate Hallucination Type: None Delusion Type: Paranoid Suicidal Ideation: No Suicidal Plan: No Suicidal Intention: No Homicidal Ideation: No Homicidal Plan: No Homicidal Intention: No Insight: Fair Judgment: Adequate [facility] Medical Decision Making Medical Record Reviewed: Yes Assessment/Plan 31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 The patient was just seen yesterday. He stated that he would like to get a refill his medications. He states that he is having increasing auditory hallucinations. He states that he's having problems concentrating and sleeping. He states that he has nowhere to go as he is currently homeless. No suicidal homicidal ideation. Patient was monitored in Jpod. He slept well. He did not present any overt paranoia, no agitation, no suicidal or homicidal ideation. This morning he is requesting a refill on his Depakote as well as Lamisil . He does not meet criteria at this time for inpatient psychiatric treatment. He is scheduled to receive his next Invega Sustenna injection on December 29. I have reminded him of this appointment and he will go to [facility] to receive his injection. Psychiatrically clear for discharge from ED. Orders Orders Psych Screen (12/17/16 23:54) Diet Regular Basic (12/18/16 Breakfast) Diet Regular Basic (12/18/16 Lunch) Results Vital Signs Date Time Temp Pulse Resp B/P (MAP) Pulse Ox O2 Delivery O2 Flow Rate FiO2 12/18/16 01:45 98.2 90 18 145/84 (104) 99 12/17/16 23:43 98.3 107 18 154/82 (106) 97 Diagnosis Primary Impression: Schizophrenia Psychiatrically Cleared: Yes Med/ Other Pt Specific Info: No Change to Meds Prescriptions Terbinafine Topical (Lamisil Advanced Topical) 1 % Gel 1 APPLIC TOPICAL DAILY for Manage Fungal Infection for 14 Days, GM 0 Refills Prov: Lucia Madrigal 12/18/16 Divalproex ER (Depakote ER) 500 Mg Eugene 1000 MG PO DAILY for Control Seizures for 30 Days, #60 TAB 0 Refills Prov: Lucia Madrigal 12/18/16 Disposition: DISCHARGE HOME Condition: Stable MadrigalLucia Dec 18, 2016 11:18
[2016-12-18] MEDS ORDERED: BACT800T5 PO (11:35)
== END 2016-12-18 11:54 | disposition home or self-care (01) ==
LOC: NEPD 23:36 → NEPJ 12-18 11:54
DX: Z02.89 Encounter for other administrative examinations (principal); F25.0 Schizoaffective disorder, bipolar type; F20.9 Schizophrenia, unspecified; R44.0 Auditory hallucinations; M79.673 Pain in unspecified foot; F17.200 Nicotine dependence, unspecified, uncomplicated; Z86.59 Personal history of other mental and behavioral disorders; Z59.0 Homelessness
CPT/HCPCS: 80053; 80307; 85025; 99283; 99284

== ENCOUNTER 2016-12-18 23:06 | Emergency (ER) | payer MEDICARE, OTHER ==
[~2016-12-18 23:06] MED LIST changes: +LAMI1GEL TOPICAL
--- NOTE | 2016-12-18 23:23 | PD ---
HPI Chief Complaint: Pain: Acute or Chronic Time Seen by Provider: 23:18 Travel History International Travel<30 days: No Contact w/Intl Traveler<30days: No History of Present Illness HPI Patient comes in complaining of foot pain ongoing for a while. Patient denies doing anything for this. Denies any known injury. Patient describes pain as a burning like in nature on his feet without radiation. Patient denies any fevers , nausea or vomiting, headache, shortness of breath, homicidal or suicidal ideations. Denies anything making it better. Pain is worse with walking. PFSH Past Medical History Anxiety: Yes Depression: Yes Cancer: No Cardiovascular Problems: No Diabetes: No (he states he has been tested for it ) Diminished Hearing: No Genitourinary: No Headaches: No Hypertension: Yes Immune Disorder: No Musculoskeletal: No Neurologic: No Psychiatric: Yes (SMA ) Reproductive: No Respiratory: No Schizophrenia: Yes Seizures: No Past Surgical History Other Surgery: No Social History Alcohol Use: Yes Tobacco Use: Yes (1 PPD) Substance Use: Yes Allergies-Medications (Allergen,Severity, Reaction): Coded Allergies: aripiprazole (Unverified Allergy, Severe, Seizures, 09/21/16) Reported Meds & Prescriptions Reported Meds & Active Scripts Active Reported Risperdal (Risperidone) 1 Mg Tab 1 Mg PO DAILY Ativan (Lorazepam) 1 Mg Tab 1 Mg PO DAILY PRN Review of Systems Except as stated in HPI: all other systems reviewed are Neg Physical Exam Narrative GENERAL: Well-developed, well nourished, in no acute distress, and non-ill appearing. SKIN: Focused skin assessment warm and dry. Patient has calluses plantar aspect bilateral feet. Some dry skin noted on the dorsal aspect. There is no crepitus or signs of infection. HEAD: Atraumatic. Normocephalic. EYES: Pupils equal and round. EOMI. No scleral icterus. No injection or drainage. ENT: No nasal bleeding or discharge. Mucous membranes pink and moist. NECK: Trachea midline. Supple. No nuclear rigidity. CARDIOVASCULAR: Dorsal pulses 2+, tach, equal bilaterally. Capillary refill less than 2 seconds.. RESPIRATORY: No accessory muscle use. No respiratory distress. MUSCULOSKELETAL: No obvious deformities. No clubbing. No cyanosis. No edema. Full range of motion. Ankle: Neagative anterior draw and Hough test. Negative Regan's sign. No laxity noted with passive inversion and eversion of BL ankles. Negative squeeze test. Pulses equal BL distal to injury. Capillary refill less than 2 seconds distal to injury and equal BL. Sensation equal BL 1st web space. FROM of toes distal to injury and equal BL. NV intact distal to injury and equal BL. Dorsal pulses equal BL. NEUROLOGICAL: Awake and alert. No obvious cranial nerve deficits. Motor grossly within normal limits. Normal speech. PSYCHIATRIC: Appropriate mood and affect; insight and judgment normal. Data Data Last Documented VS Vital Signs Date Time Temp Pulse Resp B/P (MAP) Pulse Ox O2 Delivery O2 Flow Rate FiO2 12/18/16 23:31 12/18/16 23:28 98.5 96 18 99 Room Air Orders Orders Ed Discharge Order (12/18/16 23:24) [facility] Medical Decision Making Medical Screen Exam Complete: Yes Emergency Medical Condition: No Differential Diagnosis Plantar fasciitis, paralysis, chronic foot pain, other Narrative Course Patient in no obvious distress upon re-evaluation. Any questions/concerns in reference to patient diagnosis/condition discussed and clarified prior to patient's discharge. Reinforced sheer importance of close follow up with patient 's primary physician or primary care clinic and/or executive sales manager. Instructed patient to return to ED immediately, if symptoms return/worsen. Patient showed understanding of above instructions. Further instructions and recommendations were detailed in discharge paperwork. Patient ambulated without difficulty out of ED at discharge. Diagnosis Primary Impression: Plantar fasciitis, bilateral Referrals: [facility] Digital Asset Specialist [facility] Patient Instructions: General Instructions, Plantar Fasciitis (GEN), Plantar Fasciitis Exercises (GEN) Additional Instructions: Follow-up with your primary care physician and/or podiatry this week for reevaluation. Use [id number] ibuprofen as needed for pain. Follow instructions on the packaging. Return to the emergency department if symptoms get worse. Disposition: 01 DISCHARGE HOME Condition: Stable Augustin Fink Dec 18, 2016 23:23
[2016-12-18 23:28] VITALS: BP 132/71; PULSE 96; RESP 18; TEMP 98.5; O2SAT 99
== END 2016-12-19 00:26 | disposition home or self-care (01) ==
LOC: NEPD 23:06 → MERGE 23:06 → NEPD 12-19 00:26
DX: M72.2 Plantar fascial fibromatosis (principal); F41.9 Anxiety disorder, unspecified; F20.9 Schizophrenia, unspecified; F17.200 Nicotine dependence, unspecified, uncomplicated; Z79.899 Other long term (current) drug therapy
CPT/HCPCS: 99281

== ENCOUNTER 2016-12-19 | Emergency (ER) | payer MEDICARE ==
[~2016-12-19] VITALS: Ht 182.9 cm; Wt 91.0 kg
[2016-12-19 00:02] VITALS: BP 132/90; PULSE 104; RESP 16; TEMP 97.9; O2SAT 100
--- NOTE | 2016-12-19 00:46 | PD ---
HPI Chief Complaint: Suicide Ideation/Attempt Time Seen by Provider: 00:40 Travel History International Travel<30 days: No Contact w/Intl Traveler<30days: No Traveled to known affect area: No History of Present Illness HPI Patient comes back to the emergency Department after being evaluated one hour ago now requesting psychiatric evaluation. Patient states he is having a mental stress and is wanting to see a psychiatrist. When asked patient if he is homicidal or suicidal he will not answer. Patient denies anything making symptoms better or worse. Patient denies any other medical concerns at this time. PFSH Past Medical History Anxiety: Yes Depression: Yes Cancer: No Cardiovascular Problems: No Diminished Hearing: No Genitourinary: No Headaches: No Hypertension: Yes Immune Disorder: No Musculoskeletal: No Neurologic: No Psychiatric: Yes (SMA ) Reproductive: No Respiratory: No Schizophrenia: Yes Seizures: No Tetanus Vaccination: Unknown Past Surgical History Surgical History: No Previous Surgery Other Surgery: No Social History Alcohol Use: Yes Tobacco Use: Yes (1 PPD) Substance Use: Yes Allergies-Medications (Allergen,Severity, Reaction): Coded Allergies: aripiprazole (Unverified Allergy, Severe, Seizures, 12/19/16) Reported Meds & Prescriptions Reported Meds & Active Scripts Active Reported Risperdal (Risperidone) 1 Mg Tab 1 Mg PO DAILY Ativan (Lorazepam) 1 Mg Tab 1 Mg PO DAILY PRN Review of Systems ROS Limitations: Uncooperative Except as stated in HPI: all other systems reviewed are Neg Physical Exam Narrative GENERAL: Well-developed, well nourished, in no acute distress, and non-ill appearing. SKIN: Focused skin assessment warm and dry. HEAD: Atraumatic. Normocephalic. EYES: Pupils equal and round. EOMI. No scleral icterus. No injection or drainage. ENT: No nasal bleeding or discharge. Mucous membranes pink and moist. NECK: Trachea midline. Supple. No nuclear rigidity. CARDIOVASCULAR: Regular rate and rhythm. No murmur appreciated. RESPIRATORY: No accessory muscle use. No respiratory distress. Clear to auscultation. Breath sounds equal bilaterally. MUSCULOSKELETAL: No obvious deformities. No clubbing. No cyanosis. No edema. Full range of motion. NEUROLOGICAL: Awake and alert. No obvious cranial nerve deficits. Motor grossly within normal limits. Normal speech. Normal gait. Data Data Last Documented VS Vital Signs Date Time Temp Pulse Resp B/P (MAP) Pulse Ox O2 Delivery O2 Flow Rate FiO2 12/19/16 00:02 97.9 104 16 132/90 (104) 100 Room Air Orders Orders Complete Blood Count With Diff (12/19/16 00:41) Comprehensive Metabolic Panel (12/19/16 00:41) Valproic Acid (Depakene) (12/19/16 00:41) Psych Screen (12/19/16 00:41) Drug Screen, Random Urine (12/19/16 00:41) Alcohol (Ethanol) (12/19/16 00:41) Salicylates (Aspirin) (12/19/16 00:41) Tylenol (Acetaminophen) (12/19/16 00:41) Ed Discharge Order (12/19/16 02:15) Labs Laboratory Tests Test 12/19/16 01:03 12/19/16 01:15 White Blood Count 4.4 TH/MM3 Red Blood Count 4.34 MIL/MM3 Hemoglobin 14.8 GM/DL Hematocrit 41.8 % Mean Corpuscular Volume 96.2 FL Mean Corpuscular Hemoglobin 34.1 PG Mean Corpuscular Hemoglobin Concent 35.4 % Red Cell Distribution Width 12.5 % Platelet Count 328 TH/MM3 Mean Platelet Volume 7.2 FL Neutrophils (%) (Auto) 57.0 % Lymphocytes (%) (Auto) 36.5 % Monocytes (%) (Auto) 5.8 % Eosinophils (%) (Auto) 0.3 % Basophils (%) (Auto) 0.4 % Neutrophils # (Auto) 2.5 TH/MM3 Lymphocytes # (Auto) 1.6 TH/MM3 Monocytes # (Auto) 0.3 TH/MM3 Eosinophils # (Auto) 0.0 TH/MM3 Basophils # (Auto) 0.0 TH/MM3 CBC Comment DIFF FINAL Differential Comment Blood Urea Nitrogen 10 MG/DL Creatinine 1.17 MG/DL Random Glucose 91 MG/DL Total Protein 8.8 GM/DL Albumin 4.6 GM/DL Calcium Level 9.6 MG/DL Alkaline Phosphatase 63 U/L Aspartate Amino Transf (AST/SGOT) 17 U/L Alanine Aminotransferase (ALT/SGPT) 24 U/L Total Bilirubin 0.5 MG/DL Sodium Level 138 MEQ/L Potassium Level 4.0 MEQ/L Chloride Level 102 MEQ/L Carbon Dioxide Level 28.6 MEQ/L Anion Gap 7 MEQ/L Estimat Glomerular Filtration Rate 89 ML/MIN Salicylates Level 2.7 MG/DL Acetaminophen Level LESS THAN 2.0 MCG/ML Valproic Acid (Depakene) Level LESS THAN 3 MCG/ML Ethyl Alcohol Level LESS THAN 3 MG/DL Urine Opiates Screen NEG Urine Barbiturates Screen NEG Urine Amphetamines Screen NEG Urine Benzodiazepines Screen NEG Urine Cocaine Screen NEG Urine Cannabinoids Screen POS MDM Medical Decision Making Medical Screen Exam Complete: Yes Emergency Medical Condition: Yes Differential Diagnosis Homicidal, suicidal, schizoaffective, metabolic disturbance, mood disorder, substance abuse, malingering, homeless, other Narrative Course Patient was seen and examined. Labs were obtained and reviewed. Patient medically cleared for further treatment and evaluation by psych. Final disposition per psych. Patient was screened by psychiatric screener and patient was found to not be suicidal or meet [place] act criteria. Patient tells screener that he is no longer able to state his mother's house she has kicked him out and patient is homeless. Patient reportedly still has prescription still but has not filled them. Discussed patient with Dr. Sanon prior to discharge, who is in agreement with plan of care and disposition. Patient is stable for discharge and outpatient follow-up. Patient in no obvious distress upon re-evaluation. Patient ambulated without difficulty out of ED at discharge. Diagnosis Primary Impression: Malingering [facility] Patient Instructions: General Instructions Additional Instructions: Follow-up with your primary care physician and or George Flores this week for reevaluation. Return to the emergency department if symptoms get worse. Disposition: 01 DISCHARGE HOME Condition: Stable Augustin Fink Dec 19, 2016 00:46
[2016-12-19 01:33] LABS: AUTOMATED NEUTROPHIL # 2.5 TH/MM3 (1.8-7.7); BASOPHIL % 0.4 % (0.0-2.0); EOSINOPHIL % 0.3 % (0.0-4.0); HEMATOCRIT 41.8 % (39.0-51.0); HEMO FLAGS DIFF FINAL; LYMPH % 36.5 % (9.0-44.0); LYMPHOCYTE # 1.6 TH/MM3 (1.0-4.8); MEAN CELL VOLUME 96.2 FL (80.0-100.0); MEAN CORPUSCULAR HEMOGLOBIN 34.1 PG (27.0-34.0); MEAN CORPUSCULAR HGB CONC 35.4 % (32.0-36.0); MONO % 5.8 % (0.0-8.0); PLATELET COUNT 328 TH/MM3 (150-450); RED BLOOD COUNT 4.34 MIL/MM3 (4.50-5.90); RED CELL DISTRIBUTION WIDTH 12.5 % (11.6-17.2); WHITE BLOOD COUNT 4.4 TH/MM3 (4.0-11.0)
[2016-12-19 01:44] LABS: ALT (GPT) 24 U/L (12-78); ANION GAP 7 MEQ/L (5-15); AST (GOT) 17 U/L (15-37); BICARBONATE 28.6 MEQ/L (21.0-32.0); BLOOD UREA NITROGEN 10 MG/DL (7-18); CHLORIDE 102 MEQ/L (98-107); GLOMERULAR FILTRATION RATE 89 ML/MIN (>89); SODIUM (NA) 138 MEQ/L (136-145)
[2016-12-19 01:47] LABS: ALKALINE PHOSPHATASE 63 U/L (45-117); TOTAL BILIRUBIN ADULT 0.5 MG/DL (0.2-1.0)
[2016-12-19 01:51] LABS: ACETAMINOPHEN LESS THAN 2.0 MCG/ML (10.0-30.0); ALCOHOL LESS THAN 3 MG/DL (0-5)
== END 2016-12-19 02:40 | disposition home or self-care (01) ==
LOC: MERGE → NEPD
DX: Z76.5 Malingerer [conscious simulation] (principal); I10 Essential (primary) hypertension; Z72.0 Tobacco use; Z79.899 Other long term (current) drug therapy
CPT/HCPCS: 80053; 80164; 80307; 85025; 99283

== ENCOUNTER 2016-12-19 22:26 | Emergency (ER) | payer MEDICARE ==
[~2016-12-19] VITALS: Ht 182.9 cm; Wt 88.0 kg
[2016-12-19 22:38] VITALS: BP 155/89; PULSE 99; RESP 16; TEMP 98.5
--- NOTE | 2016-12-20 00:50 | PD ---
HPI Chief Complaint: Psychiatric Symptoms Time Seen by Provider: 00:49 Travel History International Travel<30 days: No Contact w/Intl Traveler<30days: No Traveled to known affect area: No History of Present Illness HPI Patient spikes emergency Department complaining of continued bilateral foot pain. Patient states he did get antibiotics today reports has been taking them. Patient denies doing anything else for his foot pain. Patient states pain is worse with walking. Patient also states that he is supposed to have transportation to [facility] in the morning. Patient is uncertain where he is supposed to be getting picked him up and believes they will be picking him up in the hospital to take him there. Patient states he has not been able to get his psych meds secondary to not having enough money for them yet. Denies any homicidal or suicidal ideations. PFSH Past Medical History Anxiety: Yes Depression: Yes Cancer: No Cardiovascular Problems: No Diminished Hearing: No Genitourinary: No Headaches: No Hypertension: Yes Immune Disorder: No Musculoskeletal: No Neurologic: No Psychiatric: Yes (SMA ) Reproductive: No Respiratory: No Schizophrenia: Yes Seizures: No Tetanus Vaccination: < 5 Years Past Surgical History Surgical History: No Previous Surgery Other Surgery: No Social History Alcohol Use: Yes Tobacco Use: Yes (1 PPD) Substance Use: Yes Allergies-Medications (Allergen,Severity, Reaction): Coded Allergies: aripiprazole (Unverified Allergy, Severe, Seizures, 12/19/16) Reported Meds & Prescriptions Reported Meds & Active Scripts Active Reported Risperdal (Risperidone) 1 Mg Tab 1 Mg PO DAILY Ativan (Lorazepam) 1 Mg Tab 1 Mg PO DAILY PRN Review of Systems Except as stated in HPI: all other systems reviewed are Neg Physical Exam Narrative GENERAL: Well-developed, well nourished, in no acute distress, and non-ill appearing. Drinking his drink from [employer]. SKIN: Focused skin assessment warm and dry. HEAD: Atraumatic. Normocephalic. EYES: Pupils equal and round. EOMI. No scleral icterus. No injection or drainage. ENT: No nasal bleeding or discharge. Mucous membranes pink and moist. NECK: Trachea midline. Supple. No nuclear rigidity. RESPIRATORY: No accessory muscle use. No respiratory distress. MUSCULOSKELETAL: No obvious deformities. No clubbing. No cyanosis. No edema. Full range of motion. NEUROLOGICAL: Awake and alert. No obvious cranial nerve deficits. Motor grossly within normal limits. Normal speech. PSYCHIATRIC: Appropriate mood and affect; insight and judgment normal. Data Data Last Documented VS Vital Signs Date Time Temp Pulse Resp B/P (MAP) Pulse Ox O2 Delivery O2 Flow Rate FiO2 12/20/16 00:51 12/19/16 22:38 98.5 99 16 Room Air Orders Orders Ed Discharge Order (12/20/16 00:51) MDM Medical Decision Making Medical Screen Exam Complete: Yes Emergency Medical Condition: No Differential Diagnosis Malingering, chronic pain, plantar fasciitis, homeless, Narrative Course Patient in no obvious distress upon re-evaluation. Patient was seen and evaluated for same complaints yesterday. Patient had a workup which included labs along with psychiatric screening. Patient has no new symptoms or complaints. Patient can be safely discharged home. Any questions/concerns in reference to patient diagnosis/condition discussed and clarified prior to patient's discharge. Reinforced sheer importance of close follow up with patient 's primary physician or primary care clinic and Mikal Flores. Instructed patient to return to ED immediately, if symptoms return/worsen. Patient showed understanding of above instructions. Further instructions and recommendations were detailed in discharge paperwork. Patient ambulated without difficulty out of ED at discharge. Diagnosis Primary Impression: Malingering Referrals: [facility] Patient Instructions: General Instructions Additional Instructions: Follow-up with your Mikal Gann tomorrow. Return to the emergency department if symptoms get worse. Disposition: 01 DISCHARGE HOME Condition: Stable Augustin Fink Dec 20, 2016 00:50
== END 2016-12-20 01:05 | disposition home or self-care (01) ==
LOC: MERGE 22:26 → NEPD 22:26
DX: Z76.5 Malingerer [conscious simulation] (principal); M79.672 Pain in left foot; M79.671 Pain in right foot; I10 Essential (primary) hypertension; Z72.0 Tobacco use; Z79.899 Other long term (current) drug therapy
CPT/HCPCS: 99281

== ENCOUNTER 2016-12-20 17:50 | Emergency (ER) | payer MEDICARE ==
[2016-12-20 17:57] VITALS: BP 126/72; PULSE 104; RESP 18; TEMP 98.7; O2SAT 100
--- NOTE | 2016-12-20 18:04 | PD ---
HPI Chief Complaint: Medical Clearance Time Seen by Provider: 18:03 Travel History International Travel<30 days: No Contact w/Intl Traveler<30days: No Traveled to known affect area: No History of Present Illness HPI Pt has history of schizophrenia and has been here multiple times in the last few days. He has been evaluated by psychiatry and referred outpatient. Patient has no new complaints. History Past Medical Histgory Hx Chemotherapy: No Hx Radiation Therapy: No Social History Alcohol Use: Yes Tobacco Use: Yes (1 PPD) Allergies-Medications (Allergen,Severity, Reaction): Coded Allergies: aripiprazole (Unverified Allergy, Severe, SEIZURE, 12/17/16) Reported Meds & Prescriptions Reported Meds & Active Scripts Active Bactrim DS (Sulfamethoxazole-Trimethoprim) 800-160 Mg Tab 1 Tab PO BID Lamisil Advanced Topical (Terbinafine HCl) 1 % Gel 1 Applic TOPICAL DAILY 14 Days Depakote ER (Divalproex Sodium) 500 Mg Eugene 1,000 Mg PO DAILY 30 Days Lamisil (Terbinafine) 250 Mg Tab 250 Mg PO DAILY 15 Days Invega Sustenna Inj (Paliperidone Palmitate) 156 Mg/Ml Inj 156 Mg IM Q28D This dose of Invega Sustenna is due on 12/29/2016. Depakote ER (Divalproex Sodium) 500 Mg Eugene 1,000 Mg PO HS 15 Days Reported Risperdal (Risperidone) 1 Mg Tab 1 Mg PO DAILY Ativan (Lorazepam) 1 Mg Tab 1 Mg PO DAILY PRN Review of Systems Except as stated in HPI: all other systems reviewed are Neg Physical Exam Narrative GENERAL: Well-nourished, well-developed patient with bizarre affect but in no acute distress SKIN: Focused skin assessment warm/dry. HEAD: Normocephalic. EYES: No scleral icterus. No injection or drainage. NECK: Supple, trachea midline. No JVD or lymphadenopathy. CARDIOVASCULAR: Regular rate and rhythm without murmurs, gallops, or rubs. RESPIRATORY: Breath sounds equal bilaterally. No accessory muscle use. GASTROINTESTINAL: Abdomen soft, non-tender, nondistended. MUSCULOSKELETAL: No cyanosis, or edema. BACK: Nontender without obvious deformity. No CVA tenderness. Data Data Last Documented VS Vital Signs Date Time Temp Pulse Resp B/P (MAP) Pulse Ox O2 Delivery O2 Flow Rate FiO2 12/20/16 17:57 98.7 104 18 126/72 (67) 100 MDM Medical Screen Exam Complete: Yes Emergency Medical Condition: No Differential Diagnosis Mood disorder versus personality disorder versus malingering versus adjustment reaction disorder Narrative Course A medical screening exam was performed: At the time of evaluation the presenting medical condition was determined not to be of an emergent nature. The patient was given the option of receiving additional care, but declined. Patient was given options for additional community resources from which to obtain care. The Patient Has Been advised to seek medical attention for their presenting complaint. The patient has been advised to return to the ER at any time if an emergent condition develops. Primary Impression: Encounter for medical screening examination Condition: Stable Brittany Hines Dec 20, 2016 18:04
== END 2016-12-20 18:35 | disposition left against medical advice (07) ==
LOC: NEDAMB 17:50
DX: F20.9 Schizophrenia, unspecified (principal); Z53.21 Procedure and treatment not carried out due to patient leaving prior to being seen by health care provider; Z72.0 Tobacco use
CPT/HCPCS: 99281

== ENCOUNTER 2016-12-21 02:01 | Emergency (ER) | payer MEDICARE ==
[~2016-12-21] VITALS: Ht 182.9 cm; Wt 73.0 kg
[2016-12-21 02:02] VITALS: BP 158/92; PULSE 128; RESP 16; TEMP 98.8; O2SAT 98
--- NOTE | 2016-12-21 02:09 | PD ---
HPI Chief Complaint: Medication Refill Request Time Seen by Provider: 02:08 Travel History International Travel<30 days: No Contact w/Intl Traveler<30days: No Traveled to known affect area: No PFSH Past Medical History Arthritis: No Asthma: No Anxiety: Yes Depression: Yes Heart Rhythm Problems: No High Cholesterol: No Chemotherapy: No Chest Pain: No Congestive Heart Failure: No COPD: No Cerebrovascular Accident: No Diminished Hearing: No Endocrine: No Gastrointestinal Disorders: No GERD: No Genitourinary: No Hiatal Hernia: No Hypertension: Yes Immune Disorder: No Implanted Vascular Access Dvce: No Kidney Stones: No Musculoskeletal: No Neurologic: No Psychiatric: Yes (SMA ) Reproductive: No Respiratory: No Immunizations Current: Yes Migraines: No Radiation Therapy: No Renal Failure: No Schizophrenia: Yes Sickle Cell Disease: No Sleep Apnea: No Thyroid Disease: No Ulcer: No Past Surgical History Surgical History: No Previous Surgery Abdominal Surgery: No AICD: No Arteriovenous Shunt: No Cardiac Surgery: No Ear Surgery: No Endocrine Surgery: No Eye Surgery: No Genitourinary Surgery: No Insulin Pump: No Joint Replacement: No Oral Surgery: No Pacemaker: No Thoracic Surgery: No Other Surgery: No Social History Alcohol Use: Yes Tobacco Use: Yes (1 PPD) Substance Use: Yes Allergies-Medications (Allergen,Severity, Reaction): Coded Allergies: aripiprazole (Unverified Allergy, Severe, SEIZURE, 12/17/16) Reported Meds & Prescriptions Reported Meds & Active Scripts Active Bactrim DS (Sulfamethoxazole-Trimethoprim) 800-160 Mg Tab 1 Tab PO BID Lamisil Advanced Topical (Terbinafine HCl) 1 % Gel 1 Applic TOPICAL DAILY 14 Days Depakote ER (Divalproex Sodium) 500 Mg Eugene 1,000 Mg PO DAILY 30 Days Lamisil (Terbinafine) 250 Mg Tab 250 Mg PO DAILY 15 Days Invega Sustenna Inj (Paliperidone Palmitate) 156 Mg/Ml Inj 156 Mg IM Q28D This dose of Invega Sustenna is due on 12/29/2016. Depakote ER (Divalproex Sodium) 500 Mg Eugene 1,000 Mg PO HS 15 Days Reported Risperdal (Risperidone) 1 Mg Tab 1 Mg PO DAILY Ativan (Lorazepam) 1 Mg Tab 1 Mg PO DAILY PRN Data Data Last Documented VS Vital Signs Date Time Temp Pulse Resp B/P (MAP) Pulse Ox O2 Delivery O2 Flow Rate FiO2 12/21/16 02:02 98.8 128 16 158/92 (114) 98 Room Air Augustin Fink Dec 21, 2016 02:09
[2016-12-21 02:34] VITALS: PULSE 104; RESP 18
--- NOTE | 2016-12-21 02:39 | PD ---
HPI Chief Complaint: Medication Refill Request Time Seen by Provider: 02:08 Travel History International Travel<30 days: No Contact w/Intl Traveler<30days: No Traveled to known affect area: No History of Present Illness HPI Patient comes back to the Emergency Department requesting his psychiatric medications. Patient also has concerns over the antibiotics is taking making her nauseous. Patient denies any actual vomiting. Denies any chest pain, shortness of breath, fevers, homicidal ideations, or suicidal ideations. Denies anything making symptoms better or worse. Patient states that he went to [facility], but they would not admit him as an inpatient. History Past Medical Histgory Hx Chemotherapy: No Hx Radiation Therapy: No Past Surgical History Surgical History: No Previous Surgery Social History Alcohol Use: Yes Tobacco Use: Yes (1 PPD) Allergies-Medications (Allergen,Severity, Reaction): Coded Allergies: aripiprazole (Unverified Allergy, Severe, SEIZURE, 12/17/16) Reported Meds & Prescriptions Reported Meds & Active Scripts Active Bactrim DS (Sulfamethoxazole-Trimethoprim) 800-160 Mg Tab 1 Tab PO BID Lamisil Advanced Topical (Terbinafine HCl) 1 % Gel 1 Applic TOPICAL DAILY 14 Days Depakote ER (Divalproex Sodium) 500 Mg Eugene 1,000 Mg PO DAILY 30 Days Lamisil (Terbinafine) 250 Mg Tab 250 Mg PO DAILY 15 Days Invega Sustenna Inj (Paliperidone Palmitate) 156 Mg/Ml Inj 156 Mg IM Q28D This dose of Invega Sustenna is due on 12/29/2016. Depakote ER (Divalproex Sodium) 500 Mg Eugene 1,000 Mg PO HS 15 Days Reported Risperdal (Risperidone) 1 Mg Tab 1 Mg PO DAILY Ativan (Lorazepam) 1 Mg Tab 1 Mg PO DAILY PRN Review of Systems Except as stated in HPI: all other systems reviewed are Neg Physical Exam Narrative GENERAL: Well-developed, well nourished, in no acute distress, and non-ill appearing. SKIN: Focused skin assessment warm and dry. HEAD: Atraumatic. Normocephalic. EYES: Pupils equal and round. EOMI. No scleral icterus. No injection or drainage. ENT: No nasal bleeding or discharge. Mucous membranes pink and moist. NECK: Trachea midline. Supple. No nuclear rigidity. CARDIOVASCULAR: Regular rate and rhythm. No murmur appreciated. RESPIRATORY: No accessory muscle use. No respiratory distress. Clear to auscultation. Breath sounds equal bilaterally. MUSCULOSKELETAL: No obvious deformities. No clubbing. No cyanosis. No edema. Full range of motion. NEUROLOGICAL: Awake and alert. No obvious cranial nerve deficits. Motor grossly within normal limits. Normal speech. PSYCHIATRIC: Appropriate mood and affect; insight and judgment normal. Data Data Last Documented VS Vital Signs Date Time Temp Pulse Resp B/P (MAP) Pulse Ox O2 Delivery O2 Flow Rate FiO2 12/21/16 02:02 98.8 128 16 158/92 (114) 98 Room Air MDM Medical Screen Exam Complete: Yes Emergency Medical Condition: No Narrative Course History and physical exam findings are not consistent with an emergent medical condition. He was given the option of receiving additional care, but has declined. Therefore the appropriate counseling recommendations were discussed with the patient and he was instructed to follow-up with his primary care physician as soon as possible for reevaluation. Patient was also informed of community resources from which he can obtain additional care. He is agreeable and verbalizes an understanding of the proposed plan. The patient states he will immediately return to the emergency department if his current complaints do not improve, new symptoms arise, or emergent condition develops. Patient ambulated out of the emergency department without difficulty. Primary Impression: Encounter for medical screening examination Disposition: [facility]-ED USE ONLY Condition: Stable Augustin Fink Dec 21, 2016 02:39
== END 2016-12-21 02:46 | disposition left against medical advice (07) ==
LOC: NED 02:01
DX: R11.0 Nausea (principal); F17.200 Nicotine dependence, unspecified, uncomplicated
CPT/HCPCS: 99281

== ENCOUNTER 2016-12-21 10:40 | Emergency (ER) | payer MEDICARE ==
[~2016-12-21] VITALS: Ht 182.9 cm; Wt 90.0 kg
[2016-12-21 10:43] VITALS: BP 145/76; PULSE 101; RESP 14; TEMP 98.6; O2SAT 95
--- NOTE | 2016-12-21 14:00 | PD ---
HPI Chief Complaint: Psychiatric Symptoms Time Seen by Provider: 14:00 Travel History International Travel<30 days: No Contact w/Intl Traveler<30days: No Traveled to known affect area: No History of Present Illness HPI 31-year-old male presents to emergency department for evaluation for the second time today already. Patient has history of schizophrenia. He has been seen and evaluated by psychiatry. He has been disposition and screened out with no acute medical needs multiple times in the last few days. Patient states that he needs to be started on his medication. States that he has been unable to get to [place]. Is requesting something to eat. Has no acute medical needs at this time. History Past Medical Histgory Medical History: Denies Significant Hx Hx Chemotherapy: No Hx Radiation Therapy: No Social History Alcohol Use: Yes Tobacco Use: Yes (1 PPD) Allergies-Medications (Allergen,Severity, Reaction): Coded Allergies: aripiprazole (Unverified Allergy, Severe, SEIZURE, 12/17/16) Reported Meds & Prescriptions Reported Meds & Active Scripts Active Bactrim DS (Sulfamethoxazole-Trimethoprim) 800-160 Mg Tab 1 Tab PO BID Lamisil Advanced Topical (Terbinafine HCl) 1 % Gel 1 Applic TOPICAL DAILY 14 Days Depakote ER (Divalproex Sodium) 500 Mg Eugene 1,000 Mg PO DAILY 30 Days Lamisil (Terbinafine) 250 Mg Tab 250 Mg PO DAILY 15 Days Invega Sustenna Inj (Paliperidone Palmitate) 156 Mg/Ml Inj 156 Mg IM Q28D This dose of Invega Sustenna is due on 12/29/2016. Depakote ER (Divalproex Sodium) 500 Mg Eugene 1,000 Mg PO HS 15 Days Reported Risperdal (Risperidone) 1 Mg Tab 1 Mg PO DAILY Ativan (Lorazepam) 1 Mg Tab 1 Mg PO DAILY PRN Review of Systems Except as stated in HPI: all other systems reviewed are Neg Physical Exam Narrative GENERAL: Well-nourished male patient, appears without distress SKIN: Warm and dry. HEAD: Atraumatic. Normocephalic. EYES: Pupils equal and round. No scleral icterus. No injection or drainage. ENT: No nasal bleeding or discharge. Mucous membranes pink and moist. NECK: Trachea midline. CARDIOVASCULAR: Regular rate RESPIRATORY: No accessory muscle use. GASTROINTESTINAL: Abdomen nondistended. MUSCULOSKELETAL: Extremities without clubbing, cyanosis, or edema. No obvious deformities. NEUROLOGICAL: Awake and alert. No obvious cranial nerve deficits. Normal speech. Data Data Last Documented VS Vital Signs Date Time Temp Pulse Resp B/P (MAP) Pulse Ox O2 Delivery O2 Flow Rate FiO2 12/21/16 10:43 98.6 101 14 145/76 (99) 95 MDM Medical Screen Exam Complete: Yes Emergency Medical Condition: No Differential Diagnosis Malingering Narrative Course A medical screening exam was performed: At the time of evaluation the presenting medical condition was determined not to be of an emergent nature. The patient was given the option of receiving additional care, but declined. Patient was given options for additional community resources from which to obtain care. The Patient Has Been advised to seek medical attention for their presenting complaint. The patient has been advised to return to the ER at any time if an emergent condition develops. Primary Impression: Encounter for medical screening examination Condition: Stable Brittany Hines Dec 21, 2016 14:00
== END 2016-12-21 15:04 | disposition left against medical advice (07) ==
LOC: NED 10:40
DX: Z86.59 Personal history of other mental and behavioral disorders (principal); F17.200 Nicotine dependence, unspecified, uncomplicated
CPT/HCPCS: 99281

== ENCOUNTER 2016-12-21 18:34 | Emergency (ER) | payer MEDICARE ==
[~2016-12-21] VITALS: Ht 182.9 cm; Wt 90.0 kg
[2016-12-21 18:44] VITALS: BP 132/74; PULSE 84; RESP 16; TEMP 98.4; O2SAT 99
--- NOTE | 2016-12-21 20:00 | PD ---
HPI Chief Complaint: Medical Clearance Time Seen by Provider: 20:00 Travel History International Travel<30 days: No Contact w/Intl Traveler<30days: No Traveled to known affect area: No History of Present Illness HPI 31-year-old male with history of schizophrenia, multiple visits to the emergency department, presents to the emergency department stay for the third time today. Patient has been discharged recently after evaluation from psychiatry. He has been referred outpatient. 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 This is what he generally states. Reports that he has been feeling depressed and needs medication for schizophrenia. He has been hallucinating. Reports suicidal ideations without a plan. He has no other symptoms to report. PFSH Past Medical History Arthritis: No Asthma: No Anxiety: Yes Depression: Yes Heart Rhythm Problems: No High Cholesterol: No Chemotherapy: No Chest Pain: No Congestive Heart Failure: No COPD: No Cerebrovascular Accident: No Diminished Hearing: No Endocrine: No Gastrointestinal Disorders: No GERD: No Genitourinary: No Hiatal Hernia: No Hypertension: Yes Immune Disorder: No Implanted Vascular Access Dvce: No Kidney Stones: No Musculoskeletal: No Neurologic: No Psychiatric: Yes (SMA ) Reproductive: No Respiratory: No Immunizations Current: Yes Migraines: No Radiation Therapy: No Renal Failure: No Schizophrenia: Yes Sickle Cell Disease: No Sleep Apnea: No Thyroid Disease: No Ulcer: No Past Surgical History Abdominal Surgery: No AICD: No Arteriovenous Shunt: No Cardiac Surgery: No Ear Surgery: No Endocrine Surgery: No Eye Surgery: No Genitourinary Surgery: No Insulin Pump: No Joint Replacement: No Oral Surgery: No Pacemaker: No Thoracic Surgery: No Other Surgery: No Social History Alcohol Use: Yes Tobacco Use: Yes (1 PPD) Substance Use: Yes Allergies-Medications (Allergen,Severity, Reaction): Coded Allergies: aripiprazole (Unverified Allergy, Severe, SEIZURE, 12/17/16) Reported Meds & Prescriptions Reported Meds & Active Scripts Active Bactrim DS (Sulfamethoxazole-Trimethoprim) 800-160 Mg Tab 1 Tab PO BID Lamisil Advanced Topical (Terbinafine HCl) 1 % Gel 1 Applic TOPICAL DAILY 14 Days Depakote ER (Divalproex Sodium) 500 Mg Eugene 1,000 Mg PO DAILY 30 Days Lamisil (Terbinafine) 250 Mg Tab 250 Mg PO DAILY 15 Days Invega Sustenna Inj (Paliperidone Palmitate) 156 Mg/Ml Inj 156 Mg IM Q28D This dose of Mirela Pal is due on 12/29/2016. Depakote ER (Divalproex Sodium) 500 Mg Eugene 1,000 Mg PO HS 15 Days Reported Risperdal (Risperidone) 1 Mg Tab 1 Mg PO DAILY Ativan (Lorazepam) 1 Mg Tab 1 Mg PO DAILY PRN Review of Systems Except as stated in HPI: all other systems reviewed are Neg Physical Exam Narrative GENERAL: Well-nourished male patient, ambulatory . Patient does have bizarre affect, otherwise without distress. SKIN: Focused skin assessment warm/dry. HEAD: Atraumatic. Normocephalic. EYES: Pupils equal and round. No scleral icterus. No injection or drainage. ENT: No nasal bleeding or discharge. Mucous membranes pink and moist. NECK: Trachea midline. No JVD. CARDIOVASCULAR: Regular rate and rhythm. No murmur appreciated. RESPIRATORY: No accessory muscle use. Clear to auscultation. Breath sounds equal bilaterally. GASTROINTESTINAL: Abdomen soft, non-tender, nondistended. Hepatic and splenic margins not palpable. MUSCULOSKELETAL: No obvious deformities. No clubbing. No cyanosis. No edema. NEUROLOGICAL: Awake and alert. No obvious cranial nerve deficits. Motor grossly within normal limits. Normal speech. Data Data Last Documented VS Vital Signs Date Time Temp Pulse Resp B/P (MAP) Pulse Ox O2 Delivery O2 Flow Rate FiO2 12/21/16 18:44 98.4 84 16 132/74 (93) 99 MDM Medical Decision Making Medical Screen Exam Complete: Yes Emergency Medical Condition: Yes Medical Record Reviewed: Yes Differential Diagnosis Malingering versus mood disorder versus personality disorder versus adjustment reaction disorder Narrative Course 31-year-old male presents to emergency department seeking psychiatric evaluation. Patient appears without distress. The third time he has been here today. He has recently been evaluated by psychiatry. I will not repeat lab work today as patient has no acute medical need for this. He is medically cleared to undergo psychiatric screening for further evaluation and disposition. Mental health screening discussed with the patient. Psychiatric screen ordered. Diagnosis Primary Impression: Malingering Additional Impression: Medical clearance for psychiatric admission Condition: Stable Brittany Hines HARIS Dec 21, 2016 20:00
[2016-12-22 06:09] VITALS: BP 155/75; PULSE 94; RESP 18
--- NOTE | 2016-12-22 08:14 | PD ---
Data Data Last Documented VS Vital Signs Date Time Temp Pulse Resp B/P (MAP) Pulse Ox O2 Delivery O2 Flow Rate FiO2 12/22/16 06:09 94 18 155/75 (101) Room Air 12/21/16 18:44 98.4 99 Orders Orders Psych Screen (12/22/16 03:36) Diet Regular Basic (12/22/16 Breakfast) Ed Discharge Order (12/22/16 08:12) MDM Medical Record Reviewed: Yes Supervised Visit with GREGORIO: No Narrative Course Please see previous providers notes. This is a frequent visitor with history of schizophrenia. He has been screened by the psychiatric team. He is denying any suicidal or homicidal ideation. His primary motivation at this time is to obtain a bus pass to get to the pharmacy to get his medications filled. He has no medical complaints that would warrant additional hospitalization. He is stable for discharge. Diagnosis Primary Impression: Malingering Additional Impression: Medical clearance for psychiatric admission Med/Other Pt SpecificInfo: No Change to Meds Disposition: 01 DISCHARGE HOME Condition: Stable Kg Cox Dec 22, 2016 08:14
[2016-12-22 08:35] VITALS: BP 155/75; PULSE 94; RESP 18
== END 2016-12-22 09:07 | disposition home or self-care (01) ==
LOC: NEPJ 18:34
DX: Z02.89 Encounter for other administrative examinations (principal); F32.9 Major depressive disorder, single episode, unspecified; R44.3 Hallucinations, unspecified; I10 Essential (primary) hypertension; F17.200 Nicotine dependence, unspecified, uncomplicated; Z76.5 Malingerer [conscious simulation]; Z86.59 Personal history of other mental and behavioral disorders
CPT/HCPCS: 99283

== ENCOUNTER 2016-12-22 15:21 | Inpatient (IN) | payer MEDICARE ==
[~2016-12-22] VITALS: Ht 180.3 cm; Wt 92.9 kg
[2016-12-22 15:24] VITALS: BP 155/91; PULSE 125; RESP 20; TEMP 98.1; O2SAT 98
--- NOTE | 2016-12-22 15:48 | PD ---
HPI Chief Complaint: Psychiatric Symptoms Time Seen by Provider: 15:34 Travel History International Travel<30 days: No Contact w/Intl Traveler<30days: No Traveled to known affect area: No History of Present Illness HPI Patient is a 31-year-old male who presents to emergency room for psychiatric evaluation. Patient reports that he is schizophrenic, reports that he is supposed to be taking Depakote but has not taken his medications for the past few months. Patient reports that he is hearing voices telling him to jump off stairs and do random things. Patient reports that he runs marathons daily, in actuality, he runs about 80 miles per day. Patient reports that he is afraid these voices and thinks that he needs a place back on his medications at this time. Patient reports no suicidal or homicidal ideations idealizations, patient reports that he would like to speak to a mental health specialist at this time. He reports that he was recently discharged from a mental health facility recently - patient unsure of which facility he was admitted to. [facility] Past Medical History Anxiety: Yes Depression: Yes Diminished Hearing: No Endocrine: No GERD: No Hypertension: Yes Immunizations Current: Yes Schizophrenia: Yes Past Surgical History Abdominal Surgery: No Cardiac Surgery: No Ear Surgery: No Endocrine Surgery: No Eye Surgery: No Genitourinary Surgery: No Joint Replacement: No Neurologic Surgery: No Oral Surgery: No Thoracic Surgery: No Other Surgery: No Social History Alcohol Use: Yes Tobacco Use: Yes (1 PPD) Substance Use: Yes (MARIJUANA) Allergies-Medications (Allergen,Severity, Reaction): Coded Allergies: aripiprazole (Unverified Allergy, Severe, SEIZURE, 12/22/16) Reported Meds & Prescriptions Reported Meds & Active Scripts Active Bactrim DS (Sulfamethoxazole-Trimethoprim) 800-160 Mg Tab 1 Tab PO BID Lamisil Advanced Topical (Terbinafine HCl) 1 % Gel 1 Applic TOPICAL DAILY 14 Days Invega Sustenna Inj (Paliperidone Palmitate) 156 Mg/Ml Inj 156 Mg IM Q28D This dose of Invega Sustenna is due on 12/29/2016. Depakote ER (Divalproex Sodium) 500 Mg Eugene 1,000 Mg PO HS 15 Days Reported Risperdal (Risperidone) 1 Mg Tab 1 Mg PO DAILY Review of Systems General / Constitutional: No: Fever Eyes: No: Visual changes HENT: No: Headaches Cardiovascular: No: Chest Pain or Discomfort Respiratory: No: Shortness of Breath Gastrointestinal: No: Abdominal Pain Genitourinary: No: Dysuria Musculoskeletal: No: Pain Skin: No Rash Neurologic: No: Weakness Psychiatric: Positive: Anxiety, Depression, Disorder of Thought, Mood Disorder , Substance Abuse, No: Suicidal Ideations, Homicidal Ideation Endocrine: No: Polydipsia Hematologic/Lymphatic: No: Easy Bruising Physical Exam Narrative GENERAL: NAD SKIN: Focused skin assessment warm/dry. HEAD: Atraumatic. Normocephalic. EYES: Pupils equal and round. No scleral icterus. No injection or drainage. ENT: No nasal bleeding or discharge. Mucous membranes pink and moist. NECK: Trachea midline. No JVD. CARDIOVASCULAR: Regular rate and rhythm. No murmur appreciated. RESPIRATORY: No accessory muscle use. Clear to auscultation. Breath sounds equal bilaterally. GASTROINTESTINAL: Abdomen soft, non-tender, nondistended. Hepatic and splenic margins not palpable. MUSCULOSKELETAL: No obvious deformities. No clubbing. No cyanosis. No edema. NEUROLOGICAL: Awake and alert. No obvious cranial nerve deficits. Motor grossly within normal limits. Normal speech. PSYCHIATRIC: Anxious mood and affect; patient with a flight of ideas on exam, denies si/hi Data Data Last Documented VS Vital Signs Date Time Temp Pulse Resp B/P (MAP) Pulse Ox O2 Delivery O2 Flow Rate FiO2 12/22/16 15:24 98.1 125 20 155/91 (112) 98 Orders Orders Complete Blood Count With Diff (12/22/16 15:43) Comprehensive Metabolic Panel (12/22/16 15:43) Valproic Acid (Depakene) (12/22/16 15:43) Psych Screen (12/22/16 15:43) Drug Screen, Random Urine (12/22/16 15:43) Alcohol (Ethanol) (12/22/16 15:43) Salicylates (Aspirin) (12/22/16 15:43) Tylenol (Acetaminophen) (12/22/16 15:43) Labs Laboratory Tests Test 12/22/16 16:00 12/22/16 16:10 Urine Opiates Screen NEG Urine Barbiturates Screen NEG Urine Amphetamines Screen NEG Urine Benzodiazepines Screen NEG Urine Cocaine Screen NEG Urine Cannabinoids Screen NEG White Blood Count 2.9 TH/MM3 Red Blood Count 4.16 MIL/MM3 Hemoglobin 13.5 GM/DL Hematocrit 39.6 % Mean Corpuscular Volume 95.1 FL Mean Corpuscular Hemoglobin 32.4 PG Mean Corpuscular Hemoglobin Concent 34.1 % Red Cell Distribution Width 12.0 % Platelet Count 317 TH/MM3 Mean Platelet Volume 7.1 FL Neutrophils (%) (Auto) 48.7 % Lymphocytes (%) (Auto) 37.6 % Monocytes (%) (Auto) 12.0 % Eosinophils (%) (Auto) 0.9 % Basophils (%) (Auto) 0.8 % Neutrophils # (Auto) 1.5 TH/MM3 Lymphocytes # (Auto) 1.1 TH/MM3 Monocytes # (Auto) 0.3 TH/MM3 Eosinophils # (Auto) 0.0 TH/MM3 Basophils # (Auto) 0.0 TH/MM3 CBC Comment DIFF FINAL Differential Comment Blood Urea Nitrogen 10 MG/DL Creatinine 1.30 MG/DL Random Glucose 87 MG/DL Total Protein 8.0 GM/DL Albumin 4.2 GM/DL Calcium Level 9.2 MG/DL Alkaline Phosphatase 55 U/L Aspartate Amino Transf (AST/SGOT) 13 U/L Alanine Aminotransferase (ALT/SGPT) 18 U/L Total Bilirubin 0.5 MG/DL Sodium Level 134 MEQ/L Potassium Level 3.7 MEQ/L Chloride Level 99 MEQ/L Carbon Dioxide Level 26.5 MEQ/L Anion Gap 9 MEQ/L Estimat Glomerular Filtration Rate 79 ML/MIN Salicylates Level 2.1 MG/DL Ethyl Alcohol Level LESS THAN 3 MG/DL MDM Medical Decision Making Medical Screen Exam Complete: Yes Emergency Medical Condition: Yes Medical Record Reviewed: Yes Interpretation(s) Vital Signs Date Time Temp Pulse Resp B/P (MAP) Pulse Ox O2 Delivery O2 Flow Rate FiO2 12/22/16 15:24 98.1 125 20 155/91 (112) 98 Differential Diagnosis Schizoaffective disorder, schizophrenia, substance abuse, electrolyte abnormality Narrative Course 31-year-old male with history of schizoaffective disorder versus schizophrenia, presents to emergency room for voluntary psychiatric evaluation. Patient reports that he has not been taking his Depakote, reports that he is hearing voices which are telling him to perform certain tasks. Reports "I would like to speak to someone because I need help." Psychiatric screening labs ordered Plan to transfer patient to [facility] for further mental health evaluation. Patient is agreeable to plan of care. Case reviewed with Betty [facility] - will accept [facility] to [facility] Diagnosis Primary Impression: Schizoaffective disorder Additional Impression: Schizophrenia Iram Laureano DO Dec 22, 2016 15:48
[2016-12-22 16:19] LABS: AUTOMATED NEUTROPHIL # 1.5 TH/MM3 (1.8-7.7); BASOPHIL % 0.8 % (0.0-2.0); EOSINOPHIL % 0.9 % (0.0-4.0); HEMATOCRIT 39.6 % (39.0-51.0); HEMO FLAGS DIFF FINAL; LYMPH % 37.6 % (9.0-44.0); LYMPHOCYTE # 1.1 TH/MM3 (1.0-4.8); MEAN CELL VOLUME 95.1 FL (80.0-100.0); MEAN CORPUSCULAR HEMOGLOBIN 32.4 PG (27.0-34.0); MEAN CORPUSCULAR HGB CONC 34.1 % (32.0-36.0); NEUT % 48.7 % (16.0-70.0); PLATELET COUNT 317 TH/MM3 (150-450); RED BLOOD COUNT 4.16 MIL/MM3 (4.50-5.90); WHITE BLOOD COUNT 2.9 TH/MM3 (4.0-11.0)
[2016-12-22 16:32] LABS: CHLORIDE 99 MEQ/L (98-107); POTASSIUM 3.7 MEQ/L (3.5-5.1); SODIUM (NA) 134 MEQ/L (136-145)
[2016-12-22 16:37] LABS: ANION GAP 9 MEQ/L (5-15); BICARBONATE 26.5 MEQ/L (21.0-32.0); BLOOD UREA NITROGEN 10 MG/DL (7-18)
[2016-12-22 16:40] LABS: ALT (GPT) 18 U/L (12-78); AST (GOT) 13 U/L (15-37); GLOMERULAR FILTRATION RATE 79 ML/MIN (>89)
[2016-12-22 16:42] LABS: TOTAL BILIRUBIN ADULT 0.5 MG/DL (0.2-1.0)
[2016-12-22 16:43] LABS: ALKALINE PHOSPHATASE 55 U/L (45-117)
[2016-12-22 16:47] LABS: ALCOHOL LESS THAN 3 MG/DL (0-5)
[2016-12-22 17:10] VITALS: BP 140/74; PULSE 92; RESP 18; O2SAT 100
[2016-12-22 17:37] LABS: ACETAMINOPHEN LESS THAN 2.0 MCG/ML (10.0-30.0)
[2016-12-22 17:55] VITALS: BP 129/73
[2016-12-22] MEDS ORDERED: HALOPERIDOL 5 MG TAB PO ONE (19:30)
[2016-12-22] MEDS ORDERED: diphenhydrAMINE HCL 50 MG CAP PO ONE (19:30)
[2016-12-22] MEDS ORDERED: LORazepam 2 MG/ML VIAL IM PRN (20:30)
[2016-12-22] MEDS ORDERED: diphenhydrAMINE HCL 50 MG/ML VIAL IM PRN (20:30)
[2016-12-22] MEDS ORDERED: MAGNESIUM HYDROXIDE SUSP 30 ML CUP PO PRN (20:30)
[2016-12-22] MEDS ORDERED: diphenhydrAMINE HCL 50 MG/ML VIAL - HS PRN IM (20:30)
[2016-12-22] MEDS: REMOVE OLD NICOTINE PATCH T-DERMAL SCH (20:53)
[2016-12-22] MEDS: DIVALPROEX SODIUM E.R. 500 MG TAB PO SCH (20:53)
[2016-12-22 21:12] VITALS: BP 125/77; PULSE 91; RESP 16; TEMP 98.2; O2SAT 99
[2016-12-22] MEDS: ACETAMINOPHEN 325 MG TAB PO PRN (23:11)
[2016-12-22] MEDS: diphenhydrAMINE HCL 50 MG CAP - HS PRN PO (23:11)
[2016-12-23 05:45] VITALS: BP 115/55; PULSE 89; RESP 16; TEMP 98.1; O2SAT 98
[2016-12-23] MEDS: NICOTINE 21 MG/24 HR PATCH T-DERMAL SCH (07:40)
[2016-12-23] MEDS: hydrOXYzine HCL 50 MG TAB PO PRN ×3 (07:40→21:09)
[2016-12-23] MEDS ORDERED: risperiDONE 1 MG TAB PO SCH (09:00)
[2016-12-23 10:09] LABS: ANION GAP 7 MEQ/L (5-15); AST (GOT) 13 U/L (15-37); BICARBONATE 29.2 MEQ/L (21.0-32.0); BLOOD UREA NITROGEN 14 MG/DL (7-18); CHLORIDE 101 MEQ/L (98-107); GLOMERULAR FILTRATION RATE 92 ML/MIN (>89); POTASSIUM 4.7 MEQ/L (3.5-5.1); SODIUM (NA) 137 MEQ/L (136-145)
[2016-12-23 10:10] LABS: ALT (GPT) 17 U/L (12-78)
[2016-12-23 10:18] LABS: ALKALINE PHOSPHATASE 60 U/L (45-117); CREATINE KINASE 193 U/L (39-308); HDL CHOLESTEROL 53.9 MG/DL (40.0-60.0); INDIRECT BILIRUBIN 0.4 MG/DL (0.0-0.8); LDL CHOLESTEROL 39 MG/DL (0-99); TOTAL BILIRUBIN ADULT 0.5 MG/DL (0.2-1.0)
--- NOTE | 2016-12-23 10:44 | HHI.HP ---
Provisional Diagnosis Admission Date Dec 22, 2016 at 19:52 Tulia I. Schizoaffective disorder bipolar type Certification of Person's Competence To Provide Express and Informed Consent I have personally examined Darin Talley , a person being served at [facility] on, Dec 23, 2016 10:30. Express and informed consent means consent voluntarily given in writing, by a competent person, after sufficient explanation and disclosure of the subject matter involved to enable the person to make a knowing and willful decision without any element of force, fraud, deceit, duress, or other form of constraint or coercion. This person is 18 years of age or older, is not now known to be incompetent to consent to treatment with a guardian advocate, and does not have a health care surrogate or proxy currently making medical treatment decisions. I have found this person to be one of the following: [x] Competent to provide express and informed consent, as defined above, for voluntary admission to this facility and is competent to provide express and informed consent for treatment. He/she has the consistent capacity to make well reasoned, willful, and knowing decisions concerning his or her medical or mental health treatment. The person fully and consistently understands the purpose of the admission for examination/placement and is fully capable of personally exercising all rights assured [place] Incompetent to provide express and informed consent to voluntary admission, and this is incompetent to provide express and informed consent to treatment. The person must be transferred to involuntary status and a petition for a guardian advocate filed with the Circuit Court. [] Refusing to provide express and informed consent to voluntary admission but is competent to provide express and informed consent for treatment. The person must be discharged or transferred to involuntary status. Form shall be completed within 24 hours of a person's arrival at the receiving facility and filed in the clinical record of each person: 1. Admitted on a voluntary basis 2. Permitted to provide express and informed consent to his/her own treatment 3. Allowed to transfer from involuntary to voluntary status 4. Prior to permitting a person to consent to his or her own treatment after having been previously found incompetent to consent to treatment. History of Present Illness Capacity: Has Capacity HPI Patient is a 31-year-old man, single, homeless, unemployed, on SSI with mother being his payee, past psychiatric history of schizoaffective disorder bipolar type, multiple psychiatric hospitalizations multiple ED visits recently, no previous suicide attempt or self-injurious behavior, history of substance use disorder (denver), who brought himself into the ER which noted: hearing voices telling him to jump off stairs and do random things. Patient reports that he runs marathons daily, in actuality, he runs about 80 miles per day. Patient reports that he is afraid these voices and thinks that he needs a place back on his medications at this time, she was admitted to the inpatient psychiatry for further evaluation and management. Patient as per chart has had multiple ER visits recently as well as multiple psychiatric hospitalizations. Patient was found walking on unit noted to be calm and cooperative today. Patient states that he has not been doing very well reporting that he was unable to get his medications after his last discharge from the hospital. Patient states that he has not been taking it difficult but was not able to afford them. He states that he is going through "financial suffering". Patient noted to have some grandiosity stating that he is a genius and that his plan for some investments will pay off in the "triple digits". Patient also noted to be perseverative on contacting his mother as his mother his current payee and states feeling upset that he is not given his body when he asks for it. Patient states that up to now his mother has been sending money through [employer]. Patient reports continuing to have auditory hallucinations was sees been expressing recently denies any suicidal homicidal ideations at this time but also endorses paranoid ideations. Past psychiatric history: Pre-psychiatric diagnosis schizophrenia, multiple psychiatric admissions, no prior suicide attempt himself and his behavior. Patient's recent current medication regimen includes Invega Sustenna 234 mg IM given on 11/27/16 and next due on 12/25/16 of 156 mg IM. Patient was scheduled to follow with [facility]. Substance use history: Recent substance use of Denver's but reports not having use recently. Social history: Single, unemployed on SSI, homeless. Review of Systems Except as stated in HPI: all other systems reviewed are Neg Past Psych History Violence risk - others (6 mos) Low Violence risk - self (6 mos) Elevated due to recent command auditory hallucinations and stated in history of present illness Substance Abuse History Drugs/Alcohol past 12 months Recent substance use of Denver's but reports not having use recently. Past Family Social History Coded Allergies: aripiprazole (Unverified Allergy, Severe, SEIZURE, 12/22/16) Active Scripts Paliperidone Palmitate Inj (Invega Sustenna Inj) 156 Mg/Ml Inj, 156 MG IM Q28D for Mental Health, #1 VIAL 0 Refills This dose of Invega Sustenna is due on 12/29/2016. Prov:Leonel Crowley MD 12/06/16 Divalproex ER (Depakote ER) 500 Mg Eugene, 1000 MG PO HS for Mental Health for 15 Days, TAB 1 Refill Prov:Leonel Crowley MD 12/06/16 Reported Medications Risperidone (Risperdal) 1 Mg Tab, 1 MG PO DAILY, #30 TAB 0 Refills 12/15/15 Discontinued Reported Medications Lorazepam (Ativan) 1 Mg Tab, 1 MG PO DAILY Y for ANXIETY AND/OR AGITATION, TAB 0 Refills 12/15/15 Discontinued Scripts Sulfamethoxazole-Trimethoprim (Bactrim DS) 800-160 Mg Tab, 1 TAB PO BID for Infection, #14 TAB 0 Refills Prov:Luzma Aguilera MACHINING MANAGER 12/18/16 Terbinafine Topical (Lamisil Advanced Topical) 1 % Gel, 1 APPLIC TOPICAL DAILY for Manage Fungal Infection for 14 Days, GM 0 Refills Prov:Lucia Madrigal MACHINING MANAGER 12/18/16 Divalproex ER (Depakote ER) 500 Mg Eugene, 1000 MG PO DAILY for Control Seizures for 30 Days, #60 TAB 0 Refills Prov:Lucia Madrigal MACHINING MANAGER 12/18/16 Terbinafine (Lamisil) 250 Mg Tab, 250 MG PO DAILY for Health for 15 Days, #15 TAB 1 Refill Prov:Leonel Crowley MD 12/06/16 Current Medications Medications (Trade) Dose Ordered Sig/Radha Route Start Time Stop Time Status Last Admin (Ativan) 1 mg Q6H PRN PO 12/22/16 20:30 (Ativan Inj) 1 mg Q6H PRN IM 12/22/16 20:30 (Atarax) 50 mg Q6H PRN PO 12/22/16 20:30 12/23/16 07:40 (Benadryl) 50 mg Q6H PRN PO 12/22/16 20:30 (Benadryl Inj) 50 mg Q6H PRN IM 12/22/16 20:30 (Benadryl) 50 mg HS PRN PO 12/22/16 20:30 12/22/16 23:11 (Benadryl Inj) 50 mg HS PRN IM 12/22/16 20:30 (Tylenol) 650 mg Q4H PRN PO 12/22/16 20:30 12/22/16 23:11 (Milk Of Magnesia Liq) 30 ml DAILY PRN PO 12/22/16 20:30 (Mag-Al Plus Susp Liq) 30 ml Q6H PRN PO 12/22/16 20:30 (Habitrol 21 Mg Patch.24 Hr) 1 patch DAILY T-DERMAL 12/23/16 09:00 12/23/16 07:40 Miscellaneous Information 1 HS T-DERMAL 12/22/16 21:00 (risperDAL) 1 mg DAILY PO 12/23/16 09:00 12/23/16 07:40 (Depakote Er) 1,000 mg HS PO 12/22/16 21:00 12/22/16 20:53 (Invega Sustenna Inj) 156 mg Q28D IM 12/29/16 09:00 Social History Single, unemployed on SSI, homeless. Patient's Strengths (min. 2) Verbal and communicative Physical Exam Patient not noted to be in acute distress, noted to have healing suppression abrasions on plantar aspect of both feet, No gross motor abnormalities, no tremors or EPS, no noted psychomotor retardation or agitation. Vital Signs Vital Signs Date Time Temp Pulse Resp B/P (MAP) Pulse Ox O2 Delivery O2 Flow Rate FiO2 12/23/16 05:45 98.1 89 16 115/55 (75) 98 12/22/16 17:10 Room Air Lab Results Test 12/22/16 16:00 12/22/16 16:10 12/23/16 08:47 Urine Opiates Screen NEG Urine Barbiturates Screen NEG Urine Amphetamines Screen NEG Urine Benzodiazepines Screen NEG Urine Cocaine Screen NEG Urine Cannabinoids Screen NEG White Blood Count 2.9 TH/MM3 Red Blood Count 4.16 MIL/MM3 Hemoglobin 13.5 GM/DL Hematocrit 39.6 % Mean Corpuscular Volume 95.1 FL Mean Corpuscular Hemoglobin 32.4 PG Mean Corpuscular Hemoglobin Concent 34.1 % Red Cell Distribution Width 12.0 % Platelet Count 317 TH/MM3 Mean Platelet Volume 7.1 FL Neutrophils (%) (Auto) 48.7 % Lymphocytes (%) (Auto) 37.6 % Monocytes (%) (Auto) 12.0 % Eosinophils (%) (Auto) 0.9 % Basophils (%) (Auto) 0.8 % Neutrophils # (Auto) 1.5 TH/MM3 Lymphocytes # (Auto) 1.1 TH/MM3 Monocytes # (Auto) 0.3 TH/MM3 Eosinophils # (Auto) 0.0 TH/MM3 Basophils # (Auto) 0.0 TH/MM3 CBC Comment DIFF FINAL Differential Comment Blood Urea Nitrogen 10 MG/DL 14 MG/DL Creatinine 1.30 MG/DL 1.13 MG/DL Random Glucose 87 MG/DL 70 MG/DL Total Protein 8.0 GM/DL 7.5 GM/DL Albumin 4.2 GM/DL 3.8 GM/DL Calcium Level 9.2 MG/DL 8.9 MG/DL Alkaline Phosphatase 55 U/L 60 U/L Aspartate Amino Transf (AST/SGOT) 13 U/L 13 U/L Alanine Aminotransferase (ALT/SGPT) 18 U/L 17 U/L Total Bilirubin 0.5 MG/DL 0.5 MG/DL Sodium Level 134 MEQ/L 137 MEQ/L Potassium Level 3.7 MEQ/L 4.7 MEQ/L Chloride Level 99 MEQ/L 101 MEQ/L Carbon Dioxide Level 26.5 MEQ/L 29.2 MEQ/L Anion Gap 9 MEQ/L 7 MEQ/L Estimat Glomerular Filtration Rate 79 ML/MIN 92 ML/MIN Salicylates Level 2.1 MG/DL Acetaminophen Level LESS THAN 2.0 MCG/ML Valproic Acid (Depakene) Level 3 MCG/ML Ethyl Alcohol Level LESS THAN 3 MG/DL Direct Bilirubin 0.1 MG/DL Indirect Bilirubin 0.4 MG/DL Total Creatine Kinase 193 U/L Triglycerides Level 115 MG/DL Cholesterol Level 116 MG/DL LDL Cholesterol 39 MG/DL HDL Cholesterol 53.9 MG/DL Cholesterol/HDL Ratio 2.15 RATIO Thyroid Stimulating Hormone 3rd Gen 0.718 uIU/ML Mental Status Examination Appearance: Dirty, Disheveled Consciousness: Alert Orientation: Person, Place, Date/Time Motor Activity: Normal gait Speech: Unremarkable Language: Adequate Fund of Knowledge: Adequate Attention and Concentration: Adequate Memory: Unremarkable Mood: Other ("okay") Affect: Blunt Thought Process & Associations: Intact, Goal directed Thought Content: Delusional (grandiose) Hallucination Type: Auditory (command auditory hallucinations) Delusion Type: Paranoid Suicidal Ideation: Yes (denies at this time) Suicidal Plan: No Suicidal Intention: No Homicidal Ideation: No Homicidal Plan: No Homicidal Intention: No Insight: Poor Judgment: Impulsive Assessment & Plan Problem List: (1) Schizoaffective disorder ICD Codes: F25.9 - Schizoaffective disorder, unspecified Status: Acute Assessment & Plan Estimated LOS: 5-7 days. Patient is a 31-year-old ([place] who carries a diagnosis of schizoaffective disorder bipolar type with multiple psychiatric consultations no previous suicide attempts or self-injurious behavior, history of polysubstance use specifically Denver's, who brought self into the ER requesting help to get back on his medications as he has not taken it since his last admission as well as experiencing command auditory hallucinations and paranoid ideations. Patient to restart Depakote 1000 mg at bedtime, Risperdal 1 mg by mouth daily as well as Invega Sustenna 156 im due on 12/25/16. Patient at this time interested in applying to sober living facilities. Discharge planning in progress Discharge Planning Patient referred to a homeless alf or sober living facility once psychiatrically stable. Darrell Abarca MD Dec 23, 2016 10:44
[2016-12-23 11:27] LABS: HEMOGLOBIN A1b 0.5 %; HEMOGLOBIN Ao 88.4 %; HEMOGLOBIN F 1.1 %; HEMOGLOBIN LA1C 1.8 %; HEMOGLOBIN P3 2.9 %
[2016-12-23 18:10] VITALS: BP 146/74; PULSE 80; RESP 17; TEMP 97.8; O2SAT 99
[2016-12-23] MEDS: REMOVE OLD NICOTINE PATCH T-DERMAL SCH (21:00)
[2016-12-23] MEDS: diphenhydrAMINE HCL 50 MG CAP - HS PRN PO (21:06)
[2016-12-23] MEDS: DIVALPROEX SODIUM E.R. 500 MG TAB PO SCH (21:06)
[2016-12-23] MEDS: ALUMINUM/MAGNESIUM/SIMETH 30 ML CUP PO PRN (21:08)
[2016-12-24] MEDS: LORazepam 1 MG TAB PO PRN ×2 (02:47→15:16)
[2016-12-24 05:33] VITALS: BP 130/62; PULSE 86; RESP 18; TEMP 97.8; O2SAT 99
[2016-12-24] MEDS: NICOTINE 21 MG/24 HR PATCH T-DERMAL SCH (09:00)
--- NOTE | 2016-12-24 09:50 | HHI.PYPN ---
Subjective Remarks Patient seen for follow-up, chart review. Discussion with nursing staff reported the patient has been compliant with medications. He was noted the in ointment with another patient this morning which he was noted to be able to walk away from argument. Patient was later found walking in the hallway but able to engage in interview with freelance writer and nurse. Patient states that he was upset earlier this morning as he was feeling that he was "lying about me" which she was very upset but was able to walk away from the argument and maintaining his composure. Patient noted to be grandiose still stating that he has a very creative mind and he will always continues to have a creative mind up to his 80s. Continues to have some paranoia pertaining to his mother keeping his money away from him which she feels is keeping him from investing his money into his creative interventions. Patient states that he is interested in continuing to pursue living in sober living facilities and is accepting assistance from therapist to provide admission back in to explode this option. Patient continues to endorse having some auditory hallucinations and states that he had difficulty sleeping last evening and that his sleep was "on and off ". Patient denies any suicidal ideations at this time, denies any homicidal ideations. Review of Systems Except as stated in HPI: all other systems reviewed are Neg Mental Status Examination Appearance: Dirty, Disheveled Consciousness: Alert Orientation: Person, Place, Date/Time Motor Activity: Normal gait Speech: Unremarkable Language: Adequate Fund of Knowledge: Adequate Attention and Concentration: Adequate Memory: Unremarkable Mood: Irritable (irritable initially), Other ("okay") Affect: Irritable (irritable initially), Blunt Thought Process & Associations: Intact, Goal directed, Disorganized (at times) Thought Content: Delusional (grandiose) Hallucination Type: Auditory Delusion Type: Paranoid Suicidal Ideation: Yes (denies at this time) Suicidal Plan: No Suicidal Intention: No Homicidal Ideation: No Homicidal Plan: No Homicidal Intention: No Insight: Poor Judgment: Impulsive Results Vitals/IOs Vital Signs Date Time Temp Pulse Resp B/P (MAP) Pulse Ox O2 Delivery O2 Flow Rate FiO2 12/24/16 05:33 97.8 86 18 130/62 (84) 99 12/22/16 17:10 Room Air Assessment & Plan Problem List: (1) Schizoaffective disorder ICD Codes: F25.9 - Schizoaffective disorder, unspecified Status: Acute Assessment & Plan Patient continues to be slightly disorganized, continue the grandiose and paranoid delusions as well as occasional auditory hallucinations. We'll increase risperidone to 1 mg by mouth twice a day, patient scheduled for Invega Sustenna on 12/25/16. Continue rest of medications. We'll draw Depakote level on 12/27/16. Discharge planning in progress Justification for Cont. Inpt. At risk for further decompensation if at lower level of care Discharge Planning Patient to be discharged to possible sober living facility if accepted. Darrell Abarca MD Dec 24, 2016 09:50
[2016-12-24] MEDS: risperiDONE 1 MG TAB PO SCH (11:25)
--- NOTE | 2016-12-24 16:36 | EKG ---
Date Performed: 12/23/2016 Time Performed: 14:04:42 PTAGE: 31 years EKG: SINUS ARRYHTHMIA WITHIN NORMAL LIMITS NORMAL ECG Compared to PREVIOUS TRACING , the slight ST elevation seen previously is less prominent. PREVIOUS TR ACIN09/22/2016 13.51 DOCTOR: Nicolas Torres Interpretating Date/Time 12/24/2016 16:34:45
[2016-12-24 18:07] VITALS: BP 130/66; PULSE 100; RESP 18; TEMP 98.1; O2SAT 100
[2016-12-24] MEDS: hydrOXYzine HCL 50 MG TAB PO PRN (19:26)
[2016-12-24] MEDS: DIVALPROEX SODIUM E.R. 500 MG TAB PO SCH (20:40)
[2016-12-24] MEDS: diphenhydrAMINE HCL 50 MG CAP - HS PRN PO (20:40)
[2016-12-24] MEDS: REMOVE OLD NICOTINE PATCH T-DERMAL SCH (20:45)
[2016-12-25] MEDS: LORazepam 1 MG TAB PO PRN (01:39)
[2016-12-25 05:55] VITALS: BP 134/75; PULSE 89; RESP 18; TEMP 98.2; O2SAT 99
[2016-12-25] MEDS: hydrOXYzine HCL 50 MG TAB PO PRN ×2 (07:36→17:34)
[2016-12-25] MEDS: NICOTINE 21 MG/24 HR PATCH T-DERMAL SCH (09:00)
[2016-12-25] MEDS ORDERED: PALIPERIDONE PALMITATE 156 MG/ML SYRINGE IM SCH (09:00)
[2016-12-25] MEDS: risperiDONE 1 MG TAB PO SCH ×2 (09:00→20:04)
--- NOTE | 2016-12-25 12:02 | HHI.PYPN ---
Subjective Remarks Pt seen and discussed with staff. He remains psychotic with significant internal stimulation, but did consent to and received COY. So far he is tolerating without EPS or side effects. He is inappropriate and flirtacious. ( asking RN if he has a nice buttocks and making flirtacious comments during rounds). He later returns and apologizes for remarks "Im just crazy. My brain is mush". He remains disorganized in thought process and behaviors."Im really liking how you all are crossing racial and sexual lines"!" No agitation or aggression. No SI/HI Mental Status Examination Appearance: Dirty, Disheveled Consciousness: Alert Orientation: Person, Place, Date/Time Motor Activity: Normal gait Speech: Unremarkable Language: Adequate Fund of Knowledge: Adequate Attention and Concentration: Adequate Memory: Unremarkable Mood: Manic Affect: Labile, Blunt Thought Process & Associations: Intact, Goal directed, Disorganized (at times) Thought Content: Delusional (grandiose) Hallucination Type: Auditory Delusion Type: Bizarre, Paranoid Suicidal Ideation: No Suicidal Plan: No Suicidal Intention: No Homicidal Ideation: No Homicidal Plan: No Homicidal Intention: No Insight: Poor Judgment: Impulsive Results Vitals/IOs Vital Signs Date Time Temp Pulse Resp B/P (MAP) Pulse Ox O2 Delivery O2 Flow Rate FiO2 12/25/16 05:55 98.2 89 18 134/75 (94) 99 12/22/16 17:10 Room Air Assessment & Plan Problem List: (1) Schizoaffective disorder ICD Codes: F25.9 - Schizoaffective disorder, unspecified Status: Acute Assessment & Plan Continue current tx plan Estimated LOS: days Justification for Cont. Inpt. impairments in reality testing and social functioning Marcelle Bermeo MD Dec 25, 2016 12:02
[2016-12-25 18:07] VITALS: BP 128/82; PULSE 103; RESP 18; TEMP 97.4; O2SAT 99
[2016-12-25] MEDS: diphenhydrAMINE HCL 50 MG CAP - HS PRN PO (20:03)
[2016-12-25] MEDS: DIVALPROEX SODIUM E.R. 500 MG TAB PO SCH (20:03)
[2016-12-25] MEDS: ACETAMINOPHEN 325 MG TAB PO PRN (20:03)
[2016-12-25] MEDS: REMOVE OLD NICOTINE PATCH T-DERMAL SCH (20:04)
[2016-12-26 05:49] VITALS: BP 136/75; PULSE 78; RESP 18; TEMP 97.7; O2SAT 99
[2016-12-26] MEDS: risperiDONE 1 MG TAB PO SCH ×2 (07:55→20:31)
[2016-12-26] MEDS: hydrOXYzine HCL 50 MG TAB PO PRN ×2 (07:56→17:08)
[2016-12-26] MEDS: NICOTINE 21 MG/24 HR PATCH T-DERMAL SCH (07:56)
--- NOTE | 2016-12-26 11:40 | HHI.PYPN ---
Subjective Remarks Pt seen and discussed with staff. Pt has been compliant with medications. He continues to respond to internal stimuli and has low frustration tolerance. He slept well last night. No aggression, but remains paranoid with bizarre ideations. No SI/HI Mental Status Examination Appearance: Dirty, Disheveled Consciousness: Alert Orientation: Person, Place, Date/Time Motor Activity: Normal gait Speech: Unremarkable Language: Adequate Fund of Knowledge: Adequate Attention and Concentration: Adequate Memory: Unremarkable Mood: Manic Affect: Labile, Blunt Thought Process & Associations: Intact, Goal directed, Disorganized (at times) Thought Content: Delusional (grandiose) Hallucination Type: Auditory Delusion Type: Bizarre, Paranoid Suicidal Ideation: No Suicidal Plan: No Suicidal Intention: No Homicidal Ideation: No Homicidal Plan: No Homicidal Intention: No Insight: Poor Judgment: Impulsive Results Vitals/IOs Vital Signs Date Time Temp Pulse Resp B/P (MAP) Pulse Ox O2 Delivery O2 Flow Rate FiO2 12/26/16 05:49 97.7 78 18 136/75 (95) 99 12/22/16 17:10 Room Air Assessment & Plan Problem List: (1) Schizoaffective disorder ICD Codes: F25.9 - Schizoaffective disorder, unspecified Status: Acute Assessment & Plan Continue current tx plan. Estimated LOS: days Justification for Cont. Inpt. psychosis Marcelle Bermeo MD Dec 26, 2016 11:40
[2016-12-26] MEDS: diphenhydrAMINE HCL 50 MG CAP PO PRN ×2 (13:33→20:31)
[2016-12-26 15:51] VITALS: BP 139/79; PULSE 98; RESP 18; TEMP 97.6; O2SAT 100
[2016-12-26] MEDS: ACETAMINOPHEN 325 MG TAB PO PRN (18:41)
[2016-12-26] MEDS: ALUMINUM/MAGNESIUM/SIMETH 30 ML CUP PO PRN (20:30)
[2016-12-26] MEDS: DIVALPROEX SODIUM E.R. 500 MG TAB PO SCH (20:31)
[2016-12-26] MEDS: REMOVE OLD NICOTINE PATCH T-DERMAL SCH (20:34)
[2016-12-26] MEDS: LORazepam 1 MG TAB PO PRN (21:53)
[2016-12-27 06:05] VITALS: BP 113/55; PULSE 68; RESP 17; TEMP 98.7; O2SAT 98
[2016-12-27] MEDS: risperiDONE 1 MG TAB PO SCH ×2 (08:20→21:06)
[2016-12-27] MEDS: NICOTINE 21 MG/24 HR PATCH T-DERMAL SCH (08:20)
[2016-12-27] MEDS: LORazepam 1 MG TAB PO PRN ×2 (08:20→15:22)
[2016-12-27] MEDS: diphenhydrAMINE HCL 50 MG CAP PO PRN (09:20)
--- NOTE | 2016-12-27 12:42 | HHI.PYPN ---
Subjective Remarks Patient seen for follow up; chart reviewed. Patient found in the room but was able to engage in interview today with database report writer and nurse. Discussion with nursing staff stated the patient was more calm and cooperative recently denied any SI or HI or perceptual disturbances. Patient states that the weekend was "up and down", felt that medications for anxiety are helping as well as his invalid patient coping skills have been useful. Patient states that "mentally I 'm more stable", states planning on acquiring a steady employee upon discharge. 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 Patient also continues to endorse that he has several investments and states that his seventh investment is with the one that would provide him with more financial income. Discussion with patient to apply for disability was reviewed which patient states he is considering. Patient this time denies any perceptual disturbances, denies SI or HI. Mental Status Examination Appearance: Disheveled Consciousness: Alert Orientation: Person, Place, Date/Time Motor Activity: Normal gait Speech: Unremarkable Language: Adequate Fund of Knowledge: Adequate Attention and Concentration: Adequate Memory: Unremarkable Mood: Other ("all right") Affect: Blunt Thought Process & Associations: Intact, Goal directed, Disorganized (at times) Thought Content: Delusional (grandiose) Hallucination Type: Auditory (denies today) Delusion Type: Bizarre, Paranoid Suicidal Ideation: No Suicidal Plan: No Suicidal Intention: No Homicidal Ideation: No Homicidal Plan: No Homicidal Intention: No Insight: Poor Judgment: Impulsive Results Labs Labs reviewed. Test 12/27/16 05:15 Valproic Acid (Depakene) Level 42 MCG/ML Vitals/IOs Vital Signs Date Time Temp Pulse Resp B/P (MAP) Pulse Ox O2 Delivery O2 Flow Rate FiO2 12/27/16 06:05 98.7 68 17 113/55 (05) 98 Assessment & Plan Problem List: (1) Schizoaffective disorder ICD Codes: F25.9 - Schizoaffective disorder, unspecified Status: Acute Assessment & Plan The patient at this time continues to have some grandiose delusions, some paranoid delusions, with limited insight but denies any perceptual disturbances recently or SI or HI. Valproic acid level was 42 (subtherapeutic), will decrease divalproex ER to 1250mg by mouth at bedtime. We'll plan for discharge to a possible sober living facility as patient is interested in engaging in rehabilitation for substance use at this time. Discharge planning in progress Justification for Cont. Inpt. At risk for decompensation if a lower level of care Discharge Planning Possible discharge is early facility or homeless group home. Darrell Abarca MD Dec 27, 2016 12:42
--- NOTE | 2016-12-27 13:42 | PD.TTN ---
Patient Problems 1. Discharge planning 2. Medication compliance 3. Knowledge deficit 4. Lack of coping skills Progress Toward Goals Provider Present: Dr. 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
[2016-12-27 18:00] VITALS: BP_SYST 128; BP_SYST 129; BP_DIAS 60; BP_DIAS 76; PULSE 77; PULSE 84; RESP 16; RESP 18; TEMP 97.4; O2SAT 100; O2SAT 97
[2016-12-27] MEDS: REMOVE OLD NICOTINE PATCH T-DERMAL SCH (21:00)
[2016-12-27] MEDS: DIVALPROEX SODIUM E.R. 250 MG TAB PO SCH (21:05)
[2016-12-27] MEDS: diphenhydrAMINE HCL 50 MG CAP - HS PRN PO (21:08)
[2016-12-28] MEDS: LORazepam 1 MG TAB PO PRN ×3 (04:42→20:32)
[2016-12-28 05:40] VITALS: BP 125/72; PULSE 82; RESP 16; TEMP 97.4; O2SAT 99
[2016-12-28] MEDS: risperiDONE 1 MG TAB PO SCH ×2 (08:43→20:32)
[2016-12-28] MEDS: NICOTINE 21 MG/24 HR PATCH T-DERMAL SCH (08:44)
--- NOTE | 2016-12-28 13:20 | HHI.PYPN ---
Subjective Remarks Patient seen for follow up; chart reviewed. Discussion with nursing staff reported that the patient continues with grandiose delusions, compliant with treatment; participating in groups and activities. Patient interviewed to day with therapist. He states that he feels better in that he is no longer having auditory hallucinations, feels that the medications are helpful. He continues to endorse grandiose delusions that he is a marathon runner, can run up to 35mph , has multiple inventions and that his 7th invention will provide him with alot of money. He states that he has several investments. Patient reports wanting to go into sober living housing which he states had already contacted and was told that there is availability when he is discharged. Patient denies SI, HI, AVH but continues to have grandiose and paranoid delusions. Mental Status Examination Appearance: Disheveled Consciousness: Alert Orientation: Person, Place, Date/Time Motor Activity: Normal gait Speech: Unremarkable Language: Adequate Fund of Knowledge: Adequate Attention and Concentration: Adequate Memory: Unremarkable Mood: Other ("better") Affect: Other (restricted) Thought Process & Associations: Intact, Goal directed, Loose associations Thought Content: Delusional (grandiose) Hallucination Type: Auditory (denies today) Delusion Type: Bizarre, Paranoid Suicidal Ideation: No Suicidal Plan: No Suicidal Intention: No Homicidal Ideation: No Homicidal Plan: No Homicidal Intention: No Insight: Poor Judgment: Impulsive Results Vitals/IOs Vital Signs Date Time Temp Pulse Resp B/P (MAP) Pulse Ox O2 Delivery O2 Flow Rate FiO2 12/28/16 05:40 97.4 82 16 125/72 (89) 99 Assessment & Plan Problem List: (1) Schizoaffective disorder ICD Codes: F25.9 - Schizoaffective disorder, unspecified Status: Acute Assessment & Plan Patient at this time continues to have grandiose and paranoid delusions but is no longer having auditory hallucinations. Patient with recent increase in Depakote and appears be tolerating it well. We'll continue current treatment for now. Will verify if patient was accepted into sober living facility for discharge planning. Continue to monitor mood and behavior. Discharge planning in progress Justification for Cont. Inpt. At risk for further decompensation if at lower level of care Discharge Planning Patient at discharge a sober living facility or homeless detention upon discharge. Darrell Abarca MD Dec 28, 2016 13:20
[2016-12-28] MEDS: DIVALPROEX SODIUM E.R. 250 MG TAB PO SCH (20:32)
[2016-12-28] MEDS: REMOVE OLD NICOTINE PATCH T-DERMAL SCH (21:00)
[2016-12-29 05:59] VITALS: BP 118/65; PULSE 77; RESP 18; TEMP 97.6; O2SAT 97
[2016-12-29] MEDS: NICOTINE 21 MG/24 HR PATCH T-DERMAL SCH (08:06)
[2016-12-29] MEDS: risperiDONE 1 MG TAB PO SCH (08:06)
[2016-12-29] MEDS: LORazepam 1 MG TAB PO PRN (08:06)
[2016-12-29] MEDS: ACETAMINOPHEN 325 MG TAB PO PRN (09:00)
[2016-12-29] MEDS ORDERED: PALIPERIDONE PALMITATE 156 MG/ML SYRINGE IM SCH (09:00)
[2016-12-29] MEDS ORDERED: HYDR50TA94 PO (12:16)
[2016-12-29] MEDS ORDERED: RISP1 PO (12:16)
[2016-12-29] MEDS ORDERED: DIVA500T3 PO (12:16)
[2016-12-29] MEDS ORDERED: DIVA250T3 PO (12:16)
[2016-12-29] MEDS ORDERED: PALI156P IM (12:16)
--- NOTE | 2016-12-29 14:28 | HHI.DS ---
Psychiatry Discharge Summary Inpatient Psychiatric care?: Yes Advance Directive: No Reason Not Provided: PATIENT NOT INTERESTED Mental Health AdvanceDirective: No Health Care Proxy: No Admission Admission Date Dec 22, 2016 at 19:52 Admission Diagnosis: (1) Schizoaffective disorder, bipolar type ICD Code: F25.0 - Schizoaffective disorder, bipolar type Brief History Patient is a 31-year-old man, single, homeless, unemployed, on SSI with mother being his payee, past psychiatric history of schizoaffective disorder bipolar type, multiple psychiatric hospitalizations multiple ED visits recently, no previous suicide attempt or self-injurious behavior, history of substance use disorder ([place]), who brought himself into the ER which noted: hearing voices telling him to jump off stairs and do random things. Patient reports that he runs marathons daily, in actuality, he runs about 80 miles per day. Patient reports that he is afraid these voices and thinks that he needs a place back on his medications at this time, she was admitted to the inpatient psychiatry for further evaluation and management. Patient as per chart has had multiple ER visits recently as well as multiple psychiatric hospitalizations. Patient was found walking on unit noted to be calm and cooperative today. Patient states that he has not been doing very well reporting that he was unable to get his medications after his last discharge from the hospital. Patient states that he has not been taking it difficult but was not able to afford them. He states that he is going through "financial suffering". Patient noted to have some grandiosity stating that he is a genius and that his plan for some investments will pay off in the "triple digits". Patient also noted to be perseverative on contacting his mother as his mother his current payee and states feeling upset that he is not given his body when he asks for it. Patient states that up to now his mother has been sending money through [employer]. Patient reports continuing to have auditory hallucinations was sees been expressing recently denies any suicidal homicidal ideations at this time but also endorses paranoid ideations. Past psychiatric history: Pre-psychiatric diagnosis schizophrenia, multiple psychiatric admissions, no prior suicide attempt himself and his behavior. Patient's recent current medication regimen includes Invega Sustenna 234 mg IM given on 11/27/16 and next due on 12/25/16 of 156 mg IM. Patient was scheduled to follow with [facility] Flores. Substance use history: Recent substance use of [place]'s but reports not having use recently. Social history: Single, unemployed on SSI, homeless. Tobacco Use In Past 30 Days: 5 or More Cigarettes/Day Alcohol Use: 2-4 Times Per Month Hospital Course Patient is a 31-year-old man, single, homeless, unemployed, on SSI with mother being his payee, past psychiatric history of schizoaffective disorder bipolar type, multiple psychiatric hospitalizations multiple ED visits recently, no previous suicide attempt or self-injurious behavior, history of substance use disorder ([place]), who brought himself into the ER which noted: hearing voices telling him to jump off stairs and do random things. Patient reports that he runs marathons daily, in actuality, he runs about 80 miles per day. Patient reports that he is afraid these voices and thinks that he needs a place back on his medications at this time, she was admitted to the inpatient psychiatry for further evaluation and management. Patient was started on Depakote 1000mg PO HS and titrated up to 1250mg PO HS, Risperidone 1mg PO daily and titrated up to 1mg PO BID, and paliperidone Sustenna 156IM on 12/25/16 which he tolerated well and responded well to treatment; was noted to be cooperative with staff, no behavioral dyscontrol during admission and was active in groups and activities. Patient continued with grandiose delusions throughout admission but was not threatening to self or others. Upon discharge patient reported feeling good denied any perceptual disturbances nor suicidal ideations or homicidal ideations. Patient agreed to continue treatment and follow up appointments for continuity of care. Patient had initiative in contact sober living facilities with plans on staying there. Patient advised to call 911 or go nearest ED in case of emergency. Patient agreed with plan. Results Blood Pressure 118 / 65 Vital Signs Date Time Temp Pulse Resp B/P (MAP) Pulse Ox O2 Delivery O2 Flow Rate FiO2 12/29/16 05:59 97.6 77 18 118/65 (82) 97 Laboratory Tests Test 12/27/16 05:15 Valproic Acid (Depakene) Level 42 MCG/ML (50-100) Laboratory Results Test 12/23/16 08:47 12/27/16 05:15 Cholesterol Level 116 MG/DL (120-200) HDL Cholesterol 53.9 MG/DL (40.0-60.0) Hemoglobin A1c 4.3 % (4.3-6.0) LDL Cholesterol 39 MG/DL (0-99) Triglycerides Level 115 MG/DL (42-150) Valproic Acid (Depakene) Level 42 MCG/ML (50-100) Summary of Procedures None Pending results at discharge: No Medications # of Antipsychotic meds at D/C: 2 Appropriate >1 Antipsych meds?: 2 Approp Antipsych med options 1 - Minimum of three failed multiple trials of monotherapy. 2 - Documented plan to taper to monotherapy due to previous use of multiple meds OR cross-taper in progress at D/C. 3 - Documentation of augmentation of Clozapine. 4 - Justification other than those listed in allowable values 1-3, document here : Discharge Discharge Date: Dec 29, 2016 Discharge Diagnosis: (1) Schizoaffective disorder, bipolar type ICD Code: F25.0 - Schizoaffective disorder, bipolar type Pt Condition on Discharge: Stable Discharge Disposition: Discharge Home Discharge Instructions Diet Instructions: As Tolerated, No Restrictions Activities you can perform: Regular-No Restrictions Scheduled Appointment: Mikal Khalil Appointment Date: Jan 11, 2017 Appointment Time: 7:30 am Discharge Time > 30 minutes Mental Status Examination Appearance: Appropriate Consciousness: Alert Orientation: Person, Place, Date/Time Motor Activity: Normal gait Speech: Unremarkable Language: Adequate Fund of Knowledge: Adequate Attention and Concentration: Adequate Memory: Unremarkable Mood: Appropriate Affect: Appropriate Thought Process & Associations: Intact, Goal directed, Loose associations Thought Content: Delusional (grandiose) Hallucination Type: None Delusion Type: None Suicidal Ideation: No Suicidal Plan: No Suicidal Intention: No Homicidal Ideation: No Homicidal Plan: No Homicidal Intention: No Insight: Fair Judgment: Impulsive Discharge/Advance Care Plan Health Problems: (1) Schizoaffective disorder Goals to promote your health * To prevent worsening of your condition and complications * To maintain your health at the optimal level Directions to meet your goals Take your medications as prescribed Follow your dietary instruction Follow activity as directed Keep your appointments as scheduled Take your immunizations and boosters as scheduled If your symptoms worsen call your PCP, if no PCP go to Urgent Care Center or Emergency Room For 24/ questions related to your inpatient stay or results of tests pending at discharge, please contact Dr. Darrell Abarca at Smoking is Dangerous to Your Health. Avoid second hand smoking Darrell Abarca MD Dec 29, 2016 14:28
== END 2016-12-29 14:00 | disposition home or self-care (01) | DRG 885 ==
LOC: PHED 15:21 → NEDA 19:52 → H270 20:25
PROVIDERS: ADMIT Student in an Organized Health Care Education/Training Program; ATTEND Student in an Organized Health Care Education/Training Program
DX: F25.0 Schizoaffective disorder, bipolar type (principal); F22 Delusional disorders; I10 Essential (primary) hypertension; F41.9 Anxiety disorder, unspecified; F17.210 Nicotine dependence, cigarettes, uncomplicated; Z79.899 Other long term (current) drug therapy; Z59.0 Homelessness; F12.90 Cannabis use, unspecified, uncomplicated; F32.9 Major depressive disorder, single episode, unspecified; Z86.59 Personal history of other mental and behavioral disorders; R11.0 Nausea; Z76.5 Malingerer [conscious simulation]
CPT/HCPCS: 80048; 80053; 80061; 80076; 80164; 80307; 82550; 83036; 84443; 85025; 93005; J2426; Q0163

== ENCOUNTER 2016-12-30 03:40 | Emergency (ER) | payer MEDICARE, OTHER ==
[~2016-12-30] VITALS: Ht 177.8 cm; Wt 90.0 kg
[~2016-12-30 03:40] MED LIST changes: -BACT800T5 PO; -DEPA500T3 PO; +DIVA250T3 PO; +DIVA500T3 PO; +HYDR50TA94 PO; -LAMI1GEL TOPICAL; -LAMI250T PO; -LORA-474 PO
[2016-12-30 03:53] VITALS: BP 123/58; PULSE 105; RESP 16; TEMP 98.6; O2SAT 98
--- NOTE | 2016-12-30 03:56 | PD ---
HPI Chief Complaint: Psychiatric Symptoms Time Seen by Provider: 03:51 Travel History International Travel<30 days: No Contact w/Intl Traveler<30days: No History of Present Illness HPI Patient comes in to the emergency department under a [place] act by police for making suicidal statements. Patient states that it is the holidays and his family does not want anything to do with him which is making him feel more depressed and suicidal. Patient denies anything making this better or worse. Patient states he still has not picked up his medications. Patient denies any other medical concerns at this time. Denies any chest pain or shortness breath , fevers, nausea, abdominal pain, headache, or numbness or tingling anywhere. PFSH Past Medical History Arthritis: No Asthma: No Bipolar Disorder: Yes (schizophrenic) Anxiety: Yes Depression: Yes Heart Rhythm Problems: No Cancer: No (See EMR) Cardiovascular Problems: Yes (See EMR) High Cholesterol: No Chemotherapy: No Chest Pain: No Congestive Heart Failure: No COPD: No Cerebrovascular Accident: No Diabetes: No (he states he has been tested for it ) Diminished Hearing: No Endocrine: No GERD: No Genitourinary: No Hiatal Hernia: No Hypertension: Yes Immune Disorder: No Kidney Stones: No Musculoskeletal: No Neurologic: No Psychiatric: Yes ([facility] ) Reproductive: No Respiratory: No Immunizations Current: Yes Migraines: No Radiation Therapy: No Renal Failure: No Schizophrenia: Yes Sickle Cell Disease: No Sleep Apnea: No Thyroid Disease: No Ulcer: No Past Surgical History Abdominal Surgery: No AICD: No Arteriovenous Shunt: No Cardiac Surgery: No Ear Surgery: No Endocrine Surgery: No Eye Surgery: No Genitourinary Surgery: No Insulin Pump: No Joint Replacement: No Neurologic Surgery: No Oral Surgery: No Pacemaker: No Thoracic Surgery: No Other Surgery: No Social History Alcohol Use: Yes Tobacco Use: Yes (1 PPD) Substance Use: Yes (MARIJUANA) Allergies-Medications (Allergen,Severity, Reaction): Coded Allergies: aripiprazole (Unverified Allergy, Severe, SEIZURE, 12/30/16) Reported Meds & Prescriptions Reported Meds & Active Scripts Active Hydroxyzine HCl 50 Mg Tab 50 Mg PO Q6H PRN 10 Days Invega Sustenna Inj (Paliperidone Palmitate) 156 Mg/Ml Inj 156 Mg IM Q28D 30 Days Next dose due to 01/22/17 Risperdal (Risperidone) 1 Mg Tab 1 Mg PO BID 30 Days Divalproex ER (Divalproex Sodium) 500 Mg Tab 1,000 Mg PO DAILY Divalproex ER (Divalproex Sodium) 250 Mg Eugene 250 Mg PO HS Invega Sustenna Inj (Paliperidone Palmitate) 156 Mg/Ml Inj 156 Mg IM Q28D This dose of Invega Sustenna is due on 12/29/2016. Reported Risperdal (Risperidone) 1 Mg Tab 1 Mg PO DAILY Review of Systems Except as stated in HPI: all other systems reviewed are Neg Physical Exam Narrative GENERAL: Well-developed, well nourished, in no acute distress, and non-ill appearing. SKIN: Focused skin assessment warm and dry. HEAD: Atraumatic. Normocephalic. EYES: Pupils equal and round. EOMI. No scleral icterus. No injection or drainage. ENT: No nasal bleeding or discharge. Mucous membranes pink and moist. NECK: Trachea midline. Supple. No nuclear rigidity. CARDIOVASCULAR: Regular rate and rhythm. No murmur appreciated. RESPIRATORY: No accessory muscle use. No respiratory distress. Clear to auscultation. Breath sounds equal bilaterally. MUSCULOSKELETAL: No obvious deformities. No clubbing. No cyanosis. No edema. Full range of motion. NEUROLOGICAL: Awake and alert. No obvious cranial nerve deficits. Motor grossly within normal limits. Normal speech. PSYCHIATRIC: Appropriate mood and affect. MDM Medical Decision Making Medical Screen Exam Complete: Yes Emergency Medical Condition: Yes Differential Diagnosis Homicidal, suicidal, malingering, medical noncompliance, schizoaffective disorder, substance abuse Narrative Course Patient was seen and examined. Patient is been seen her multiple times over the past several weeks and has had laboratory studies done. Patient has two separate accounts. No new for additional laboratory studies at this time. Patient medically cleared for further treatment and evaluation by psych. Final disposition per psych. Diagnosis Primary Impression: Medical clearance for psychiatric admission Condition: Stable Augustin Fink Dec 30, 2016 03:56
--- NOTE | 2016-12-30 12:12 | PD ---
History of Present Illness Chief Complaint: Psychiatric Symptoms Time Seen by Provider: 12:00 Travel History International Travel<30 Days: No Contact w/Intl Traveler<30days: No Known affected area: No History of Present Illness: 31-year-old male discharged from inpatient psychiatry yesterday, returning for evaluation. Patient was noted to induce vomiting earlier this morning and is now asking for a turkey dinner. When he was told he must wait, he wants to leave because he has a [employer] gift card. He also reports having a friend whose home he can go to. He is verbally clair for safety and he is competent to do so. He demonstrates no suicidal or homicidal ideation, plan or intent. He demonstrates no significant evidence of psychotic thinking at this time. [facility] Past Medical History Arthritis: No Asthma: No Bipolar Disorder: Yes (schizophrenic) Anxiety: Yes Depression: Yes Heart Rhythm Problems: No Cancer: No (See EMR) Cardiovascular Problems: Yes (See EMR) High Cholesterol: No Chemotherapy: No Chest Pain: No Congestive Heart Failure: No COPD: No Cerebrovascular Accident: No Diminished Hearing: No Endocrine: No GERD: No Genitourinary: No Hiatal Hernia: No Hypertension: Yes Immune Disorder: No Kidney Stones: No Musculoskeletal: No Neurologic: No Psychiatric: Yes ([facility] ) Reproductive: No Respiratory: No Immunizations Current: Yes Migraines: No Radiation Therapy: No Renal Failure: No Schizophrenia: Yes Sickle Cell Disease: No Sleep Apnea: No Thyroid Disease: No Ulcer: No Tetanus Vaccination: < 5 Years Influenza Vaccination: No Past Surgical History Abdominal Surgery: No AICD: No Arteriovenous Shunt: No Cardiac Surgery: No Ear Surgery: No Endocrine Surgery: No Eye Surgery: No Genitourinary Surgery: No Insulin Pump: No Joint Replacement: No Neurologic Surgery: No Oral Surgery: No Pacemaker: No Thoracic Surgery: No Other Surgery: No Psychiatric History Psychiatric History Hx Psychiatric Treatment: PATIENT WAS LAST ADMITTED TO [facility] FROM 11/27/16 TO 12/06/16 FOR SHIZOPHRENIA, PARANOID TYPE. PATIENT REPORTS THAT HE HAS NOT FILLED HIS PRESCRIPTIONS SINCE BEING DISCHARGED. HE HAS NOT FOLLOWED UP WITH HIS OUTPATIENT APPOINTMENT AT [facility]. History of Inpatient Treatment: Yes Guns or firearms in home: No Social History Hx Alcohol Use: Yes Hx Tobacco Use: Yes (1 PPD) Hx Substance Use: Yes (MARIJUANA) Substance Use Type: Alcohol, Amphetamines-Stimulants Hx of Substance Use Treatment: No Allergies-Medications (Allergen,Severity, Reaction): Coded Allergies: aripiprazole (Unverified Allergy, Severe, SEIZURE, 12/30/16) Reported Meds & Prescriptions Reported Meds & Active Scripts Active Hydroxyzine HCl 50 Mg Tab 50 Mg PO Q6H PRN 10 Days Invega Sustenna Inj (Paliperidone Palmitate) 156 Mg/Ml Inj 156 Mg IM Q28D 30 Days Next dose due to 01/22/17 Risperdal (Risperidone) 1 Mg Tab 1 Mg PO BID 30 Days Divalproex ER (Divalproex Sodium) 500 Mg Tab 1,000 Mg PO DAILY Divalproex ER (Divalproex Sodium) 250 Mg Eugene 250 Mg PO HS Invega Sustenna Inj (Paliperidone Palmitate) 156 Mg/Ml Inj 156 Mg IM Q28D This dose of Invega Sustenna is due on 12/29/2016. Reported Risperdal (Risperidone) 1 Mg Tab 1 Mg PO DAILY Review of Systems Except as stated in HPI: all other systems reviewed are Neg Mental Status Examination Appearance: Appropriate Consciousness: Alert Orientation: x4 Motor Activity: Normal gait Speech: Unremarkable Language: Adequate Fund of Knowledge: Adequate Attention and Concentration: Adequate Memory: Unremarkable Mood: Appropriate Affect: Appropriate Thought Process & Associations: Intact Thought Content: Appropriate Hallucination Type: None Delusion Type: None Suicidal Ideation: No Suicidal Plan: No Suicidal Intention: No Homicidal Ideation: No Homicidal Plan: No Homicidal Intention: No Insight: Adequate Judgment: Adequate [facility] Medical Decision Making Medical Record Reviewed: Yes Assessment/Plan Patient interviewed at bedside. Case discussed with nurses Pierre Costa and Brittanie. Medical record reviewed. Patient wants to leave and does not meet criteria for Puente act or involuntary psychiatric hospitalization at this time. He is felt to be rather manipulative but is likely does not also have underlying schizophrenia. He remains competent, however, and is verbally clair for safety. Orders Orders Psych Screen (12/30/16 03:56) Results Vital Signs Date Time Temp Pulse Resp B/P (MAP) Pulse Ox O2 Delivery O2 Flow Rate FiO2 12/30/16 03:53 98.6 105 16 123/58 (66) 98 Diagnosis Primary Impression: Schizophrenia Condition: Stable Nicolas Owens MD Dec 30, 2016 12:12
--- NOTE | 2016-12-30 13:12 | PD ---
Physical Exam Time Seen by Provider: 13:[address] Owens has evaluated patient, lifted the Puente act and cleared the patient for discharge. Data Data Last Documented VS Vital Signs Date Time Temp Pulse Resp B/P (MAP) Pulse Ox O2 Delivery O2 Flow Rate FiO2 12/30/16 03:53 98.6 105 16 123/58 (79) 98 Orders Orders Psych Screen (12/30/16 03:56) Diet Regular Basic (12/30/16 Lunch) Ed Discharge Order (12/30/16 13:12) MDM Supervised Visit with GREGORIO: No Narrative Course Dr. Owens has evaluated patient, lifted the Puente act and cleared the patient for discharge. Patient contracts safety. Denies suicidal or homicidal ideations. Patient will be provided community resource packet to /[facility] for follow-up. Has friends and family for support. Patient was medically cleared by alternate provider prior to psych screening. Patient has been evaluated by psychiatry and and is now cleared for discharge. Diagnosis Primary Impression: Schizophrenia Referrals: [facility] (Out patient) [facility] Primary Care Physician Psychiatrist Latosha FARFAN Behavioral Patient Instructions: General Instructions, Schizophrenia (ED) Additional Instruction: Contract safety to your self and others Follow-up with psychiatry Follow-up with primary care provider Follow-up with George Toth Return to the emergency department immediately with worsening of symptoms Med/Other Pt SpecificInfo: No Change to Meds, No Meds Exist/No RX given Disposition: 01 DISCHARGE HOME Condition: Stable Luzma Aguilera Dec 30, 2016 13:12
== END 2016-12-30 15:02 | disposition home or self-care (01) ==
LOC: NEPD 03:40 → NEPJ 15:02
DX: F20.9 Schizophrenia, unspecified (principal); R11.10 Vomiting, unspecified; F31.9 Bipolar disorder, unspecified; I10 Essential (primary) hypertension; F17.200 Nicotine dependence, unspecified, uncomplicated; Z79.899 Other long term (current) drug therapy
CPT/HCPCS: 99283

== ENCOUNTER 2016-12-30 22:05 | Inpatient (IN) | payer MEDICARE, OTHER ==
[~2016-12-30] VITALS: Ht 182.9 cm; Wt 112.0 kg
[2016-12-30 22:08] VITALS: BP 149/94; PULSE 113; RESP 15; TEMP 98.8; O2SAT 98
--- NOTE | 2016-12-30 22:17 | PD ---
HPI Chief Complaint: Psychiatric complaint Time Seen by Provider: 22:15 Travel History International Travel<30 days: No Contact w/Intl Traveler<30days: No History of Present Illness HPI This patient was sent to the K pod to be evaluated by me however was moved to a medical pod prior to my evaluation. I therefore did not interview or examine the patient. This note has been written to document that I was not involved in the care of this patient. History Social History Alcohol Use: Yes Tobacco Use: Yes (1 PPD) Allergies-Medications (Allergen,Severity, Reaction): Coded Allergies: aripiprazole (Unverified Allergy, Severe, SEIZURE, 12/30/16) Reported Meds & Prescriptions Reported Meds & Active Scripts Active Hydroxyzine HCl 50 Mg Tab 50 Mg PO Q6H PRN 10 Days Invega Sustenna Inj (Paliperidone Palmitate) 156 Mg/Ml Inj 156 Mg IM Q28D 30 Days Next dose due to 01/22/17 Risperdal (Risperidone) 1 Mg Tab 1 Mg PO BID 30 Days Divalproex ER (Divalproex Sodium) 500 Mg Tab 1,000 Mg PO DAILY Divalproex ER (Divalproex Sodium) 250 Mg Eugene 250 Mg PO HS Invega Sustenna Inj (Paliperidone Palmitate) 156 Mg/Ml Inj 156 Mg IM Q28D This dose of Invega Sustenna is due on 12/29/2016. Reported Risperdal (Risperidone) 1 Mg Tab 1 Mg PO DAILY Physical Exam Narrative Please see HPI Data Data Last Documented VS Vital Signs Date Time Temp Pulse Resp B/P (MAP) Pulse Ox O2 Delivery O2 Flow Rate FiO2 12/31/16 09:21 97.8 94 20 143/83 (103) 100 Room Air Orders Orders Electrocardiogram (12/30/16 23:14) Complete Blood Count With Diff (12/30/16 23:14) Comprehensive Metabolic Panel (12/30/16 23:14) Prothrombin Time / Inr (Pt) (12/30/16 23:14) Act Partial Throm Time (Ptt) (12/30/16 23:14) Urinalysis - C+S If Indicated (12/30/16 23:14) Chest, Single Ap (12/30/16 23:14) Blood Glucose (12/30/16 23:14) Iv Access Insert/Monitor (12/30/16 23:14) Ecg Monitoring (12/30/16 23:14) Oximetry (12/30/16 23:14) Sodium Chloride 0.9% Flush (Ns Flush) (12/30/16 23:15) Sodium Chlor 0.9% 1000 Ml Inj (Ns 1000 M (12/30/16 23:14) Call Poison Control (12/30/16 23:14) Drug Screen, Random Urine (12/30/16 23:14) Alcohol (Ethanol) (12/30/16 23:14) Salicylates (Aspirin) (12/30/16 23:14) Tylenol (Acetaminophen) (12/30/16 23:14) Ammonia (12/30/16 23:14) Ckmb (Isoenzyme) Profile (12/30/16 23:14) Valproic Acid (Depakene) (12/30/16 23:20) CKMB (12/30/16 23:20) CKMB% (12/30/16 23:20) Lactulose Liq (Lactulose Liq) (12/31/16 02:00) Electrocardiogram (12/31/16 ) Tylenol (Acetaminophen) (12/31/16 03:18) Valproic Acid (Depakene) (12/31/16 03:58) Acetaminophen (Tylenol) (12/31/16 08:15) Diet Regular Basic (12/31/16 Lunch) Labs Laboratory Tests Test 12/30/16 23:20 12/31/16 01:15 12/31/16 03:42 White Blood Count 4.9 TH/MM3 Red Blood Count 3.78 MIL/MM3 Hemoglobin 12.6 GM/DL Hematocrit 36.3 % Mean Corpuscular Volume 96.2 FL Mean Corpuscular Hemoglobin 33.5 PG Mean Corpuscular Hemoglobin Concent 34.8 % Red Cell Distribution Width 12.3 % Platelet Count 289 TH/MM3 Mean Platelet Volume 7.5 FL Neutrophils (%) (Auto) 48.0 % Lymphocytes (%) (Auto) 41.8 % Monocytes (%) (Auto) 9.2 % Eosinophils (%) (Auto) 0.5 % Basophils (%) (Auto) 0.5 % Neutrophils # (Auto) 2.4 TH/MM3 Lymphocytes # (Auto) 2.1 TH/MM3 Monocytes # (Auto) 0.5 TH/MM3 Eosinophils # (Auto) 0.0 TH/MM3 Basophils # (Auto) 0.0 TH/MM3 CBC Comment DIFF FINAL Differential Comment Urine Color LIGHT-YELLOW Urine Turbidity CLEAR Urine pH 7.5 Urine Specific Brewster 1.009 Urine Protein NEG mg/dL Urine Glucose (UA) NEG mg/dL Urine Ketones NEG mg/dL Urine Occult Blood NEG Urine Nitrite NEG Urine Bilirubin NEG Urine Urobilinogen LESS THAN 2.0 MG/DL Urine Leukocyte Esterase NEG Urine WBC 1 /hpf Microscopic Urinalysis Comment CULT NOT INDICATED Blood Urea Nitrogen 12 MG/DL Creatinine 1.01 MG/DL Random Glucose 78 MG/DL Total Protein 7.7 GM/DL Albumin 4.2 GM/DL Calcium Level 8.9 MG/DL Alkaline Phosphatase 54 U/L Aspartate Amino Transf (AST/SGOT) 27 U/L Alanine Aminotransferase (ALT/SGPT) 51 U/L Total Bilirubin 0.3 MG/DL Sodium Level 139 MEQ/L Potassium Level 3.8 MEQ/L Chloride Level 102 MEQ/L Carbon Dioxide Level 29.0 MEQ/L Anion Gap 8 MEQ/L Estimat Glomerular Filtration Rate 105 ML/MIN Ammonia 48 MCMOL/L Total Creatine Kinase 190 U/L Creatine Kinase MB 1.2 NG/ML Salicylates Level LESS THAN 1.7 MG/DL Urine Opiates Screen NEG Acetaminophen Level LESS THAN 2.0 MCG/ML LESS THAN 2.0 MCG/ML Urine Barbiturates Screen NEG Valproic Acid (Depakene) Level 7 MCG/ML 7 MCG/ML Urine Amphetamines Screen NEG Urine Benzodiazepines Screen NEG Urine Cocaine Screen NEG Urine Cannabinoids Screen NEG Ethyl Alcohol Level LESS THAN 3 MG/DL Prothrombin Time 11.2 SEC Prothromb Time International Ratio 1.0 RATIO Activated Partial Thromboplast Time 26.9 SEC MDM Medical Decision Making Medical Screen Exam Complete: Yes (Please see HPI) Emergency Medical Condition: Yes (Please see HPI) Differential Diagnosis Please see HPI Narrative Course Please see HPI It appears Dr Reyes has assumed care of the patient in the [place] pod. Please refer to her documentation. Go Mcpherson MD Dec 30, 2016 22:17
[2016-12-30 22:28] VITALS: BP 146/83; PULSE 98; RESP 16; TEMP 98.1; O2SAT 98
[2016-12-30] MEDS ORDERED: SODIUM CHLOR 0.9% 1000 ML INJ 1,000 ML IV ONE (23:14)
[2016-12-30] MEDS ORDERED: SODIUM CHLORIDE 0.9% FLUSH 10 ML FLUSH IVF PRN (23:15)
--- NOTE | 2016-12-30 23:20 | PD ---
Physical Exam Date Seen by Provider: Dec 30, 2016 Time Seen by Provider: 23:16 Narrative GENERAL: Well-developed well-nourished male in no acute distress no respiratory distress; GCS 15 SKIN: Warm and dry. HEAD: Atraumatic. Normocephalic. EYES: Pupils equal and round. No scleral icterus. No injection or drainage. ENT: No nasal bleeding or discharge. Mucous membranes pink and moist. NECK: Trachea midline. No JVD. CARDIOVASCULAR: Regular rate and rhythm. RESPIRATORY: No accessory muscle use. Clear to auscultation. Breath sounds equal bilaterally. GASTROINTESTINAL: Abdomen soft, non-tender, nondistended. Hepatic and splenic margins not palpable. MUSCULOSKELETAL: Extremities without clubbing, cyanosis, or edema. No obvious deformities. NEUROLOGICAL: Awake and alert. No obvious cranial nerve deficits. Motor grossly within normal limits. Five out of 5 muscle strength in the arms and legs. Normal speech. PSYCHIATRIC: Appropriate mood and affect; insight and judgment normal. Data Data Last Documented VS Vital Signs Date Time Temp Pulse Resp B/P (MAP) Pulse Ox O2 Delivery O2 Flow Rate FiO2 12/31/16 03:45 95 16 145/89 (107) 99 Room Air 12/30/16 22:28 98.1 Orders Orders Electrocardiogram (12/30/16 23:14) Complete Blood Count With Diff (12/30/16 23:14) Comprehensive Metabolic Panel (12/30/16 23:14) Prothrombin Time / Inr (Pt) (12/30/16 23:14) Act Partial Throm Time (Ptt) (12/30/16 23:14) Urinalysis - C+S If Indicated (12/30/16 23:14) Chest, Single Ap (12/30/16 23:14) Blood Glucose (12/30/16 23:14) Iv Access Insert/Monitor (12/30/16 23:14) Ecg Monitoring (12/30/16 23:14) Oximetry (12/30/16 23:14) Sodium Chloride 0.9% Flush (Ns Flush) (12/30/16 23:15) Sodium Chlor 0.9% 1000 Ml Inj (Ns 1000 M (12/30/16 23:14) Call Poison Control (12/30/16 23:14) Drug Screen, Random Urine (12/30/16 23:14) Alcohol (Ethanol) (12/30/16 23:14) Salicylates (Aspirin) (12/30/16 23:14) Tylenol (Acetaminophen) (12/30/16 23:14) Ammonia (12/30/16 23:14) Ckmb (Isoenzyme) Profile (12/30/16 23:14) Valproic Acid (Depakene) (12/30/16 23:20) CKMB (12/30/16 23:20) CKMB% (12/30/16 23:20) Lactulose Liq (Lactulose Liq) (12/31/16 02:00) Electrocardiogram (12/31/16 ) Tylenol (Acetaminophen) (12/31/16 03:18) Valproic Acid (Depakene) (12/31/16 03:58) Labs Laboratory Tests Test 12/30/16 23:20 12/31/16 01:15 12/31/16 03:42 White Blood Count 4.9 TH/MM3 Red Blood Count 3.78 MIL/MM3 Hemoglobin 12.6 GM/DL Hematocrit 36.3 % Mean Corpuscular Volume 96.2 FL Mean Corpuscular Hemoglobin 33.5 PG Mean Corpuscular Hemoglobin Concent 34.8 % Red Cell Distribution Width 12.3 % Platelet Count 289 TH/MM3 Mean Platelet Volume 7.5 FL Neutrophils (%) (Auto) 48.0 % Lymphocytes (%) (Auto) 41.8 % Monocytes (%) (Auto) 9.2 % Eosinophils (%) (Auto) 0.5 % Basophils (%) (Auto) 0.5 % Neutrophils # (Auto) 2.4 TH/MM3 Lymphocytes # (Auto) 2.1 TH/MM3 Monocytes # (Auto) 0.5 TH/MM3 Eosinophils # (Auto) 0.0 TH/MM3 Basophils # (Auto) 0.0 TH/MM3 CBC Comment DIFF FINAL Differential Comment Urine Color LIGHT-YELLOW Urine Turbidity CLEAR Urine pH 7.5 Urine Specific [place] 1.009 Urine Protein NEG mg/dL Urine Glucose (UA) NEG mg/dL Urine Ketones NEG mg/dL Urine Occult Blood NEG Urine Nitrite NEG Urine Bilirubin NEG Urine Urobilinogen LESS THAN 2.0 MG/DL Urine Leukocyte Esterase NEG Urine WBC 1 /hpf Microscopic Urinalysis Comment CULT NOT INDICATED Blood Urea Nitrogen 12 MG/DL Creatinine 1.01 MG/DL Random Glucose 78 MG/DL Total Protein 7.7 GM/DL Albumin 4.2 GM/DL Calcium Level 8.9 MG/DL Alkaline Phosphatase 54 U/L Aspartate Amino Transf (AST/SGOT) 27 U/L Alanine Aminotransferase (ALT/SGPT) 51 U/L Total Bilirubin 0.3 MG/DL Sodium Level 139 MEQ/L Potassium Level 3.8 MEQ/L Chloride Level 102 MEQ/L Carbon Dioxide Level 29.0 MEQ/L Anion Gap 8 MEQ/L Estimat Glomerular Filtration Rate 105 ML/MIN Ammonia 48 MCMOL/L Total Creatine Kinase 190 U/L Creatine Kinase MB 1.2 NG/ML Salicylates Level LESS THAN 1.7 MG/DL Urine Opiates Screen NEG Acetaminophen Level LESS THAN 2.0 MCG/ML LESS THAN 2.0 MCG/ML Urine Barbiturates Screen NEG Valproic Acid (Depakene) Level 7 MCG/ML 7 MCG/ML Urine Amphetamines Screen NEG Urine Benzodiazepines Screen NEG Urine Cocaine Screen NEG Urine Cannabinoids Screen NEG Ethyl Alcohol Level LESS THAN 3 MG/DL Prothrombin Time 11.2 SEC Prothromb Time International Ratio 1.0 RATIO Activated Partial Thromboplast Time 26.9 SEC [facility] Medical Record Reviewed: Yes Supervised Visit with GREGORIO: No Interpretation(s) Urine drug screen:negative Tylenol less than 2.0: Acetaminophen less than 1.7; valproic acid level VII values are not elevated EKG normal sinus rhythm rate 90 no acute injury pattern or ectopy noted Last Impressions Chest X-Ray 12/30/16 5954 Signed Impressions: Service Date/Time: December 23:34 - CONCLUSION: No acute disease. Damian Loredo MD CBC & BMP Diagram 12/30/16 23:20 Total Protein 7.7, Albumin 4.2, Calcium Level 8.9, Alkaline Phosphatase 54, Aspartate Amino Transf (AST/SGOT) 27, Alanine Aminotransferase (ALT/SGPT) 51, Total Bilirubin 0.3 Vital Signs Date Time Temp Pulse Resp B/P (MAP) Pulse Ox O2 Delivery O2 Flow Rate FiO2 12/31/16 03:45 95 16 145/89 (107) 99 Room Air 12/31/16 00:18 93 16 156/92 (113) 98 Room Air 12/30/16 23:28 99 Room Air 12/30/16 22:30 98 16 98 Room Air 12/30/16 22:28 98.1 98 16 146/83 (104) 98 12/30/16 22:08 98.8 113 15 149/94 (112) 98 Room Air EKG: Normal sinus rhythm rate 97 no acute injury pattern or ectopy noted Ammonia level: 48 mild elevated CK total: 190 not elevated UA: wnl Differential Diagnosis Suicidal ideation, depression, polysubstance ingestion, mood disorder, electrolyte disturbance, rhythm disturbance, metabolic disorder Narrative Course At 11:15 PM patient evaluated by me identified to taking multiple medications since some time morning. Patient presents with a nearly completely empty bottle of hydroxyzine 50 mg #30 dispensed 29 missing after being prescribed yesterday 12/29/16. Patient also with routine prescriptions for Depakote, Risperdal and Invega. Patient is unable to identify how much of any of each of these medications that he took throughout the day. Patient does admit to vomiting several times stomach contents and bilious emesis but denies any hematemesis or coffee-ground emesis. Patient complains of epigastric pain and bilateral pedal pain. Patient states he came to the hospital the patient reports he walked to the hospital. Patient states he is very depressed. Patient's past medical history is significant for mood disorder and schizoaffective disorder hypertension polysubstance abuse and tobacco use. Review of systems: No fever no chills, no change in vision, no headache no congestion, no chest pain no syncope, no shortness of breath or pleuritic pain, nausea and vomiting no diarrhea, no dysuria or decreased urine output, no joint pain or swelling myalgias or arthralgias, no rash no pruritus, no headache no balance disturbance, no polyuria no polydipsia, no lymphadenopathy no easy bruising. Puente act IV access obtained specimens collected and sent for resulting poison control called patient based on monitoring manager with pulse oximetry Patient resting comfortably receiving IV fluids and tolerating oral hydration and dietary intake Lab values found to be grossly within normal range except for mild elevation of serum ammonia level with subtherapeutic valproic acid level Patient has been monitored for 6 hours in the emergency department per recommendation of poison control and has remained hemodynamically stable with stable lab values and stable clinical exam with GCS remaining 15. Patient remains cooperative and is aware he will be admitted. Patient is stable to be medically cleared for psych evaluation. Critical Care Narrative Aggregate critical care time was 40 minutes. Time to perform other separately billable procedures was not included in the critical care time. My time did not include minutes spent treating any other patients simultaneously or on activities that did not directly contribute to the patient's treatment. The services I provided to this patient were to treat and/or prevent clinically significant deterioration that could result in: Arrhythmia, metabolic/toxic encephalopathy, respiratory failure,coma, I provided critical care services requiring my management, as noted below: Chart data review, documentation time, medication orders and management, vital sign assessments/reviewing monitor data, ordering and reviewing lab tests, ordering and interpreting/reviewing x-rays and diagnostic studies, care of the patient and discussion of the patient with the admitting physicians. Diagnosis Primary Impression: Suicidal ideation Additional Impressions: Overdose Qualified Codes: T50.902A - Poisoning by unspecified drugs, medicaments and biological substances, intentional self-harm, initial encounter Medical clearance for psychiatric admission Admitting Information Admitting Physician Requests: Admit Chloe Reyes MD Dec 30, 2016 23:20
[2016-12-30 23:28] VITALS: O2SAT 99
[2016-12-30 23:38] LABS: AUTOMATED NEUTROPHIL # 2.4 TH/MM3 (1.8-7.7); BASOPHIL % 0.5 % (0.0-2.0); EOSINOPHIL % 0.5 % (0.0-4.0); HEMATOCRIT 36.3 % (39.0-51.0); HEMOGLOBIN 12.6 GM/DL (13.0-17.0); LYMPH % 41.8 % (9.0-44.0); LYMPHOCYTE # 2.1 TH/MM3 (1.0-4.8); MEAN CELL VOLUME 96.2 FL (80.0-100.0); MEAN CORPUSCULAR HEMOGLOBIN 33.5 PG (27.0-34.0); MEAN CORPUSCULAR HGB CONC 34.8 % (32.0-36.0); MEAN PLATELET VOLUME 7.5 FL (7.0-11.0); MONO % 9.2 % (0.0-8.0); MONOCYTE # 0.5 TH/MM3 (0-0.9); PLATELET COUNT 289 TH/MM3 (150-450); RED BLOOD COUNT 3.78 MIL/MM3 (4.50-5.90); RED CELL DISTRIBUTION WIDTH 12.3 % (11.6-17.2); WHITE BLOOD COUNT 4.9 TH/MM3 (4.0-11.0)
[2016-12-30 23:44] LABS: BILIRUBIN, URINE NEG (NEG); BLOOD, URINE NEG (NEG); GLUCOSE,URINE NEG (NEG); KETONE, URINE NEG (NEG); NITRITE,URINE NEG (NEG); PH, URINE 7.5 (5.0-8.5); URINE COLOR LIGHT-YELLOW (YELLW/STRAW); URINE LEUKOCYTE ESTERASE NEG (NEG)
--- NOTE | 2016-12-31 | RADRPT ---
EXAM DATE/TIME: 12/30/2016 23:34 [facility] COMPARISON: CHEST SINGLE AP, August 10, 2015, 3:59. INDICATIONS : Chest pain- Possible syncopal episode MEDICAL HISTORY : Hypertension. SURGICAL HISTORY : None. ENCOUNTER: Initial ACUITY: 1 day PAIN SCORE: 7/10 LOCATION: Bilateral chest FINDINGS: A single view of the chest demonstrates the lungs to be symmetrically aerated without evidence of mas s, infiltrate or effusion. The cardiomediastinal contours are unremarkable. Osseous structures are intact. CONCLUSION: No acute disease. Damian Loredo MD on December 30, 2016 at 23:57 Board Certified Radiologist. This report was verified electronically.
[2016-12-31 00:01] LABS: ALBUMIN 4.2 GM/DL (3.4-5.0); ALT (GPT) 51 U/L (12-78); AST (GOT) 27 U/L (15-37); BLOOD UREA NITROGEN 12 MG/DL (7-18); CALCIUM 8.9 MG/DL (8.5-10.1); CHLORIDE 102 MEQ/L (98-107); CREATININE 1.01 MG/DL (0.60-1.30); GLOMERULAR FILTRATION RATE 105 ML/MIN (>89); GLUCOSE,RANDOM 78 MG/DL (74-106); SODIUM (NA) 139 MEQ/L (136-145)
[2016-12-31 00:04] LABS: ALKALINE PHOSPHATASE 54 U/L (45-117); TOTAL BILIRUBIN ADULT 0.3 MG/DL (0.2-1.0); TOTAL PROTEIN 7.7 GM/DL (6.4-8.2)
[2016-12-31 00:10] LABS: ACETAMINOPHEN LESS THAN 2.0 MCG/ML (10.0-30.0)
[2016-12-31 00:18] VITALS: BP 156/92; PULSE 93; RESP 16; O2SAT 98
[2016-12-31 01:34] LABS: PROTHROMBIN TIME - PATIENT 11.2 SEC (9.8-11.6)
[2016-12-31] MEDS ORDERED: LACTULOSE SYRUP 20 GM/30 ML CUP PO ONE (02:00)
[2016-12-31 03:45] VITALS: BP 145/89; PULSE 95; RESP 16; O2SAT 99
[2016-12-31 08:03] VITALS: BP 138/79; PULSE 94; RESP 16; O2SAT 98
[2016-12-31] MEDS ORDERED: ACETAMINOPHEN 325 MG TAB PO ONE (08:15)
[2016-12-31 09:21] VITALS: BP 143/83; PULSE 94; RESP 20; TEMP 97.8; O2SAT 100
--- NOTE | 2016-12-31 13:21 | EKG ---
Date Performed: 12/31/2016 Time Performed: 03:39:33 PTAGE: 31 years EKG: Sinus rhythm Since previous tracing, no significant change noted NORMAL ECG PREVIOUS TRACING : 12/30/2016 23.13 DOCTOR: Chepe Herndon Interpretating Date/Time 12/31/2016 13:20:46
--- NOTE | 2016-12-31 13:21 | EKG ---
Date Performed: 12/30/2016 Time Performed: 23:13:38 PTAGE: 31 years EKG: Sinus rhythm NONSPECIFIC ST ELEVATION Since previous tracing, no significant change noted BORDERLINE ECG PREVIOUS TRACING : 12/23/2016 14.04 DOCTOR: Chepe Herndon Interpretating Date/Time 12/31/2016 13:20:32
[2016-12-31 16:00] VITALS: BP 135/88; PULSE 77; RESP 20
[2016-12-31] MEDS ORDERED: BENZTROPINE MESYLATE 1 MG TAB PO PRN (16:00)
[2016-12-31] MEDS ORDERED: BENZTROPINE MESYLATE 2 MG/2 ML VIAL IM PRN (16:00)
[2016-12-31] MEDS ORDERED: MAGNESIUM HYDROXIDE SUSP 30 ML CUP PO PRN (16:00)
[2016-12-31] MEDS ORDERED: LORazepam 2 MG/ML VIAL IM PRN (16:00)
--- NOTE | 2016-12-31 16:33 | MH ---
cc: LEONEL CROWLEY DATE OF ADMISSION: 12/30/2016 ADMISSION DIAGNOSES 1. Schizoaffective disorder, bipolar type, acute decompensation Rule out disorganized schizophrenia. LEGAL STATUS: The patient is not capacitated to consent for admission or for medications or treatment. Involuntary status. I have completed first opinion. Consult for second opinion. Request health care surrogate and guardian advocate. HISTORY OF PRESENT ILLNESS Mr. Talley is a 31-year-old -Israeli male with a history of psychotic illness who presents voluntarily to the emergency department. He reported to the emergency department provider that he had been taking medications prescribed to him during his recent discharge from the inpatient unit and consequently had overdosed on these medications. The emergency department provider documented that he had taken nearly the totality of a bottle of hydroxyzine that he had been prescribed just a day before. Emergency department provider also documents that the patient endorsed feeling very depressed. Reviewing the electronic medical record, I note that the patient was seen in consultation yesterday by Dr. Owens. He also was discharged on the by Dr. Abarca from the inpatient psychiatric unit. He was placed under a Puente Act by the ED provider. The patient seen and examined. Chart reviewed. Case discussed with nursing staff. On my examination today, the patient presents with a silly affect. He seems fairly disorganized. He is perseverative on being hungry and says repeatedly that he wants to be discharged because he has a [employer] gift card that he wants to spend. He says that he wants snacks and asks several times if I have ever tried bananas and Ramen noodles together. I discussed with the patient the circumstances of his presenting overdose. He says he tells me that he was feeling anxious and so took the hydroxyzine. He did not realize that there were time limits on the hydroxyzine (i.e. q6h PRN) and so he kept taking them until he no longer felt anxious. He denies that this was a suicidal overdose. Today he says that his mood is stabilized, although affect is quite silly as I said. Speech is somewhat pressured and rambling. There is some loosening of associations when he is not perseverative on obtaining food. He endorses audiovisual hallucinations "sometimes" he denies suicidal or homicidal ideation saying "I do not have suicidal thoughts or homicidal thoughts, I have hungry thoughts." He seems unreliable to contract for safety. Psychiatric interview is somewhat limited because of the patient's perseveration and degree of psychotic decompensation. He is fairly disheveled. He has no physical complaints. PAST PSYCHIATRIC HISTORY The patient has a history of schizophrenia versus schizoaffective disorder. He is not currently under the care of a psychiatrist. When I ask about a history of psychiatric admissions. He says "I am trying to get me some butter and crackers. Ramen noodles and banana." He denies any suicide attempts, "that I know of." FAMILY HISTORY The patient denies a family history of serious mental illness or suicide. CHEMICAL DEPENDENCY HISTORY: The patient notes "I love drug and alcohol. Random drugs and alcohol. Not everything I can get my hands on or anything I can get my hands on but certainly drugs and alcohol." The patient's urine toxicology was negative. Alcohol level was undetectable on presentation here. SOCIAL HISTORY The patient is homeless. He says that he has been "walking around looking for Black Tuesday sales." He describes himself as "single and ready to mingle." He says that he has only "one child, that is why I use Magnums" When I try to inquire about access to guns or firearms, he seems to misinterpret, believing that I am asking about his sexuality and he says "no bro, I am straight." That the remainder of the social history as somewhat limited because of his degree of psychotic decompensation. PAST MEDICAL HISTORY See electronic medical record. REVIEW OF SYSTEMS Limited by psychosis and poor historian but no reported physical complaints. PHYSICAL EXAMINATION VITAL SIGNS Temperature 97.8, pulse 94, respirations 20, blood pressure 143/83, pulse oximetry 100% on room air. Physical examination completed by the ED provider. On my examination today, the patient appears to be in no acute physical distress. No motor abnormalities noted. LABORATORY FINDINGS: The labs reviewed: CBC reveals a normocytic anemia with hemoglobin of 12.6. CMP is unremarkable. Ammonia level is elevated at 48. CK is within normal limits at 190. Toxicology negative. Alcohol level undetectable. Depakote level is undetectable. Urinalysis is bland. Coags were within normal limits. Most recent EKG reveals normal sinus rhythm with a QTC of 418 milliseconds. MENTAL STATUS EXAM The patient is in hospital gown. He is somewhat disheveled. He is awake and alert and oriented to person and hospital at least. No motor abnormalities noted. Steady gait and station. Speech is rambling and a little bit pressured. Language and fund of knowledge seem average. Focusing concentration scattered. Memory difficult to assess but seems fair on clinical exam. Mood is reportedly "stabilized." Affect is silly and somewhat expansive. Thought process with when not perseverative on food is somewhat loose. No jordan delusional material. Endorses audiovisual hallucinations as noted above, although these are quite vague. He does appear internally stimulated. He denies suicidal or homicidal ideation but seems unreliable to contract for safety. Insight and judgment are poor. ASSESSMENT/PLAN This is a 31-year-old -Israeli male with psychiatric history as detailed above who presented voluntarily following an overdose on hydroxyzine and has been Puente acted by the emergency department provider. On my examination today, the patient presents as quite disorganized with silly affect. He apparently over took his hydroxyzine believing that he could continue to take the doses without regard for the time limitations until he no longer felt anxious. However, his Depakote level was undetectable suggesting nonadherence with this medication. The patient has history of recurrent emergency department visits and psychiatric admissions. He seems to be struggling in the community and is presently homeless. I fear that if he is discharged he will continue to decompensate and may engage in further behavior at that he is self-injurious, even if inadvertently so. Consequently, I will plan to admit the patient to the inpatient psychiatric unit for safety, observation and stabilization but with the ancillary goal of placement in a structured living environment to prevent these recurrent decompensations requiring readmission. Admit inpatient. Involuntary status. I have completed first opinion. Consult for second opinion. Request health care surrogate and guardian advocate. I will recheck CBC in the morning to trend anemia. Also recheck ammonia level. I will continue the patient's Risperdal 1 mg twice daily. The patient also received Invega Sustenna 156 mg on December 25. He was prescribed Depakote 1250 mg most recently but his level was subtherapeutic at 42 on a gram of Depakote and likely would remain subtherapeutic or low therapeutic on the most recently prescribed dose and so I will titrate this to 1500 mg per day this Depakote dose to 1500 mg per day. Ativan as needed for anxiety, Cogentin as needed for EPS, Benadryl as needed for sleep. Vitals every shift. Counselor to see. Disposition planning. Estimated length of stay: 7-9 days with goal of placement. Leonel Crowley DC/pierre /3:45 PM /4:08 PM MTDD
[2016-12-31] MEDS: levOCARNitine 10% ORAL SOLN 118 ML BTL PO SCH (19:38)
[2016-12-31] MEDS: risperiDONE 1 MG TAB PO SCH (21:00)
[2016-12-31 21:05] VITALS: BP 129/73; PULSE 85; RESP 16; TEMP 97.9; O2SAT 100
[2017-01-01 05:47] VITALS: BP 122/60; PULSE 86; RESP 18; TEMP 97.5; O2SAT 98
[2017-01-01] MEDS: levOCARNitine 10% ORAL SOLN 118 ML BTL PO SCH ×3 (08:21→18:00)
[2017-01-01] MEDS: NICOTINE 21 MG/24 HR PATCH T-DERMAL SCH (08:21)
[2017-01-01] MEDS: REMOVE OLD PATCH T-DERMAL SCH (08:22)
--- NOTE | 2017-01-01 14:57 | HHI.PYPN ---
Subjective Remarks This is a request for second opinion. Patient was seen and case discussed with nursing. Admission note was reviewed and I agree with the contents. Patient remains delusional with poor insight. He is grandiose talking about his various inventions. Minimizes reasons for admission. Affect is elevated. Ammonia is elevated and we will get a consult. He denies overdosing on the whole bottle of hydroxyzine and said he took a bottle over a period of a couple of days trying to treat his anxiety. Depakote level was low on admission suggesting poor compliance Mental Status Examination Appearance: Appropriate Consciousness: Alert Orientation: x4 Motor Activity: Normal gait Speech: Unremarkable Language: Adequate Fund of Knowledge: Adequate Attention and Concentration: Easily Distracted Memory: Unremarkable Mood: Good Affect: Labile, Other (elevated) Thought Process & Associations: Circumstantial Thought Content: Bizarre thinking, Delusional Hallucination Type: None Delusion Type: Other (grandiose) Suicidal Ideation: No Suicidal Plan: No Suicidal Intention: No Homicidal Ideation: No Homicidal Plan: No Homicidal Intention: No Insight: Poor Judgment: Poor Results Vitals/IOs Vital Signs Date Time Temp Pulse Resp B/P (MAP) Pulse Ox O2 Delivery O2 Flow Rate FiO2 01/01/17 05:47 97.5 86 18 122/60 (80) 98 12/31/16 16:00 Room Air Assessment & Plan Problem List: (1) SCHIZOAFFECTIVE DISORDER, UNSPECIFIED Status: Chronic Assessment & Plan Find a proxy. Medical consult for elevated ammonia, we'll hold Depakote at this time. I agree with the first opinion to continue petition. Criteria include acute psychosis and possible suicide attempt Justification for Cont. Inpt. Patient would decompensate in a less restrictive setting Mitchell Portillo DO Jan 01, 2017 14:57
--- NOTE | 2017-01-01 17:00 | PD.CONS ---
[facility] Request[facility] By Reason for Consult elevated ammonia level Primary Care Physician Unknown Diagnoses: History of Present Illness patient is a 31 y/o male with history of schizophrenia who initially presented to ER after he took ' lots of anxiety medicine' few days ago and then he was admitted to the psych unit for further evaluation. as part of the work-up he was found to have elevated ammonial level for which medicine was consulted. at the time of my evaluation he was comfortable, awake, alert and oriented with no reported pain. Review of Systems Constitutional: DENIES: Fever, Weight loss, Chills, Night Sweats Eyes: DENIES: Blurred vision, Diplopia, Vision loss, Double Vision Ears, nose, mouth, throat: DENIES: Tinnitus, Vertigo, Throat pain, Epistaxis Respiratory: DENIES: Apneas, Cough, Snoring, Wheezing, Hemoptysis, Sputum production, Shortness of breath Cardiovascular: DENIES: Chest pain, Palpitations, Syncope, Dyspnea on Exertion , PND, Lower Extremity Edema, Orthopnea, Claudication Gastrointestinal: DENIES: Abdominal pain, Black stools, Bloody stools, Constipation, Diarrhea, Nausea, Vomiting, Difficulty Swallowing, Anorexia Genitourinary: DENIES: Urinary frequency, Urgency, Hematuria, Dysuria Musculoskeletal: DENIES: Joint pain, Muscle aches, Stiffness, Joint Swelling Integumentary: DENIES: Rash Neurologic: DENIES: Abnormal gait, Headache, Localized weakness, Paresthesias, Seizures, Speech Problems, Tremor, Poor Balance Psychiatric: DENIES: Anxiety, Confusion, Mood changes, Depression, Hallucinations, Agitation, Suicidal Ideation, Homicidal Ideation, Delusions Past Family Social History Allergies: Coded Allergies: aripiprazole (Unverified Allergy, Severe, SEIZURE, 12/30/16) Past Medical History schizophrenia Past Surgical History surgery on the left leg. Reported Medications Hydroxyzine HCl 50 Mg Tab 50 Mg PO Q6H PRN 10 Days Invega Sustenna Inj (Paliperidone Palmitate) 156 Mg/Ml Inj 156 Mg IM Q28D 30 Days Next dose due to 01/22/17 Risperdal (Risperidone) 1 Mg Tab 1 Mg PO BID 30 Days Divalproex ER (Divalproex Sodium) 500 Mg Tab 1,000 Mg PO DAILY Divalproex ER (Divalproex Sodium) 250 Mg Eugene 250 Mg PO HS Invega Sustenna Inj (Paliperidone Palmitate) 156 Mg/Ml Inj 156 Mg IM Q28D This dose of Invega Sustenna is due on 12/29/2016. Reported Risperdal (Risperidone) 1 Mg Tab 1 Mg PO DAILY Active Ordered Medications Current Medications Sodium Chloride (NS Flush) 2 ml UNSCH PRN IVF FLUSH AFTER USING IV ACCESS; Start 12/30/16 at 23:15 Sodium Chloride 1,000 ml @ 1,000 mls/hr Q1H ONCE IV Last administered on 12/30 23:14; Start 12/30/16 at 23:14; Stop 12/31/16 at 00:13; Status DC Lactulose (Lactulose Liq) 30 ml ONCE ONCE PO Last administered on 12/31/16 02:00; Start 12/31/16 at 02:00; Stop 12/31/16 at 02:01; Status DC Acetaminophen (Tylenol) 650 mg ONCE ONCE PO Last administered on 12/31/16 08 :21; Start 12/31/16 at 08:15; Stop 12/31/16 at 08:16; Status DC Risperidone (risperDAL) 1 mg BID PO ; Start 12/31/16 at 21:00; Status Future Hold Divalproex Sodium (Depakote Er) 1,500 mg DAILY PO ; Start 01/01/17 at 09:00; Status Future Hold Lorazepam (Ativan) 1 mg Q6H PRN PO MODERATE TO SEVERE ANXIETY; Start 12/31/16 at 16:00; Status Future Hold Lorazepam (Ativan Inj) 1 mg Q6H PRN IM MODERATE TO SEVERE ANXIETY; Start 12/31 at 16:00; Status Future Hold Diphenhydramine HCl (Benadryl) 50 mg HS PRN PO INSOMNIA; Start 12/31/16 at 21: 00; Status Future Hold Acetaminophen (Tylenol) 650 mg Q4H PRN PO Pain 1-5 or Temp >101F; Start at 16:00 Magnesium Hydroxide (Milk Of Magnesia Liq) 30 ml DAILY PRN PO CONSTIPATION; Start 12/31/16 at 16:00 Al Hydrox/Mg Hydrox/Simethicone (Mag-Al Plus Susp Liq) 30 ml Q6H PRN PO DYSPEPSIA; Start 12/31/16 at 16:00 Nicotine (Habitrol 21 Mg Patch.24 Hr) 1 patch DAILY T-DERMAL ; Start 01/01/17 at 09:00 Benztropine Mesylate (Cogentin) 1 mg Q12H PRN PO EXTRA PYRAMIDAL SYMPTOMS; Start 12/31/16 at 16:00; Status Future Hold Benztropine Mesylate (Cogentin Inj) 1 mg Q12H PRN IM EXTRA PYRAMIDAL SYMPTOMS; Start 12/31/16 at 16:00; Status Future Hold Miscellaneous Information 1 DAILY T-DERMAL ; Start 01/01/17 at 09:00 Levocarnitine (Carnitor 10% Liq) 3 ml TID PO Last administered on 01/01/17t 12 :12; Start 12/31/16 at 18:00 Social History smokes a pack a day and smokes weed- drinks few times weekly. Physical Exam Vital Signs Vital Signs Date Time Temp Pulse Resp B/P (MAP) Pulse Ox O2 Delivery O2 Flow Rate FiO2 01/01/17 05:47 97.5 86 18 122/60 (80) 98 12/31/16 21:05 97.9 85 16 129/73 (91) 100 Physical Exam GENERAL: This is a well-nourished, well-developed patient, in no apparent distress. SKIN: No rashes, ecchymoses or lesions. Cool and dry. HEAD: Atraumatic. Normocephalic. No temporal or scalp tenderness. EYES: Pupils equal round and reactive. Extraocular motions intact. No scleral icterus. No injection or drainage. ENT: Nose without bleeding, purulent drainage or septal hematoma. Throat without erythema, tonsillar hypertrophy or exudate. Uvula midline. Airway patent. NECK: Trachea midline. No JVD or lymphadenopathy. Supple, nontender, no meningeal signs. CARDIOVASCULAR: Regular rate and rhythm without murmurs, gallops, or rubs. RESPIRATORY: Clear to auscultation. Breath sounds equal bilaterally. No wheezes , rales, or rhonchi. GASTROINTESTINAL: Abdomen soft, non-tender, nondistended. No hepato-splenomegaly , or palpable masses. No guarding. MUSCULOSKELETAL: Extremities without clubbing, cyanosis, or edema. No joint tenderness, effusion, or edema noted. No calf tenderness. Negative Homans sign bilaterally. NEUROLOGICAL: Awake and alert. Cranial nerves II through XII intact. Motor and sensory grossly within normal limits. Five out of 5 muscle strength in all muscle groups. Normal speech. Result Diagram: 12/30/16231912/30/162319 Imaging Last Impressions Chest X-Ray 12/30/162313 Signed Impressions: Service Date/Time: December 23:34 - CONCLUSION: No acute disease. Damian Loredo MD Assessment and Plan Assessment and Plan A/P - slightly elevated ammonia level- repeat the ammonia level and LFT's- of note the patient was on Depakote that was held. -schizophrenia; management per psych. thank you for the consult. Discussed Condition With the patient and the RN. Yuli Dykes MD Jan 01, 2017 17:00
[2017-01-01 18:39] VITALS: BP 109/64; PULSE 86; RESP 18; TEMP 98.3; O2SAT 98
[2017-01-01 19:30] LABS: ALBUMIN 3.9 GM/DL (3.4-5.0); DIRECT BILIRUBIN ADULT 0.1 MG/DL (0.0-0.2)
[2017-01-01 19:32] LABS: INDIRECT BILIRUBIN 0.2 MG/DL (0.0-0.8); TOTAL BILIRUBIN ADULT 0.3 MG/DL (0.2-1.0); TOTAL PROTEIN 7.7 GM/DL (6.4-8.2)
[2017-01-01] MEDS: risperiDONE 1 MG TAB PO SCH (20:23)
[2017-01-01] MEDS: diphenhydrAMINE HCL 50 MG CAP PO PRN (20:26)
[2017-01-02 05:54] VITALS: BP 137/71; PULSE 71; RESP 16; TEMP 98.2; O2SAT 98
[2017-01-02] MEDS: DIVALPROEX SODIUM E.R. 500 MG TAB PO SCH (08:40)
[2017-01-02] MEDS: REMOVE OLD PATCH T-DERMAL SCH (08:40)
[2017-01-02] MEDS: NICOTINE 21 MG/24 HR PATCH T-DERMAL SCH (08:40)
[2017-01-02] MEDS: risperiDONE 1 MG TAB PO SCH ×2 (08:40→21:51)
[2017-01-02] MEDS: levOCARNitine 10% ORAL SOLN 118 ML BTL PO SCH ×3 (08:44→17:37)
--- NOTE | 2017-01-02 09:33 | HHI.PR ---
Subjective Remarks in no distress. denies pain. no new complaints. d/w the RN and no acute issues over night. Objective Vitals Vital Signs Date Time Temp Pulse Resp B/P (MAP) Pulse Ox O2 Delivery O2 Flow Rate FiO2 01/02/17 05:54 98.2 71 16 137/71 (93) 98 01/01/17 18:39 98.3 86 18 109/64 (79) 98 Result Diagram: 12/30/16231912/30/162319 Imaging Last Impressions Chest X-Ray 12/30/162313 Signed Impressions: Service Date/Time: December 23:34 - CONCLUSION: No acute disease. Damian Loredo MD Objective Remarks GENERAL: This is a well-nourished, well-developed patient, in no apparent distress. CARDIOVASCULAR: Regular rate and regular rhythm without murmurs, gallops, or rubs. RESPIRATORY: Clear to auscultation. Breath sounds equal bilaterally. No wheezes , rales, or rhonchi. GASTROINTESTINAL: Abdomen soft, non-tender, nondistended. Normal, active bowel sounds MUSCULOSKELETAL: Extremities without clubbing, cyanosis, or edema. NEURO: Alert & Oriented x4 to person, place, time, situation. Moves all ext x4 Medications and IVs Current Medications Sodium Chloride (NS Flush) 2 ml UNSCH PRN IVF FLUSH AFTER USING IV ACCESS; Start 12/30/16 at 23:15 Sodium Chloride 1,000 ml @ 1,000 mls/hr Q1H ONCE IV Last administered on 12/30 23:14; Start 12/30/16 at 23:14; Stop 12/31/16 at 00:13; Status DC Lactulose (Lactulose Liq) 30 ml ONCE ONCE PO Last administered on 12/31/16 02:00; Start 12/31/16 at 02:00; Stop 12/31/16 at 02:01; Status DC Acetaminophen (Tylenol) 650 mg ONCE ONCE PO Last administered on 12/31/16 08 :21; Start 12/31/16 at 08:15; Stop 12/31/16 at 08:16; Status DC Risperidone (risperDAL) 1 mg BID PO Last administered on 01/02/17 08:40; Start 12/31/16 at 21:00; Status Future hold Divalproex Sodium (Depakote Er) 1,500 mg DAILY PO Last administered on 08:40; Start 01/01/17 at 09:00; Status Future hold Lorazepam (Ativan) 1 mg Q6H PRN PO MODERATE TO SEVERE ANXIETY; Start 12/31/16 at 16:00; Status Future hold Lorazepam (Ativan Inj) 1 mg Q6H PRN IM MODERATE TO SEVERE ANXIETY; Start 12/31 at 16:00; Status Future hold Diphenhydramine HCl (Benadryl) 50 mg HS PRN PO INSOMNIA Last administered on 20:26; Start 12/31/16 at 21:00; Status Future hold Acetaminophen (Tylenol) 650 mg Q4H PRN PO Pain 1-5 or Temp >101F; Start at 16:00 Magnesium Hydroxide (Milk Of Magnesia Liq) 30 ml DAILY PRN PO CONSTIPATION; Start 12/31/16 at 16:00 Al Hydrox/Mg Hydrox/Simethicone (Mag-Al Plus Susp Liq) 30 ml Q6H PRN PO DYSPEPSIA; Start 12/31/16 at 16:00 Nicotine (Habitrol 21 Mg Patch.24 Hr) 1 patch DAILY T-DERMAL Last administered on 01/02/17 08:40; Start 01/01/17 at 09:00 Benztropine Mesylate (Cogentin) 1 mg Q12H PRN PO EXTRA PYRAMIDAL SYMPTOMS; Start 12/31/16 at 16:00; Status Future Hold Benztropine Mesylate (Cogentin Inj) 1 mg Q12H PRN IM EXTRA PYRAMIDAL SYMPTOMS; Start 12/31/16 at 16:00; Status Future Hold Miscellaneous Information 1 DAILY T-DERMAL Last administered on 01/02/17 08: 40; Start 01/01/17 at 09:00 Levocarnitine (Carnitor 10% Liq) 3 ml TID PO Last administered on 01/02/17 08 :44; Start 12/31/16 at 18:00 A/P Assessment and Plan A/P - slightly elevated ammonia level- repeated ammonia level WNL. of note the patient was on Depakote . -schizophrenia; management per psych. [facility] will sign off and see him as needed. Yuli Dykes MD Jan 02, 2017 09:33
--- NOTE | 2017-01-02 12:25 | HHI.PYPN ---
Subjective Remarks Patient was seen and case discussed with nursing. Patient continues to refuse lab work. This is likely due to paranoid process. He appears internally stimulated and elated. Remains grandiose. Denies auditory visual hallucinations. Ammonia level has decreased and consents of been obtained for medications Mental Status Examination Appearance: Appropriate Consciousness: Alert Orientation: x4 Motor Activity: Normal gait Speech: Unremarkable Language: Adequate Fund of Knowledge: Adequate Attention and Concentration: Easily Distracted Memory: Unremarkable Mood: Good Affect: Labile, Other (elevated) Thought Process & Associations: Circumstantial Thought Content: Bizarre thinking, Delusional Hallucination Type: None Delusion Type: Other (grandiose) Suicidal Ideation: No Suicidal Plan: No Suicidal Intention: No Homicidal Ideation: No Homicidal Plan: No Homicidal Intention: No Insight: Poor Judgment: Poor Results Labs Test 01/01/17 18:50 Total Bilirubin 0.3 MG/DL Direct Bilirubin 0.1 MG/DL Indirect Bilirubin 0.2 MG/DL Aspartate Amino Transf (AST/SGOT) 42 U/L Alanine Aminotransferase (ALT/SGPT) 71 U/L Alkaline Phosphatase 88 U/L Ammonia 20 MCMOL/L Total Protein 7.7 GM/DL Albumin 3.9 GM/DL Vitals/IOs Vital Signs Date Time Temp Pulse Resp B/P (MAP) Pulse Ox O2 Delivery O2 Flow Rate FiO2 01/02/17 05:54 98.2 71 16 137/71 (93) 98 12/31/16 16:00 Room Air Assessment & Plan Problem List: (1) SCHIZOAFFECTIVE DISORDER, UNSPECIFIED Status: Chronic Assessment & Plan Continue current treatment plan Justification for Cont. Inpt. Patient would decompensate in a less restrictive setting Mitchell Portillo DO Jan 02, 2017 12:25
[2017-01-02] MEDS: ACETAMINOPHEN 325 MG TAB PO PRN ×2 (13:44→21:53)
[2017-01-02 17:22] VITALS: BP 146/78; PULSE 86; RESP 17; TEMP 97.4; O2SAT 97
[2017-01-03 06:01] VITALS: BP 120/76; PULSE 78; RESP 17; TEMP 97.4; O2SAT 98
[2017-01-03] MEDS: risperiDONE 1 MG TAB PO SCH ×2 (08:35→21:15)
[2017-01-03] MEDS: DIVALPROEX SODIUM E.R. 500 MG TAB PO SCH (08:36)
[2017-01-03] MEDS: levOCARNitine 10% ORAL SOLN 118 ML BTL PO SCH ×3 (08:37→14:43)
[2017-01-03] MEDS: REMOVE OLD PATCH T-DERMAL SCH (09:00)
[2017-01-03] MEDS: NICOTINE 21 MG/24 HR PATCH T-DERMAL SCH (09:00)
--- NOTE | 2017-01-03 10:04 | HHI.PYPN ---
Subjective Remarks Patient seen and examined with nurse. Chart reviewed. Case discussed with nursing staff. No behavioral issues noted overnight. On my examination today, patient continues to display a silly affect. Thought process somewhat over inclusive. He continues to perseverate on food. He tells me again how he has a [employer] gift card and would like to "get me some [employer] chicken, beer and cigarettes." Some bizarre ideation at times. No side effects from medications besides some mild dyspepsia. I offer to adjust meds to try to lessen this issue but patient declines med change, noting "I like the flavor." No other physical complaints. Review of Systems ROS Limitations: Poor Historian Except as stated in HPI: all other systems reviewed are Neg Mental Status Examination Appearance: Appropriate Consciousness: Alert Orientation: Person, Place (at least) Motor Activity: Normal gait Speech: Unremarkable Language: Adequate Fund of Knowledge: Adequate Attention and Concentration: Easily Distracted Memory: Unremarkable Mood: Good Affect: Other (silly) Thought Process & Associations: Circumstantial Thought Content: Bizarre thinking, Delusional Hallucination Type: None Delusion Type: Other (grandiose, mild) Suicidal Ideation: No Suicidal Plan: No Suicidal Intention: No Homicidal Ideation: No Homicidal Plan: No Homicidal Intention: No Insight: Poor Judgment: Poor Results Labs Labs reviewed. No new labs. Vitals/IOs Vital Signs Date Time Temp Pulse Resp B/P (MAP) Pulse Ox O2 Delivery O2 Flow Rate FiO2 01/03/17 06:01 97.4 78 17 120/76 (91) 98 12/31/16 16:00 Room Air Assessment & Plan Problem List: (1) Schizoaffective disorder, bipolar type ICD Codes: F25.0 - Schizoaffective disorder, bipolar type Assessment & Plan Continue Risperdal augmenting Invega Sustenna as ordered. May consider titrating dose of Invega Sustenna when this is next due. Continue Depakote as ordered with plans to check a Depakote and ammonia level in the morning. Plan to adjust dose of Depakote based on the level. Continue to monitor on the inpatient unit. Continue other medications and care as ordered. Justification for Cont. Inpt. High risk for decompensation in a less restrictive setting. Discharge Planning Placement? Patient is agreeable to assisted living placement. Case discussed with counselor. Request HC Surrog/Guard Advoc?: Yes Leonel Crowley MD Jan 03, 2017 10:04
[2017-01-03 21:11] VITALS: BP 138/71; PULSE 78; RESP 18; TEMP 98.2; O2SAT 99
[2017-01-03] MEDS: ACETAMINOPHEN 325 MG TAB PO PRN (21:27)
[2017-01-04 05:52] VITALS: BP 100/58; PULSE 72; RESP 17; TEMP 97.5; O2SAT 100
[2017-01-04] MEDS: ALUMINUM/MAGNESIUM/SIMETH 30 ML CUP PO PRN (06:00)
[2017-01-04] MEDS: ACETAMINOPHEN 325 MG TAB PO PRN ×2 (06:01→21:36)
--- NOTE | 2017-01-04 08:58 | HHI.PYPN ---
Subjective Remarks Patient seen and examined with nurse. Chart reviewed. Case discussed in treatment team. On my exam, patient presents with elevated mood. He is boisterous and disinhibited. He sees a football player on a magazine cover and pantomimes playing football for a time. He says that they could not draw his blood for VPA level this morning "because I'm all out of blood! It's like when you have to take a Amrit Khalifa, a urination." Learning that his nurse's name is Uma, he rambles about a $13,000 Uma lamp he says he once owned. He complains of constipation but then says "yesterday I dropped the most magnificent deuce. It was in 4 sections." He perseverates on his bowel movement yesterday for some time and wants me to "write that down." Associations are loose. No side effects from medications. Besides the constipation, no physical complaints. Review of Systems ROS Limitations: Psychotic, Poor Historian Except as stated in HPI: all other systems reviewed are Neg Mental Status Examination Appearance: Appropriate Consciousness: Alert Orientation: Person, Place (at least) Motor Activity: Normal gait, Other (no abnormal motor movements noted) Speech: Unremarkable Language: Adequate Fund of Knowledge: Adequate Attention and Concentration: Easily Distracted Memory: Unremarkable Mood: Other (elevated) Affect: Other (expansive, silly) Thought Process & Associations: Loose associations, Circumstantial Thought Content: Bizarre thinking, Delusional Hallucination Type: None Delusion Type: Other (grandiose, mild) Suicidal Ideation: No Suicidal Plan: No Suicidal Intention: No Homicidal Ideation: No Homicidal Plan: No Homicidal Intention: No Insight: Poor Judgment: Poor Results Labs Labs reviewed. Depakote and ammonia level I ordered this morning are listed as "in process." I checked with the lab and they were unable to draw the blood as patient reported. They are trying again now (~12:30pm). This will be post- dose but will at least assure us he is not at toxic level. Vitals/IOs Vital Signs Date Time Temp Pulse Resp B/P (MAP) Pulse Ox O2 Delivery O2 Flow Rate FiO2 01/04/17 05:52 97.5 72 17 100/58 (72) 100 11/24/17 16:00 Room Air Assessment & Plan Problem List: (1) Schizoaffective disorder, bipolar type ICD Codes: F25.0 - Schizoaffective disorder, bipolar type Assessment & Plan Inadequate response to current treatment. Patient remains in a manic state. As Depakote level is unavailable presently, I will leave Depakote dose where it is at. I will replace Risperdal with Zyprexa 10mg qHS in hopes of achieving better mood stabilization. Patient also has Mirela Pal on board. Follow- up Depakote level today and plan to check another Depakote level, predose, tomorrow morning. Continue to monitor on the inpatient unit. Continue other medications and care as ordered. Justification for Cont. Inpt. Med changes. Risk for decompensation and less restrictive environment. Discharge Planning Placement? Case discussed with counselor. Request HC Surrog/Guard Advoc?: Yes Leonel Crowley MD Jan 04, 2017 08:58
[2017-01-04] MEDS: REMOVE OLD PATCH T-DERMAL SCH (09:00)
[2017-01-04] MEDS: levOCARNitine 10% ORAL SOLN 118 ML BTL PO SCH ×3 (09:00→18:00)
[2017-01-04] MEDS: risperiDONE 1 MG TAB PO SCH (09:01)
[2017-01-04] MEDS: DIVALPROEX SODIUM E.R. 500 MG TAB PO SCH (09:01)
[2017-01-04] MEDS: NICOTINE 21 MG/24 HR PATCH T-DERMAL SCH (09:02)
--- NOTE | 2017-01-04 11:00 | PD.TTN ---
Patient Problems 1. Discharge planning 2. Medication compliance 3. Knowledge deficit 4. Lack of coping skills Progress Toward Goals Provider Present: Dr. Rocio Crowley Provider Input: Dr. Crowley treatment team met to discuss patient's treatment plan, discharge and medication. Patient is medication compliant. Will titrate medication. Patient presents grandiose. Patient will remain for stablization Nurse(s) Input: Patient's nurse Uma states patient is grandiose, intrusive, hperverbal, compliant with medication, delusional, laughs inappropriately, manic features. Psychiatric Counselors Present: Ludivina Mann [facility] Psych Therapist Input: Patient presented calm, tired, denied suicidal and homicidal ideation. Patient stated he was hungry so was given some crackers and peanut butter. Patient stated he has been attending groups, sleeping well, taking his medication. At time of assessment patient presented appropriately and affect was also appropriate. Group Spec/RT/OT/VAZQUEZ Present: Vic Chin OT Group Spec/RT/OT/VAZQUEZ Input: Patient attends groups, is appropriate, Hyperverbal, grandiose Ludivina Mann [facility] Jan 04, 2017 11:00
[2017-01-04 13:14] LABS: AUTOMATED NEUTROPHIL # 1.4 TH/MM3 (1.8-7.7); BASOPHIL % 0.4 % (0.0-2.0); EOSINOPHIL # 0.1 TH/MM3 (0-0.4); EOSINOPHIL % 1.3 % (0.0-4.0); HEMATOCRIT 36.5 % (39.0-51.0); HEMOGLOBIN 12.3 GM/DL (13.0-17.0); LYMPH % 50.2 % (9.0-44.0); LYMPHOCYTE # 1.9 TH/MM3 (1.0-4.8); MEAN CELL VOLUME 96.8 FL (80.0-100.0); MEAN CORPUSCULAR HEMOGLOBIN 32.6 PG (27.0-34.0); MEAN CORPUSCULAR HGB CONC 33.7 % (32.0-36.0); MEAN PLATELET VOLUME 7.2 FL (7.0-11.0); MONO % 10.7 % (0.0-8.0); MONOCYTE # 0.4 TH/MM3 (0-0.9); NEUT % 37.4 % (16.0-70.0); PLATELET COUNT 283 TH/MM3 (150-450); RED BLOOD COUNT 3.77 MIL/MM3 (4.50-5.90); RED CELL DISTRIBUTION WIDTH 12.2 % (11.6-17.2); WHITE BLOOD COUNT 3.8 TH/MM3 (4.0-11.0)
[2017-01-04 13:40] LABS: CHOLESTEROL 147 MG/DL (120-200); CHOLESTEROL/ HDL RATIO 2.52 RATIO; HDL CHOLESTEROL 58.2 MG/DL (40.0-60.0); LDL CHOLESTEROL 55 MG/DL (0-99); TRIGLYCERIDES 167 MG/DL (42-150)
[2017-01-04 16:49] LABS: HEMOGLOBIN A1C 4.1 % (4.3-6.0)
[2017-01-04 18:00] VITALS: BP 147/63; PULSE 86; RESP 17; TEMP 98.2; O2SAT 100
[2017-01-04] MEDS ORDERED: OLANZapine ODT 10 MG TAB PO SCH (21:00)
[2017-01-04] MEDS: diphenhydrAMINE HCL 50 MG CAP PO PRN (21:35)
[2017-01-05 05:30] VITALS: BP 124/61; PULSE 70; RESP 18; TEMP 97.6; O2SAT 100
[2017-01-05] MEDS: NICOTINE 21 MG/24 HR PATCH T-DERMAL SCH (08:48)
[2017-01-05] MEDS: REMOVE OLD PATCH T-DERMAL SCH (08:48)
[2017-01-05] MEDS: levOCARNitine 10% ORAL SOLN 118 ML BTL PO SCH ×3 (08:49→17:57)
[2017-01-05] MEDS: DIVALPROEX SODIUM E.R. 500 MG TAB PO SCH (09:00)
--- NOTE | 2017-01-05 12:46 | HHI.PYPN ---
Subjective Remarks Patient seen and examined. Chart reviewed. Case discussed with nursing staff who reports patient refused VPA level this morning and then refused dose of VPA itself saying that he does not need medications. I find the patient dozing in his room. He awakens readily but is today dysphoric and oppositional. Affect is labile, and seeing a male nurse of whom he is fond he returns to his jocular , expansive affect from yesterday. He makes inappropriate statements about a female staff member with blue eyes, unclear to whom he is referring. Asks questions about this play writer's income, says he has a roll of dollar bills in a hole somewhere. 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 No reported side effects from medications otherwise. No physical complaints. Review of Systems ROS Limitations: Psychotic, Poor Historian Except as stated in HPI: all other systems reviewed are Neg Mental Status Examination Appearance: Appropriate Consciousness: Alert Orientation: Person, Place (at least) Motor Activity: Normal gait, Other (No motor abnormalities noted.) Speech: Unremarkable Language: Adequate Fund of Knowledge: Adequate Attention and Concentration: Easily Distracted Memory: Unremarkable Mood: Oppositional, Irritable Affect: Labile Thought Process & Associations: Loose associations, Circumstantial Thought Content: Bizarre thinking, Delusional Hallucination Type: None Delusion Type: Other (grandiose) Suicidal Ideation: No Suicidal Plan: No Suicidal Intention: No Homicidal Ideation: No Homicidal Plan: No Homicidal Intention: No Insight: Poor Judgment: Poor Results Labs Test 01/04/17 12:58 White Blood Count 3.8 TH/MM3 Red Blood Count 3.77 MIL/MM3 Hemoglobin 12.3 GM/DL Hematocrit 36.5 % Mean Corpuscular Volume 96.8 FL Mean Corpuscular Hemoglobin 32.6 PG Mean Corpuscular Hemoglobin Concent 33.7 % Red Cell Distribution Width 12.2 % Platelet Count 283 TH/MM3 Mean Platelet Volume 7.2 FL Neutrophils (%) (Auto) 37.4 % Lymphocytes (%) (Auto) 50.2 % Monocytes (%) (Auto) 10.7 % Eosinophils (%) (Auto) 1.3 % Basophils (%) (Auto) 0.4 % Neutrophils # (Auto) 1.4 TH/MM3 Lymphocytes # (Auto) 1.9 TH/MM3 Monocytes # (Auto) 0.4 TH/MM3 Eosinophils # (Auto) 0.1 TH/MM3 Basophils # (Auto) 0.0 TH/MM3 CBC Comment DIFF FINAL Differential Comment Hemoglobin A1c 4.1 % Ammonia LESS THAN 10 MCMOL/L Triglycerides Level 167 MG/DL Cholesterol Level 147 MG/DL LDL Cholesterol 55 MG/DL HDL Cholesterol 58.2 MG/DL Cholesterol/HDL Ratio 2.52 RATIO Valproic Acid (Depakene) Level 72 MCG/ML Labs reviewed. CBC reveals mild leukopenia and neutropenia, likely day-to-day variation but will trend if patient will allow us to draw labs to ensure this is not worsening. Post-dose Depakote level from yesterday was within therapeutic range, but patient refused lab and dose this morning. Vitals/IOs Vital Signs Date Time Temp Pulse Resp B/P (MAP) Pulse Ox O2 Delivery O2 Flow Rate FiO2 01/05/17 05:30 97.6 70 18 124/61 (82) 100 Intake and Output 01/05/17 01/05/17 01/06/17 08:00 16:00 00:00 Intake Total 240 ml Balance 240 ml Assessment & Plan Problem List: (1) Schizoaffective disorder, bipolar type ICD Codes: F25.0 - Schizoaffective disorder, bipolar type Assessment & Plan Ongoing affective lability and grandiosity. I remain concerned about patient's ability to function outside of the confines of the hospital setting. Titrate Zyprexa to 15mg qHS. Encourage adherence with psychotropics. Check CBC and in the morning. If patient once again becomes adherent with VPA, will plan to recheck pre-dose VPA level. Sexual prec. Continue to monitor on inpatient unit. Continue other meds and care as ordered. Justification for Cont. Inpt. Med changes. Impairment in reality construction. High risk for decompensation in less restrictive setting. Discharge Planning Pending outcome of [place] tomorrow. If retained, plan is for placement versus state hospital. Request HC Surrog/Guard Advoc?: Yes Leonel Crowley MD Jan 05, 2017 12:46
[2017-01-05 18:00] VITALS: BP 116/56; PULSE 83; RESP 17; TEMP 97.9; O2SAT 100
[2017-01-05] MEDS: diphenhydrAMINE HCL 50 MG CAP PO PRN (20:17)
[2017-01-05] MEDS ORDERED: OLANZapine ODT 15 MG TAB PO SCH (21:00)
[2017-01-05] MEDS: ACETAMINOPHEN 325 MG TAB PO PRN (21:26)
[2017-01-06 06:06] VITALS: BP 114/56; PULSE 63; RESP 18; TEMP 97.5; O2SAT 100
[2017-01-06] MEDS: DIVALPROEX SODIUM E.R. 500 MG TAB PO SCH (08:58)
[2017-01-06] MEDS: REMOVE OLD PATCH T-DERMAL SCH (08:59)
[2017-01-06] MEDS: NICOTINE 21 MG/24 HR PATCH T-DERMAL SCH (08:59)
[2017-01-06] MEDS: levOCARNitine 10% ORAL SOLN 118 ML BTL PO SCH ×3 (08:59→17:14)
[2017-01-06] MEDS: LORazepam 1 MG TAB PO PRN ×2 (10:59→17:45)
--- NOTE | 2017-01-06 12:05 | HHI.PYPN ---
Subjective Remarks Patient seen and case discussed with nursing staff. Chart reviewed. Per nursing staff, patient is oppositional and responding to internal stimuli. For me today, patient remains grandiose and manic. 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 He says that the reason he came in to the hospital was because "people were chasing me." Affect is labile. Once he was retained by the [employer] glacing machine tender, patient tries to menace this director underwriter sales in court, and I am told by staff that he has issued threats against this director underwriter sales's person on return to the unit. No side effects from medications. No physical complaints. Review of Systems ROS Limitations: Psychotic, Poor Historian Except as stated in HPI: all other systems reviewed are Neg Mental Status Examination Appearance: Appropriate Consciousness: Alert Orientation: Person, Place Motor Activity: Normal gait, Other (no abnormal motor movements noted) Speech: Unremarkable Language: Adequate Fund of Knowledge: Adequate Attention and Concentration: Easily Distracted Memory: Unremarkable Mood: Oppositional, Manic Affect: Labile Thought Process & Associations: Loose associations, Circumstantial Thought Content: Bizarre thinking, Delusional Hallucination Type: None Delusion Type: Paranoid, Other (grandiose) Suicidal Ideation: No Suicidal Plan: No Suicidal Intention: No Homicidal Ideation: Yes Homicidal Plan: No Homicidal Intention: No Insight: Poor Judgment: Poor Results Labs Labs reviewed. CBC for this morning listed as "in process" Vitals/IOs Vital Signs Date Time Temp Pulse Resp B/P (MAP) Pulse Ox O2 Delivery O2 Flow Rate FiO2 01/06/17 06:06 97.5 63 18 114/56 (75) 100 Assessment & Plan Problem List: (1) Schizoaffective disorder, bipolar type ICD Codes: F25.0 - Schizoaffective disorder, bipolar type Assessment & Plan Patient remains quite manic and psychotic and unpredictable with respect to violence. Transfer to high acuity unit. Titrate Zyprexa to 20mg qHS. Follow- up CBC. Patient did accept his VPA this morning. If he remains adherent, plan to check a VPA level in a few days. Violent/assaultive prec. Patient's case was presented to the [email or web address] court and the patient was retained on the unit by the glacing machine tender and appointed a guardian from [facility]. Justification for Cont. Inpt. Impairment in reality construction. Medication changes. High risk for decompensation in less restrictive environment. Discharge Planning Placement versus State. I have [facility]. Request HC Surrog/Guard Advoc?: Yes Leonel Crowley MD Jan 06, 2017 12:05
[2017-01-06] MEDS: ACETAMINOPHEN 325 MG TAB PO PRN (16:15)
[2017-01-06 18:17] VITALS: BP 113/68; PULSE 88; RESP 17; TEMP 98.1; O2SAT 100
[2017-01-06] MEDS ORDERED: OLANZapine ODT 20 MG TAB PO SCH (21:00)
[2017-01-07 05:47] VITALS: BP 123/60; PULSE 69; RESP 16; TEMP 98.1; O2SAT 98
[2017-01-07] MEDS: LORazepam 1 MG TAB PO PRN (07:13)
[2017-01-07] MEDS: REMOVE OLD PATCH T-DERMAL SCH (08:33)
[2017-01-07] MEDS: DIVALPROEX SODIUM E.R. 500 MG TAB PO SCH (08:33)
[2017-01-07] MEDS: NICOTINE 21 MG/24 HR PATCH T-DERMAL SCH (08:33)
[2017-01-07] MEDS: levOCARNitine 10% ORAL SOLN 118 ML BTL PO SCH ×3 (08:33→17:09)
--- NOTE | 2017-01-07 10:58 | PD.TTN ---
Patient Problems 1. Discharge planning 2. Medication compliance 3. Knowledge deficit 4. Lack of coping skills Progress Toward Goals Provider Present: Dr. Rocio Crowley Provider Input: Dr. Crowley treatment team met to discuss patient's treatment plan, discharge and medication. Patient is medication compliant. Will titrate medication. Patient presents grandiose. Patient will remain for stablization 01/07- Pt has been referred to [facility] and his medication regiment is being adjusted including Zyprexa and Invega Sustenna. Nurse(s) Input: Patient's nurse Uma states patient is grandiose, intrusive, hperverbal, compliant with medication, delusional, laughs inappropriately, manic features. 01/07- Virginia Casarez, RN Pt remains angry, threatening, delusional, grandiose, paranoid of his family and with poor insight. Psychiatric Counselors Present: ELGIN Parker, Ludivina Mann [facility] Psych Therapist Input: Patient presented calm, tired, denied suicidal and homicidal ideation. Patient stated he was hungry so was given some crackers and peanut butter. Patient stated he has been attending groups, sleeping well, taking his medication. At time of assessment patient presented appropriately and affect was also appropriate. 01/07- Pt continues to appear agitated, uncooperative, threatening, paranoid, delusional, grandiose, impulsive and guarded. He presents with limited insight into condition and need for care. Pt is resistant to idea of therapeutic suggestion demanding that he decides where he should go after discharge. Pt appears threatening to psychiatrist and in poor behavioral control. Pt has been compliant with medication regiment. He presents with limited coping and emotional regulation skills as evidenced by behavioral outbursts. Group Spec/RT/OT/VAZQUEZ Present: Vic Chin OT, GEORGE Kang Group Spec/RT/OT/VAZQUEZ Input: Patient attends groups, is appropriate, Hyperverbal, grandiose 01/07- GEORGE Kang Pt attends most groups and appears grandiose/disruptive. Discharge Plan Other Pt has been referred to [facility] and will remain on unit for further stabilization until admitted to this facility. Documentation Scribe: ELGIN Parker Jonathan LMHC Jan 07, 2017 10:58
--- NOTE | 2017-01-07 12:14 | HHI.PYPN ---
Subjective Remarks Patient seen and examined with counselor. Chart reviewed. Case discussed in treatment team. On my examination today, patient remains paranoid and grandiose. He is dysphoric and angry. He rambles about being pursued by gangsters and guns. He is menacing and tries on more than one occasion to physically intimidate this physician. He is intrusive. No side effects from medications. No physical complaints. Review of Systems ROS Limitations: Psychotic, Poor Historian Except as stated in HPI: all other systems reviewed are Neg Mental Status Examination Appearance: Appropriate Consciousness: Alert Orientation: Person, Place (at least) Motor Activity: Normal gait, Other (no motoric abnormalities appreciated) Speech: Unremarkable Language: Adequate Fund of Knowledge: Adequate Attention and Concentration: Easily Distracted Memory: Unremarkable Mood: Angry, Oppositional Affect: Other (dysphoric) Thought Process & Associations: Disorganized Thought Content: Bizarre thinking, Delusional Hallucination Type: Other (appears internally stimulated) Delusion Type: Paranoid, Other (grandiose) Suicidal Ideation: No Suicidal Plan: No Suicidal Intention: No Homicidal Ideation: Yes (menacing/threatening) Homicidal Plan: No Homicidal Intention: No Insight: Poor Judgment: Poor Results Labs Labs reviewed. It appears patient refused CBC ordered for yesterday. Vitals/IOs Vital Signs Date Time Temp Pulse Resp B/P (MAP) Pulse Ox O2 Delivery O2 Flow Rate FiO2 01/07/17 05:47 98.1 69 16 123/60 (81) 98 Intake and Output 01/07/17 01/07/17 01/08/17 08:00 16:00 00:00 Intake Total 360 ml Balance 360 ml Assessment & Plan Problem List: (1) Schizoaffective disorder, bipolar type ICD Codes: F25.0 - Schizoaffective disorder, bipolar type Assessment & Plan Patient seems no better and perhaps a little worse with Zyprexa. Previous med trials within our system reviewed. He has been on Risperdal, Sustenna, Seroquel. Besides a brief trial of Haldol, it does not appear he has tried a typical. Discontinue Zyprexa and start Thorazine 50mg BID with plans to titrate over weekend to interval target dose of 200mg/day. Plan for ongoing titration to effect. IM backup ordered. If Thorazine does not help, could consider clozapine. Continue Depakote as ordered. Plan to check a Depakote level, ammonia level and CBC Tuesday morning. Justification for Cont. Inpt. Impairment in safety. Concern for impairment in safety, particularly outside of the confines of the hospital. Med changes. High risk for decompensation in less restrictive setting. Discharge Planning Patient with ongoing mood and psychotic symptoms. Presently cannot be placed because of behaviors and symptoms. I will initiate a [facility] referral although primary goal remains placement in structured living environment if symptoms improve enough to allow for safe placement. Request HC Surrog/Guard Advoc?: Yes Leonel Crowley MD Jan 07, 2017 12:13
[2017-01-07 17:40] VITALS: BP 139/79; PULSE 89; RESP 17; TEMP 98.3; O2SAT 98
[2017-01-07] MEDS ORDERED: HALOPERIDOL 5 MG TAB PO ONE (17:45)
[2017-01-07] MEDS ORDERED: LORazepam 2 MG TAB PO ONE (17:45)
[2017-01-08] MEDS: ACETAMINOPHEN 325 MG TAB PO PRN ×3 (02:34→20:23)
[2017-01-08 06:00] VITALS: BP 120/78; PULSE 82; RESP 18; TEMP 98.1; O2SAT 98
[2017-01-08] MEDS: LORazepam 1 MG TAB PO PRN (06:23)
[2017-01-08] MEDS: levOCARNitine 10% ORAL SOLN 118 ML BTL PO SCH ×3 (08:28→17:22)
[2017-01-08] MEDS: DIVALPROEX SODIUM E.R. 500 MG TAB PO SCH (08:28)
[2017-01-08] MEDS: REMOVE OLD PATCH T-DERMAL SCH (08:33)
[2017-01-08] MEDS: NICOTINE 21 MG/24 HR PATCH T-DERMAL SCH (08:33)
[2017-01-08 08:39] LABS: AUTOMATED NEUTROPHIL # 2.9 TH/MM3 (1.8-7.7); BASOPHIL % 0.8 % (0.0-2.0); EOSINOPHIL % 0.6 % (0.0-4.0); HEMATOCRIT 38.6 % (39.0-51.0); HEMOGLOBIN 13.1 GM/DL (13.0-17.0); LYMPH % 31.7 % (9.0-44.0); LYMPHOCYTE # 1.5 TH/MM3 (1.0-4.8); MEAN CELL VOLUME 98.1 FL (80.0-100.0); MEAN CORPUSCULAR HEMOGLOBIN 33.3 PG (27.0-34.0); MEAN PLATELET VOLUME 7.8 FL (7.0-11.0); MONO % 7.3 % (0.0-8.0); MONOCYTE # 0.4 TH/MM3 (0-0.9); NEUT % 59.6 % (16.0-70.0); PLATELET COUNT 246 TH/MM3 (150-450); RED BLOOD COUNT 3.94 MIL/MM3 (4.50-5.90); RED CELL DISTRIBUTION WIDTH 12.2 % (11.6-17.2); WHITE BLOOD COUNT 4.9 TH/MM3 (4.0-11.0)
--- NOTE | 2017-01-08 13:46 | HHI.PYPN ---
Subjective Remarks Pt seen and discussed with staff. He remains labile and delusional. 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 He states that he could not "decode the vincentian" on his prescription bottles at home. He states " I really think Dr. Crowley has the hots for me. He listened when I told him about my bowl movements. Men don't do that unless they have the hots for you. Me do not have the host for him. I have the hots for discharge." He has been compliant with medications. No SI/HI Mental Status Examination Appearance: Appropriate Consciousness: Alert Orientation: Person, Place (at least) Motor Activity: Normal gait, Other (no motoric abnormalities appreciated) Speech: Unremarkable Language: Adequate Fund of Knowledge: Adequate Attention and Concentration: Easily Distracted Memory: Unremarkable Mood: Angry, Oppositional Affect: Other (dysphoric) Thought Process & Associations: Loose associations, Disorganized Thought Content: Bizarre thinking, Delusional Hallucination Type: Other (appears internally stimulated) Delusion Type: Bizarre, Paranoid, Other (grandiose) Suicidal Ideation: No Suicidal Plan: No Suicidal Intention: No Homicidal Ideation: Yes (menacing/threatening) Homicidal Plan: No Homicidal Intention: No Insight: Poor Judgment: Poor Results Labs Test 01/08/17 08:00 White Blood Count 4.9 TH/MM3 Red Blood Count 3.94 MIL/MM3 Hemoglobin 13.1 GM/DL Hematocrit 38.6 % Mean Corpuscular Volume 98.1 FL Mean Corpuscular Hemoglobin 33.3 PG Mean Corpuscular Hemoglobin Concent 34.0 % Red Cell Distribution Width 12.2 % Platelet Count 246 TH/MM3 Mean Platelet Volume 7.8 FL Neutrophils (%) (Auto) 59.6 % Lymphocytes (%) (Auto) 31.7 % Monocytes (%) (Auto) 7.3 % Eosinophils (%) (Auto) 0.6 % Basophils (%) (Auto) 0.8 % Neutrophils # (Auto) 2.9 TH/MM3 Lymphocytes # (Auto) 1.5 TH/MM3 Monocytes # (Auto) 0.4 TH/MM3 Eosinophils # (Auto) 0.0 TH/MM3 Basophils # (Auto) 0.0 TH/MM3 CBC Comment DIFF FINAL Differential Comment Valproic Acid (Depakene) Level 67 MCG/ML Vitals/IOs Vital Signs Date Time Temp Pulse Resp B/P (MAP) Pulse Ox O2 Delivery O2 Flow Rate FiO2 01/08/17 06:00 98.1 82 18 120/78 (92) 98 Assessment & Plan Problem List: (1) Schizoaffective disorder, bipolar type ICD Codes: F25.0 - Schizoaffective disorder, bipolar type Assessment & Plan Continue current tx plan. Estimated LOS: days Justification for Cont. Inpt. impairments in reality testing and social functioning Request HC Surrog/Guard Advoc?: Yes Marcelle Bermeo MD Jan 08, 2017 13:46
[2017-01-08 17:27] VITALS: BP 136/77; PULSE 102; RESP 18; TEMP 97.6; O2SAT 100
[2017-01-08] MEDS: diphenhydrAMINE HCL 50 MG CAP PO PRN (20:18)
[2017-01-09] MEDS: ACETAMINOPHEN 325 MG TAB PO PRN (05:45)
[2017-01-09] MEDS: LORazepam 1 MG TAB PO PRN (05:45)
[2017-01-09 06:00] VITALS: BP_SYST 113; BP_SYST 137; BP_DIAS 65; BP_DIAS 76; PULSE 54; PULSE 83; RESP 17; RESP 18; TEMP 97.2; TEMP 98.2; O2SAT 100; O2SAT 98
[2017-01-09] MEDS: levOCARNitine 10% ORAL SOLN 118 ML BTL PO SCH ×3 (08:50→16:55)
[2017-01-09] MEDS: DIVALPROEX SODIUM E.R. 500 MG TAB PO SCH (08:51)
[2017-01-09] MEDS: REMOVE OLD PATCH T-DERMAL SCH (08:52)
[2017-01-09] MEDS: NICOTINE 21 MG/24 HR PATCH T-DERMAL SCH (08:52)
--- NOTE | 2017-01-09 12:58 | HHI.PYPN ---
Subjective Remarks Pt seen and discussed with staff. He remains labile and grandiose. 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 No SI/HI. He is compliant with medications. Mental Status Examination Appearance: Appropriate Consciousness: Alert Orientation: Person, Place (at least) Motor Activity: Normal gait, Other (no motoric abnormalities appreciated) Speech: Unremarkable Language: Adequate Fund of Knowledge: Adequate Attention and Concentration: Easily Distracted Memory: Unremarkable Mood: Angry, Oppositional Affect: Other (dysphoric) Thought Process & Associations: Loose associations, Disorganized Thought Content: Bizarre thinking, Delusional Hallucination Type: Other (appears internally stimulated) Delusion Type: Bizarre, Paranoid, Other (grandiose) Suicidal Ideation: No Suicidal Plan: No Suicidal Intention: No Homicidal Ideation: Yes (menacing/threatening) Homicidal Plan: No Homicidal Intention: No Insight: Poor Judgment: Poor Results Vitals/IOs Vital Signs Date Time Temp Pulse Resp B/P (MAP) Pulse Ox O2 Delivery O2 Flow Rate FiO2 01/09/17 06:00 97.2 83 17 137/76 (96) 100 Assessment & Plan Problem List: (1) Schizoaffective disorder, bipolar type ICD Codes: F25.0 - Schizoaffective disorder, bipolar type Assessment & Plan Continue current tx plan Estimated LOS: days Justification for Cont. Inpt. impairments in reality and social functioning Request HC Surrog/Guard Advoc?: Yes Marcelle Bermeo MD Jan 09, 2017 12:58
[2017-01-09] MEDS: diphenhydrAMINE HCL 50 MG CAP PO PRN (20:21)
[2017-01-10 06:36] VITALS: BP 131/81; PULSE 93; RESP 19; TEMP 98.2
[2017-01-10] MEDS: LORazepam 1 MG TAB PO PRN ×2 (08:18→17:09)
[2017-01-10] MEDS: levOCARNitine 10% ORAL SOLN 118 ML BTL PO SCH ×3 (08:19→17:10)
[2017-01-10] MEDS: DIVALPROEX SODIUM E.R. 500 MG TAB PO SCH (08:19)
[2017-01-10] MEDS: NICOTINE 21 MG/24 HR PATCH T-DERMAL SCH (08:23)
[2017-01-10] MEDS: REMOVE OLD PATCH T-DERMAL SCH (08:23)
--- NOTE | 2017-01-10 11:48 | HHI.PYPN ---
Subjective Chief Complaint: psychosis Remarks Patient seen and examined with nurse. Chart reviewed. Case discussed with nursing staff who reports patient remains bizarre and grandiose. He has not threatened this marine underwriter directly today per nursing staff, but he has alluded to his gang connections and told RN that I should discharge him soon to avoid becoming a target for them. 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 He says that he invented 7 items. He remains intrusive and disinhibited. He is faultfinding and accusatory, saying for example that he only presented to the ED so many times this month because he had plantar fasciitis, which then progressed to "trench foot." He denies SI/HI presently but does mention that outside of the hospital he is "walking around trying not to kill someone." No side effects from medications besides some mild sedation. No physical complaints at this time. Review of Systems ROS Limitations: Psychotic, Poor Historian Except as stated in HPI: all other systems reviewed are Neg Mental Status Examination Appearance: Appropriate Consciousness: Alert Orientation: Person, Place Motor Activity: Normal gait, Other (no abnormal motor movements noted) Speech: Unremarkable Language: Adequate Fund of Knowledge: Adequate Attention and Concentration: Easily Distracted Memory: Unremarkable Mood: Oppositional, Manic Affect: Labile Thought Process & Associations: Loose associations, Disorganized Thought Content: Bizarre thinking, Delusional Hallucination Type: Other (remains internally stimulated) Delusion Type: Bizarre, Paranoid, Other (grandiose) Suicidal Ideation: No (unreliable to contract for safety) Suicidal Plan: No Suicidal Intention: No Homicidal Ideation: No (unreliable to contract for safety) Homicidal Plan: No Homicidal Intention: No Insight: Poor Judgment: Poor Results Labs Labs reviewed. No new labs. Vitals/IOs Vital Signs Date Time Temp Pulse Resp B/P (MAP) Pulse Ox O2 Delivery O2 Flow Rate FiO2 01/10/17 06:36 98.2 93 19 131/81 (98) 01/09/17 06:00 100 Assessment & Plan Problem List: (1) Schizoaffective disorder, bipolar type ICD Codes: F25.0 - Schizoaffective disorder, bipolar type Assessment & Plan Patient remains severely decompensated with respect to his schizoaffective disorder. Titrate Thorazine to target psychotic symptoms. Given complaints of mild sedation, we will favor titrating the HS dose. Thorazine 100/150mg today. Continue Depakote as ordered. Since patient has been adherent with Depakote for the last several days, we will plan to check a Depakote and ammonia level tomorrow morning. Continue to monitor on the high acuity unit. Continue other medications and care as ordered. Justification for Cont. Inpt. Med changes. Impairment in reality construction. Risk for decompensation in less restrictive environment. Discharge Planning Placement versus state psychiatric hospitalization. Case discussed with counselor. Request HC Surrog/Guard Advoc?: Yes Leonel Crowley MD Jan 10, 2017 11:48
[2017-01-10 17:36] VITALS: BP 161/73; PULSE 114; RESP 18; TEMP 98.3; O2SAT 100
[2017-01-10] MEDS: ALUMINUM/MAGNESIUM/SIMETH 30 ML CUP PO PRN (20:43)
[2017-01-11 05:43] VITALS: BP 122/73; PULSE 88; RESP 20; TEMP 97.7; O2SAT 98
[2017-01-11] MEDS: REMOVE OLD PATCH T-DERMAL SCH (09:00)
[2017-01-11 09:11] LABS: AUTOMATED NEUTROPHIL # 3.2 TH/MM3 (1.8-7.7); BASOPHIL % 0.4 % (0.0-2.0); EOSINOPHIL % 0.8 % (0.0-4.0); HEMATOCRIT 39.3 % (39.0-51.0); HEMOGLOBIN 13.3 GM/DL (13.0-17.0); LYMPH % 29.3 % (9.0-44.0); LYMPHOCYTE # 1.6 TH/MM3 (1.0-4.8); MEAN CELL VOLUME 97.4 FL (80.0-100.0); MEAN CORPUSCULAR HEMOGLOBIN 32.9 PG (27.0-34.0); MEAN CORPUSCULAR HGB CONC 33.8 % (32.0-36.0); MEAN PLATELET VOLUME 7.6 FL (7.0-11.0); MONO % 9.1 % (0.0-8.0); MONOCYTE # 0.5 TH/MM3 (0-0.9); NEUT % 60.4 % (16.0-70.0); PLATELET COUNT 245 TH/MM3 (150-450); RED BLOOD COUNT 4.04 MIL/MM3 (4.50-5.90); RED CELL DISTRIBUTION WIDTH 12.2 % (11.6-17.2); WHITE BLOOD COUNT 5.3 TH/MM3 (4.0-11.0)
[2017-01-11] MEDS: NICOTINE 21 MG/24 HR PATCH T-DERMAL SCH (09:34)
[2017-01-11] MEDS: DIVALPROEX SODIUM E.R. 500 MG TAB PO SCH (09:34)
[2017-01-11] MEDS: levOCARNitine 10% ORAL SOLN 118 ML BTL PO SCH ×3 (09:35→17:01)
--- NOTE | 2017-01-11 11:37 | HHI.PYPN ---
Subjective Chief Complaint: psychosis Remarks Patient seen and examined with nurse. Chart reviewed. Case discussed in treatment team. Per nursing staff, patient continues to display labile affect and remains delusional. OT notes patient is perhaps a little less threatening in groups. On my exam, patient continues to display affective lability, alternating rapidly between a silly joviality and intense angry dysphoria. After issuing threats to this physician last week, he tells me today, "I think we've become friends." He is somewhat disinhibited and tells nurse that she is a "kae in the rough." He remains grandiose. He tells me that he has 3 doctoral dissertations in process. He says that he would like to go stay with his mother out of state. 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 I can pay people to wipe my nuts if I want to. I have chauffeurs that carry me around" as if on a litter. He continues to say that he is a "super genius" and that he , like [facility], suffers with schizophrenia, which may represent somewhat improving insight. He tells me that Persian is his first language. He asks that I try to call his mother. No side effects from medications. No physical complaints. Later, I observe him on the unit in his dysphoric mode, yelling into telephone circuit breaker assembler, "answer the fucking phone!" As patient requests, I did try to reach his mother over the phone and left a generic voicemail requesting a call back. Review of Systems ROS Limitations: Psychotic, Poor Historian Except as stated in HPI: all other systems reviewed are Neg Mental Status Examination Appearance: Appropriate Consciousness: Alert Orientation: Person, Place Motor Activity: Other (no motoric abnormalities appreciated) Speech: Unremarkable Language: Adequate Fund of Knowledge: Adequate Attention and Concentration: Easily Distracted Memory: Unremarkable Mood: Other (variable) Affect: Labile Thought Process & Associations: Loose associations, Disorganized Thought Content: Bizarre thinking, Delusional Hallucination Type: Other (internally stimulated) Delusion Type: Paranoid, Other (grandiose) Suicidal Ideation: No (unreliable to contract for safety) Suicidal Plan: No Suicidal Intention: No Homicidal Ideation: No (unreliable to contract for safety) Homicidal Plan: No Homicidal Intention: No Insight: Poor Judgment: Poor Results Labs Test 01/11/17 08:53 White Blood Count 5.3 TH/MM3 Red Blood Count 4.04 MIL/MM3 Hemoglobin 13.3 GM/DL Hematocrit 39.3 % Mean Corpuscular Volume 97.4 FL Mean Corpuscular Hemoglobin 32.9 PG Mean Corpuscular Hemoglobin Concent 33.8 % Red Cell Distribution Width 12.2 % Platelet Count 245 TH/MM3 Mean Platelet Volume 7.6 FL Neutrophils (%) (Auto) 60.4 % Lymphocytes (%) (Auto) 29.3 % Monocytes (%) (Auto) 9.1 % Eosinophils (%) (Auto) 0.8 % Basophils (%) (Auto) 0.4 % Neutrophils # (Auto) 3.2 TH/MM3 Lymphocytes # (Auto) 1.6 TH/MM3 Monocytes # (Auto) 0.5 TH/MM3 Eosinophils # (Auto) 0.0 TH/MM3 Basophils # (Auto) 0.0 TH/MM3 CBC Comment DIFF FINAL Differential Comment Ammonia 33 MCMOL/L Valproic Acid (Depakene) Level 71 MCG/ML Labs reviewed. No ongoing neutropenia. Depakote level within the therapeutic range. Very mild hyperammonemia without evidence of hyperammonemic encephalopathy. Vitals/IOs Vital Signs Date Time Temp Pulse Resp B/P (MAP) Pulse Ox O2 Delivery O2 Flow Rate FiO2 01/11/17 05:43 97.7 88 20 122/73 (89) 98 Assessment & Plan Problem List: (1) Schizoaffective disorder, bipolar type ICD Codes: F25.0 - Schizoaffective disorder, bipolar type Assessment & Plan Titrate Thorazine to 100/200mg to target psychotic symptoms. Plan for further titration to effect and as tolerated. Continue Depakote as ordered. Continue to monitor on high acuity unit. Continue other meds and care as ordered. Justification for Cont. Inpt. Impairment in reality construction. Med changes. Concern for impairment in self-care outside of the hospital setting. High risk for decompensation in less restrictive environment. Discharge Planning Placement versus state. I do see counselor's interaction with mother noting that she would like him home with her. However, I have grave concerns about him making such a journey in his current psychiatric condition. Case discussed with covering counselor today. Request HC Surrog/Guard Advoc?: Yes Leonel Crowley MD Jan 11, 2017 11:37
[2017-01-11] MEDS: ACETAMINOPHEN 325 MG TAB PO PRN (14:14)
--- NOTE | 2017-01-11 15:11 | PD.TTN ---
Patient Problems 1. Discharge planning 2. Medication compliance 3. Knowledge deficit 4. Lack of coping skills Progress Toward Goals Provider Present: Dr. Rocio Crowley Provider Input: 01-11-17 - Dr. Crowley reported the patient remains grandiose and has a criminal history of drug trafficking in this area, therefore placement will be difficuly. Dr. Crowley treatment team met to discuss patient's treatment plan, discharge and medication. Patient is medication compliant. Will titrate medication. Patient presents grandiose. Patient will remain for stablization 01/07- Pt has been referred to [facility] and his medication regiment is being adjusted including Zyprexa and Invega Sustenna. Nurse(s) Input: Patient's nurse Uma states patient is grandiose, intrusive, hperverbal, compliant with medication, delusional, laughs inappropriately, manic features. 01/07- Virginia Casarez RN Pt remains angry, threatening, delusional, grandiose, paranoid of his family and with poor insight. Psychiatric Counselors Present: Ko Marshall [facility], Ludivina Mann, [facility] , Sondra Miguel, [facility] Psych Therapist Input: Patient remains disorganized and grandiose. Patient presented calm, tired, denied suicidal and homicidal ideation. Patient stated he was hungry so was given some crackers and peanut butter. Patient stated he has been attending groups, sleeping well, taking his medication. At time of assessment patient presented appropriately and affect was also appropriate. 01/07- Pt continues to appear agitated, uncooperative, threatening, paranoid, delusional, grandiose, impulsive and guarded. He presents with limited insight into condition and need for care. Pt is resistant to idea of therapeutic suggestion demanding that he decides where he should go after discharge. Pt appears threatening to psychiatrist and in poor behavioral control. Pt has been compliant with medication regiment. He presents with limited coping and emotional regulation skills as evidenced by behavioral outbursts. Group Spec/RT/OT/VAZQUEZ Present: Vic Chin OT, GEORGE Kang Group Spec/RT/OT/VAZQUEZ Input: 01-11-17 - Patient is not as threatening, but remains intrusive. He attends and participates in scheduled group activities. Patient attends groups, is appropriate, Hyperverbal, grandiose 01/07- GEORGE Kang Pt attends most groups and appears grandiose/disruptive. Discharge Plan Other Pt has been referred to [facility] and will remain on unit for further stabilization until admitted to this facility. Documentation Scribe: Ko Marshall, ELGIN, LUPE CampbellFredo Date Resolved: Jan 11, 2017 Sondra Miguel [facility] Jan 11, 2017 15:11
--- NOTE | 2017-01-11 15:12 | PD.TTN ---
Patient Problems 1. Discharge planning 2. Medication compliance 3. Knowledge deficit 4. Lack of coping skills Progress Toward Goals Provider Present: Dr. Rocio Crowley Provider Input: 01-11-17 - Dr. Crowley reported the patient remains grandiose and has a criminal history of drug trafficking in this area, therefore placement will be difficult. Dr. Crowley treatment team met to discuss patient's treatment plan, discharge and medication. Patient is medication compliant. Will titrate medication. Patient presents grandiose. Patient will remain for stablization 01/07- Pt has been referred to [facility] and his medication regiment is being adjusted including Zyprexa and Invega Sustenna. Nurse(s) Input: Patient's nurse Uma states patient is grandiose, intrusive, hperverbal, compliant with medication, delusional, laughs inappropriately, manic features. 01/07- Virginia Casarez RN Pt remains angry, threatening, delusional, grandiose, paranoid of his family and with poor insight. Psychiatric Counselors Present: Ko Marshall [facility], Ludivina Mann, [facility] , Sondra Miguel, [facility] Psych Therapist Input: Patient remains disorganized and grandiose. Patient presented calm, tired, denied suicidal and homicidal ideation. Patient stated he was hungry so was given some crackers and peanut butter. Patient stated he has been attending groups, sleeping well, taking his medication. At time of assessment patient presented appropriately and affect was also appropriate. 01/07- Pt continues to appear agitated, uncooperative, threatening, paranoid, delusional, grandiose, impulsive and guarded. He presents with limited insight into condition and need for care. Pt is resistant to idea of therapeutic suggestion demanding that he decides where he should go after discharge. Pt appears threatening to psychiatrist and in poor behavioral control. Pt has been compliant with medication regiment. He presents with limited coping and emotional regulation skills as evidenced by behavioral outbursts. Group Spec/RT/OT/VAZQUEZ Present: Vic Chin OT, GEORGE Kang Group Spec/RT/OT/VAZQUEZ Input: 01-11-17 - Patient is not as threatening, but remains intrusive. He attends and participates in scheduled group activities. Patient attends groups, is appropriate, Hyperverbal, grandiose 01/07- GEORGE Kang Pt attends most groups and appears grandiose/disruptive. Discharge Plan Other Pt has been referred to [facility] and will remain on unit for further stabilization until admitted to this facility. Documentation Scribe: Ko Marshall, ELGIN, LUPE CampbellFredo Date Resolved: Jan 11, 2017 Sondra Miguel [facility] Jan 11, 2017 15:12
[2017-01-11] MEDS: LORazepam 1 MG TAB PO PRN (16:57)
[2017-01-11 17:54] VITALS: BP 96/58; PULSE 70; RESP 18; TEMP 97.8; O2SAT 98
[2017-01-12 06:15] VITALS: BP 119/57; PULSE 76; RESP 17; TEMP 97.5; O2SAT 99
[2017-01-12] MEDS: DIVALPROEX SODIUM E.R. 500 MG TAB PO SCH (08:17)
[2017-01-12] MEDS: levOCARNitine 10% ORAL SOLN 118 ML BTL PO SCH ×3 (08:17→17:49)
[2017-01-12] MEDS: NICOTINE 21 MG/24 HR PATCH T-DERMAL SCH (08:20)
[2017-01-12] MEDS: REMOVE OLD PATCH T-DERMAL SCH (08:20)
[2017-01-12] MEDS: ACETAMINOPHEN 325 MG TAB PO PRN (08:20)
--- NOTE | 2017-01-12 11:17 | HHI.PYPN ---
Subjective Chief Complaint: psychosis Remarks Patient seen and examined with nurse. Chart reviewed. Case discussed with nursing staff and with counselor. On my examination today, the patient seems considerably calmer and affect is less labile. He continues to articulate delusional material of a grandiose nature, although this seems less prominent. He is more receptive to discussion about discharge planning. He does report some anxiety in the later afternoons, and we discuss adding a midday dose of Thorazine, and he is receptive to this. Denies side effects from medications. No physical complaints. Review of Systems ROS Limitations: Psychotic, Poor Historian Except as stated in HPI: all other systems reviewed are Neg Mental Status Examination Appearance: Appropriate Consciousness: Alert Orientation: Person, Place Motor Activity: Other (no abnormal motor movements noted) Speech: Unremarkable Language: Adequate Fund of Knowledge: Adequate Attention and Concentration: Easily Distracted Memory: Unremarkable Mood: Other (calmer) Affect: Labile (considerably less labile today) Thought Process & Associations: Loose associations (a little more focused today ) Thought Content: Bizarre thinking, Delusional Hallucination Type: None Delusion Type: Paranoid, Other (grandiose, still present but less prominent) Suicidal Ideation: No (unreliable to contract for safety) Suicidal Plan: No Suicidal Intention: No Homicidal Ideation: No (unreliable to contract for safety) Homicidal Plan: No Homicidal Intention: No Insight: Poor Judgment: Poor Results Labs Labs reviewed. No new labs. Vitals/IOs Vital Signs Date Time Temp Pulse Resp B/P (MAP) Pulse Ox O2 Delivery O2 Flow Rate FiO2 01/12/17 06:15 97.5 76 17 119/57 (77 99 Assessment & Plan Problem List: (1) Schizoaffective disorder, bipolar type ICD Codes: F25.0 - Schizoaffective disorder, bipolar type Assessment & Plan Add midday dose of Thorazine as noted above. Thorazine 100/50/200mg. Continue Depakote and Carnitor as ordered. Continue to monitor on the inpatient unit. Continue other medications and care as ordered. Justification for Cont. Inpt. Med changes. Impairment in reality construction. High risk for decompensation in less restrictive environment. Discharge Planning Counselor to try to reach out to mother today. I do not think it is fisher or safe for patient to make journey to his mother's house by himself given his psychiatric condition. However if mother can make arrangements to escort him home, we might consider such a plan. For now, we will continue to work on placement versus state psychiatric hospitalization. Request HC Surrog/Guard Advoc?: Yes Leonel Crowley MD Jan 12, 2017 11:17
[2017-01-12] MEDS: LORazepam 1 MG TAB PO PRN ×2 (11:43→17:49)
[2017-01-12 18:00] VITALS: BP 129/71; PULSE 105; RESP 18; TEMP 98; O2SAT 99
[2017-01-13 06:01] VITALS: BP 117/59; PULSE 93; RESP 17; TEMP 98.3; O2SAT 98
[2017-01-13] MEDS: levOCARNitine 10% ORAL SOLN 118 ML BTL PO SCH ×3 (08:31→15:05)
[2017-01-13] MEDS: DIVALPROEX SODIUM E.R. 500 MG TAB PO SCH (08:31)
[2017-01-13] MEDS: NICOTINE 21 MG/24 HR PATCH T-DERMAL SCH (08:32)
[2017-01-13] MEDS: REMOVE OLD PATCH T-DERMAL SCH (08:32)
[2017-01-13] MEDS ORDERED: BENZTROPINE MESYLATE 1 MG TAB PO PRN (09:45)
--- NOTE | 2017-01-13 12:48 | HHI.PYPN ---
Subjective Chief Complaint: psychosis Remarks Patient seen and examined with nurse. Chart reviewed. Case discussed with nursing staff reports that the patient is improved in the sense that he is calmer and less emotionally labile. On my examination today, the patient says that he would like to go home to mother and would go there with friend Jayjay as a master certified rv technician for the journey. However, the patient notes that he has no way to contact Jayjay by phone and would instead plan to simply show up where Jayjay last lived to set this plan in motion. He is indeed calmer and less labile today, but paranoia is noted. For example, he stops nurse and I in the hallway to ask "who are you working for? Timothy." When we do not respond to this, he says "Well, we know it's not the [place], then." No side effects from medications. No physical complaints. Review of Systems ROS Limitations: Psychotic, Poor Historian Except as stated in HPI: all other systems reviewed are Neg Mental Status Examination Appearance: Appropriate Consciousness: Alert Orientation: Person, Place Motor Activity: Other (no motoric abnormalities noted) Speech: Unremarkable Language: Adequate Fund of Knowledge: Adequate Attention and Concentration: Easily Distracted Memory: Unremarkable Mood: Other (calmer but somewhat dysphoric) Affect: Other (consistent with mood) Thought Process & Associations: Other (fairly coherent) Thought Content: Bizarre thinking, Delusional Hallucination Type: None Delusion Type: Paranoid (delusions are chiefly paranoid today) Suicidal Ideation: No (unreliable to contract for safety) Homicidal Ideation: No (unreliable to contract for safety) Insight: Poor Judgment: Poor Results Labs Labs reviewed. No new labs. Vitals/IOs Vital Signs Date Time Temp Pulse Resp B/P (MAP) Pulse Ox O2 Delivery O2 Flow Rate FiO2 01/13/17 06:01 98.3 93 17 117/59 (23) 98 Assessment & Plan Problem List: (1) Schizoaffective disorder, bipolar type ICD Codes: F25.0 - Schizoaffective disorder, bipolar type Assessment & Plan Thorazine seems to be having a salutary effect in terms of stabilizing mood, although psychosis remains an issue. I will titrate Thorazine to 100/100/200 mg to target psychotic symptoms. I will add Cogentin as needed for EPS should this arise with titration of antipsychotic. Continue Depakote and Carnitor as ordered. Check an ammonia level tomorrow morning. Continue to monitor on high acuity unit. Continue other medications and care as ordered. Justification for Cont. Inpt. Med changes. Impairment in reality construction. Risk for decompensation in less restrictive environment. Discharge Planning Placement versus state. Patient could possibly go to stay with mother if safe transport can be arranged. Counselor reports he has been trying to reach mother without success. Request HC Surrog/Guard Advoc?: Yes Leonel Crowley MD Jan 13, 2017 12:48
[2017-01-13] MEDS: LORazepam 1 MG TAB PO PRN (17:16)
[2017-01-13 18:17] VITALS: BP 113/54; PULSE 78; RESP 18; TEMP 98; O2SAT 100
[2017-01-13] MEDS: diphenhydrAMINE HCL 50 MG CAP PO PRN ×2 (23:11→23:12)
[2017-01-14 06:24] VITALS: BP 120/55; PULSE 76; RESP 18; TEMP 98.2; O2SAT 100
[2017-01-14] MEDS: ACETAMINOPHEN 325 MG TAB PO PRN (07:55)
[2017-01-14] MEDS: DIVALPROEX SODIUM E.R. 500 MG TAB PO SCH (08:49)
[2017-01-14] MEDS: levOCARNitine 10% ORAL SOLN 118 ML BTL PO SCH ×3 (08:53→17:59)
[2017-01-14] MEDS: REMOVE OLD PATCH T-DERMAL SCH (08:55)
[2017-01-14] MEDS: NICOTINE 21 MG/24 HR PATCH T-DERMAL SCH (09:00)
--- NOTE | 2017-01-14 11:09 | HHI.PYPN ---
Subjective Chief Complaint: psychosis Remarks Patient seen and examined with counselor and nurse. Chart reviewed. Case discussed in treatment team. Per nursing staff, the patient has been medication compliant and told nursing that we should have no concern discharging him to self because he is "in charge of all the hobos on the street. " On my exam, patient remains calm with decreased mood lability. He remains delusional, however, and says that he has 6 inventions that he kept in his backpack. He says that these have been stolen, but this is reportedly of no consequence because he is a "super genius, like [facility]" and can recreate them. 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 He continues to insist that we discharge him and that his friend Jayjay with appellate court clerk him to his mother's house in [place]. However, he has no way to contact Jayjay and when asked if he knows Jayjay's address, he replies "[place]." He cannot provide counselor with Jayjay's last name so that we might look this individual up in the directory. This does not seem like a safe discharge plan. No side effects from medications. No physical complaints. I have encouraged adherence with laboratories, including the ammonia level ordered for today. Review of Systems ROS Limitations: Psychotic, Poor Historian Except as stated in HPI: all other systems reviewed are Neg Mental Status Examination Appearance: Appropriate Consciousness: Alert Orientation: Person, Place Motor Activity: Other (no abnormal motor movements noted) Speech: Unremarkable Language: Adequate Fund of Knowledge: Adequate Attention and Concentration: Easily Distracted Memory: Unremarkable Mood: Other (calm) Affect: Appropriate Thought Process & Associations: Other (fairly coherent) Thought Content: Bizarre thinking, Delusional Hallucination Type: None Delusion Type: Other (grandiose) Suicidal Ideation: No (unreliable to contract for safety) Homicidal Ideation: No (unreliable to contract for safety) Insight: Poor Judgment: Poor Results Labs Labs reviewed. No new labs. Ammonia level listed as "in process" Vitals/IOs Vital Signs Date Time Temp Pulse Resp B/P (MAP) Pulse Ox O2 Delivery O2 Flow Rate FiO2 01/14/17 08:55 14 01/14/17 06:24 98.2 76 120/55 (46) 100 Assessment & Plan Problem List: (1) Schizoaffective disorder, bipolar type ICD Codes: F25.0 - Schizoaffective disorder, bipolar type Assessment & Plan Mood considerably more stable with Thorazine, but as noted previously psychosis remains fairly resistant to treatment. I will titrate patient's Thorazine to 100/100/250mg with plans for further titration to target psychotic symptoms. Patient will also be due for booster dose of Invega Sustenna around the end of next week. Continue Depakote and Carnitor as ordered. Follow-up ammonia level. Continue to monitor on the inpatient unit. Continue other medications and care as ordered. Justification for Cont. Inpt. Med changes. Impairment in reality construction. High risk for decompensation in less restrictive environment. Discharge Planning Placement versus state hospitalization versus home with mother if safe transport can be arranged. Case discussed with counselor. Now that the patient 's behavior is improved, we will make placement a goal for the next week. Request HC Surrog/Guard Advoc?: Yes Leonel Crowley MD Jan 14, 2017 11:09
--- NOTE | 2017-01-14 13:02 | PD.TTN ---
Patient Problems 1. Discharge planning 2. Medication compliance 3. Knowledge deficit 4. Lack of coping skills Progress Toward Goals Provider Present: Dr. Rocio Crowley Provider Input: 01-11-17 - Dr. Crowley reported the patient remains grandiose and has a criminal history of drug trafficking in this area, therefore placement will be difficult. Dr. Crowley treatment team met to discuss patient's treatment plan, discharge and medication. Patient is medication compliant. Will titrate medication. Patient presents grandiose. Patient will remain for stablization 01/07- Pt has been referred to [facility] and his medication regiment is being adjusted including Zyprexa and Invega Sustenna. 01/14- Pt continues to appear psychotic, paranoid and will be considered for placement v. [facility]. Medication regiment will continue to be evaluated. Nurse(s) Input: Patient's nurse Uma states patient is grandiose, intrusive, hperverbal, compliant with medication, delusional, laughs inappropriately, manic features. 01/07- Virginia Casarez RN Pt remains angry, threatening, delusional, grandiose, paranoid of his family and with poor insight. Psychiatric Counselors Present: Ko Marshall [facility], Ludivina Mann [facility] , Sondra Miguel, [facility] Psych Therapist Input: Patient remains disorganized and grandiose. Patient presented calm, tired, denied suicidal and homicidal ideation. Patient stated he was hungry so was given some crackers and peanut butter. Patient stated he has been attending groups, sleeping well, taking his medication. At time of assessment patient presented appropriately and affect was also appropriate. 01/07- Pt continues to appear agitated, uncooperative, threatening, paranoid, delusional, grandiose, impulsive and guarded. He presents with limited insight into condition and need for care. Pt is resistant to idea of therapeutic suggestion demanding that he decides where he should go after discharge. Pt appears threatening to psychiatrist and in poor behavioral control. Pt has been compliant with medication regiment. He presents with limited coping and emotional regulation skills as evidenced by behavioral outbursts. 01/14- Pt continues to appear labile, easily agitated, delusional, paranoid, grandiose and uncooperative. Pt has been taking his medication regiment but has been noncompliant with idea of placement. He appears impulsive and wants instant gratification. Pt presents with limited coping and emotional regulation skills at this time. Group Spec/RT/OT/VAZQUEZ Present: Vic Chin OT, GEORGE Kang Group Spec/RT/OT/VAQZUEZ Input: 01-11-17 - Patient is not as threatening, but remains intrusive. He attends and participates in scheduled group activities. Patient attends groups, is appropriate, Hyperverbal, grandiose 01/07- GEORGE Kang Pt attends most groups and appears grandiose/disruptive. 01/14- GEORGE Kang Pt attends groups but is disruptive and easily agitated. Discharge Plan Other Pt has been referred to [facility] and will remain on unit for further stabilization until admitted to this facility. Documentation Scribe: ELGIN Parker, Sondra Miguel, [facility] Date Resolved: Jan 11, 2017 Ko Marshall Jan 14, 2017 13:02
[2017-01-14] MEDS: LORazepam 1 MG TAB PO PRN (14:36)
[2017-01-14 18:57] VITALS: BP 140/81; PULSE 87; RESP 18; TEMP 98.1; O2SAT 100
[2017-01-14] MEDS: diphenhydrAMINE HCL 50 MG CAP PO PRN (21:34)
[2017-01-15 06:03] VITALS: BP 113/57; PULSE 80; RESP 16; TEMP 98.4; O2SAT 98
[2017-01-15] MEDS: ACETAMINOPHEN 325 MG TAB PO PRN (08:21)
[2017-01-15] MEDS: DIVALPROEX SODIUM E.R. 500 MG TAB PO SCH (08:47)
[2017-01-15] MEDS: REMOVE OLD PATCH T-DERMAL SCH (08:48)
[2017-01-15] MEDS: NICOTINE 21 MG/24 HR PATCH T-DERMAL SCH (08:48)
[2017-01-15] MEDS: levOCARNitine 10% ORAL SOLN 118 ML BTL PO SCH ×3 (09:00→17:46)
[2017-01-15] MEDS: ALUMINUM/MAGNESIUM/SIMETH 30 ML CUP PO PRN ×2 (10:42→19:50)
--- NOTE | 2017-01-15 12:23 | HHI.PYPN ---
Subjective Chief Complaint: psychosis Remarks Patient was seen and case discussed with nursing. Patient is pleasant and cooperative with exam. Appears less elevated per nursing. Thought process is circumstantial. Describes his medication as being "good." Denies auditory visual hallucinations. Behaving well on the unit Mental Status Examination Appearance: Appropriate Consciousness: Alert Orientation: Person, Place, Date/Time Motor Activity: Other (no abnormal motor movements noted) Speech: Unremarkable Language: Adequate Fund of Knowledge: Adequate Attention and Concentration: Easily Distracted Memory: Unremarkable Mood: Other (calm) Affect: Appropriate Thought Process & Associations: Other (fairly coherent) Thought Content: Bizarre thinking, Delusional (that he is a incident response analyst) Hallucination Type: None Delusion Type: Other (grandiose) Suicidal Ideation: No (unreliable to contract for safety) Suicidal Plan: No Suicidal Intention: No Homicidal Ideation: No (unreliable to contract for safety) Insight: Poor Judgment: Poor Results Labs Test 01/15/17 08:11 Ammonia 16 MCMOL/L Vitals/IOs Vital Signs Date Time Temp Pulse Resp B/P (MAP) Pulse Ox O2 Delivery O2 Flow Rate FiO2 01/15/17 06:03 98.4 80 16 113/57 (75) 98 Intake and Output 01/15/17 01/15/17 01/16/17 08:00 16:00 00:00 Intake Total 240 ml 480 ml Balance 240 ml 480 ml Assessment & Plan Problem List: (1) Schizoaffective disorder, bipolar type ICD Codes: F25.0 - Schizoaffective disorder, bipolar type Assessment & Plan Continue current treatment plan Justification for Cont. Inpt. Patient would decompensate in a less restrictive setting Request HC Surrog/Guard Advoc?: Yes Mitchell Portillo DO Jan 15, 2017 12:23
[2017-01-15] MEDS: LORazepam 1 MG TAB PO PRN (13:46)
[2017-01-15] MEDS: diphenhydrAMINE HCL 50 MG CAP PO PRN (21:07)
[2017-01-16 06:36] VITALS: BP 125/65; PULSE 84; RESP 18; TEMP 97.8; O2SAT 98
[2017-01-16] MEDS: levOCARNitine 10% ORAL SOLN 118 ML BTL PO SCH ×3 (08:16→17:15)
[2017-01-16] MEDS: DIVALPROEX SODIUM E.R. 500 MG TAB PO SCH (08:16)
[2017-01-16] MEDS: REMOVE OLD PATCH T-DERMAL SCH (08:16)
[2017-01-16] MEDS: NICOTINE 21 MG/24 HR PATCH T-DERMAL SCH (08:16)
--- NOTE | 2017-01-16 14:42 | HHI.PYPN ---
Subjective Chief Complaint: psychosis Remarks Patient was seen and case discussed with nursing. Patient is significantly more delusional today. He is quite grandiose stating that he is a genius and that he belongs to an advance scientific [employer] called [employer]. He is working on [employer]. 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) Hallucination Type: None Delusion Type: Other (grandiose) Suicidal Ideation: No (unreliable to contract for safety) Suicidal Plan: No Suicidal Intention: No Homicidal Ideation: No (unreliable to contract for safety) Insight: Poor Judgment: Poor Results Vitals/IOs Vital Signs Date Time Temp Pulse Resp B/P (MAP) Pulse Ox O2 Delivery O2 Flow Rate FiO2 01/16/17 06:36 97.8 84 18 125/65 (85) 98 Assessment & Plan Problem List: (1) Schizoaffective disorder, bipolar type ICD Codes: F25.0 - Schizoaffective disorder, bipolar type Assessment & Plan Continue Thorazine titration, invegga sustenna due next week Justification for Cont. Inpt. Patient will decompensate in a less restrictive setting Request HC Surrog/Guard Advoc?: Yes Mitchell Portillo DO Jan 16, 2017 14:42
[2017-01-16] MEDS: ACETAMINOPHEN 325 MG TAB PO PRN (15:01)
[2017-01-16 18:12] VITALS: BP 132/82; PULSE 105; RESP 17; TEMP 99.2; O2SAT 99
[2017-01-16] MEDS: LORazepam 1 MG TAB PO PRN (20:27)
[2017-01-16] MEDS: ALUMINUM/MAGNESIUM/SIMETH 30 ML CUP PO PRN (21:04)
[2017-01-17 05:32] VITALS: BP 118/54; PULSE 80; RESP 16; TEMP 98.4; O2SAT 100
[2017-01-17] MEDS: NICOTINE 21 MG/24 HR PATCH T-DERMAL SCH (08:32)
[2017-01-17] MEDS: levOCARNitine 10% ORAL SOLN 118 ML BTL PO SCH ×3 (08:32→18:00)
[2017-01-17] MEDS: DIVALPROEX SODIUM E.R. 500 MG TAB PO SCH (08:32)
[2017-01-17] MEDS: REMOVE OLD PATCH T-DERMAL SCH (08:35)
--- NOTE | 2017-01-17 10:34 | HHI.PYPN ---
Subjective Chief Complaint: psychosis Remarks Patient seen and examined with nurse. Chart reviewed. Case discussed with nursing staff. Case discussed with counselor. On my examination today, patient is calm with a somewhat irritable edge. He remains somewhat grandiose. He tells me that he can "circumnavigate the stars" and by this method get home to his mother in [place]. Somewhat resistant to placement in, e.g. an RETIREMENT because they would take the majority of his check. No side effects from medications besides some mild tiredness. No physical complaints. Review of Systems ROS Limitations: Psychotic, Poor Historian Except as stated in HPI: all other systems reviewed are Neg Mental Status Examination Appearance: Appropriate Consciousness: Alert Orientation: Person, Place, Date/Time Motor Activity: Other (no motoric abnormalities appreciated) Speech: Unremarkable Language: Adequate Fund of Knowledge: Adequate Attention and Concentration: Easily Distracted Memory: Unremarkable Mood: Other (calm with irritable edge) Affect: Appropriate Thought Process & Associations: Other (fairly linear) Thought Content: Bizarre thinking, Delusional Hallucination Type: None Delusion Type: Other (grandiose, ongoing) Suicidal Ideation: No (unreliable to contract for safety) Suicidal Plan: No Suicidal Intention: No Homicidal Ideation: No (unreliable to contract for safety) Homicidal Plan: No Homicidal Intention: No Insight: Poor Judgment: Poor Results Labs Labs reviewed. Ammonia level within normal limits. Vitals/IOs Vital Signs Date Time Temp Pulse Resp B/P (MAP) Pulse Ox O2 Delivery O2 Flow Rate FiO2 01/17/17 05:32 98.4 80 16 118/54 (75) 100 Assessment & Plan Problem List: (1) Schizoaffective disorder, bipolar type ICD Codes: F25.0 - Schizoaffective disorder, bipolar type Assessment & Plan Titrate Thorazine to 100/100/300mg to target ongoing psychotic symptoms. Patient is overall improving. Carnitor appears to be controlling hyperammonemia. Continue this and Depakote as ordered. Continue other medications and care as ordered. Justification for Cont. Inpt. Med changes. Risk for decompensation in less restrictive environment. Discharge Planning Placement versus state hospital versus home with vehicle delivery worker to mother. Case discussed with counselor. Request HC Surrog/Guard Advoc?: Yes Leonel Crowley MD Jan 17, 2017 10:34
[2017-01-17] MEDS: LORazepam 1 MG TAB PO PRN (14:00)
[2017-01-17 18:52] VITALS: BP 133/68; PULSE 103; RESP 16; TEMP 97.9; O2SAT 99
[2017-01-18 05:57] VITALS: BP 145/85; PULSE 89; RESP 18; TEMP 97.4; O2SAT 98
[2017-01-18] MEDS: LORazepam 1 MG TAB PO PRN ×2 (08:16→20:31)
[2017-01-18] MEDS: DIVALPROEX SODIUM E.R. 500 MG TAB PO SCH (08:18)
[2017-01-18] MEDS: REMOVE OLD PATCH T-DERMAL SCH (08:19)
[2017-01-18] MEDS: NICOTINE 21 MG/24 HR PATCH T-DERMAL SCH (08:19)
[2017-01-18] MEDS: levOCARNitine 10% ORAL SOLN 118 ML BTL PO SCH ×3 (09:00→15:27)
--- NOTE | 2017-01-18 10:13 | HHI.PYPN ---
Subjective Chief Complaint: psychosis Remarks Patient seen and examined with nurse. Chart reviewed. Case discussed in treatment team. Patient had to be moved back to high acuity unit overnight because of verbal acting out. Today, patient tells me he was just misunderstood. He says that he made what he thought was an innocent reference to "the [employer] kids," referring to the shooters at that school. He remains grandiose and perseverative on discharge. We discuss need for a political geographer if he is to make the trip to [place] to be with mother. Patient loose associates from "political geographer" to "escort" to saying that he would rather go with "a hot chick." He says that he can recruit any one of "20 different soldiers" to take him to [place] because he is a "gangster," although he has no way of contacting any of these reported people. Remains fairly intrusive. No reported side effects from medications. No physical complaints. Review of Systems ROS Limitations: Psychotic, Poor Historian Except as stated in HPI: all other systems reviewed are Neg Mental Status Examination Appearance: Appropriate Consciousness: Alert Orientation: Person, Place (at least) Motor Activity: Other (no abnormal motor movements noted) Speech: Unremarkable Language: Adequate Fund of Knowledge: Adequate Attention and Concentration: Easily Distracted Memory: Unremarkable Mood: Oppositional, Irritable Affect: Irritable Thought Process & Associations: Loose associations Thought Content: Bizarre thinking, Delusional Hallucination Type: None Delusion Type: Other (grandiose) Suicidal Ideation: No Suicidal Plan: No Suicidal Intention: No Homicidal Ideation: No Homicidal Plan: No Homicidal Intention: No Insight: Poor Judgment: Poor Results Labs Labs reviewed. No new labs. Vitals/IOs Vital Signs Date Time Temp Pulse Resp B/P (MAP) Pulse Ox O2 Delivery O2 Flow Rate FiO2 01/18/17 05:57 97.4 89 18 145/85 (105) 98 Intake and Output 01/18/17 01/18/17 01/19/17 08:00 16:00 00:00 Intake Total 480 ml Balance 480 ml Assessment & Plan Problem List: (1) Schizoaffective disorder, bipolar type ICD Codes: F25.0 - Schizoaffective disorder, bipolar type Assessment & Plan Interval worsening after several days of seeming improvement. Patient is reported to be adherent with medications per nursing staff. This day-to-day variation highlights the necessity of a solid discharge plan. Titrate Thorazine to 150mg/100mg/300mg to target psychotic symptoms. Continue Depakote as ordered. Depakote level is therapeutic. To consider additional mood stabilizer. Patient will be due for Sustenna at the end of this week, and perhaps he would benefit from a larger dose of that agent. Continue to monitor on high acuity unit. Continue other medications and care as ordered. Justification for Cont. Inpt. Impairment in reality construction. Medication changes. High risk for decompensation in less restrictive environment. Discharge Planning Placement versus home to mother with political geographer versus [facility] referral. Case discussed with counselor. Request HC Surrog/Guard Advoc?: Yes Leonel Crowley MD Jan 18, 2017 10:13
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
[2017-01-18 17:29] VITALS: BP 133/84; PULSE 121; RESP 18; TEMP 97.9
[2017-01-18] MEDS: diphenhydrAMINE HCL 50 MG CAP PO PRN (21:50)
[2017-01-19 05:46] VITALS: BP 114/56; PULSE 80; RESP 17; TEMP 97.3; O2SAT 97
[2017-01-19] MEDS: LORazepam 1 MG TAB PO PRN ×2 (08:18→20:32)
[2017-01-19] MEDS: DIVALPROEX SODIUM E.R. 500 MG TAB PO SCH (08:20)
[2017-01-19] MEDS: levOCARNitine 10% ORAL SOLN 118 ML BTL PO SCH ×3 (08:24→17:49)
[2017-01-19] MEDS: NICOTINE 21 MG/24 HR PATCH T-DERMAL SCH (08:32)
[2017-01-19] MEDS: REMOVE OLD PATCH T-DERMAL SCH (08:32)
--- NOTE | 2017-01-19 11:07 | HHI.PYPN ---
Subjective Chief Complaint: psychosis Remarks Patient seen and examined with nurse and counselor. Chart reviewed. Case discussed with counselor and nurse. Patient has given permission to counselor to speak with sister, and following meeting with patient counselor has obtained enlightening collateral from her, which I have reviewed with him. Nurse reports that the patient remains grandiose. On my exam, patient is in good spirits generally. He seems more disposed today to a discussion of his discharge options, and it was in this context that he suggested we contact sister. He does exhibit some mild lability of affect and has ongoing grandiosity. Remains somewhat disinhibited. No side effects from medications. No physical complaints. Review of Systems ROS Limitations: Psychotic, Poor Historian Except as stated in HPI: all other systems reviewed are Neg Mental Status Examination Appearance: Appropriate Consciousness: Alert Orientation: Person, Place Motor Activity: Other (no motoric abnormalities appreciated) Speech: Unremarkable Language: Adequate Fund of Knowledge: Adequate Attention and Concentration: Easily Distracted Memory: Unremarkable Mood: Good Affect: Labile (mild) Thought Process & Associations: Loose associations Thought Content: Bizarre thinking, Delusional Hallucination Type: None Delusion Type: Other (grandiose) Suicidal Ideation: No Suicidal Plan: No Suicidal Intention: No Homicidal Ideation: No Homicidal Plan: No Homicidal Intention: No Insight: Poor Judgment: Poor Results Labs Labs reviewed. No new labs. Vitals/IOs Vital Signs Date Time Temp Pulse Resp B/P (MAP) Pulse Ox O2 Delivery O2 Flow Rate FiO2 01/19/17 05:46 97.3 80 17 114/56 (75 97 Assessment & Plan Problem List: (1) Schizoaffective disorder, bipolar type ICD Codes: F25.0 - Schizoaffective disorder, bipolar type Assessment & Plan Continue Thorazine and Depakote as ordered. To consider titration of Invega Sustenna when this is next due later this week. Continue other medications and care as ordered. Justification for Cont. Inpt. Impairment in reality construction. High risk for decompensation in less restrictive environment. Discharge Planning Collateral obtained by counselor from patient's sister suggests that patient's mother does not have good insight into the severity of patient's mental illness and so might not represent a safe discharge plan. Sister is reportedly most supportive of state psychiatric hospitalization. Unless patient becomes more open to the possibility of [facility] placement, state psychiatric hospitalization likely represents are best discharge option at this point. Request HC Surrog/Guard Advoc?: Yes Leonel Crowley MD Jan 19, 2017 11:07
[2017-01-19 17:08] VITALS: BP 144/78; PULSE 116; RESP 18; TEMP 98; O2SAT 98
[2017-01-20 06:03] VITALS: BP 133/71; PULSE 98; RESP 17; TEMP 97; O2SAT 99
[2017-01-20] MEDS: REMOVE OLD PATCH T-DERMAL SCH (09:00)
[2017-01-20] MEDS: levOCARNitine 10% ORAL SOLN 118 ML BTL PO SCH ×3 (09:00→17:59)
[2017-01-20] MEDS: DIVALPROEX SODIUM E.R. 500 MG TAB PO SCH (10:46)
[2017-01-20] MEDS: NICOTINE 21 MG/24 HR PATCH T-DERMAL SCH (10:47)
[2017-01-20] MEDS: LORazepam 1 MG TAB PO PRN ×2 (10:47→18:18)
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
[2017-01-20 18:13] LABS: BILIRUBIN, URINE NEG (NEG); BLOOD, URINE NEG (NEG); GLUCOSE,URINE NEG (NEG); KETONE, URINE NEG (NEG); NITRITE,URINE NEG (NEG); PH, URINE 6.5 (5.0-8.5); URINE COLOR LIGHT-YELLOW (YELLW/STRAW); URINE LEUKOCYTE ESTERASE NEG (NEG)
[2017-01-20 18:25] VITALS: BP 132/60; PULSE 93; RESP 18; TEMP 97.6; O2SAT 100
[2017-01-20] MEDS: diphenhydrAMINE HCL 50 MG CAP PO PRN (20:41)
[2017-01-21 05:58] VITALS: BP 127/60; PULSE 77; RESP 16; TEMP 97.9; O2SAT 99
[2017-01-21] MEDS: levOCARNitine 10% ORAL SOLN 118 ML BTL PO SCH ×3 (08:33→17:39)
[2017-01-21] MEDS: DIVALPROEX SODIUM E.R. 500 MG TAB PO SCH (08:33)
[2017-01-21] MEDS: REMOVE OLD PATCH T-DERMAL SCH ×2 (08:34→08:47)
[2017-01-21] MEDS: NICOTINE 21 MG/24 HR PATCH T-DERMAL SCH ×2 (08:34→08:47)
--- NOTE | 2017-01-21 10:53 | HHI.PYPN ---
Subjective Chief Complaint: psychosis Remarks Patient seen and examined with counselor and nurse. Chart reviewed. Case discussed in treatment team. Counselors note that the patient remains very delusional and groups. Occupational therapist notes that the patient has poor insight. Nurse reports that the patient has been compliant with medications. Prior to my evaluation, I note the patient dancing happily on the unit. On my evaluation today, the patient is dozing in his room. Nurse reports that he was recently given his Thorazine. He is not interested in extended interview today. Unclear if he is simply tired or if he is exhibiting passive-aggression related to his writ being declined yesterday or if some other factor is at play. In any event, besides some mild sedation, no evident side effects from medications. No physical complaints. Review of Systems ROS Limitations: Psychotic, Poor Historian Except as stated in HPI: all other systems reviewed are Neg Mental Status Examination Appearance: Appropriate Consciousness: Other (dozing but easily awakend) Orientation: Person (at least) Motor Activity: Other (no abnormal motor movements noted) Speech: Other (limited sample today) Mood: Other (calm) Affect: Blunt Thought Process & Associations: Other (limited sample) Thought Content: Other (limited sample) Hallucination Type: None (No AVH reported) Delusion Type: Other (Suspect ongoing delusional material) Suicidal Ideation: No (no SI voiced) Homicidal Ideation: No (no HI voiced) Insight: Poor Judgment: Poor Results Labs Labs reviewed. No new labs. Vitals/IOs Vital Signs Date Time Temp Pulse Resp B/P (MAP) Pulse Ox O2 Delivery O2 Flow Rate FiO2 01/21/17 05:58 97.9 77 16 127/60 (82) 99 Assessment & Plan Problem List: (1) Schizoaffective disorder, bipolar type ICD Codes: F25.0 - Schizoaffective disorder, bipolar type Assessment & Plan Continue Thorazine and Depakote as ordered. Invega Sustenna is due tomorrow, and I have ordered this and will continue with previous dose for now, 156mg IM. Continue to monitor on the inpatient unit. Continue other medications and care as ordered. Justification for Cont. Inpt. Suspected impairment in reality construction. High risk for decompensation in less restrictive environment. Discharge Planning State hospital versus placement seem most likely at this point. Request HC Surrog/Guard Advoc?: Yes Leonel Crowley MD Jan 21, 2017 10:53
[2017-01-21] MEDS: LORazepam 1 MG TAB PO PRN (15:21)
[2017-01-21 18:06] VITALS: BP 139/66; PULSE 105; RESP 18; O2SAT 99
[2017-01-22] MEDS: LORazepam 1 MG TAB PO PRN ×3 (06:14→21:47)
[2017-01-22 07:03] VITALS: BP 140/87; PULSE 85; RESP 17; TEMP 97.2; O2SAT 99
[2017-01-22] MEDS: DIVALPROEX SODIUM E.R. 500 MG TAB PO SCH (07:52)
[2017-01-22] MEDS: levOCARNitine 10% ORAL SOLN 118 ML BTL PO SCH ×3 (07:52→16:39)
[2017-01-22] MEDS: REMOVE OLD PATCH T-DERMAL SCH (07:54)
[2017-01-22] MEDS: NICOTINE 21 MG/24 HR PATCH T-DERMAL SCH (07:54)
[2017-01-22] MEDS ORDERED: PALIPERIDONE PALMITATE 156 MG/ML SYRINGE IM ONE (12:00)
--- NOTE | 2017-01-22 16:45 | HHI.PYPN ---
Subjective Chief Complaint: psychosis Remarks Patient was seen and case discussed with nursing. Patient appears slightly more organized compared to last week. He does remain grandiose and talks about business incubator and investors for his various ideas. Behaving well on the unit. Mental Status Examination Appearance: Appropriate Consciousness: Other (dozing but easily awakend) Orientation: Person (at least) Motor Activity: Other (no abnormal motor movements noted) Speech: Other (limited sample today) Mood: Appropriate Affect: Other (constricted) Thought Process & Associations: Other (limited sample) Thought Content: Other (limited sample) Hallucination Type: None (No AVH reported) Delusion Type: Other (Suspect ongoing delusional material) Suicidal Ideation: No (no SI voiced) Homicidal Ideation: No (no HI voiced) Insight: Poor Judgment: Poor Results Vitals/IOs Vital Signs Date Time Temp Pulse Resp B/P (MAP) Pulse Ox O2 Delivery O2 Flow Rate FiO2 01/22/17 07:03 97.2 85 17 140/87 (104) 99 Assessment & Plan Problem List: (1) Schizoaffective disorder, bipolar type ICD Codes: F25.0 - Schizoaffective disorder, bipolar type Assessment & Plan Continue current treatment plan Justification for Cont. Inpt. Patient will decompensate in a less restrictive setting Request HC Surrog/Guard Advoc?: Yes Mitchell Portillo DO Jan 22, 2017 16:45
[2017-01-22 17:26] VITALS: BP 148/80; PULSE 111; RESP 18; TEMP 97.6
[2017-01-22] MEDS: ALUMINUM/MAGNESIUM/SIMETH 30 ML CUP PO PRN (20:48)
[2017-01-23 06:04] VITALS: BP 105/56; PULSE 93; RESP 16; TEMP 98.1; O2SAT 100
[2017-01-23] MEDS: LORazepam 1 MG TAB PO PRN ×2 (08:41→21:05)
[2017-01-23] MEDS: DIVALPROEX SODIUM E.R. 500 MG TAB PO SCH (08:41)
[2017-01-23] MEDS: REMOVE OLD PATCH T-DERMAL SCH (08:42)
[2017-01-23] MEDS: NICOTINE 21 MG/24 HR PATCH T-DERMAL SCH (08:42)
[2017-01-23] MEDS: levOCARNitine 10% ORAL SOLN 118 ML BTL PO SCH ×3 (08:42→17:02)
--- NOTE | 2017-01-23 13:20 | HHI.PYPN ---
Subjective Chief Complaint: psychosis Remarks Patient was seen and case discussed with nursing. Patient got his and vague injection yesterday. Today he is somnolent, bit subdued. No he remains grandiose and gives me a lecture her about investing in [employer] compared to mutual funds. No altercations with any patient's today. Behaving well on the unit Mental Status Examination Appearance: Appropriate Consciousness: Other (dozing but easily awakend) Orientation: Person (at least) Motor Activity: Other (no abnormal motor movements noted) Speech: Other (limited sample today) Mood: Appropriate Affect: Other (constricted) Thought Process & Associations: Other (limited sample) Thought Content: Other (limited sample) Hallucination Type: None (No AVH reported) Delusion Type: Other (Suspect ongoing delusional material) Suicidal Ideation: No (no SI voiced) Homicidal Ideation: No (no HI voiced) Insight: Poor Judgment: Poor Results Vitals/IOs Vital Signs Date Time Temp Pulse Resp B/P (MAP) Pulse Ox O2 Delivery O2 Flow Rate FiO2 01/23/17 06:04 98.1 93 16 105/56 (72) 100 Assessment & Plan Problem List: (1) Schizoaffective disorder, bipolar type ICD Codes: F25.0 - Schizoaffective disorder, bipolar type Assessment & Plan Continue current treatment plan Justification for Cont. Inpt. Patient will decompensate in a less restrictive setting Request HC Surrog/Guard Advoc?: Yes Mitchell Portillo DO Jan 23, 2017 13:19
[2017-01-23] MEDS: ALUMINUM/MAGNESIUM/SIMETH 30 ML CUP PO PRN (14:35)
[2017-01-23] MEDS: diphenhydrAMINE HCL 50 MG CAP PO PRN (21:05)
[2017-01-23] MEDS: ACETAMINOPHEN 325 MG TAB PO PRN (21:06)
[2017-01-23 21:13] VITALS: BP 156/77; PULSE 109; RESP 16; TEMP 97.8; O2SAT 100
[2017-01-24 06:09] VITALS: BP 110/68; PULSE 77; RESP 18; TEMP 98; O2SAT 100
[2017-01-24] MEDS: REMOVE OLD PATCH T-DERMAL SCH (09:00)
[2017-01-24] MEDS: DIVALPROEX SODIUM E.R. 500 MG TAB PO SCH (09:32)
[2017-01-24] MEDS: NICOTINE 21 MG/24 HR PATCH T-DERMAL SCH (09:33)
[2017-01-24] MEDS: levOCARNitine 10% ORAL SOLN 118 ML BTL PO SCH ×3 (09:33→17:45)
[2017-01-24] MEDS: LORazepam 1 MG TAB PO PRN ×2 (10:44→22:06)
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
[2017-01-24 18:00] VITALS: BP 131/75; PULSE 120; RESP 18; TEMP 98.6; O2SAT 100
[2017-01-25 05:45] VITALS: BP 140/82; PULSE 97; RESP 18; TEMP 98.3; O2SAT 98
[2017-01-25] MEDS: levOCARNitine 10% ORAL SOLN 118 ML BTL PO SCH ×3 (08:53→18:23)
[2017-01-25] MEDS: NICOTINE 21 MG/24 HR PATCH T-DERMAL SCH (08:54)
[2017-01-25] MEDS: DIVALPROEX SODIUM E.R. 500 MG TAB PO SCH (08:55)
[2017-01-25] MEDS: REMOVE OLD PATCH T-DERMAL SCH (08:58)
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
[2017-01-25] MEDS: LORazepam 1 MG TAB PO PRN ×2 (12:09→21:47)
[2017-01-25] MEDS ORDERED: PILL SPLITTER OTHER PRN (15:45)
[2017-01-25 18:48] VITALS: BP 116/67; PULSE 104; RESP 18; TEMP 98.3; O2SAT 100
[2017-01-26 06:16] VITALS: BP 104/54; PULSE 100; RESP 18; TEMP 97.4
[2017-01-26] MEDS: REMOVE OLD PATCH T-DERMAL SCH (09:00)
[2017-01-26] MEDS: levOCARNitine 10% ORAL SOLN 118 ML BTL PO SCH ×3 (09:00→18:00)
[2017-01-26] MEDS: NICOTINE 21 MG/24 HR PATCH T-DERMAL SCH (10:13)
[2017-01-26] MEDS: DIVALPROEX SODIUM E.R. 500 MG TAB PO SCH (10:14)
--- NOTE | 2017-01-26 10:52 | HHI.PYPN ---
Subjective Chief Complaint: psychosis Remarks Patient seen and examined with nurse. Chart reviewed. Case discussed with nursing staff reports that the patient was angry yesterday about still being hospitalized but settled down towards the evening. Case discussed with counselor who has received definitive word from mother and sister that the patient is not welcome to stay with mother or any other family at this time. On my examination today, the patient is calm. He tells me "I don't have any antics for you today." No grandiosity today. Denies audiovisual hallucinations. No SI or HI. Denies side effects from medications besides some mild sedation. He says "what I'm on [with respect to medications] is the best." No physical complaints. Review of Systems ROS Limitations: Psychotic (suspected), Poor Historian Except as stated in HPI: all other systems reviewed are Neg Mental Status Examination Appearance: Appropriate Consciousness: Alert Orientation: Person, Place Motor Activity: Other (no hand tremor, no dyskinesia, no dystonia noted.) Speech: Unremarkable Language: Adequate Fund of Knowledge: Adequate Attention and Concentration: Adequate Memory: Unremarkable Mood: Appropriate Affect: Appropriate Thought Content: Delusional (suspected) Hallucination Type: None Delusion Type: Other (suspect ongoing grandiosity) Suicidal Ideation: No Homicidal Ideation: No Insight: Poor Judgment: Poor Results Labs Labs reviewed. No new labs. Vitals/IOs Vital Signs Date Time Temp Pulse Resp B/P (MAP) Pulse Ox O2 Delivery O2 Flow Rate FiO2 01/26/17 06:16 97.4 100 18 104/54 (71) 01/25/17 18:48 100 Assessment & Plan Problem List: (1) Schizoaffective disorder, bipolar type ICD Codes: F25.0 - Schizoaffective disorder, bipolar type Assessment & Plan Continue current psychotropics as ordered. Check and updated set of basic laboratories. Continue other medications and care as ordered. Justification for Cont. Inpt. Suspected ongoing impairment in reality construction. High risk for decompensation in less restrictive environment. Discharge Planning Now that we know that discharge home to mother is not an option, we must continue with backup plans of LONG TERM placement or state psychiatric hospitalization. Request HC Surrog/Guard Advoc?: Yes Leonel Crowley MD Jan 26, 2017 10:52
[2017-01-26 16:08] VITALS: BP 139/70; PULSE 101; RESP 18; TEMP 98; O2SAT 99
[2017-01-26] MEDS: LORazepam 1 MG TAB PO PRN (21:47)
[2017-01-27 05:55] VITALS: BP 128/64; PULSE 90; RESP 17; TEMP 98; O2SAT 97
[2017-01-27 08:36] LABS: AUTOMATED NEUTROPHIL # 1.7 TH/MM3 (1.8-7.7); BASOPHIL % 0.6 % (0.0-2.0); EOSINOPHIL # 0.1 TH/MM3 (0-0.4); EOSINOPHIL % 1.6 % (0.0-4.0); HEMATOCRIT 39.4 % (39.0-51.0); HEMOGLOBIN 13.6 GM/DL (13.0-17.0); LYMPH % 44.9 % (9.0-44.0); LYMPHOCYTE # 1.6 TH/MM3 (1.0-4.8); MEAN CELL VOLUME 95.4 FL (80.0-100.0); MEAN CORPUSCULAR HEMOGLOBIN 32.9 PG (27.0-34.0); MEAN CORPUSCULAR HGB CONC 34.4 % (32.0-36.0); MONO % 7.5 % (0.0-8.0); MONOCYTE # 0.3 TH/MM3 (0-0.9); NEUT % 45.4 % (16.0-70.0); PLATELET COUNT 260 TH/MM3 (150-450); RED BLOOD COUNT 4.13 MIL/MM3 (4.50-5.90); RED CELL DISTRIBUTION WIDTH 12.3 % (11.6-17.2); WHITE BLOOD COUNT 3.7 TH/MM3 (4.0-11.0)
[2017-01-27] MEDS: NICOTINE 21 MG/24 HR PATCH T-DERMAL SCH (09:00)
[2017-01-27] MEDS: REMOVE OLD PATCH T-DERMAL SCH (09:00)
[2017-01-27 09:09] LABS: ALT (GPT) 101 U/L (12-78)
[2017-01-27 09:12] LABS: ALKALINE PHOSPHATASE 70 U/L (45-117); TOTAL BILIRUBIN ADULT 0.4 MG/DL (0.2-1.0); TOTAL PROTEIN 8.2 GM/DL (6.4-8.2)
[2017-01-27 09:13] LABS: ALBUMIN 3.8 GM/DL (3.4-5.0); AST (GOT) 45 U/L (15-37); BICARBONATE 28.9 MEQ/L (21.0-32.0); BLOOD UREA NITROGEN 14 MG/DL (7-18); CHLORIDE 100 MEQ/L (98-107); CREATININE 1.21 MG/DL (0.60-1.30); GLOMERULAR FILTRATION RATE 85 ML/MIN (>89); GLUCOSE,RANDOM 121 MG/DL (74-106); SODIUM (NA) 136 MEQ/L (136-145)
[2017-01-27] MEDS: DIVALPROEX SODIUM E.R. 500 MG TAB PO SCH (09:20)
[2017-01-27] MEDS: levOCARNitine 10% ORAL SOLN 118 ML BTL PO SCH ×3 (09:21→17:22)
[2017-01-27] MEDS: LORazepam 1 MG TAB PO PRN (10:25)
--- NOTE | 2017-01-27 11:44 | HHI.PYPN ---
Subjective Chief Complaint: psychosis Remarks Patient seen and examined. Chart reviewed. Case discussed with nursing staff. On my examination today, patient is somewhat dysphoric. He continues to insist that he can go to stay with his mother, although counselor has spoken with mother and tells me this is not so. I have asked the counselor to have a conference call with patient and mother to resolve this issue. No grandiosity today. No SI/HI. No side effects from medications. No physical complaints. Review of Systems ROS Limitations: Poor Historian Except as stated in HPI: all other systems reviewed are Neg Mental Status Examination Appearance: Appropriate Consciousness: Alert Orientation: Person, Place, Date/Time (approx) Motor Activity: Other (no motoric abnormalities) Speech: Unremarkable Language: Adequate Fund of Knowledge: Adequate Attention and Concentration: Adequate Memory: Unremarkable Mood: Other (mildly dysphoric) Affect: Other (restricted) Thought Process & Associations: Linear Thought Content: Appropriate Hallucination Type: None Delusion Type: None (no delusions today) Suicidal Ideation: No Homicidal Ideation: No Insight: Poor Judgment: Poor Results Labs Test 01/27/17 08:15 White Blood Count 3.7 TH/MM3 Red Blood Count 4.13 MIL/MM3 Hemoglobin 13.6 GM/DL Hematocrit 39.4 % Mean Corpuscular Volume 95.4 FL Mean Corpuscular Hemoglobin 32.9 PG Mean Corpuscular Hemoglobin Concent 34.4 % Red Cell Distribution Width 12.3 % Platelet Count 260 TH/MM3 Mean Platelet Volume 8.0 FL Neutrophils (%) (Auto) 45.4 % Lymphocytes (%) (Auto) 44.9 % Monocytes (%) (Auto) 7.5 % Eosinophils (%) (Auto) 1.6 % Basophils (%) (Auto) 0.6 % Neutrophils # (Auto) 1.7 TH/MM3 Lymphocytes # (Auto) 1.6 TH/MM3 Monocytes # (Auto) 0.3 TH/MM3 Eosinophils # (Auto) 0.1 TH/MM3 Basophils # (Auto) 0.0 TH/MM3 CBC Comment AUTO DIFF Differential Comment AUTO DIFF CONFIRMED Blood Urea Nitrogen 14 MG/DL Creatinine 1.21 MG/DL Random Glucose 121 MG/DL Total Protein 8.2 GM/DL Albumin 3.8 GM/DL Calcium Level 9.0 MG/DL Alkaline Phosphatase 70 U/L Aspartate Amino Transf (AST/SGOT) 45 U/L Alanine Aminotransferase (ALT/SGPT) 101 U/L Total Bilirubin 0.4 MG/DL Sodium Level 136 MEQ/L Potassium Level 4.3 MEQ/L Chloride Level 100 MEQ/L Carbon Dioxide Level 28.9 MEQ/L Anion Gap 7 MEQ/L Estimat Glomerular Filtration Rate 85 ML/MIN Labs reviewed. CBC reveals mild neutropenia, although within historical range. CMP reveals mildly decreased GFR, slight ALT elevation. AST elevation mild and unchanged from previous assessment. Vitals/IOs Vital Signs Date Time Temp Pulse Resp B/P (MAP) Pulse Ox O2 Delivery O2 Flow Rate FiO2 01/27/17 05:55 98.0 90 17 128/64 (85) 97 Assessment & Plan Problem List: (1) Schizoaffective disorder, bipolar type ICD Codes: F25.0 - Schizoaffective disorder, bipolar type Assessment & Plan Continue current psychiatric medications as ordered. Continue to monitor on the inpatient unit. CBC/CMP Tuesday to follow up lab abnormalities. Patient does express some desire for more psychotherapeutic work. Although condition generally more appropriate for 2700, I will place an order to allow patient to try to attend 2600 psychotherapy groups if interested and if he can tolerate. Continue other meds and care as ordered. Justification for Cont. Inpt. Risk for decompensation in less restrictive environment. Discharge Planning Placement versus state psychiatric hospitalization Request HC Surrog/Guard Advoc?: Yes Leonel Crowley MD Jan 27, 2017 11:44
[2017-01-27 17:15] VITALS: BP 159/85; PULSE 118; RESP 18; TEMP 98.5; O2SAT 98
[2017-01-28 06:19] VITALS: BP 124/75; PULSE 97; RESP 18; TEMP 97.3; O2SAT 99
[2017-01-28] MEDS: levOCARNitine 10% ORAL SOLN 118 ML BTL PO SCH ×3 (08:44→17:28)
[2017-01-28] MEDS: DIVALPROEX SODIUM E.R. 500 MG TAB PO SCH (08:45)
[2017-01-28] MEDS: NICOTINE 21 MG/24 HR PATCH T-DERMAL SCH (08:49)
[2017-01-28] MEDS: REMOVE OLD PATCH T-DERMAL SCH (08:50)
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
[2017-01-28] MEDS: diphenhydrAMINE HCL 50 MG CAP PO PRN (22:46)
[2017-01-29 06:44] VITALS: BP 116/67; PULSE 90; RESP 18; TEMP 98.3; O2SAT 98
[2017-01-29] MEDS: REMOVE OLD PATCH T-DERMAL SCH (09:00)
[2017-01-29] MEDS: DIVALPROEX SODIUM E.R. 500 MG TAB PO SCH (09:24)
[2017-01-29] MEDS: levOCARNitine 10% ORAL SOLN 118 ML BTL PO SCH ×3 (09:25→18:00)
[2017-01-29] MEDS: NICOTINE 21 MG/24 HR PATCH T-DERMAL SCH (09:26)
[2017-01-29] MEDS: LORazepam 1 MG TAB PO PRN ×2 (14:48→23:01)
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
[2017-01-29 17:46] VITALS: BP 130/72; PULSE 99; RESP 18; TEMP 98.1; O2SAT 100
[2017-01-30 05:47] VITALS: BP 116/56; PULSE 89; RESP 16; TEMP 97.3; O2SAT 99
[2017-01-30] MEDS: REMOVE OLD PATCH T-DERMAL SCH (09:00)
[2017-01-30] MEDS: levOCARNitine 10% ORAL SOLN 118 ML BTL PO SCH ×3 (09:00→18:00)
[2017-01-30] MEDS: NICOTINE 21 MG/24 HR PATCH T-DERMAL SCH (09:02)
[2017-01-30] MEDS: DIVALPROEX SODIUM E.R. 500 MG TAB PO SCH (09:02)
[2017-01-30] MEDS: LORazepam 1 MG TAB PO PRN ×2 (09:08→21:19)
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
[2017-01-30 18:00] VITALS: BP 114/57; PULSE 98; RESP 16; TEMP 97.8; O2SAT 99
[2017-01-31 06:00] VITALS: BP 129/75; PULSE 95; RESP 16; TEMP 97.8; O2SAT 98
[2017-01-31] MEDS: REMOVE OLD PATCH T-DERMAL SCH (09:00)
[2017-01-31] MEDS: levOCARNitine 10% ORAL SOLN 118 ML BTL PO SCH ×3 (09:00→18:00)
[2017-01-31] MEDS: DIVALPROEX SODIUM E.R. 500 MG TAB PO SCH (09:07)
[2017-01-31] MEDS: NICOTINE 21 MG/24 HR PATCH T-DERMAL SCH (09:07)
--- NOTE | 2017-01-31 10:34 | HHI.PYPN ---
Subjective Chief Complaint: psychosis Remarks Patient seen and examined with nurse. Chart reviewed. I note that patient was found to be somewhat somnolent by Dr. Portillo over the weekend, and he postulated that this might be due to the patient's copious use of Ativan p.r.n.. Case discussed with nursing staff reports the patient is seclusive but cooperative. On my examination today, the patient is indeed a little bit drowsy. He does say today "I think I'll choose an IVETT" because he says this will give him the freedom to pursue his avocations including skateboarding. He remains grandiose but is calm. No SI or HI. No side effects from medications besides perhaps some sedation. No physical complaints. Review of Systems ROS Limitations: Psychotic, Poor Historian Except as stated in HPI: all other systems reviewed are Neg Mental Status Examination Appearance: Appropriate Consciousness: Alert (somewhat sleepy) Orientation: Person, Place, Date/Time Motor Activity: Other (no motor abnormalities noted) Speech: Unremarkable Language: Adequate Fund of Knowledge: Adequate Attention and Concentration: Adequate Memory: Unremarkable Mood: Other (calm) Affect: Blunt Thought Process & Associations: Linear Thought Content: Appropriate Hallucination Type: None Delusion Type: Other (grandiose) Suicidal Ideation: No Suicidal Plan: No Suicidal Intention: No Homicidal Ideation: No Homicidal Plan: No Homicidal Intention: No Insight: Poor Judgment: Poor Results Labs Labs reviewed. CBC and CMP ordered for this morning are listed as "in process" Vitals/IOs Vital Signs Date Time Temp Pulse Resp B/P (MAP) Pulse Ox O2 Delivery O2 Flow Rate FiO2 01/31/17 06:00 97.8 95 16 129/75 (93) 98 Assessment & Plan Problem List: (1) Schizoaffective disorder, bipolar type ICD Codes: F25.0 - Schizoaffective disorder, bipolar type Assessment & Plan Taper Ativan p.r.n. to 0.5 mg per dose. Continue other psychotropics as ordered. Follow-up laboratories. Continue other medications and care as ordered. Justification for Cont. Inpt. Medication changes. Impairment in reality construction. High risk for decompensation in less restrictive environment. Discharge Planning Placement versus state psychiatric hospitalization. Request HC Surrog/Guard Advoc?: Yes Leonel Crowley MD Jan 31, 2017 10:34
[2017-01-31] MEDS ORDERED: LORazepam 2 MG/ML VIAL IM PRN (16:00)
[2017-01-31 19:36] LABS: AUTOMATED NEUTROPHIL # 3.1 TH/MM3 (1.8-7.7); BASOPHIL % 0.2 % (0.0-2.0); EOSINOPHIL % 0.8 % (0.0-4.0); HEMATOCRIT 36.7 % (39.0-51.0); HEMOGLOBIN 12.5 GM/DL (13.0-17.0); LYMPH % 29.8 % (9.0-44.0); LYMPHOCYTE # 1.6 TH/MM3 (1.0-4.8); MEAN CELL VOLUME 95.2 FL (80.0-100.0); MEAN CORPUSCULAR HEMOGLOBIN 32.3 PG (27.0-34.0); MEAN PLATELET VOLUME 7.9 FL (7.0-11.0); MONO % 11.2 % (0.0-8.0); MONOCYTE # 0.6 TH/MM3 (0-0.9); PLATELET COUNT 291 TH/MM3 (150-450); RED BLOOD COUNT 3.86 MIL/MM3 (4.50-5.90); WHITE BLOOD COUNT 5.3 TH/MM3 (4.0-11.0)
[2017-01-31 19:53] LABS: ALBUMIN 3.6 GM/DL (3.4-5.0); ALT (GPT) 52 U/L (12-78); AST (GOT) 29 U/L (15-37); BICARBONATE 30.8 MEQ/L (21.0-32.0); BLOOD UREA NITROGEN 18 MG/DL (7-18); CALCIUM 8.6 MG/DL (8.5-10.1); CHLORIDE 101 MEQ/L (98-107); CREATININE 1.18 MG/DL (0.60-1.30); GLOMERULAR FILTRATION RATE 88 ML/MIN (>89); GLUCOSE,RANDOM 102 MG/DL (74-106); SODIUM (NA) 137 MEQ/L (136-145)
[2017-01-31 19:55] LABS: ALKALINE PHOSPHATASE 96 U/L (45-117); TOTAL BILIRUBIN ADULT 0.3 MG/DL (0.2-1.0); TOTAL PROTEIN 7.5 GM/DL (6.4-8.2)
[2017-01-31] MEDS: LORazepam 1 MG TAB PO PRN (22:12)
[2017-02-01 06:23] VITALS: BP 118/55; RESP 18; TEMP 97.7; O2SAT 98
[2017-02-01 06:59] VITALS: PULSE 85
[2017-02-01] MEDS: REMOVE OLD PATCH T-DERMAL SCH (09:00)
[2017-02-01] MEDS: levOCARNitine 10% ORAL SOLN 118 ML BTL PO SCH ×3 (09:00→17:48)
[2017-02-01] MEDS: DIVALPROEX SODIUM E.R. 500 MG TAB PO SCH (09:37)
[2017-02-01] MEDS: NICOTINE 21 MG/24 HR PATCH T-DERMAL SCH (09:37)
--- NOTE | 2017-02-01 11:24 | HHI.PYPN ---
Subjective Chief Complaint: psychosis Remarks Patient seen and examined with nurse. Chart reviewed. Case discussed in treatment team with counselor and occupational therapist. Counselor notes that he endeavored to have a joint meeting with mother and patient last week but mother declined at the time. On my examination today, the patient remains agreeable to assisted living placement. He is less grandiose. He remains in behavioral control. Complains of some mild sedation and mild drooling with medications but reports no side effects from medications otherwise. No physical complaints otherwise. Review of Systems Except as stated in HPI: all other systems reviewed are Neg Mental Status Examination Appearance: Appropriate Consciousness: Alert (less sedated today) Orientation: Person, Place, Date/Time Motor Activity: Other (no motor abnormalities noted) Speech: Unremarkable Language: Adequate Fund of Knowledge: Adequate Attention and Concentration: Adequate Memory: Unremarkable Mood: Other (calm) Affect: Blunt (remains a little bit blunted) Thought Process & Associations: Linear Thought Content: Appropriate Hallucination Type: None Delusion Type: Other (grandiose) Suicidal Ideation: No Suicidal Plan: No Suicidal Intention: No Homicidal Ideation: No Homicidal Plan: No Homicidal Intention: No Insight: Poor Judgment: Poor Results Labs Test 01/31/17 19:10 White Blood Count 5.3 TH/MM3 Red Blood Count 3.86 MIL/MM3 Hemoglobin 12.5 GM/DL Hematocrit 36.7 % Mean Corpuscular Volume 95.2 FL Mean Corpuscular Hemoglobin 32.3 PG Mean Corpuscular Hemoglobin Concent 34.0 % Red Cell Distribution Width 12.0 % Platelet Count 291 TH/MM3 Mean Platelet Volume 7.9 FL Neutrophils (%) (Auto) 58.0 % Lymphocytes (%) (Auto) 29.8 % Monocytes (%) (Auto) 11.2 % Eosinophils (%) (Auto) 0.8 % Basophils (%) (Auto) 0.2 % Neutrophils # (Auto) 3.1 TH/MM3 Lymphocytes # (Auto) 1.6 TH/MM3 Monocytes # (Auto) 0.6 TH/MM3 Eosinophils # (Auto) 0.0 TH/MM3 Basophils # (Auto) 0.0 TH/MM3 CBC Comment DIFF FINAL Differential Comment Blood Urea Nitrogen 18 MG/DL Creatinine 1.18 MG/DL Random Glucose 102 MG/DL Total Protein 7.5 GM/DL Albumin 3.6 GM/DL Calcium Level 8.6 MG/DL Alkaline Phosphatase 96 U/L Aspartate Amino Transf (AST/SGOT) 29 U/L Alanine Aminotransferase (ALT/SGPT) 52 U/L Total Bilirubin 0.3 MG/DL Sodium Level 137 MEQ/L Potassium Level 4.0 MEQ/L Chloride Level 101 MEQ/L Carbon Dioxide Level 30.8 MEQ/L Anion Gap 5 MEQ/L Estimat Glomerular Filtration Rate 88 ML/MIN Labs reviewed. Leukopenia resolved. Mild normocytic anemia, with an historical range. Transaminitis resolved. Renal function stable. Vitals/IOs Vital Signs Date Time Temp Pulse Resp B/P (MAP) Pulse Ox O2 Delivery O2 Flow Rate FiO2 02/01/17 06:59 85 02/01/17 06:23 97.7 18 118/55 (56) 98 Assessment & Plan Problem List: (1) Schizoaffective disorder, bipolar type ICD Codes: F25.0 - Schizoaffective disorder, bipolar type Assessment & Plan Continue current psychotropics as ordered. Continue to monitor on the inpatient unit. Continue other medications and care as ordered. Justification for Cont. Inpt. Risk for decompensation in less restrictive environment. Discharge Planning Placement versus [facility] referral. Case discussed with counselor. Request HC Surrog/Guard Advoc?: Yes Leonel Crowley MD Feb 01, 2017 11:24
--- NOTE | 2017-02-01 13:09 | PD.TTN ---
Patient Problems 1. Discharge planning 2. Medication compliance 3. Knowledge deficit 4. Lack of coping skills Progress Toward Goals Provider Present: Dr. Rocio Crowley Provider Input: 01-11-17 - Dr. Crowley reported the patient remains grandiose and has a criminal history of drug trafficking in this area, therefore placement will be difficult. Dr. Crowley treatment team met to discuss patient's treatment plan, discharge and medication. Patient is medication compliant. Will titrate medication. Patient presents grandiose. Patient will remain for stablization 01/07- Pt has been referred to [facility] and his medication regiment is being adjusted including Zyprexa and Invega Sustenna. 01/14- Pt continues to appear psychotic, paranoid and will be considered for placement v. [facility]. Medication regiment will continue to be evaluated. 01/18- Pt continues to meet criteria as he remains delusional and grandiose. He has been referred to [facility]. 01/28- No medication changes have been made recently and he remains on the wait list for [facility]. 02/01- Pt medication regiment will continue to be evaluated and he will be referred to [facility] placement to see if this is possible. He remains on the [facility] wait list. Nurse(s) Input: Patient's nurse Uma states patient is grandiose, intrusive, hperverbal, compliant with medication, delusional, laughs inappropriately, manic features. 01/07- Virginia Casarez RN Pt remains angry, threatening, delusional, grandiose, paranoid of his family and with poor insight. 01/18- Shannan Moore RN Pt appears grandiose, delusional, disruptive and requiring additional medication to help manage his behaviors. 01/28- Gin Kelly RN Pt appears compliant with medication regiment, delusional, no behavioral issues and is not aggressive today. 02/01- Virginia Casarez RN Pt remains inappropriate at times, delusional, grandiose, labile and medication compliant. Psychiatric Counselors Present: Ko Marshall, [facility], Ludivina Mann, [facility] , Sondra Miguel, [facility] Psych Therapist Input: Patient remains disorganized and grandiose. Patient presented calm, tired, denied suicidal and homicidal ideation. Patient stated he was hungry so was given some crackers and peanut butter. Patient stated he has been attending groups, sleeping well, taking his medication. At time of assessment patient presented appropriately and affect was also appropriate. 01/07- Pt continues to appear agitated, uncooperative, threatening, paranoid, delusional, grandiose, impulsive and guarded. He presents with limited insight into condition and need for care. Pt is resistant to idea of therapeutic suggestion demanding that he decides where he should go after discharge. Pt appears threatening to psychiatrist and in poor behavioral control. Pt has been compliant with medication regiment. He presents with limited coping and emotional regulation skills as evidenced by behavioral outbursts. 01/14- Pt continues to appear labile, easily agitated, delusional, paranoid, grandiose and uncooperative. Pt has been taking his medication regiment but has been noncompliant with idea of placement. He appears impulsive and wants instant gratification. Pt presents with limited coping and emotional regulation skills at this time. 01/18- Pt continues to appear labile, delusional, grandiose, demanding and discharge focused. Pt continues to present with limited insight into condition and need for care. He is compliant with his medication regiment though it is unknown if he would remain compliant due to history of noncompliance in lesser level of care. He appears to struggle with coping and emotional regulation skills as suggested by his behavioral presentation at times. 01/28- Pt remains delusional, grandiose, easily agitated, cooperative and medication compliant. He struggles to implement coping and emotional regulation skills. Insight remains poor into condition and need for care. He likely minimizes his symptoms in an attempt to obtain discharge. He remains refusing [facility] placement and cannot go with his family. 02/01- Pt remains labile, delusional, grandiose, cooperative and visible on unit. He remains with poor insight into condition and need for care. He has become more cooperative with idea of [facility] placement. He struggles with coping and emotional regulation skills as he is still easily agitated on unit. Pt is compliant with medication regiment. Group Spec/RT/OT/VAZQUEZ Present: Thelma Mckeon, GPS, Vic Chin, OT, Tone Phipps, VAZQUEZ Group Spec/RT/OT/VAZQUEZ Input: 01-11-17 - Patient is not as threatening, but remains intrusive. He attends and participates in scheduled group activities. Patient attends groups, is appropriate, Hyperverbal, grandiose 01/07- GEORGE Kang Pt attends most groups and appears grandiose/disruptive. 01/14- GEORGE Kang Pt attends groups but is disruptive and easily agitated. 01/18- Thelma Mckeon, CONRADO Pt attends groups, is appropriate and has not been disruptive for this specific individual. 01/28- GEORGE Kang Pt often attends group and participates actively. 02/01- GEORGE Arana Pt attends most groups and is labile yet redirectable. Discharge Plan Other Pt has been referred to [facility] and will remain on unit for further stabilization until admitted to this facility. Documentation Scribe: ELGIN Parker, Sondra Miguel [facility] Date Resolved: Jan 11, 2017 Ko Marshall Feb 01, 2017 13:09
[2017-02-02 05:57] VITALS: BP 124/65; PULSE 84; RESP 18; TEMP 98.2; O2SAT 100
[2017-02-02] MEDS: DIVALPROEX SODIUM E.R. 500 MG TAB PO SCH (09:00)
[2017-02-02] MEDS: levOCARNitine 10% ORAL SOLN 118 ML BTL PO SCH ×3 (09:00→18:00)
[2017-02-02] MEDS: NICOTINE 21 MG/24 HR PATCH T-DERMAL SCH (09:00)
[2017-02-02] MEDS: REMOVE OLD PATCH T-DERMAL SCH (09:00)
[2017-02-02] MEDS: BENZTROPINE MESYLATE 1 MG TAB PO SCH ×2 (12:30→20:39)
--- NOTE | 2017-02-02 12:34 | HHI.PYPN ---
Subjective Chief Complaint: psychosis Remarks Patient seen and examined with nurse. Chart reviewed. 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 On my examination today, patient is calm and does not verbalize any grandiose material. He is in a joking mood. For example, as we are walking to speak, he says we are "[place]." Likewise, he making joking allusions to the hospital being like [facility]. No SI or HI. Says that he received a p.r.n. dose of Cogentin yesterday and found this improved some mild motor symptoms he was experiencing from his antipsychotics. Requesting scheduled Cogentin. We discussed the risks and benefits of this agent. No other side effects. No physical complaints otherwise. Review of Systems ROS Limitations: Poor Historian Except as stated in HPI: all other systems reviewed are Neg Mental Status Examination Appearance: Appropriate Consciousness: Alert Orientation: Person, Place, Date/Time Motor Activity: Other (no abnormal motor movements noted. No hand tremor, no dystonia, no dyskinesia. The patient does have a somewhat shuffling gait.) Speech: Unremarkable Language: Adequate Fund of Knowledge: Adequate Attention and Concentration: Adequate Memory: Unremarkable Mood: Appropriate Affect: Appropriate Thought Process & Associations: Linear Thought Content: Appropriate Hallucination Type: None Delusion Type: Other (some grandiosity per nursing staff. No jordan delusions for me.) Suicidal Ideation: No Suicidal Plan: No Suicidal Intention: No Homicidal Ideation: No Homicidal Plan: No Homicidal Intention: No Insight: Poor Judgment: Poor Results Labs Labs reviewed. No new labs. Vitals/IOs Vital Signs Date Time Temp Pulse Resp B/P (MAP) Pulse Ox O2 Delivery O2 Flow Rate FiO2 02/02/17 05:57 98.2 84 18 124/65 (84) 100 Assessment & Plan Problem List: (1) Schizoaffective disorder, bipolar type ICD Codes: F25.0 - Schizoaffective disorder, bipolar type Assessment & Plan Add Cogentin 1 mg twice daily. Continue other psychotropics as ordered. Continue other medications and care as ordered. Justification for Cont. Inpt. Medication changes. High risk for decompensation in less restrictive environment. Discharge Planning Placement versus [facility] referral. The counselor reports that the patient has a placement at [facility] on 02/11/2017. We have been presenting patient's case to other assisted living facilities. Metals Analyst from [facility] came to see the patient today, but he was reportedly unable to tolerate the admissions interview. Request HC Surrog/Guard Advoc?: Yes Leonel Crowley MD Feb 02, 2017 12:34
[2017-02-02] MEDS: LORazepam 1 MG TAB PO PRN ×2 (14:37→22:42)
[2017-02-02 16:49] VITALS: BP 125/77; PULSE 105; RESP 18; TEMP 97.4; O2SAT 98
[2017-02-02] MEDS: diphenhydrAMINE HCL 50 MG CAP PO PRN (20:39)
[2017-02-03 05:38] VITALS: BP 121/65; PULSE 87; RESP 18; TEMP 98.3; O2SAT 99
[2017-02-03] MEDS: NICOTINE 21 MG/24 HR PATCH T-DERMAL SCH (08:54)
[2017-02-03] MEDS: REMOVE OLD PATCH T-DERMAL SCH (08:54)
[2017-02-03] MEDS: BENZTROPINE MESYLATE 1 MG TAB PO SCH ×2 (08:55→20:34)
[2017-02-03] MEDS: DIVALPROEX SODIUM E.R. 500 MG TAB PO SCH (08:55)
[2017-02-03] MEDS: levOCARNitine 10% ORAL SOLN 118 ML BTL PO SCH ×3 (08:56→17:50)
--- NOTE | 2017-02-03 09:18 | HHI.PYPN ---
Subjective Chief Complaint: psychosis Remarks Patient seen and examined with nurse. Chart reviewed. Case discussed with nursing staff who reports the patient remains somewhat grandiose believing that he is proactively and believing that he is speaking on the telephone with Emery Menjivar. However, the patient has been no real behavioral problems per nursing staff. On my examination today, the patient tells me that he would like to discontinue or move his midday dose of Thorazine as he has hopes of working after discharge and finds the midday dose inconvenient and too sedating. We discussed consolidating this midday dose with the nighttime dose as the patient reports he is having some ongoing sleep difficulty and does not wish to use Ativan for this purpose. Overall fairly relevant in conversation. No delusional material voiced. Patient reports Cogentin is helping with mild EPS. No other side effects from medications. No physical complaints. Remains agreeable to assisted living placement. Case discussed with counselor. Review of Systems Except as stated in HPI: all other systems reviewed are Neg Mental Status Examination Appearance: Appropriate Consciousness: Alert Orientation: Person, Place, Date/Time Motor Activity: Other (no motor abnormalities noted. Gait is less shuffling and, in retrospect, I note that patient likely had some hypomimia, which is improved today) Speech: Unremarkable Language: Adequate Fund of Knowledge: Adequate Attention and Concentration: Adequate Memory: Unremarkable Mood: Appropriate Affect: Appropriate Thought Process & Associations: Linear Thought Content: Appropriate Hallucination Type: None Delusion Type: Other (no delusional material verbalized today.) Suicidal Ideation: No Suicidal Plan: No Suicidal Intention: No Homicidal Ideation: No Homicidal Plan: No Homicidal Intention: No Insight: Poor Judgment: Poor Results Labs Labs reviewed. No new labs. Vitals/IOs Vital Signs Date Time Temp Pulse Resp B/P (MAP) Pulse Ox O2 Delivery O2 Flow Rate FiO2 02/03/17 05:38 98.3 87 18 121/65 (83) 99 Assessment & Plan Problem List: (1) Schizoaffective disorder, bipolar type ICD Codes: F25.0 - Schizoaffective disorder, bipolar type Assessment & Plan Adjust Thorazine dosing to 100 mg in the morning and 500 mg at bedtime. Continue other medications and care as ordered. Continue to monitor on the inpatient unit. Justification for Cont. Inpt. Risk for decompensation in less restrictive environment. Medication adjustment. Discharge Planning Per counselor, patient has an ASSISTED placement on 02/11/17 at [facility]. [facility] remains a backup option. Request HC Surrog/Guard Advoc?: Yes Leonel Crowley MD Feb 03, 2017 09:18
[2017-02-03 17:32] VITALS: BP 141/66; PULSE 94; RESP 17; TEMP 98; O2SAT 98
[2017-02-04 05:49] VITALS: BP 111/72; PULSE 101; RESP 17; TEMP 98.6; O2SAT 98
[2017-02-04] MEDS: DIVALPROEX SODIUM E.R. 500 MG TAB PO SCH (08:17)
[2017-02-04] MEDS: BENZTROPINE MESYLATE 1 MG TAB PO SCH ×2 (08:17→20:20)
[2017-02-04] MEDS: NICOTINE 21 MG/24 HR PATCH T-DERMAL SCH (08:20)
[2017-02-04] MEDS: REMOVE OLD PATCH T-DERMAL SCH (08:20)
[2017-02-04] MEDS: levOCARNitine 10% ORAL SOLN 118 ML BTL PO SCH ×3 (08:21→17:28)
--- NOTE | 2017-02-04 11:15 | HHI.PYPN ---
Subjective Chief Complaint: psychosis Remarks Patient seen and examined with nurse. Chart reviewed. Case discussed with nursing staff reports the patient is euthymic and no real behavioral problem. Case discussed in treatment team with counselor and occupational therapist. On my examination today, the patient is calm but remains grandiose. 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 No audiovisual hallucinations. No SI or HI. Denies side effects from medications. Resistant to further medication changes. No physical complaints. Review of Systems ROS Limitations: Psychotic Except as stated in HPI: all other systems reviewed are Neg Mental Status Examination Appearance: Appropriate Consciousness: Alert Orientation: Person, Place, Date/Time Motor Activity: Other (no motoric abnormalities noted) Speech: Unremarkable Language: Adequate Fund of Knowledge: Adequate Attention and Concentration: Adequate Memory: Unremarkable Mood: Appropriate Affect: Euthymic Thought Process & Associations: Linear Thought Content: Appropriate Hallucination Type: None Delusion Type: Other (grandiose) Suicidal Ideation: No Suicidal Plan: No Suicidal Intention: No Homicidal Ideation: No Homicidal Plan: No Homicidal Intention: No Insight: Poor Judgment: Poor Results Labs Labs reviewed. No new labs. Vitals/IOs Vital Signs Date Time Temp Pulse Resp B/P (MAP) Pulse Ox O2 Delivery O2 Flow Rate FiO2 02/04/17 05:49 98.6 101 17 111/72 (85) 98 Intake and Output 02/04/17 02/04/17 02/05/17 08:00 16:00 00:00 Intake Total 240 ml Balance 240 ml Assessment & Plan Problem List: (1) Schizoaffective disorder, bipolar type ICD Codes: F25.0 - Schizoaffective disorder, bipolar type Assessment & Plan Continue current psychotropics as ordered. I think the potential benefit to be accrued in terms of lessening grandiosity is likely more than offset by the risk of poor tolerability of a higher dose of psychotropics with subsequent medication nonadherence after discharge. Continue to monitor on the inpatient unit. Continue other medications and care as ordered. Justification for Cont. Inpt. Risk for decompensation in less restrictive environment. Discharge Planning Anticipate transfer to [facility] 02/11. [facility] remains a backup plan. Request HC Surrog/Guard Advoc?: Yes Leonel Crowley MD Feb 04, 2017 11:15
--- NOTE | 2017-02-04 15:35 | PD.TTN ---
Patient Problems 1. Discharge planning 2. Medication compliance 3. Knowledge deficit 4. Lack of coping skills Progress Toward Goals Provider Present: Dr. Rocio Crowley Provider Input: 01-11-17 - Dr. Crowley reported the patient remains grandiose and has a criminal history of drug trafficking in this area, therefore placement will be difficult. Dr. Crowley treatment team met to discuss patient's treatment plan, discharge and medication. Patient is medication compliant. Will titrate medication. Patient presents grandiose. Patient will remain for stablization 01/07- Pt has been referred to [facility] and his medication regiment is being adjusted including Zyprexa and Invega Sustenna. 01/14- Pt continues to appear psychotic, paranoid and will be considered for placement v. [facility]. Medication regiment will continue to be evaluated. 01/18- Pt continues to meet criteria as he remains delusional and grandiose. He has been referred to [facility]. 01/28- No medication changes have been made recently and he remains on the wait list for [facility]. 02/01- Pt medication regiment will continue to be evaluated and he will be referred to [facility] placement to see if this is possible. He remains on the [facility] wait list. 02/04- Pt Dawna has been moved to bedtime. He presents with poor sleep and remains grandiose. Nurse(s) Input: Patient's nurse Uma states patient is grandiose, intrusive, hperverbal, compliant with medication, delusional, laughs inappropriately, manic features. 01/07- Virginia Casarez RN Pt remains angry, threatening, delusional, grandiose, paranoid of his family and with poor insight. 01/18- Shannan Moore RN Pt appears grandiose, delusional, disruptive and requiring additional medication to help manage his behaviors. 01/28- Gin Kelly RN Pt appears compliant with medication regiment, delusional, no behavioral issues and is not aggressive today. 02/01- Virginia Casarez RN Pt remains inappropriate at times, delusional, grandiose, labile and medication compliant. 02/04- Virginia Casarez RN Pt appears euthymic, discharge focused, delusional, grandiose and appropriate. Psychiatric Counselors Present: Ko Marshall [facility], Ludivina Mann, [facility] , Sondra Miguel, [facility] Psych Therapist Input: Patient remains disorganized and grandiose. Patient presented calm, tired, denied suicidal and homicidal ideation. Patient stated he was hungry so was given some crackers and peanut butter. Patient stated he has been attending groups, sleeping well, taking his medication. At time of assessment patient presented appropriately and affect was also appropriate. 01/07- Pt continues to appear agitated, uncooperative, threatening, paranoid, delusional, grandiose, impulsive and guarded. He presents with limited insight into condition and need for care. Pt is resistant to idea of therapeutic suggestion demanding that he decides where he should go after discharge. Pt appears threatening to psychiatrist and in poor behavioral control. Pt has been compliant with medication regiment. He presents with limited coping and emotional regulation skills as evidenced by behavioral outbursts. 01/14- Pt continues to appear labile, easily agitated, delusional, paranoid, grandiose and uncooperative. Pt has been taking his medication regiment but has been noncompliant with idea of placement. He appears impulsive and wants instant gratification. Pt presents with limited coping and emotional regulation skills at this time. 01/18- Pt continues to appear labile, delusional, grandiose, demanding and discharge focused. Pt continues to present with limited insight into condition and need for care. He is compliant with his medication regiment though it is unknown if he would remain compliant due to history of noncompliance in lesser level of care. He appears to struggle with coping and emotional regulation skills as suggested by his behavioral presentation at times. 01/28- Pt remains delusional, grandiose, easily agitated, cooperative and medication compliant. He struggles to implement coping and emotional regulation skills. Insight remains poor into condition and need for care. He likely minimizes his symptoms in an attempt to obtain discharge. He remains refusing [facility] placement and cannot go with his family. 02/01- Pt remains labile, delusional, grandiose, cooperative and visible on unit. He remains with poor insight into condition and need for care. He has become more cooperative with idea of [facility] placement. He struggles with coping and emotional regulation skills as he is still easily agitated on unit. Pt is compliant with medication regiment. 02/04- Pt remains grandiose, delusional and with poor insight into condition and need for care. He has shown improvement in mood lability over the past few days and has not had any angry outbursts within past few days. Coping skills appear limited at this time and pt remains somewhat impulsive. He is looking forward to his [facility] and asks relevent questions related to this transition. He is compliant with medication regiment. Group Spec/RT/OT/VAZQUEZ Present: Thelma Mckeon, GPS, Vic Chin, OT, GEORGE Kang Group Spec/RT/OT/VAZQUEZ Input: 01-11-17 - Patient is not as threatening, but remains intrusive. He attends and participates in scheduled group activities. Patient attends groups, is appropriate, Hyperverbal, grandiose 01/07- GEORGE Kang Pt attends most groups and appears grandiose/disruptive. 01/14- GEORGE Kang Pt attends groups but is disruptive and easily agitated. 01/18- CONRADO Sharma Pt attends groups, is appropriate and has not been disruptive for this specific individual. 01/28- GEORGE Kang Pt often attends group and participates actively. 02/01- GEORGE Arana Pt attends most groups and is labile yet redirectable. 02/04- GEORGE Arana Pt participates in most groups and has been appropriate. Discharge Plan Other PT has been accepted to [facility] on 02/11 and will be admitted there unless he decompensates further and then he will remain on [facility] wait list. Documentation Scribe: ELGIN Parker, Sondra Miguel [facility] Date Resolved: Jan 11, 2017 Ko Marshall Feb 04, 2017 15:35
[2017-02-04 18:05] VITALS: BP 132/65; PULSE 98; RESP 17; TEMP 98.7; O2SAT 99
[2017-02-04] MEDS: ALUMINUM/MAGNESIUM/SIMETH 30 ML CUP PO PRN (20:49)
[2017-02-05 05:47] VITALS: BP 131/74; PULSE 88; RESP 18; TEMP 97.6; O2SAT 99
[2017-02-05] MEDS: DIVALPROEX SODIUM E.R. 500 MG TAB PO SCH (08:17)
[2017-02-05] MEDS: NICOTINE 21 MG/24 HR PATCH T-DERMAL SCH (08:17)
[2017-02-05] MEDS: BENZTROPINE MESYLATE 1 MG TAB PO SCH ×2 (08:17→21:10)
[2017-02-05] MEDS: levOCARNitine 10% ORAL SOLN 118 ML BTL PO SCH ×3 (08:19→17:59)
[2017-02-05] MEDS: REMOVE OLD PATCH T-DERMAL SCH (08:19)
--- NOTE | 2017-02-05 12:36 | HHI.PYPN ---
Subjective Chief Complaint: psychosis Remarks Pt seen and discussed with staff. 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 He is compliant with medications. No SI/HI Mental Status Examination Appearance: Appropriate Consciousness: Alert Orientation: Person, Place, Date/Time Motor Activity: Other (no motoric abnormalities noted) Speech: Unremarkable Language: Adequate Fund of Knowledge: Adequate Attention and Concentration: Adequate Memory: Unremarkable Mood: Appropriate Affect: Euthymic Thought Process & Associations: Linear Thought Content: Appropriate Hallucination Type: None Delusion Type: Other (grandiose) Suicidal Ideation: No Suicidal Plan: No Suicidal Intention: No Homicidal Ideation: No Homicidal Plan: No Homicidal Intention: No Insight: Poor Judgment: Poor Results Vitals/IOs Vital Signs Date Time Temp Pulse Resp B/P (MAP) Pulse Ox O2 Delivery O2 Flow Rate FiO2 02/05/17 05:47 97.6 88 18 131/74 (93) 99 Assessment & Plan Problem List: (1) Schizoaffective disorder, bipolar type ICD Codes: F25.0 - Schizoaffective disorder, bipolar type Assessment & Plan Continue current tx plan. Estimated LOS: days Justification for Cont. Inpt. impairments in reality testing Request HC Surrog/Guard Advoc?: Yes Marcelle Bermeo MD Feb 05, 2017 12:36
[2017-02-05] MEDS: ALUMINUM/MAGNESIUM/SIMETH 30 ML CUP PO PRN (23:00)
[2017-02-06 05:51] VITALS: BP 148/76; PULSE 95; RESP 17; TEMP 98; O2SAT 98
[2017-02-06] MEDS: levOCARNitine 10% ORAL SOLN 118 ML BTL PO SCH ×3 (08:19→18:00)
[2017-02-06] MEDS: DIVALPROEX SODIUM E.R. 500 MG TAB PO SCH (08:20)
[2017-02-06] MEDS: REMOVE OLD PATCH T-DERMAL SCH (08:20)
[2017-02-06] MEDS: NICOTINE 21 MG/24 HR PATCH T-DERMAL SCH (08:20)
[2017-02-06] MEDS: BENZTROPINE MESYLATE 1 MG TAB PO SCH ×2 (08:20→20:26)
--- NOTE | 2017-02-06 17:20 | HHI.PYPN ---
Subjective Chief Complaint: psychosis Remarks Pt seen and discussed with staff. He is compliant with medications. He remains delusional and grandiose, but has not been aggressive. No SI/HI Mental Status Examination Appearance: Appropriate Consciousness: Alert Orientation: Person, Place, Date/Time Motor Activity: Other (no motoric abnormalities noted) Speech: Unremarkable Language: Adequate Fund of Knowledge: Adequate Attention and Concentration: Adequate Memory: Unremarkable Mood: Appropriate Affect: Euthymic Thought Process & Associations: Linear Thought Content: Appropriate Hallucination Type: None Delusion Type: Other (grandiose) Suicidal Ideation: No Suicidal Plan: No Suicidal Intention: No Homicidal Ideation: No Homicidal Plan: No Homicidal Intention: No Insight: Poor Judgment: Poor Results Vitals/IOs Vital Signs Date Time Temp Pulse Resp B/P (MAP) Pulse Ox O2 Delivery O2 Flow Rate FiO2 02/06/17 05:51 98.0 95 17 148/76 (100) 98 Assessment & Plan Problem List: (1) Schizoaffective disorder, bipolar type ICD Codes: F25.0 - Schizoaffective disorder, bipolar type Assessment & Plan Continue current tx plan. Estimated LOS: days Justification for Cont. Inpt. impairments in reality testing Request HC Surrog/Guard Advoc?: Yes Marcelle Bermeo MD Feb 06, 2017 17:20
[2017-02-06 17:55] VITALS: BP 125/78; PULSE 92; RESP 18; TEMP 97.6; TEMP 98.6; O2SAT 97
[2017-02-07 06:14] VITALS: BP 138/63; PULSE 90; RESP 18; TEMP 98.6
[2017-02-07] MEDS: REMOVE OLD PATCH T-DERMAL SCH (09:00)
[2017-02-07] MEDS: levOCARNitine 10% ORAL SOLN 118 ML BTL PO SCH ×3 (09:00→18:00)
[2017-02-07] MEDS: DIVALPROEX SODIUM E.R. 500 MG TAB PO SCH (10:01)
[2017-02-07] MEDS: BENZTROPINE MESYLATE 1 MG TAB PO SCH (10:02)
[2017-02-07] MEDS: NICOTINE 21 MG/24 HR PATCH T-DERMAL SCH (10:02)
--- NOTE | 2017-02-07 10:14 | HHI.PYPN ---
Subjective Chief Complaint: psychosis Remarks Patient seen and examined with nurse. Chart reviewed. Case discussed with nursing staff. Nurse has noticed decreased grandiosity over patient's hospital stay. On my exam today, the patient is calm and cooperative. He is in good spirits and is in a joking mood. He does verbalize some grandiose material, but this seems considerably attenuated. Denies side effects from medications but does complain of some difficulty with his "esophageal flap" and says that he has been having some difficulty with swallowing. He has not had any episodes of choking. No other physical complaints. Review of Systems ROS Limitations: Psychotic Except as stated in HPI: all other systems reviewed are Neg Mental Status Examination Appearance: Appropriate Consciousness: Alert Orientation: Person, Place, Date/Time Motor Activity: Other (Mildly shuffling gait, no other abnormal motor movements noted) Speech: Unremarkable Language: Adequate Fund of Knowledge: Adequate Attention and Concentration: Adequate Memory: Unremarkable Mood: Appropriate, Good Affect: Euthymic Thought Process & Associations: Linear Thought Content: Appropriate Hallucination Type: None Delusion Type: Other (mild grandiosity) Suicidal Ideation: No Suicidal Plan: No Suicidal Intention: No Homicidal Ideation: No Homicidal Plan: No Homicidal Intention: No Insight: Poor Judgment: Poor Results Labs Labs reviewed Vitals/IOs Vital Signs Date Time Temp Pulse Resp B/P (MAP) Pulse Ox O2 Delivery O2 Flow Rate FiO2 02/07/17 06:14 98.6 90 18 138/63 (88) 02/06/17 17:55 97 Assessment & Plan Problem List: (1) Schizoaffective disorder, bipolar type ICD Codes: F25.0 - Schizoaffective disorder, bipolar type Assessment & Plan Continue current psychotropics as ordered. I will titrate Cogentin to 2mg BID for EPS. Swallow evaluation. Continue to monitor on the inpatient unit. Continue other medications and care as ordered. Justification for Cont. Inpt. Risk for decompensation in less restrictive environment Discharge Planning Anticipate transfer to assisted living facility this Tuesday. Request HC Surrog/Guard Advoc?: Yes Leonel Crowley MD Feb 07, 2017 10:14
[2017-02-07 16:26] VITALS: BP 136/69; PULSE 96; RESP 18; TEMP 99.2; O2SAT 98
[2017-02-07] MEDS: BENZTROPINE MESYLATE 2 MG TAB PO SCH (20:24)
[2017-02-08 05:54] VITALS: BP 148/75; PULSE 85; RESP 18; TEMP 97.8; O2SAT 98
[2017-02-08] MEDS: BENZTROPINE MESYLATE 2 MG TAB PO SCH ×2 (08:56→21:56)
[2017-02-08] MEDS: REMOVE OLD PATCH T-DERMAL SCH (08:57)
[2017-02-08] MEDS: levOCARNitine 10% ORAL SOLN 118 ML BTL PO SCH ×3 (08:57→16:15)
[2017-02-08] MEDS: NICOTINE 21 MG/24 HR PATCH T-DERMAL SCH (08:57)
[2017-02-08] MEDS: DIVALPROEX SODIUM E.R. 500 MG TAB PO SCH (08:57)
--- NOTE | 2017-02-08 10:53 | HHI.PYPN ---
Subjective Chief Complaint: Psychosis Remarks Patient seen and examined with nurse. Chart reviewed. ST recommending regular diet. Case discussed with nursing staff reports the patient has been no real behavioral problems but remains somewhat grandiose. He told the nursing staff that he was inventing some sort of panacea. Case discussed in treatment team. On my examination today, the patient is calm and cooperative. He is in good spirits. He does continue to verbalize some grandiose material but overall seems much more reality based versus earlier this admission. He apologizes " for being a ronel" earlier in the hospital stay. Looking forward to [facility] placement. No side effects from medications. No physical complaints. Review of Systems Except as stated in HPI: all other systems reviewed are Neg Mental Status Examination Appearance: Appropriate Consciousness: Alert Orientation: x4 Motor Activity: Other (no motor abnormalities noted) Speech: Unremarkable Language: Adequate Fund of Knowledge: Adequate Attention and Concentration: Adequate Memory: Unremarkable Mood: Appropriate, Good Affect: Euthymic Thought Process & Associations: Linear Thought Content: Appropriate Hallucination Type: None Delusion Type: Other (ongoing mild grandiosity) Suicidal Ideation: No Suicidal Plan: No Suicidal Intention: No Homicidal Ideation: No Homicidal Plan: No Homicidal Intention: No Insight: Poor Judgment: Poor Results Labs Labs reviewed. No new labs Vitals/IOs Vital Signs Date Time Temp Pulse Resp B/P (MAP) Pulse Ox O2 Delivery O2 Flow Rate FiO2 02/08/17 05:54 97.8 85 18 148/75 (99) 98 Assessment & Plan Problem List: (1) Schizoaffective disorder, bipolar type ICD Codes: F25.0 - Schizoaffective disorder, bipolar type Assessment & Plan Continue current psychiatric medications as ordered. Continue to monitor on the inpatient unit. Continue other medications and care as ordered. Justification for Cont. Inpt. High risk for decompensation in less restrictive environment. Discharge Planning Anticipate discharge to [facility] Tuesday. Request HC Surrog/Guard Advoc?: Yes Leonel Crowley MD Feb 08, 2017 10:53
[2017-02-08] MEDS: LORazepam 1 MG TAB PO PRN (16:16)
[2017-02-08] MEDS: BISACODYL EC 5 MG TABEC PO PRN (23:57)
[2017-02-09 05:51] VITALS: BP 137/59; PULSE 87; RESP 18; TEMP 98.3; O2SAT 98
[2017-02-09] MEDS: DIVALPROEX SODIUM E.R. 500 MG TAB PO SCH (08:49)
[2017-02-09] MEDS: BENZTROPINE MESYLATE 2 MG TAB PO SCH ×2 (08:50→20:13)
[2017-02-09] MEDS: NICOTINE 21 MG/24 HR PATCH T-DERMAL SCH (08:50)
[2017-02-09] MEDS: levOCARNitine 10% ORAL SOLN 118 ML BTL PO SCH ×3 (08:52→17:52)
[2017-02-09] MEDS: REMOVE OLD PATCH T-DERMAL SCH (08:55)
--- NOTE | 2017-02-09 12:11 | HHI.PYPN ---
Subjective Chief Complaint: Psychosis Remarks Patient seen and examined with nurse. Chart reviewed. Case discussed with nursing staff. No behavioral disturbance but patient remains grandiose. On my examination today, patient does indeed remain a little grandiose. As before, I suspect the risk of nonadherence from titration of medications to an intolerably high dose outweighs the benefits to be accrued from such a titration. He is in good spirits today. We focus today on psychoeducation regarding his planned discharge medication regimen, with particular focus today on his antipsychotics. We discuss the frequency of his Sustenna injections and the side effects of this medication as well as of the Thorazine. We discuss the purpose of Cogentin for counteracting EPS from antipsychotics. No SI/HI. No side effects from medications. No physical complaints. Review of Systems Except as stated in HPI: all other systems reviewed are Neg Mental Status Examination Appearance: Appropriate Consciousness: Alert Orientation: x4 Motor Activity: Other (no abnormal motor movements noted) Speech: Unremarkable Language: Adequate Fund of Knowledge: Adequate Attention and Concentration: Adequate Memory: Unremarkable Mood: Appropriate, Good Affect: Appropriate, Euthymic Thought Process & Associations: Linear Thought Content: Appropriate Hallucination Type: None Delusion Type: Other (ongoing mild grandiosity) Suicidal Ideation: No Suicidal Plan: No Suicidal Intention: No Homicidal Ideation: No Homicidal Plan: No Homicidal Intention: No Insight: Poor Judgment: Poor Results Labs Labs reviewed. No new labs. Vitals/IOs Vital Signs Date Time Temp Pulse Resp B/P (MAP) Pulse Ox O2 Delivery O2 Flow Rate FiO2 02/09/17 05:51 98.3 87 18 137/59 (85) 98 Assessment & Plan Problem List: (1) Schizoaffective disorder, bipolar type ICD Codes: F25.0 - Schizoaffective disorder, bipolar type Assessment & Plan Continue current psychotropic medications as ordered. Continue to monitor on the inpatient unit. Continue other medications and care as ordered. Justification for Cont. Inpt. High risk for decompensation in less restrictive environment. Discharge Planning Anticipate transfer to assisted living facility on Tuesday. Request HC Surrog/Guard Advoc?: Yes Leonel Crowley MD Feb 09, 2017 12:11
[2017-02-09] MEDS: BISACODYL EC 5 MG TABEC PO PRN (12:38)
[2017-02-09 17:25] VITALS: BP 125/74; PULSE 94; RESP 18; TEMP 98; O2SAT 99
[2017-02-09] MEDS: ACETAMINOPHEN 325 MG TAB PO PRN (18:44)
[2017-02-09] MEDS: LORazepam 1 MG TAB PO PRN (22:28)
[2017-02-10 05:42] VITALS: BP 127/79; PULSE 99; RESP 16; TEMP 97.4; O2SAT 100
[2017-02-10] MEDS: NICOTINE 21 MG/24 HR PATCH T-DERMAL SCH (08:03)
[2017-02-10] MEDS: BENZTROPINE MESYLATE 2 MG TAB PO SCH ×2 (08:03→20:47)
[2017-02-10] MEDS: DIVALPROEX SODIUM E.R. 500 MG TAB PO SCH (08:03)
[2017-02-10] MEDS: REMOVE OLD PATCH T-DERMAL SCH (09:49)
[2017-02-10] MEDS: levOCARNitine 10% ORAL SOLN 118 ML BTL PO SCH ×3 (09:49→16:42)
[2017-02-10] MEDS: LORazepam 1 MG TAB PO PRN (09:50)
--- NOTE | 2017-02-10 11:27 | HHI.PYPN ---
Subjective Chief Complaint: Psychosis Remarks Patient seen and examined with nurse. Chart reviewed. Case discussed with nursing staff. No behavioral issues noted on the unit. Case discussed with counselor who had alerted me yesterday that the patient was asking him about signing out of [facility]. I discuss this with the patient today, and he tells me he was simply asking how he could be [place] [facility] [place] , as he does not wish to make [place] his long-term home. I have encouraged him to give assisted living facility a chance, and the patient is agreeable to this. No grandiose material verbalized today. Denies side effects from medications. No physical complaints. Review of Systems Except as stated in HPI: all other systems reviewed are Neg Mental Status Examination Appearance: Appropriate Consciousness: Alert Orientation: x4 Motor Activity: Other (no motor abnormalities appreciated) Speech: Unremarkable Language: Adequate Fund of Knowledge: Adequate Attention and Concentration: Adequate Memory: Unremarkable Mood: Appropriate Affect: Appropriate Thought Process & Associations: Linear Thought Content: Appropriate Hallucination Type: None Delusion Type: None Suicidal Ideation: No Suicidal Plan: No Suicidal Intention: No Homicidal Ideation: No Homicidal Plan: No Homicidal Intention: No Insight: Poor Judgment: Poor Results Labs labs reviewed. No new labs. Vitals/IOs Vital Signs Date Time Temp Pulse Resp B/P (MAP) Pulse Ox O2 Delivery O2 Flow Rate FiO2 02/10/17 05:42 97.4 99 16 127/79 (95) 100 Assessment & Plan Problem List: (1) Schizoaffective disorder, bipolar type ICD Codes: F25.0 - Schizoaffective disorder, bipolar type Assessment & Plan Continue current psychotropics as ordered. Continue to monitor on the inpatient unit. Continue other medications and care as ordered. Justification for Cont. Inpt. Final discharge planning Discharge Planning Anticipate discharge to [facility] tomorrow, Tuesday. Request HC Surrog/Guard Advoc?: Yes Leonel Crowley MD Feb 10, 2017 11:27
[2017-02-10 16:52] VITALS: BP 141/72; PULSE 95; RESP 18; TEMP 97.9; O2SAT 98
[2017-02-11 05:54] VITALS: BP 144/80; PULSE 111; RESP 18; TEMP 97.4; O2SAT 100
[2017-02-11 08:31] VITALS: BP 132/75; PULSE 108; RESP 18; TEMP 97.8; O2SAT 98
[2017-02-11] MEDS: levOCARNitine 10% ORAL SOLN 118 ML BTL PO SCH ×3 (09:00→18:00)
[2017-02-11] MEDS: REMOVE OLD PATCH T-DERMAL SCH (09:00)
[2017-02-11] MEDS: DIVALPROEX SODIUM E.R. 500 MG TAB PO SCH (09:12)
[2017-02-11] MEDS: BENZTROPINE MESYLATE 2 MG TAB PO SCH ×2 (09:12→20:56)
[2017-02-11] MEDS: NICOTINE 21 MG/24 HR PATCH T-DERMAL SCH (09:13)
[2017-02-11] MEDS: BISACODYL EC 5 MG TABEC PO PRN (09:13)
--- NOTE | 2017-02-11 10:31 | HHI.PYPN ---
Subjective Chief Complaint: Psychosis Remarks Patient seen and examined with counselor. Chart reviewed. Case discussed with nurse and in treatment team. Counselor informs me that regrettably the assisted living facility has informed us at the last minute that they will not be able to accept the patient today because the resident that they were planning to evict in order to make the patient will be remaining at [facility]. Unclear when patient will be able to be transferred to assisted living facility. We have shared this information with the patient, and he has received it with equanimity. No delusional material today. No side effects from meds. No physical complaints. Patient is hopeful that new [facility] placement can be found soon. Review of Systems Except as stated in HPI: all other systems reviewed are Neg Mental Status Examination Appearance: Appropriate Consciousness: Alert Orientation: x4 Motor Activity: Other (No abnormal motor movements noted) Speech: Unremarkable Language: Adequate Fund of Knowledge: Adequate Attention and Concentration: Adequate Memory: Unremarkable Mood: Appropriate Affect: Blunt Thought Process & Associations: Linear Thought Content: Appropriate Hallucination Type: None Delusion Type: None Suicidal Ideation: No Suicidal Plan: No Suicidal Intention: No Homicidal Ideation: No Homicidal Plan: No Homicidal Intention: No Insight: Poor Judgment: Poor Results Labs Labs reviewed. No new labs. Vitals/IOs Vital Signs Date Time Temp Pulse Resp B/P (MAP) Pulse Ox O2 Delivery O2 Flow Rate FiO2 02/11/17 08:31 97.8 108 18 132/75 (94) 98 Assessment & Plan Problem List: (1) Schizoaffective disorder, bipolar type ICD Codes: F25.0 - Schizoaffective disorder, bipolar type Assessment & Plan Continue current psychotropic medications as ordered. Continue other medications and care as ordered. Continue to monitor on the inpatient psychiatric unit. Justification for Cont. Inpt. High risk for decompensation in less restrictive environment. Discharge Planning Counselor to continue to work on assisted living placement. Request HC Surrog/Guard Advoc?: Yes Leonel Crowley MD Feb 11, 2017 10:31
[2017-02-11] MEDS: ACETAMINOPHEN 325 MG TAB PO PRN (11:28)
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
[2017-02-11] MEDS: LORazepam 1 MG TAB PO PRN (15:10)
[2017-02-11 18:13] VITALS: BP 143/59; PULSE 99; RESP 18; TEMP 98.6; O2SAT 100
[2017-02-12 05:54] VITALS: BP 136/61; PULSE 91; RESP 16; TEMP 97.3; O2SAT 100
[2017-02-12] MEDS: levOCARNitine 10% ORAL SOLN 118 ML BTL PO SCH ×3 (08:05→18:43)
[2017-02-12] MEDS: BENZTROPINE MESYLATE 2 MG TAB PO SCH ×2 (08:05→20:19)
[2017-02-12] MEDS: DIVALPROEX SODIUM E.R. 500 MG TAB PO SCH (08:05)
[2017-02-12] MEDS: REMOVE OLD PATCH T-DERMAL SCH (09:00)
[2017-02-12] MEDS: NICOTINE 21 MG/24 HR PATCH T-DERMAL SCH (09:00)
--- NOTE | 2017-02-12 18:01 | HHI.PYPN ---
Subjective Chief Complaint: Psychosis Remarks Patient was seen and case discussed with nursing. Today patient is quite perseverative on discharge and asked me for to 5 times during the interview and while was rounding with other patients. He appears less elevated compared to her last meeting and does not mention any grandiose ideas or plans. His compliant with his medications and tolerating it well. Social with others and behaving well on the unit Mental Status Examination Appearance: Appropriate Consciousness: Alert Orientation: x4 Motor Activity: Other (No abnormal motor movements noted) Speech: Unremarkable Language: Adequate Fund of Knowledge: Adequate Attention and Concentration: Adequate Memory: Unremarkable Mood: Appropriate Affect: Blunt Thought Process & Associations: Linear Thought Content: Appropriate Hallucination Type: None Delusion Type: None Suicidal Ideation: No Suicidal Plan: No Suicidal Intention: No Homicidal Ideation: No Homicidal Plan: No Homicidal Intention: No Insight: Poor Judgment: Poor Results Vitals/IOs Vital Signs Date Time Temp Pulse Resp B/P (MAP) Pulse Ox O2 Delivery O2 Flow Rate FiO2 02/12/17 05:54 97.3 91 16 136/61 (86) 100 Assessment & Plan Problem List: (1) Schizoaffective disorder, bipolar type ICD Codes: F25.0 - Schizoaffective disorder, bipolar type Assessment & Plan Continue current treatment plan Justification for Cont. Inpt. Patient would decompensate in a less restrictive setting Request HC Surrog/Guard Advoc?: Yes Mitchell Portillo DO Feb 12, 2017 18:01
[2017-02-12 18:04] VITALS: BP 143/79; PULSE 107; RESP 16; TEMP 99.6; O2SAT 98
[2017-02-12] MEDS: diphenhydrAMINE HCL 50 MG CAP PO PRN (20:53)
[2017-02-13 06:06] VITALS: BP 136/76; PULSE 84; RESP 18; TEMP 98; O2SAT 100
[2017-02-13] MEDS: levOCARNitine 10% ORAL SOLN 118 ML BTL PO SCH ×3 (08:52→18:00)
[2017-02-13] MEDS: BENZTROPINE MESYLATE 2 MG TAB PO SCH ×2 (08:53→20:12)
[2017-02-13] MEDS: NICOTINE 21 MG/24 HR PATCH T-DERMAL SCH (08:53)
[2017-02-13] MEDS: DIVALPROEX SODIUM E.R. 500 MG TAB PO SCH (08:53)
[2017-02-13] MEDS: REMOVE OLD PATCH T-DERMAL SCH (09:00)
[2017-02-13] MEDS: LORazepam 1 MG TAB PO PRN ×2 (14:58→21:30)
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
[2017-02-13 17:31] VITALS: BP 135/74; PULSE 108; RESP 17; TEMP 97.6; O2SAT 99
[2017-02-13] MEDS: ACETAMINOPHEN 325 MG TAB PO PRN (22:23)
[2017-02-14 05:46] VITALS: BP 116/57; PULSE 83; RESP 18; TEMP 98.3; O2SAT 100
[2017-02-14] MEDS: REMOVE OLD PATCH T-DERMAL SCH (09:00)
[2017-02-14] MEDS: levOCARNitine 10% ORAL SOLN 118 ML BTL PO SCH ×3 (09:00→17:50)
[2017-02-14] MEDS: NICOTINE 21 MG/24 HR PATCH T-DERMAL SCH (09:19)
[2017-02-14] MEDS: DIVALPROEX SODIUM E.R. 500 MG TAB PO SCH (09:20)
[2017-02-14] MEDS: BENZTROPINE MESYLATE 2 MG TAB PO SCH ×2 (09:20→20:45)
[2017-02-14] MEDS: BISACODYL EC 5 MG TABEC PO PRN (09:20)
--- NOTE | 2017-02-14 09:56 | HHI.PYPN ---
Subjective Chief Complaint: Psychosis Remarks Patient seen and examined with nurse. Chart reviewed. Case discussed with nursing staff. Case discussed with counselor. On my examination today, the patient expresses disappointment that he was not able to transition to assisted living facility on Tuesday as planned. He is focused on trying to find some alternative disposition plan, such as home with family, although we have explored this option in the past without success. No active psychotic symptoms noted. No SI or HI. Feels a little bit overmedicated, and we discussed tapering his Thorazine to resolve this issue, although I did caution that this may result in worsening of psychotic symptoms. No side effects from medications otherwise. No physical complaints. Review of Systems Except as stated in HPI: all other systems reviewed are Neg Mental Status Examination Appearance: Appropriate Consciousness: Alert Orientation: x4 Motor Activity: Other (no motoric abnormalities appreciated) Speech: Unremarkable Language: Adequate Fund of Knowledge: Adequate Attention and Concentration: Adequate Memory: Unremarkable Mood: Appropriate Affect: Blunt Thought Process & Associations: Linear Thought Content: Appropriate Hallucination Type: None Delusion Type: None Suicidal Ideation: No Suicidal Plan: No Suicidal Intention: No Homicidal Ideation: No Homicidal Plan: No Homicidal Intention: No Insight: Poor Judgment: Poor Results Labs Labs reviewed. No new labs. Vitals/IOs Vital Signs Date Time Temp Pulse Resp B/P (MAP) Pulse Ox O2 Delivery O2 Flow Rate FiO2 02/14/17 05:46 98.3 83 18 116/57 (76) 100 Assessment & Plan Problem List: (1) Schizoaffective disorder, bipolar type ICD Codes: F25.0 - Schizoaffective disorder, bipolar type Assessment & Plan Taper nighttime dose of Thorazine to 400 mg at bedtime. Continue other psychotropics as ordered. Continue to monitor on the inpatient unit. Continue other medications and care as ordered. Justification for Cont. Inpt. Risk for decompensation in less restrictive environment. Discharge Planning Case discussed with counselor. Counselor is exploring other placement options. Request HC Surrog/Guard Advoc?: Yes Leonel Crowley MD Feb 14, 2017 09:56
[2017-02-14 15:04] VITALS: BP 128/80; PULSE 99; RESP 18; TEMP 98.7; O2SAT 100
[2017-02-14] MEDS: DOCUSATE SODIUM 100 MG CAP PO SCH (20:45)
[2017-02-15 06:19] VITALS: BP 133/66; PULSE 94; RESP 18; TEMP 97.3; O2SAT 98
[2017-02-15] MEDS: DOCUSATE SODIUM 100 MG CAP PO SCH ×2 (08:27→20:30)
[2017-02-15] MEDS: LORazepam 1 MG TAB PO PRN (08:27)
[2017-02-15] MEDS: DIVALPROEX SODIUM E.R. 500 MG TAB PO SCH (08:27)
[2017-02-15] MEDS: NICOTINE 21 MG/24 HR PATCH T-DERMAL SCH (08:28)
[2017-02-15] MEDS: REMOVE OLD PATCH T-DERMAL SCH (08:28)
[2017-02-15] MEDS: BENZTROPINE MESYLATE 2 MG TAB PO SCH ×2 (08:28→20:40)
[2017-02-15] MEDS: levOCARNitine 10% ORAL SOLN 118 ML BTL PO SCH ×3 (08:28→18:00)
--- NOTE | 2017-02-15 11:51 | HHI.PYPN ---
Subjective Chief Complaint: Psychosis Remarks Patient seen and examined with nurse. Chart reviewed. Case discussed in treatment team. Case discussed with nursing staff. On my exam, patient is in retrospect more alert since decreasing Thorazine at HS. He also, however, exhibits more grandiosity. 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 He also tells me he has written 16 books and has a display at [employer]. He remains calm and in good behavioral control. Denies side effects from medications. Declines further taper of Thorazine, and given his symptoms today I think further taper is unwise in any event. No physical complaints. Review of Systems ROS Limitations: Psychotic Except as stated in HPI: all other systems reviewed are Neg Mental Status Examination Appearance: Appropriate Consciousness: Alert Orientation: x4 Motor Activity: Other (no motoric abnormalities appreciated) Speech: Unremarkable Language: Adequate Fund of Knowledge: Adequate Attention and Concentration: Adequate Memory: Unremarkable Mood: Appropriate Affect: Appropriate Thought Process & Associations: Linear Thought Content: Appropriate Hallucination Type: None Delusion Type: Other (grandiose) Suicidal Ideation: No Suicidal Plan: No Suicidal Intention: No Homicidal Ideation: No Homicidal Plan: No Homicidal Intention: No Insight: Poor Judgment: Poor Results Labs Labs reviewed. No new labs. Vitals/IOs Vital Signs Date Time Temp Pulse Resp B/P (MAP) Pulse Ox O2 Delivery O2 Flow Rate FiO2 02/15/17 06:19 97.3 94 18 133/66 (88) 98 Assessment & Plan Problem List: (1) Schizoaffective disorder, bipolar type ICD Codes: F25.0 - Schizoaffective disorder, bipolar type Assessment & Plan Continue current psychiatric medications as ordered. To consider gently re- titrating patient's Thorazine, perhaps to 450mg at HS, if grandiosity persists. Continue to monitor on the inpatient unit. Continue other medications and care as ordered. Justification for Cont. Inpt. Impairment in reality construction. Risk for decompensation in less restrictive environment. [facility] Case d/w counselor. Request HC Surrog/Guard Advoc?: Yes Leonel Crowley MD Feb 15, 2017 11:51
--- NOTE | 2017-02-15 14:57 | PD.TTN ---
Patient Problems 1. Discharge planning 2. Medication compliance 3. Knowledge deficit 4. Lack of coping skills Progress Toward Goals Provider Present: Dr. Rocio Crowley Provider Input: 01-11-17 - Dr. Crowley reported the patient remains grandiose and has a criminal history of drug trafficking in this area, therefore placement will be difficult. Dr. Crowley treatment team met to discuss patient's treatment plan, discharge and medication. Patient is medication compliant. Will titrate medication. Patient presents grandiose. Patient will remain for stablization 01/07- Pt has been referred to [facility] and his medication regiment is being adjusted including Zyprexa and Invega Sustenna. 01/14- Pt continues to appear psychotic, paranoid and will be considered for placement v. [facility]. Medication regiment will continue to be evaluated. 01/18- Pt continues to meet criteria as he remains delusional and grandiose. He has been referred to [facility]. 01/28- No medication changes have been made recently and he remains on the wait list for [facility]. 02/01- Pt medication regiment will continue to be evaluated and he will be referred to [facility] placement to see if this is possible. He remains on the [facility] wait list. 02/04- Pt Thorazine has been moved to bedtime. He presents with poor sleep and remains grandiose. 02/11- Pt medication regiment will continue to be evaluated and adjusted as necessary. 02/15- Pt medication regiment continues to be evaluated including taper of Thorazine. Nurse(s) Input: Patient's nurse Uma states patient is grandiose, intrusive, hperverbal, compliant with medication, delusional, laughs inappropriately, manic features. 01/07- Virginia Casarez RN Pt remains angry, threatening, delusional, grandiose, paranoid of his family and with poor insight. 01/18- Shannan Moore RN Pt appears grandiose, delusional, disruptive and requiring additional medication to help manage his behaviors. 01/28- Gin Kelly RN Pt appears compliant with medication regiment, delusional, no behavioral issues and is not aggressive today. 02/01- Virginia Casarez RN Pt remains inappropriate at times, delusional, grandiose, labile and medication compliant. 02/04- Virginia Casarez RN Pt appears euthymic, discharge focused, delusional, grandiose and appropriate. 02/11- Uma Andino RN Pt has been no behavioral issue, medication compliant, delusional and grandiose. 02/15- Yannick Edward RN Pt has been no behavioral issue, medication compliant, less sedated and visible on unit. Psychiatric Counselors Present: Ko Marshall, [facility], Ludivina Mann, [facility] , Sondra Miguel, [facility] Psych Therapist Input: Patient remains disorganized and grandiose. Patient presented calm, tired, denied suicidal and homicidal ideation. Patient stated he was hungry so was given some crackers and peanut butter. Patient stated he has been attending groups, sleeping well, taking his medication. At time of assessment patient presented appropriately and affect was also appropriate. 01/07- Pt continues to appear agitated, uncooperative, threatening, paranoid, delusional, grandiose, impulsive and guarded. He presents with limited insight into condition and need for care. Pt is resistant to idea of therapeutic suggestion demanding that he decides where he should go after discharge. Pt appears threatening to psychiatrist and in poor behavioral control. Pt has been compliant with medication regiment. He presents with limited coping and emotional regulation skills as evidenced by behavioral outbursts. 01/14- Pt continues to appear labile, easily agitated, delusional, paranoid, grandiose and uncooperative. Pt has been taking his medication regiment but has been noncompliant with idea of placement. He appears impulsive and wants instant gratification. Pt presents with limited coping and emotional regulation skills at this time. 01/18- Pt continues to appear labile, delusional, grandiose, demanding and discharge focused. Pt continues to present with limited insight into condition and need for care. He is compliant with his medication regiment though it is unknown if he would remain compliant due to history of noncompliance in lesser level of care. He appears to struggle with coping and emotional regulation skills as suggested by his behavioral presentation at times. 01/28- Pt remains delusional, grandiose, easily agitated, cooperative and medication compliant. He struggles to implement coping and emotional regulation skills. Insight remains poor into condition and need for care. He likely minimizes his symptoms in an attempt to obtain discharge. He remains refusing [facility] placement and cannot go with his family. 02/01- Pt remains labile, delusional, grandiose, cooperative and visible on unit. He remains with poor insight into condition and need for care. He has become more cooperative with idea of [facility] placement. He struggles with coping and emotional regulation skills as he is still easily agitated on unit. Pt is compliant with medication regiment. 02/04- Pt remains grandiose, delusional and with poor insight into condition and need for care. He has shown improvement in mood lability over the past few days and has not had any angry outbursts within past few days. Coping skills appear limited at this time and pt remains somewhat impulsive. He is looking forward to his [facility] and asks relevent questions related to this transition. He is compliant with medication regiment. 02/11- Pt appears calmer, cooperative, appropriate, organized, delusional and grandiose. Pt continues to show progress on unit and remains medication compliant. He presents with improving insight into condition and need for care. Pt will be referred to another [facility] as [facility] did not end up having a bed available for him at this time. 02/15- Pt continues to show progress on unit. He has expressed less delusional content though it is likely still present. Pt has been managing his emotions and behaviors well on the unit. Remains active on unit and with some implementation of coping skills. Pt continues to present with limited insight into coping and emotional regulation skills. Pt is cooperative with idea of placement at an [facility]. Group Spec/RT/OT/VAZQUEZ Present: CONRADO Sharma, Vic Chin, OT, GEORGE Kang Group Spec/RT/OT/VAZQUEZ Input: 01-11-17 - Patient is not as threatening, but remains intrusive. He attends and participates in scheduled group activities. Patient attends groups, is appropriate, Hyperverbal, grandiose 01/07- GEORGE Kang Pt attends most groups and appears grandiose/disruptive. 01/14- GEORGE Kang Pt attends groups but is disruptive and easily agitated. 01/18- CONRADO Sharma Pt attends groups, is appropriate and has not been disruptive for this specific individual. 01/28- GEORGE Kang Pt often attends group and participates actively. 02/01- GEORGE Arana Pt attends most groups and is labile yet redirectable. 02/04- GEORGE Arana Pt participates in most groups and has been appropriate. 02/11- GEORGE Arana Pt attends groups and participates actively. 02/15- GEORGE Kang Pt has been making some improvements including decrease in grandiosity. Pt attends groups. Discharge Plan Other PT has been accepted to [facility] on 02/11 and will be admitted there unless he decompensates further and then he will remain on [facility] wait list. Documentation Scribe: ELGIN Parker, Sondra Miguel [facility] Date Resolved: Jan 11, 2017 Ko Marshall Feb 15, 2017 14:57
[2017-02-15 18:02] VITALS: BP 140/83; PULSE 102; RESP 18; TEMP 98.8; O2SAT 99
[2017-02-16 05:51] VITALS: BP 136/86; PULSE 89; RESP 18; TEMP 97.4; O2SAT 98
[2017-02-16] MEDS: DOCUSATE SODIUM 100 MG CAP PO SCH (08:55)
[2017-02-16] MEDS: levOCARNitine 10% ORAL SOLN 118 ML BTL PO SCH ×2 (08:55→12:36)
[2017-02-16] MEDS: BENZTROPINE MESYLATE 2 MG TAB PO SCH (08:55)
[2017-02-16] MEDS: DIVALPROEX SODIUM E.R. 500 MG TAB PO SCH (08:56)
[2017-02-16] MEDS: REMOVE OLD PATCH T-DERMAL SCH (08:57)
[2017-02-16] MEDS: NICOTINE 21 MG/24 HR PATCH T-DERMAL SCH (08:58)
[2017-02-16] MEDS ORDERED: LORazepam 0.5 MG TAB PO PRN (10:00)
[2017-02-16] MEDS ORDERED: DOCU1CAP39 PO (12:02)
[2017-02-16] MEDS ORDERED: Chlorpromazine PO (12:02)
[2017-02-16] MEDS ORDERED: chlorproMAZINE PO (12:02)
[2017-02-16] MEDS ORDERED: DEPA500T3 PO (12:02)
[2017-02-16] MEDS ORDERED: LEVO10%S PO (12:02)
[2017-02-16] MEDS ORDERED: Benztropine PO (12:02)
[2017-02-16] MEDS ORDERED: PALI156P IM (12:02)
--- NOTE | 2017-02-16 12:02 | HHI.DS ---
Psychiatry Discharge Summary Inpatient Psychiatric care?: Yes Advance Directive: No Mental Health AdvanceDirective: No Health Care Proxy: No Admission Admission Date Dec 31, 2016 at 15:51 Admission Diagnosis: (1) Schizoaffective disorder, bipolar type ICD Code: F25.0 - Schizoaffective disorder, bipolar type Brief History Mr. Talley is a 31-year-old -[place] male with a history of psychotic illness who presents voluntarily to the emergency department. He reported to the emergency department provider that he had been taking medications prescribed to him during his recent discharge from the inpatient unit and consequently had overdosed on these medications. The emergency department provider documented that he had taken nearly the totality of a bottle of hydroxyzine that he had been prescribed just a day before. Emergency department provider also documents that the patient endorsed feeling very depressed. Reviewing the electronic medical record, I note that the patient was seen in consultation yesterday by Dr. Owens. He also was discharged on the by Dr. Abarca from the inpatient psychiatric unit. He was placed under a [facility] by the ED provider. The patient seen and examined. Chart reviewed. Case discussed with nursing staff. On my examination today, the patient presents with a silly affect. He seems fairly disorganized. He is perseverative on being hungry and says repeatedly that he wants to be discharged because he has a [employer] gift card that he wants to spend. He says that he wants snacks and asks several times if I have ever tried bananas and Ramen noodles together. I discussed with the patient the circumstances of his presenting overdose. He says he tells me that he was feeling anxious and so took the hydroxyzine. He did not realize that there were time limits on the hydroxyzine (i.e. q6h PRN) and so he kept taking them until he no longer felt anxious. He denies that this was a suicidal overdose. Today he says that his mood is stabilized, although affect is quite silly as I said. Speech is somewhat pressured and rambling. There is some loosening of associations when he is not perseverative on obtaining food. He endorses audiovisual hallucinations "sometimes" he denies suicidal or homicidal ideation saying "I do not have suicidal thoughts or homicidal thoughts, I have hungry thoughts." He seems unreliable to contract for safety. Psychiatric interview is somewhat limited because of the patient's perseveration and degree of psychotic decompensation. He is fairly disheveled. He has no physical complaints. Tobacco Use In Past 30 Days: No Tobacco Past 30 Days Alcohol Use: Never Hospital Course Patient was admitted to a locked, inpatient psychiatric unit. A general medical consultation was obtained. Appropriate precautions were in place throughout patient's hospital stay. Patient was seen and examined on the unit by psychiatry and also visited by counselor. Psychotropic medications were adjusted. Side effects from psychotropic medications were minor and consisted chiefly of extrapyramidal symptoms from antipsychotics, which symptoms were managed with Cogentin. Patient's had some improvement in presenting psychiatric symptomatology during the course of his hospital stay. There was no evidence of any suicidality or homicidality on the inpatient unit. The patient's behavior did improve with the benefit of psychopharmacologic treatment. Discharge planning was undertaken with the assistance of the counselor, but no safe discharge other than to the psychiatric hospital could be arranged. On the day of discharge: Patient seen and examined with counselor. Chart reviewed. Case discussed with nursing staff and with counselor. On my examination today, patient presents with dysphoric affect. He is paranoid and accusatory. He does not appear to have intact reality testing at this time. He does not verbalize any SI or HI but seems unreliable to contract for safety in his present state. The patient will be transferred today to [facility] to await psychiatric hospital placement. Results Blood Pressure 136 / 86 Vital Signs Date Time Temp Pulse Resp B/P (MAP) Pulse Ox O2 Delivery O2 Flow Rate FiO2 02/16/17 05:51 97.4 89 18 136/86 (103) 98 Laboratory Results Test 01/04/17 12:58 01/11/17 08:53 Cholesterol Level 147 MG/DL (120-200) HDL Cholesterol 58.2 MG/DL (40.0-60.0) Hemoglobin A1c 4.1 % (4.3-6.0) LDL Cholesterol 55 MG/DL (0-99) Triglycerides Level 167 MG/DL (42-150) Valproic Acid (Depakene) Level 71 MCG/ML (50-100) Summary of Procedures None done Imaging Last Impressions Chest X-Ray 12/30/16 [id number] Signed Impressions: Service Date/Time: December 23:34 - CONCLUSION: No acute disease. Damian Loredo MD Pending results at discharge: No Medications # of Antipsychotic meds at D/C: 2 Appropriate >1 Antipsych meds?: 4 Approp Antipsych med options 1 - Minimum of three failed multiple trials of monotherapy. 2 - Documented plan to taper to monotherapy due to previous use of multiple meds OR cross-taper in progress at D/C. 3 - Documentation of augmentation of Clozapine. 4 - Justification other than those listed in allowable values 1-3, document here : Required multiple antipsychotics for management of psychiatric condition. Discharge Discharge Date: Feb 16, 2017 Discharge Diagnosis: (1) Schizoaffective disorder, bipolar type Diagnosis: Principal ICD Code: F25.0 - Schizoaffective disorder, bipolar type Pt Condition on Discharge: Guarded (Transfer to [facility]) Discharge Disposition: Disch to Another Hospital (To [facility]) Discharge Instructions Diet Instructions: As Tolerated, No Restrictions Activities you can perform: Weight Bearing as Frannie Scheduled Appointment: Transfer to [facility] New Orders: BASIC METABOLIC PROF - 1 Week CBC WITH DIFF - 1 Week New Medications: Paliperidone Palmitate Inj (Invega Sustenna Inj) 156 Mg/Ml Inj 156 MG IM Q28D for Mental Health, #1 VIAL 0 Refills This dose of Invega Sustenna is due on 02/19/2017. Divalproex ER (Depakote ER) 500 Mg Eugene 1500 MG PO DAILY for Mental Health for 15 Days, #45 TAB 1 Refill Docusate Sodium (Dok) 100 Mg Cap 100 MG PO BID for Prevent Constipation for 15 Days, #30 CAP 1 Refill Levocarnitine Liq (Carnitor Liq) 1 Gm/10 Ml Soln 6 ML PO TID for Hyperammonemia for 15 Days, ML 1 Refill [Benztropine] () 2 MG TAB 2 MG PO BID for Side effect management for 15 Days, 1 Refill [Chlorpromazine] () 100 MG TAB 400 MG PO HS for Mental Health for 15 Days, TAB 1 Refill [chlorproMAZINE] () 50 MG TAB 100 MG PO DAILY for Mental Health for 15 Days, 1 Refill Discontinued Medications: Divalproex ER (Divalproex ER) 250 Mg Eugene 250 MG PO HS for Control Seizures, #30 TAB 0 Refills Divalproex ER (Divalproex ER) 500 Mg Tab 1000 MG PO DAILY for Control Seizures, #60 TAB 0 Refills Hydroxyzine HCl (Hydroxyzine HCl) 50 Mg Tab 50 MG PO Q6H PRN for ANXIETY for 10 Days, #30 TAB 1 Refill Paliperidone Palmitate Inj (Invega Sustenna Inj) 156 Mg/Ml Inj 156 MG IM Q28D for Mental Health, #1 VIAL 0 Refills This dose of Invega Sustenna is due on 12/29/2016. Paliperidone Palmitate Inj (Invega Sustenna Inj) 156 Mg/Ml Inj 156 MG IM Q28D for health for 30 Days, #1 INJECTION Next dose due to 01/22/17 Risperidone (Risperdal) 1 Mg Tab 1 MG PO DAILY, #30 TAB 0 Refills Risperidone (Risperdal) 1 Mg Tab 1 MG PO BID for health for 30 Days, #60 TAB Discharge Time <= 30 minutes Mental Status Examination Appearance: Appropriate Consciousness: Alert Orientation: x4 Motor Activity: Other (no abnormal motor movements noted) Speech: Unremarkable Language: Adequate Fund of Knowledge: Adequate Attention and Concentration: Adequate Memory: Unremarkable Mood: Other (dysphoric) Affect: Other (restricted) Thought Process & Associations: Linear Thought Content: Delusional Hallucination Type: None Delusion Type: Paranoid Suicidal Ideation: No Homicidal Ideation: No Insight: Poor Judgment: Poor Discharge/Advance Care Plan Health Problems: (1) Schizoaffective disorder, bipolar type Goals to promote your health * To prevent worsening of your condition and complications * To maintain your health at the optimal level Directions to meet your goals Take your medications as prescribed Follow your dietary instruction Follow activity as directed Keep your appointments as scheduled Take your immunizations and boosters as scheduled If your symptoms worsen call your PCP, if no PCP go to Urgent Care Center or Emergency Room For 30/08 questions related to your inpatient stay or results of tests pending at discharge, please contact Dr. Leonel Crowley at Smoking is Dangerous to Your Health. Avoid second hand smoking Leonel Crowley MD Feb 16, 2017 12:02
[2017-02-16] MEDS: ACETAMINOPHEN 325 MG TAB PO PRN (12:38)
== END 2017-02-16 13:00 | disposition short-term general hospital (02) | DRG 885 ==
LOC: NEPC 22:05 → NEDA 12-31 15:51 → H270 12-31 19:53 → H260 01-03 16:33 → H270 01-06 14:56 → H260 01-14 16:03 → H270 01-17 15:15
PROVIDERS: ADMIT Psychiatry & Neurology Psychiatry; ATTEND Psychiatry & Neurology Psychiatry
DX: F25.0 Schizoaffective disorder, bipolar type (principal); Z59.0 Homelessness; I10 Essential (primary) hypertension; D64.9 Anemia, unspecified; T43.591A Poisoning by other antipsychotics and neuroleptics, accidental (unintentional), initial encounter; F41.9 Anxiety disorder, unspecified; F17.210 Nicotine dependence, cigarettes, uncomplicated; Z79.899 Other long term (current) drug therapy; R11.10 Vomiting, unspecified
CPT/HCPCS: 71010; 80053; 80061; 80076; 80164; 80307; 81001; 82140; 82550; 82552; 83036; 85025; 85610; 85730; 93005; 96360; 99283; J2426; J7030; Q0163